=== PATIENT | female | born 1965 | race Hispanic/Latino ===

== ENCOUNTER 2017-12-13 19:49 | Emergency (ER) | payer SELFPAY ==
[2017-12-13] MEDS ORDERED: FENTANYL CITR 100 MCG/2 ML ONE (20:59)
--- NOTE | 2017-12-13 21:33 | RAD REPORT ---
EXAM DESCRIPTION: CT - Head C Spine Cap Wo Con - 12/13/2017 9:18 pm CLINICAL HISTORY: Trip and fall, head, neck, chest and abdomen pain COMPARISON: None. TECHNIQUE: Axial [address] head images were obtained. Axial [address] cervical spine images were obtain ed with sagittal and coronal reconstruction images reviewed. Axial 5 mm images of the chest, abdomen and pelvis were obtained. All CT scans are performed using dose optimization technique as appropriate and may include automated exposure control or mA/KV adjustment according to patient size. FINDINGS: No intracranial hemorrhage, mass or edema. No midline shift or abnormal fluid collection. Mastoid air cells and paranasal sinuses are clear. No skull fracture. Ventricles are normal. No sign ificant atrophy or chronic ischemic change. Cervical bodies are normal in height and alignment. No fracture or acute bone finding.C5-6 and C6-7 d isc space narrowing present.No prevertebral soft tissue thickening or paraspinal mass.Central canal d etail is inherently limited on CT imaging. CT chest shows no pneumothorax, pulmonary contusion or pleural fluid collection. No mediastinal hem atoma and the aorta and pulmonary arteries are unremarkable. No chest will mass or abnormal axillary finding. No displaced rib fracture or other significant bony finding. CT abdomen and pelvis show no injury to solid abdominal viscera. Gallbladder and biliary tree are unr emarkable. No bowel injury or significant finding. No free air, free fluid or abnormal stranding. No hernia, mass or bulky lymphadenopathy. No urinary bladder abnormality. Degenerative changes are present throughout the skeleton. No pathologic bone process. IMPRESSION: No significant CT Head finding. Cervical spine degenerative change with no acute finding. No pneumothorax or pulmonary contusion. No displaced rib fracture present and no nondisplaced rib fra ctures suspected. No significant CT Abdomen and Pelvis finding.
[2017-12-13] MEDS ORDERED: HYDROCODONE/APAP 5/325 MG TAB ONE (21:58)
--- NOTE | 2017-12-13 22:20 | ER ---
Nurse's Notes [facility] Name: Cary Gan Age: 51 yrs Sex: Female : 1965 Arrival Date: 12/13/2017 Time: 19:53 Bed 13 Private MD: Diagnosis: Fall on same level from slipping, tripping and stumbling;Upper abdominal pain, unspecified;chest wall pain Presentation: 12/13 20:10 Presenting complaint: Patient states: she was walking at approx 1600 today tripped and bb fell forward onto her abdomen denies LOC and denies hitting her head states pain wasn't that bad until she went to [facility] at 1900 and suddenly had sharp pain to left side under her rib cage. She states it feels like something is moving, pain is making her nauseous and making it hard to breath, she also has pain in right shoulder. Care prior to arrival: None. Mechanism of Injury: Fall from standing position. Trauma event details: Injury occurred in the [facility], Injury occurred: in a public building. Injury occurred: December 13, 2017 Injury occurred at: 16:00. 20:10 Acuity: SANTANA 3 bb 20:10 Method Of Arrival: Wheelchair bb 20:17 Transition of care: patient was not received from another setting of care. Onset of bb symptoms was December 13, 2017. Initial Sepsis Screen: Does the patient meet any 2 criteria? No. Patient's initial sepsis screen is negative. Does the patient have a suspected source of infection? No. Patient's initial sepsis screen is negative. 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 - Social history:: Smoking status: Patient/guardian denies using tobacco, Patient/guardian denies using alcohol, street drugs. Screenin:10 Abuse screen: Denies threats or abuse. Tuberculosis screening: No symptoms or risk bb factors identified. 20:49 Nutritional screening: No deficits noted. aj1 22:48 Fall Risk Fall in past 12 months (25 points). No secondary diagnosis (0 pts). No IV (0 bb pts). Ambulatory Aid- None/Bed Rest/Nurse Assist (0 pts). Mental Status- Oriented to own ability (0 pts). Total Alfonso Fall Scale indicates Low Risk Score (25-44 pts). Fall prevention measures have been instituted. Side Rails Up X 2 As available Patient and Family Educated on Fall Prevention Program and strategies. Primary Survey: 20:10 A: Airway: patent. Breathing/Chest: Respiratory pattern: regular, Respiratory effort: bb unlabored, Breath sounds: clear, bilaterally. Circulation: Heart tones present. Pulses: palpable right radial artery and left radial artery. Skin color: pink, Skin temperature: warm, dry. Disability Alert. Assessment: 20:10 General: Appears uncomfortable, Behavior is anxious, crying. Pain: Complains of pain in bb left side Pain currently is 8 out of 10 on a pain scale. Quality of pain is described as sharp, Pain began suddenly, Is continuous, Alleviated by positioning and not moving Aggravated by increased activity. Neuro: Level of Consciousness is awake, alert, obeys commands, Oriented to person, place, time, situation. 20:45 Reassessment: Patient states she would like to remain in wheelchair because it would aj1 hurt to get in the bed. 20:49 General: Appears uncomfortable, Behavior is anxious, crying, restless. Pain: Complains aj1 of pain in right lateral anterior chest Pain does not radiate. Pain currently is 10 out of 10 on a pain scale. Quality of pain is described as sharp, Pain began suddenly, Is continuous, Alleviated by rest, Aggravated by increased activity, repositioning. 20:49 Neuro: Level of Consciousness is awake, alert, obeys commands, Oriented to person, aj1 place, time, situation. Cardiovascular: Heart tones S1 S2 present Patient's skin is warm and dry. Respiratory: Airway is patent Respiratory effort is even, unlabored, Respiratory pattern is regular, symmetrical, Breath sounds are clear bilaterally. GI: No signs and/or symptoms were reported involving the gastrointestinal system. : No signs and/or symptoms were reported regarding the genitourinary system. EENT: No signs and/or symptoms were reported regarding the EENT system. Derm: No signs and/or symptoms reported regarding the dermatologic system. Skin is pink, warm \T\ dry. normal. Musculoskeletal: No signs and/or symptoms reported regarding the musculoskeletal system. Circulation, motion, and sensation intact. 20:49 Reassessment: Patient states that she would like to move to the bed because she is aj1 uncomfortable in the wheelchair, patient assisted to the bed and a position of comfort. 20:53 Reassessment: Patient given a warm blanket for comfort. aj1 21:00 Reassessment: Patient is screaming that she is uncomfortable. Patient assisted into a aj1 position that is more comfortable, states that her pain is diminished some by the change in position. 21:05 Reassessment: communications technologist at bedside to bring patient to CT, patient is unable to move to aj1 wheelchair due to pain. Notified Sb Ramirez NP. Order received. Patient given pain medication and taken to CT via stretcher. 21:30 Reassessment: Patient returned from CT, crying, restless, anxious. States that Fentanyl aj1 did not help her pain at all. Patient states that laying flat makes her pain worse. Patient assisted to a more comfortable position, appears calmer, no longer crying, states that position helps some but she is still hurting a lot. Notified Sb Ramirez NP of patient's continued complaint of pain. 22:45 Reassessment: pt appears to be sleeping, eyes closed, resp unlabored, no signs of bb distress noted states pain improved now 7/10, verbalized understanding of and agrees to plan of care discharge instructions given pt given incentive spirometer and instructed on use awaiting ride home family is on the way. Vital Signs: 20:10 BP 141 / 78; Pulse 75; Resp 18 S; Temp 98.2(O); Pulse Ox 98% on R/A; Weight 89.36 kg bb (R); Height 5 ft. 4 in. (162.56 cm) (R); Pain 8/10; 20:49 BP 125 / 59; Pulse 65; Resp 18; Pulse Ox 100% on R/A; aj1 21:49 BP 103 / 54; Pulse 58; Resp 20; Pulse Ox 95% on R/A; aj1 22:47 BP 115 / 52; Pulse 56; Resp 14 S; Pulse Ox 95% on R/A; Pain 7/10; bb 20:10 Body Mass Index 33.81 (89.36 kg, 162.56 cm) bb Joe Coma Score: 20:10 Eye Response: spontaneous(4). Verbal Response: oriented(5). Motor Response: obeys bb commands(6). Total: 15. Trauma Score (Adult): 20:10 Eye Response: spontaneous(1); Verbal Response: oriented(1); Motor Response: obeys bb commands(2); Systolic BP: > 89 mm Hg(4); Respiratory Rate: 10 to 29 per min(4); Joe Score: 15; Trauma Score: 12 ED Course: 19:53 Patient arrived in ED. am2 20:10 Patient maintains SpO2 saturation greater than 95% on room air. bb 20:13 Triage completed. bb 20:19 Arm band placed on left wrist. Patient placed in an exam room, on a stretcher, on pulse bb oximetry. 20:27 Gertrudis Ramirez FNP-C is PHCP. snw 20:27 Tommy Byrd MD is Attending Physician. snw 20:27 Mouna Angela, RN is Primary Nurse. aj1 20:49 No provider procedures requiring assistance completed. aj1 20:49 Patient has correct armband on for positive identification. Bed in low position. Call aj1 light in reach. Side rails up X 1. Pulse ox on. NIBP on. 20:[address] 2 21:15 CT completed. Pt tolerated procedure poorly. Patient moved back from CT. nj 21:17 CT Traumagram (Head C Spine CAP wo con) In Process Unspecified. EDMS 22:49 Patient did not have IV access during this emergency room visit. bb Administered Medications: 21:05 Drug: fentaNYL (PF) 25 mcg Route: IM; Site: left deltoid; aj1 22:05 Follow up: Response: No adverse reaction aj1 22:05 Drug: [place] 5 mg-325 mg 1 tabs Route: PO; aj1 22:45 Follow up: Response: No adverse reaction; Pain is decreased bb Intake: 20:10 PO: 0ml; Total: 0ml. bb Outcome: 22:19 Discharge ordered by MD. kyle 22:49 Condition: stable bb 22:49 Discharge instructions given to patient, Instructed on discharge instructions, follow up and referral plans. medication usage, incentive spirometry Demonstrated understanding of instructions, follow-up care, medications. 23:09 Discharged to home via wheelchair, with family. bb 23:10 Patient left the ED. bb Signatures: Dispatcher [employer] EDMS Mouna Angela RN RN aj1 Gertrudis Ramirez, SHIP FITTER-C SHIP FITTER-Csnw Kathy Miles RN KINGS bb Armando You Amanda am2 McGuire, Victoria 2 Corrections: (The following items were deleted from the chart) 21:40 20:49 Pain: Complains of pain in right lateral anterior chest Pain does not radiate. aj1 Pain aj1
--- NOTE | 2017-12-13 22:20 | EDPHYS ---
Physician Documentation [facility] Name: Cary Gan Age: 51 yrs Sex: Female : 1965 Arrival Date: 12/13/2017 Time: 19:53 Bed 13 Private MD: ED Physician Tommy Byrd HPI: 12/13 21:07 This 51 yrs old Female presents to ER via Wheelchair with complaints of Fall snw Injury, Rib pain. 21:07 Details of fall: The patient fell from an upright position, tripped. Onset: The snw symptoms/episode began/occurred suddenly, today. Associated injuries: The patient sustained injury to the chest, injury to the abdomen, specifically the left lower chest wall. Severity of symptoms: At their worst the symptoms were moderate. It is unknown whether or not the patient has had similar symptoms in the past. It is unknown whether or not the patient has recently seen a physician. pt felt initially fine and now is screaming and moaning in pain. 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 - Social history:: Smoking status: Patient/guardian denies using tobacco, Patient/guardian denies using alcohol, street drugs. ROS: 21:06 Constitutional: Negative for fever, chills, and weight loss, Eyes: Negative for injury, snw pain, redness, and discharge, ENT: Negative for injury, pain, and discharge, Neck: Negative for injury, pain, and swelling, Cardiovascular: Negative for chest pain, palpitations, and edema, Respiratory: Negative for shortness of breath, cough, wheezing, and pleuritic chest pain, Abdomen/GI: Negative for abdominal pain, nausea, vomiting, diarrhea, and constipation, Back: Negative for injury and pain, : Negative for injury, bleeding, discharge, and swelling, Skin: Negative for injury, rash, and discoloration, Neuro: Negative for headache, weakness, numbness, tingling, and seizure. 21:06 MS/extremity: Positive for injury or acute deformity, decreased range of motion, pain, of the left anterior distal chest wall. Exam: 22:22 Head/Face: Normocephalic, atraumatic. Eyes: Pupils equal round and reactive to light, snw extra-ocular motions intact. Lids and lashes normal. Conjunctiva and sclera are non-icteric and not injected. Cornea within normal limits. Periorbital areas with no swelling, redness, or edema. ENT: Nares patent. No nasal discharge, no septal abnormalities noted. Tympanic membranes are normal and external auditory canals are clear. Oropharynx with no redness, swelling, or masses, exudates, or evidence of obstruction, uvula midline. Mucous membranes moist. Neck: Trachea midline, no thyromegaly or masses palpated, and no cervical lymphadenopathy. Supple, full range of motion without nuchal rigidity, or vertebral point tenderness. No Meningismus. Chest/axilla: Normal chest wall appearance and motion. Nontender with no deformity. No lesions are appreciated. Cardiovascular: Regular rate and rhythm with a normal S1 and S2. No gallops, murmurs, or rubs. Normal PMI, no JVD. No pulse deficits. Respiratory: Lungs have equal breath sounds bilaterally, clear to auscultation and percussion. No rales, rhonchi or wheezes noted. No increased work of breathing, no retractions or nasal flaring. Abdomen/GI: Soft, non-tender, with normal bowel sounds. No distension or tympany. No guarding or rebound. No evidence of tenderness throughout. states left upper quad feels like "something rolling around" Back: No spinal tenderness. No costovertebral tenderness. Full range of motion. Skin: Warm, dry with normal turgor. Normal color with no rashes, no lesions, and no evidence of cellulitis. MS/ Extremity: Pulses equal, no cyanosis. Neurovascular intact. Full, normal range of motion. Neuro: Awake and alert, GCS 15, oriented to person, place, time, and situation. Cranial nerves II-XII grossly intact. Motor strength 5/5 in all extremities. Sensory grossly intact. Cerebellar exam normal. Normal gait. 22:22 Constitutional: The patient appears alert, awake, screaming and moaning in ED and then talking on cell phone, screaming increases on staff attention Vital Signs: 20:10 BP 141 / 78; Pulse 75; Resp 18 S; Temp 98.2(O); Pulse Ox 98% on R/A; Weight 89.36 kg bb (R); Height 5 ft. 4 in. (162.56 cm) (R); Pain 8/10; 20:49 BP 125 / 59; Pulse 65; Resp 18; Pulse Ox 100% on R/A; aj1 21:49 BP 103 / 54; Pulse 58; Resp 20; Pulse Ox 95% on R/A; aj1 22:47 BP 115 / 52; Pulse 56; Resp 14 S; Pulse Ox 95% on R/A; Pain 7/10; bb 20:10 Body Mass Index 33.81 (89.36 kg, 162.56 cm) bb Ayer Coma Score: 20:10 Eye Response: spontaneous(4). Verbal Response: oriented(5). Motor Response: obeys bb commands(6). Total: 15. Trauma Score (Adult): 20:10 Eye Response: spontaneous(1); Verbal Response: oriented(1); Motor Response: obeys bb commands(2); Systolic BP: > 89 mm Hg(4); Respiratory Rate: 10 to 29 per min(4); Joe Score: 15; Trauma Score: 12 MDM: 20:27 Patient medically screened. snw 22:22 Data reviewed: vital signs, nurses notes. Data interpreted: Pulse oximetry: on room air snw is 95 %. Interpretation: normal. Counseling: I had a detailed discussion with the patient and/or guardian regarding: the historical points, exam findings, and any diagnostic results supporting the discharge/admit diagnosis, radiology results, the need for outpatient follow up, to return to the emergency department if symptoms worsen or persist or if there are any questions or concerns that arise at home. Special discussion: Based on the patient's history, exam, and Dx evaluation, there is no indication for emergent intervention or inpatient Tx. It is understood by the patient/guardian that if the Sx's persist or worsen they need to return immediately for re-evaluation. Based on the patient's Hx, exam, and Dx evaluation, there is no indication for emergent surgery or inpatient Tx. It is understood by the patient/guardian that if the Sx's persist or worsen they need to return immediately for re-evaluation. Based on the history and exam findings, there is no indication for further emergent testing or inpatient evaluation. I discussed with the patient/guardian the need to see the primary care provider for further evaluation of the symptoms. ED course: upon notifying pt of CT results, she requests MRI. 12/13 20:26 Order name: CT Traumagram (Head C Spine CAP wo con); Complete Time: 21:36 snw 12/13 22:27 Order name: INCENTIVE SPIROMETRY snw Administered Medications: 21:05 Drug: fentaNYL (PF) 25 mcg Route: IM; Site: left deltoid; aj 22:05 Follow up: Response: No adverse reaction 22:05 Drug: [place] 5 mg-325 mg 1 tabs Route: PO; aj 22:45 Follow up: Response: No adverse reaction; Pain is decreased grace Disposition: 12/14 03:01 Co-signature as Attending Physician, Tommy Byrd MD. Disposition: 12/13/17 22:19 Discharged to Home. Impression: Fall on same level from slipping, tripping and stumbling, Upper abdominal pain, unspecified, chest wall pain. - Condition is Stable. - Discharge Instructions: Abdominal Pain, Adult, Costochondritis, Fall Prevention and Home Safety. - Prescriptions for Bentyl 20 mg Oral Tablet - take 1 tablet by ORAL route every 6 hours As needed; 20 tablet. Zofran 4 mg Oral Tablet - take 1 tablet by ORAL route every 12 hours As needed; 6 tablet. - Medication Reconciliation Form, Thank You Letter, Antibiotic Education, Prescription Opioid Use form. - Follow up: Private Physician; When: Tomorrow; Reason: Recheck today's complaints, Continuance of care, Re-evaluation by your physician. Follow up: Emergency Department; When: As needed; Reason: Worsening of condition. Signatures: Dispatcher [employer] Mouna Huerta RN RN aj1 Gertrudis Ramirez, LEAD NITRATE PROCESSOR-C LEAD NITRATE PROCESSOR-Csnw Kathy Miles RN RN bb Starr, Gregory, MD MD gs Corrections: (The following items were deleted from the chart) 12/13 21:07 21:06 MS/extremity: Positive for injury or acute deformity, decreased range of motion, snw pain, snw
== END 2017-12-13 23:10 | disposition home or self-care (01) ==
LOC: ER 19:49
DX: R07.89 Other chest pain (principal); W18.09XA Striking against other object with subsequent fall, initial encounter; Y93.9 Activity, unspecified; Y92.9 Unspecified place or not applicable; E11.9 Type 2 diabetes mellitus without complications; F32.9 Major depressive disorder, single episode, unspecified; F41.9 Anxiety disorder, unspecified
CPT/HCPCS: 70450; 71250; 72125; 96372; 99285; J3010

== ENCOUNTER 2018-01-29 15:47 | Emergency (ER) | payer SELFPAY ==
--- NOTE | 2018-01-29 17:46 | RAD REPORT ---
EXAM DESCRIPTION: Shoulder Right 2 View - 01/29/2018 5:31 pm CLINICAL HISTORY: Fall, shoulder pain COMPARISON: None. TECHNIQUE: Internal and external rotation views of the right shoulder were obtained. FINDINGS: No fracture or dislocation of the proximal humerus. No rib fracture or other acute upper c hest finding. Degenerative change present at the undersurface of the acromion. Minimal AC joint degen erative change without inferior spurring. Acromial humeral joint space is narrowed slightly along the lateral margin. No abnormal soft tissue calcification. IMPRESSION: Shoulder joint degenerative changes are present without an acute finding. Concerns for rotator cuff tear can be addressed with MR imaging.
--- NOTE | 2018-01-29 18:13 | RAD REPORT ---
EXAM DESCRIPTION: CT - [id number] - 01/29/2018 5:49 pm CLINICAL HISTORY: Trauma, head and neck injury. COMPARISON: None. TECHNIQUE: Axial 5 mm thick images of the head were obtained. Axial 2 mm thick images of the cervical spine were obtained with sagittal and coronal reconstruction images generated and reviewed. All CT scans are performed using dose optimization technique as appropriate and may include automated exposure control or mA/KV adjustment according to patient size. FINDINGS: CT HEAD WITHOUT CONTRAST: No acute hemorrhage, hydrocephalus or extra-axial collection is identified.No areas of brain edema or midline shift. Mild mucoperiosteal thickening affects both maxillary antra.The calvarium is intact. CT CERVICAL SPINE WITHOUT CONTRAST: No fracture or subluxation.Mild lower cervical spondylosis.No prevertebral soft tissues swelling is i dentified. IMPRESSION: No acute intracranial or cervical spine findings.
--- NOTE | 2018-01-29 18:46 | EDPHYS ---
Physician Documentation [facility] Name: Cary Gan Age: 52 yrs Sex: Female : 1965 Arrival Date: 01/29/2018 Time: 15:59 Bed 16 Private MD: ED Physician Trey Miller HPI: 01/29 16:53 This 52 yrs old Female presents to ER via EMS with complaints of Right pm1 shoulder pain . 16:53 Details of fall: The patient fell from an upright position, while walking. Onset: The pm1 symptoms/episode began/occurred yesterday. Associated injuries: The patient sustained injury to the head, anterior aspect of right shoulder. Severity of symptoms: in the emergency department the symptoms are unchanged. The patient has not experienced similar symptoms in the past. The patient has not recently seen a physician. Patient fell backwards when her knees buckled. Patient landed on her right shoulder and hit the back of her head on parking stop. Patient without LOC. Patient reports right shoulder pain and headache. Patient able to move her right arm with the assistance of her left hand. 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 - Irregular menses ch Historical: - Allergies: 16:18 NKA; ch - Home Meds: 16:18 gabapentin Oral 1 cap four times a day [Active]; levemir 10 U daily [Active]; metformin ch 1,000 mg Oral tab 2 times per day [Active]; Zoloft 50 mg Oral tab 1 tab once daily [Active]; ibuprofen 600 mg Oral tab 1 tab as needed [Active]; - PMHx: 16:18 Anxiety; Depression; Diabetes - IDDM; EDEMA; high blood pressure (resolved); High ch Cholesterol; neuropathy; Rheumatoid Arthritis; herniated disk lower back, neck vertibre fusion; "hot fashes"; - PSHx: 16:18 Appendectomy; pinched nerve in left foot x 2; neck fusion; ch - Immunization history:: Adult Immunizations up to date. - Social history:: Smoking status: Patient/guardian denies using tobacco. - Ebola Screening: : Patient negative for fever greater than or equal to 101.5 degrees Fahrenheit, and additional compatible Ebola Virus Disease symptoms Patient denies exposure to infectious person Patient denies travel to an Ebola-affected area in the 21 days before illness onset No symptoms or risks identified at this time. ROS: 16:53 Constitutional: Negative for fever, chills, and weight loss, Eyes: Negative for injury, pm1 pain, redness, and discharge, ENT: Negative for injury, pain, and discharge, Neck: Negative for injury, pain, and swelling, Cardiovascular: Negative for chest pain, palpitations, and edema, Respiratory: Negative for shortness of breath, cough, wheezing, and pleuritic chest pain, Abdomen/GI: Negative for abdominal pain, nausea, vomiting, diarrhea, and constipation, Back: Negative for injury and pain. 16:53 Skin: Negative for injury, rash, and discoloration. 16:53 MS/extremity: Positive for pain, of the posterior aspect of right shoulder. 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 Exam: 16:53 Constitutional: This is a well developed, well nourished patient who is awake, alert, pm1 and in no acute distress. Head/Face: Normocephalic, atraumatic. Eyes: Pupils equal round and reactive to light, extra-ocular motions intact. Lids and lashes normal. Conjunctiva and sclera are non-icteric and not injected. Cornea within normal limits. Periorbital areas with no swelling, redness, or edema. ENT: Nares patent. No nasal discharge, no septal abnormalities noted. Tympanic membranes are normal and external auditory canals are clear. Oropharynx with no redness, swelling, or masses, exudates, or evidence of obstruction, uvula midline. Mucous membranes moist. Neck: Trachea midline, no thyromegaly or masses palpated, and no cervical lymphadenopathy. Supple, full range of motion without nuchal rigidity, or vertebral point tenderness. No Meningismus. Chest/axilla: Normal chest wall appearance and motion. Nontender with no deformity. No lesions are appreciated. Cardiovascular: Regular rate and rhythm with a normal S1 and S2. No gallops, murmurs, or rubs. Normal PMI, no JVD. No pulse deficits. Respiratory: Lungs have equal breath sounds bilaterally, clear to auscultation and percussion. No rales, rhonchi or wheezes noted. No increased work of breathing, no retractions or nasal flaring. Abdomen/GI: Soft, non-tender, with normal bowel sounds. No distension or tympany. No guarding or rebound. No evidence of tenderness throughout. Back: No spinal tenderness. No costovertebral tenderness. Full range of motion. Skin: Warm, dry with normal turgor. Normal color with no rashes, no lesions, and no evidence of cellulitis. 16:53 Musculoskeletal/extremity: Extremities: grossly normal except: noted in the anterior aspect of right shoulder: pain, There is no evidence of deformity. Vital Signs: 16:18 BP 134 / 65; Pulse 56; Resp 14; Temp 98.5; Pulse Ox 96% on R/A; Weight 90.72 kg; Height ch 5 ft. 2 in. (157.48 cm); Pain 6/10; 18:18 BP 136 / 82; Pulse 61; Resp 14; Temp 98.3; Pulse Ox 99% on R/A; Pain 8/10; ch 19:28 BP 124 / 78; Pulse 52; Resp 14; Temp 98.4; Pulse Ox 99% on R/A; Pain 6/10; ch 16:18 Body Mass Index 36.58 (90.72 kg, 157.48 cm) ch MDM: 16:48 Patient medically screened. pm1 18:44 Data reviewed: vital signs. Data interpreted: Pulse oximetry: on room air is 99 %. pm1 Interpretation: normal. Counseling: I had a detailed discussion with the patient and/or guardian regarding: the historical points, exam findings, and any diagnostic results supporting the discharge/admit diagnosis, radiology results, the need for outpatient follow up, to return to the emergency department if symptoms worsen or persist or if there are any questions or concerns that arise at home. 01/29 18:16 Order name: Urine Dipstick--Ancillary (enter results) em1 01/29 16:52 Order name: Shoulder Right (2 View) XRAY; Complete Time: 18:43 pm1 01/29 16:52 Order name: CT Head C Spine; Complete Time: 18:43 pm1 01/29 16:52 Order name: Sling; Complete Time: 17:38 pm1 01/29 18:16 Order name: Urine Dipstick-Ancillary (obtain specimen); Complete Time: 18:16 em1 Administered Medications: 18:55 Drug: [place] (7.5 mg-325 mg) 1 tabs Route: PO; ch 19:32 Follow up: Response: No adverse reaction Disposition: 01/30 08:23 Co-signature as Attending Physician, Trey Miller MD I agree with the assessment and [facility] plan of care. Disposition: 01/29/18 18:46 Discharged to Home. Impression: Superficial injury of head, Pain in right shoulder - possible rotator cuff injury, Other slipping, tripping and stumbling and falls. - Condition is Stable. - Discharge Instructions: Head Injury, Adult, Shoulder Pain. - Prescriptions for Tylenol- Codeine #3 300-30 mg Oral Tablet - take 2 tablets by ORAL route every 6 hours As needed; 20 tablet. - Medication Reconciliation Form, Thank You Letter, Prescription Opioid Use form. - Follow up: Emergency Department; When: As needed; Reason: Worsening of condition. Follow up: [place] MD; When: 2 - 3 days; Reason: Recheck today's complaints, Continuance of care, Re-evaluation by your physician. - Problem is new. - Symptoms have improved. Signatures: Dispatcher [employer] EDMS Jennifer Pinto, KINGS RN Farida Krueger RN RN aa1 Trey Miller MD MD cha Martinez, Eric 1 Hermilo Jackson, MANDY SUPPLY CHAIN COORDINATOR pm1 Corrections: (The following items were deleted from the chart) 01/29 19:28 18:46 01/29/2018 18:46 Discharged to Home. Impression: Superficial injury of headPain aa1 in right shoulder - possible rotator cuff injury; Other slipping, tripping and stumbling and falls. Condition is Stable. Forms are Medication Reconciliation Form, Thank You Letter, Antibiotic Education, Prescription Opioid Use. Follow up: Emergency Department; When: As needed; Reason: Worsening of condition. Follow up: [place]; When: 2 - 3 days; Reason: Recheck today's complaints, Continuance of care, Re-evaluation by your physician. Problem is new. Symptoms have improved. pm1
--- NOTE | 2018-01-29 18:46 | ER ---
Nurse's Notes [facility] Name: Cary Gan Age: 52 yrs Sex: Female : 1965 Arrival Date: 01/29/2018 Time: 15:59 Bed 16 Private MD: Diagnosis: Pain in right shoulder-possible rotator cuff injury;Superficial injury of head;Other slipping, tripping and stumbling and falls Presentation: 01/29 16:09 Presenting complaint: EMS states: pt fell last night around 1999. denies LOC, trauma to ch head, or hitting head or neck. pt states she falls often because her knees give out. pt c/o pain to R shoulder, has hx of vertebral fusions in neck. pt states her R arm feels weak. at 1000 today pt felt dizzy and got sharp shooting pains in her R shoulder. 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 pt ambulated from apartment to ambulance. Transition of care: patient was not received from another setting of care. Onset of symptoms was January 28, 2018 at 20:00. Risk Assessment: Do you want to hurt yourself or someone else? Patient reports no desire to harm self or others. Initial Sepsis Screen: Does the patient meet any 2 criteria? No. Patient's initial sepsis screen is negative. Does the patient have a suspected source of infection? No. Patient's initial sepsis screen is negative. Care prior to arrival: Medication(s) given: zofran 4 mg. 16:09 Method Of Arrival: EMS: [facility] 16:09 Acuity: SANTANA 4 ch Triage Assessment: 16:18 General: Appears in no apparent distress. comfortable, Behavior is calm, cooperative, ch appropriate for age. Pain: Complains of pain in anterior aspect of right shoulder and posterior aspect of right shoulder. Neuro: Level of Consciousness is awake, alert, obeys commands, Oriented to person, place, time, situation, Converter Skimmer are equal bilaterally Moves all extremities. pt c/o pain and weakness in R shoulder. . Gait is steady, Speech is normal, Facial symmetry appears normal, Facial symmetry: tongue is midline, Pupils are PERRLA, Reports dizziness. Respiratory: Airway is patent Respiratory effort is even, unlabored, Breath sounds are clear bilaterally. : No signs and/or symptoms were reported regarding the genitourinary system. Derm: Skin is pink, warm \\T\\ dry. Musculoskeletal: Capillary refill < 3 seconds, in bilateral fingers. toes. Range of motion: limited in right shoulder Swelling absent. 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 - Irregular menses ch Historical: - Allergies: 16:18 NKA; ch - Home Meds: 16:18 gabapentin Oral 1 cap four times a day [Active]; levemir 10 U daily [Active]; metformin ch 1,000 mg Oral tab 2 times per day [Active]; Zoloft 50 mg Oral tab 1 tab once daily [Active]; ibuprofen 600 mg Oral tab 1 tab as needed [Active]; - PMHx: 16:18 Anxiety; Depression; Diabetes - IDDM; EDEMA; high blood pressure (resolved); High ch Cholesterol; neuropathy; Rheumatoid Arthritis; herniated disk lower back, neck vertibre fusion; "hot fashes"; - PSHx: 16:18 Appendectomy; pinched nerve in left foot x 2; neck fusion; ch - Immunization history:: Adult Immunizations up to date. - Social history:: Smoking status: Patient/guardian denies using tobacco. - Ebola Screening: : Patient negative for fever greater than or equal to 101.5 degrees Fahrenheit, and additional compatible Ebola Virus Disease symptoms Patient denies exposure to infectious person Patient denies travel to an Ebola-affected area in the 21 days before illness onset No symptoms or risks identified at this time. Screenin:22 Abuse screen: Denies threats or abuse. Denies injuries from another. Nutritional ch screening: No deficits noted. Tuberculosis screening: No symptoms or risk factors identified. Fall Risk None identified. Assessment: 16:22 Reassessment: Patient appears in no apparent distress at this time. 18:16 Reassessment: Patient appears in no apparent distress at this time. Patient and/or ch family updated on plan of care and expected duration. Pain level reassessed. Patient is alert, oriented x 3, equal unlabored respirations, skin warm/dry/pink. Patient states symptoms have not improved. pt requests pain medication. Pt notified provider will come speak with her again when he is finished with a procedure. . 19:28 Reassessment: Patient appears in no apparent distress at this time. Vital Signs: 16:18 BP 134 / 65; Pulse 56; Resp 14; Temp 98.5; Pulse Ox 96% on R/A; Weight 90.72 kg; Height ch 5 ft. 2 in. (157.48 cm); Pain 6/10; 18:18 BP 136 / 82; Pulse 61; Resp 14; Temp 98.3; Pulse Ox 99% on R/A; Pain 8/10; ch 19:28 BP 124 / 78; Pulse 52; Resp 14; Temp 98.4; Pulse Ox 99% on R/A; Pain 6/10; ch 16:18 Body Mass Index 36.58 (90.72 kg, 157.48 cm) ED Course: 15:59 Patient arrived in ED. ch 16:08 Ulises Del Real, RN is Primary Nurse. ae1 16:09 Primary Nurse role handed off by Ulises Del Real, RN ch 16:09 Jennifer Pinto, KINGS is Primary Nurse. ch 16:12 Triage completed. ch 16:12 X-ray completed. Portable x-ray completed in exam room. Patient tolerated procedure kc2 well. 16:18 Arm band placed on left wrist. Patient placed in an exam room, on a stretcher, on pulse ch oximetry. 16:22 No apparent distress. Resting quietly. ch 16:22 Patient has correct armband on for positive identification. Placed in gown. Bed in low ch position. Call light in reach. Side rails up X 1. Adult w/ patient. Pulse ox on. NIBP on. 16:22 Assist provider with bone marrow aspiration. ch 16:22 Maintain EMS IV. Dressing intact. Good blood return noted. Site clean \\T\\ dry. Gauge \\T\\ ch site: 22 R hand. 16:38 Hermilo Jackson NP is PHCP. pm1 16:38 Trey Miller MD is Attending Physician. pm1 17:04 Radiology exam delayed due to PT USING RESTROOM. kc2 17:22 X-ray completed. Portable x-ray completed in exam room. Patient tolerated procedure kp1 well. 17:23 Shoulder Right (2 View) XRAY In Process Unspecified. EDMS 17:[address] via stretcher. mw3 17:50 CT Head C Spine In Process Unspecified. EDMS 18:45 [place] Melendrez MD is Referral Physician. pm1 19:28 IV discontinued, intact, bleeding controlled, No redness/swelling at site. Pressure ch dressing applied. Administered Medications: 18:55 Drug: [place] (7.5 mg-325 mg) 1 tabs Route: PO; 19:32 Follow up: Response: No adverse reaction Outcome: 18:46 Discharge ordered by . pm1 19:28 Patient left the ED. aa1 19:28 Discharged to home via wheelchair, with family. 19:28 Condition: stable 19:28 Discharge instructions given to patient, family, Instructed on discharge instructions, follow up and referral plans. no drinking with medication, no driving heavy equipment, medication usage, Demonstrated understanding of instructions, follow-up care, medications, Prescriptions given X 1. Signatures: Dispatcher [employer] EDJennifer Hand RN RN Farida Krueger RN RN aa1 Hermilo Jackson NP FERRYBOAT HELPER pm1 Maggie Lozano kc2 Ulises Del Real RN RN ae1 Chasity Funk kp1 Simi Sher mw3
[2018-01-29 23:03] LABS: Urine Blood TRACE (NEG); Urine Glucose 2+ (NEG); Urine Protein 1+ (NEG); Urine Specific Gravity 1.015 (1.005-1.030); Urine pH 6.5 (5.0-7.0)
== END 2018-01-29 19:28 | disposition home or self-care (01) ==
LOC: ER 15:47
DX: S00.90XA Unspecified superficial injury of unspecified part of head, initial encounter (principal); W01.0XXA Fall on same level from slipping, tripping and stumbling without subsequent striking against object, initial encounter; Y93.9 Activity, unspecified; Y92.9 Unspecified place or not applicable; E11.9 Type 2 diabetes mellitus without complications; F41.9 Anxiety disorder, unspecified; F32.9 Major depressive disorder, single episode, unspecified
CPT/HCPCS: 70450; 72125; 81003; 99285

== ENCOUNTER 2018-07-15 06:30 | Inpatient (IN) | payer SELFPAY ==
--- OUTSIDE RECORDS SUMMARY | 2018-07-15 06:32 | XMS REPORT ---
:1965 [facility] Address [address] [place] [address] Care Team Providers Name Role Phone Unavailable Unavailable Unavailable Payers Payer Name Policy Type Policy Number Effective Date Expiration Date Problems This patient has no known problems. Allergies, Adverse Reactions, Alerts Allergy Allergy Status Severity Reaction(s) Onset Inactive Treating Comments Name Type Date Date Clinician No Known DA Active U 2015-10 Allergies -30 00:00:0 0 Medications This patient has no known medications.
[2018-07-15 08:14] LABS: Absolute Lymphocytes (CBC) 1.9 K/uL (0.7-4.9); Absolute Monocytes 0.4 K/uL (0.1-1.3); Absolute Neutrophil 3.2 K/uL (1.8-8.0); Basophils % 0.3 % (0-1.3); Eosinophils % 2.1 % (0-4.4); Hematocrit 34.2 % (36.0-45.0); Lymphocytes % 33.4 % (15.3-44.8); MCH 28.8 pg (27.0-35.0); MCV 86.2 fL (80-100); Monocytes % 7.4 % (3.3-12.3); RBC Red Blood Cell Count 3.97 M/uL (3.86-4.86)
[2018-07-15 08:29] LABS: ALT/SGPT 16 U/L (12-78); AST/SGOT 11 U/L (15-37); Albumin 3.2 g/dL (3.4-5.0); Alkaline Phosphatase 74 U/L (45-117); BUN Blood Urea Nitrogen 21 mg/dL (7-18); Bicarbonate 27 mmol/L (21-32); Bilirubin Direct 0.1 mg/dL (0-0.2); Bilirubin Total 0.4 mg/dL (0.2-1.0); Glucose Level 265 mg/dL (74-106); Lipase 1147 U/L (73-393); Magnesium 1.9 mg/dL (1.8-2.4); NT PRO-BNP 138 pg/mL (<125); Potassium 3.9 mmol/L (3.5-5.1); Protein, Total 7.5 g/dL (6.4-8.2); Protime INR 1.02; Sodium Level 138 mmol/L (136-145); Troponin (Emerg Dept Use Only) < 0.02 ng/mL (0.0-0.045)
[2018-07-15] MEDS ORDERED: MORPHINE 4 MG/ML SYR ONE ×2 (09:09→11:17)
[2018-07-15] MEDS ORDERED: ONDANSETRON 4 MG/2 ML VIAL ONE (09:09)
--- NOTE | 2018-07-15 09:42 | RAD REPORT ---
EXAM DESCRIPTION: CTAbdomen Pelvis W Contrast - 07/15/2018 9:01 am CLINICAL HISTORY: Abdominal pain. ABD PAIN COMPARISON: No comparisons TECHNIQUE: Biphasic CT imaging of the abdomen and pelvis was performed with 100 ml non-ionic IV cont rast. All CT scans are performed using dose optimization technique as appropriate and may include automated exposure control or mA/KV adjustment according to patient size. FINDINGS: Small area of pneumonitis is noted in the right lung base with tiny nodularity. The liver demonstrates mild fatty infiltration. Small nonspecific 14 mm enhancing lesion in the right lobe liver is noted, favored to be benign. The spleen, pancreas, adrenal glands and kidneys are with in normal limits. No bowel obstruction, free air, free fluid or abscess. Appendectomy. No evidence of significant lym phadenopathy. No suspicious bony findings. Moderate lumbar degenerative changes. IMPRESSION: No acute intra-abdominal or pelvic finding. Fatty liver with small enhancing right lobe liver lesion, favored to be benign. Followup nonemergent MR liver protocol could be performed for further assessment.
--- NOTE | 2018-07-15 10:28 | RAD REPORT ---
EXAM DESCRIPTION: RAD - Chest Single View - 07/15/2018 6:59 am CLINICAL HISTORY: COUGH Chest pain. COMPARISON: Chest Single View dated 09/28/2017 FINDINGS: Portable technique limits examination quality. The lungs are grossly clear. The heart is mildly prominent size. No displaced fractures. IMPRESSION: No acute intrathoracic process suspected.
[2018-07-15 10:46] LABS: Urine Blood 1+ (NEG); Urine Glucose 2+ (NEG); Urine Protein 1+ (NEG); Urine Specific Gravity 1.015 (1.005-1.030)
[2018-07-15] MEDS ORDERED: NA CHLORIDE 0.9% 1,000 ML ONE (11:17)
--- NOTE | 2018-07-15 11:39 | RAD REPORT ---
EXAM DESCRIPTION: US - Abdomen Exam Limited - 07/15/2018 11:33 am CLINICAL HISTORY: EPIGASTRIC PAIN COMPARISON: No comparisons FINDINGS: The gallbladder demonstrates no gallstones. No pericholecystic fluid or gallbladder wall t hickening. The common bile duct is normal measuring 3 mm. The liver demonstrates no findings of intrahepatic biliary dilatation. IMPRESSION: Unremarkable examination.
--- NOTE | 2018-07-15 12:01 | ER ---
Nurse's Notes [facility] Name: Cary Gan Age: 52 yrs Sex: Female : 1965 Arrival Date: 07/15/2018 Time: 06:39 Bed 16 Private MD: Diagnosis: Acute pancreatitis Presentation: 07/15 06:41 Presenting complaint: EMS states: Pt was presenting with HTN on scene. Reports having jb4 N/V and a headache with blurred vision. Transition of care: patient was not received from another setting of care. Onset of symptoms was July 15, 2018. Risk Assessment: Do you want to hurt yourself or someone else? Patient reports no desire to harm self or others. Initial Sepsis Screen: Does the patient meet any 2 criteria? No. Patient's initial sepsis screen is negative. Does the patient have a suspected source of infection? No. Patient's initial sepsis screen is negative. Care prior to arrival: None. 06:41 Method Of Arrival: EMS: [facility] jb4 06:41 Acuity: SANTANA 3 jb4 Triage Assessment: 06:44 General: Appears in no apparent distress. uncomfortable, Behavior is calm, cooperative. jb4 Pain: Complains of pain in Headache, abdominal pain Pain currently is 8 out of 10 on a pain scale. Quality of pain is described as crampy. EENT: No signs and/or symptoms were reported regarding the EENT system. Neuro: Level of Consciousness is awake, alert, obeys commands, Oriented to person, place, time, situation. Cardiovascular: Heart tones S1 S2 present Patient's skin is warm and dry. Respiratory: Airway is patent Respiratory effort is even, unlabored, Respiratory pattern is regular, agonal Breath sounds are clear bilaterally. GI: Abdomen is non-distended, obese, Bowel sounds present X 4 quads. Abd is soft X 4 quads Abdomen is tender to palpation X 4 quads. Reports lower abdominal pain, upper abdominal pain, cramping, nausea, vomiting. : No signs and/or symptoms were reported regarding the genitourinary system. Derm: Skin is intact, Skin is pink, warm \\T\\ dry. Musculoskeletal: Circulation, motion, and sensation intact. Historical: - Allergies: 06:44 NKA; jb4 - Home Meds: 06:44 gabapentin Oral 1 cap four times a day [Active]; ibuprofen 600 mg Oral tab 1 tab as jb4 needed [Active]; levemir 10 U daily [Active]; metformin 1,000 mg Oral tab 2 times per day [Active]; Zoloft 50 mg Oral tab 1 tab once daily [Active]; Tramadol Oral [Active]; - PMHx: 06:44 "hot fashes"; Anxiety; Depression; Diabetes - IDDM; EDEMA; herniated disk lower back, jb4 neck vertibre fusion; high blood pressure (resolved); High Cholesterol; neuropathy; Rheumatoid Arthritis; - PSHx: 06:44 Appendectomy; neck fusion; pinched nerve in left foot x 2; jb4 - Immunization history:: Adult Immunizations up to date, Flu vaccine is up to date. - Social history:: Smoking status: Patient/guardian denies using tobacco. - Ebola Screening: : No symptoms or risks identified at this time. Screenin:48 Abuse screen: Denies threats or abuse. Nutritional screening: No deficits noted. jb4 Tuberculosis screening: No symptoms or risk factors identified. Fall Risk None identified. Assessment: 06:48 General: see triage assessment.. jb4 08:00 General: Appears in no apparent distress. uncomfortable, obese, well groomed, Behavior ph is calm, cooperative, appropriate for age, Denies fever, chills. Pain: Complains of pain in epigastric area and left lower quadrant Quality of pain is described as sharp. Neuro: Level of Consciousness is awake, alert, obeys commands, Oriented to person, place, time, situation. Cardiovascular: Reports nausea, shortness of breath, vomiting, Denies chest pain, palpitations, Capillary refill < 3 seconds in bilateral fingers Patient's skin is warm and dry. Rhythm is sinus bradycardia. Respiratory: Airway is patent Respiratory effort is even, unlabored, Respiratory pattern is regular, symmetrical, Breath sounds are clear bilaterally. GI: Abdomen is round non-distended, Bowel sounds present X 4 quads. Abd is soft X 4 quads Abdomen is tender to palpation X 4 quads. Reports lower abdominal pain, upper abdominal pain, bloating, epigastric pain, nausea, vomiting. : Reports pain in left in suprapubic area lower quadrant(s) Denies burning with urination, urinary frequency. Derm: Skin is intact, is healthy with good turgor, Skin is pink, warm \\T\\ dry. Musculoskeletal: Circulation, motion, and sensation intact. Range of motion: intact in all extremities. 09:00 Reassessment: Patient appears in no apparent distress at this time. Patient and/or ph family updated on plan of care and expected duration. Pain level reassessed. Patient is alert, oriented x 3, equal unlabored respirations, skin warm/dry/pink. 10:00 Reassessment: Patient appears in no apparent distress at this time. Patient and/or ph family updated on plan of care and expected duration. Pain level reassessed. Patient is alert, oriented x 3, equal unlabored respirations, skin warm/dry/pink. Pt c/o pain in L leg, ERP notified, VSS, awaiting room assignment. 11:00 Reassessment: Patient appears in no apparent distress at this time. Patient and/or ph family updated on plan of care and expected duration. Pain level reassessed. Patient is alert, oriented x 3, equal unlabored respirations, skin warm/dry/pink. 11:15 Reassessment: Pt c/o abdominal pain after US, ERP notified, see MAR. ph 12:35 Reassessment: Patient appears in no apparent distress at this time. Patient and/or ph family updated on plan of care and expected duration. Pain level reassessed. Patient is alert, oriented x 3, equal unlabored respirations, skin warm/dry/pink. Dr Baig at bedside to speak w/ pt, awaiting room assignemnt. 13:30 Reassessment: Patient appears in no apparent distress at this time. Patient and/or ph family updated on plan of care and expected duration. Pain level reassessed. Pt asleep w/ even, unlabored respirations, awakens easily, awaiting room assignment. 14:21 Reassessment: Patient appears in no apparent distress at this time. Patient and/or ph family updated on plan of care and expected duration. Pain level reassessed. Patient is alert, oriented x 3, equal unlabored respirations, skin warm/dry/pink. Report called to 2nd floor, pt taken upstairs via wheelchair. Vital Signs: 06:44 BP 151 / 83; Pulse 71; Resp 18; Temp 98.6; Pulse Ox 97% on R/A; Weight 90.72 kg (R); jb4 Height 5 ft. 4 in. (162.56 cm) (R); 07:45 BP 122 / 67; Pulse 52; Resp 18; Pulse Ox 99% on R/A; ph 08:45 BP 138 / 61; Pulse 50; Resp 16; Pulse Ox 96% on R/A; ph 10:00 BP 148 / 66; Pulse 49; Resp 16; Pulse Ox 100% on R/A; ph 11:00 BP 109 / 55 RA Supine; Pulse 47; Resp 16; Pulse Ox 97% on R/A; ph 12:00 BP 117 / 60; Pulse 54; Resp 14; Pulse Ox 99% on R/A; ph 13:48 BP 120 / 64; Pulse 56; Resp 18; Temp 97.8; Pulse Ox 99% on R/A; ph 06:44 Body Mass Index 34.33 (90.72 kg, 162.56 cm) jb4 11:00 pt asleep, lying on R side ph Vitals: 10:23 Cardiac Rhythm Assessment Sinus flash. ph ED Course: 06:39 Patient arrived in ED. al2 06:39 Hermilo Jackson NP is PHCP. pm1 06:39 Jhonathan Schultz MD is Attending Physician. pm1 06:41 Emery Iyer, KINGS is Primary Nurse. jb4 06:42 Triage completed. jb4 06:48 Arm band placed on right wrist. jb4 06:48 Patient has correct armband on for positive identification. Bed in low position. Call jb4 light in reach. Side rails up X 1. Pulse ox on. NIBP on. 06:53 X-ray completed. Portable x-ray completed in exam room. Patient tolerated procedure sg4 well. 06:59 XRAY Chest (1 view) In Process Unspecified. EDMS 08:00 Inserted missed attempts by nights shift, LAC x 2 attempts and LFA x 1, pt currently ph refusing any additional peripheral IV attempts, states, " They had to do it in my neck last time. Can't we just do that?" ERP notified. 08:45 Inserted saline lock: 18 gauge in right EJ, using aseptic technique. ,using aseptic ph technique. inserted by Hermilo Jackson SENIOR C WEB DEVELOPER Blood collected. 08:57 CT completed. Patient tolerated procedure well. Patient moved back from CT. kw1 09:03 Abdomen In Process Unspecified. EDMS 10:14 No provider procedures requiring assistance completed. Patient admitted, IV remains in ph place. 11:30 Ultrasound completed. Patient tolerated well. sg3 11:33 US Abdomen Limited In Process Unspecified. EDMS 12:00 Jefferson Baig MD is Hospitalizing Provider. pm1 Administered Medications: 09:20 Drug: morphine 4 mg Route: IVP; Site: right jugular; ph 09:45 Follow up: Response: No adverse reaction; Pain is decreased ph 09:20 Drug: Zofran 4 mg Route: IVP; Site: right antecubital; ph 09:45 Follow up: Response: No adverse reaction; Nausea is decreased ph 11:36 Drug: morphine 4 mg Route: IVP; Site: right jugular; ph 11:37 Drug: NS 0.9% 1000 ml Route: IV; Rate: 100 ml/hr; Site: right jugular; ph Outcome: 12:00 Decision to Hospitalize by Provider. pm1 14:30 Admitted to Med/surg accompanied by tech, via wheelchair, room 215. ph 14:30 Condition: stable 14:30 Instructed on the need for admit. 14:31 Patient left the ED. ph Signatures: Dispatcher [employer] EDMT Joana Celis, RN RN ph Hermilo Jackson, SENIOR C WEB DEVELOPER SENIOR C WEB DEVELOPER pm1 Emery Iyer, RN RN jb4 Radha Swanson kw1 Radha Blanc sg3 Kyra Abad Susana sg4
--- NOTE | 2018-07-15 12:01 | EDPHYS ---
Physician Documentation [facility] Name: Cary Gan Age: 52 yrs Sex: Female : 1965 Arrival Date: 07/15/2018 Time: 06:39 Bed 16 Private MD: ED Physician Jhonathan Schultz HPI: 07/15 08:00 This 52 yrs old Female presents to ER via EMS with complaints of Abdominal pm1 pain and vomiting. 08:00 The patient presents with abdominal pain in the upper abdomen. Onset: The pm1 symptoms/episode began/occurred this morning. The symptoms do not radiate. Associated signs and symptoms: Pertinent positives: nausea and vomiting, headache, Pertinent negatives: chest pain, constipation, diarrhea, dysuria, fever, shortness of breath. The symptoms are described as achy. Modifying factors: The symptoms are alleviated by nothing, the symptoms are aggravated by nothing. Severity of pain: in the emergency department the pain is actually worse. The patient has not experienced similar symptoms in the past. Patient presented to the ER today with complaints of abdominal pain and vomiting. Patient reported that she had a headache and some blurry vision with the abdominal pain and vomiting. Has a history of migraines which give her the same headache and blurry vision that she is currently presenting with. Patient has not taken her metformin in about 1 week. Ran out of medication. Historical: - Allergies: 06:44 NKA; jb4 - Home Meds: 06:44 gabapentin Oral 1 cap four times a day [Active]; ibuprofen 600 mg Oral tab 1 tab as jb4 needed [Active]; levemir 10 U daily [Active]; metformin 1,000 mg Oral tab 2 times per day [Active]; Zoloft 50 mg Oral tab 1 tab once daily [Active]; Tramadol Oral [Active]; - PMHx: 06:44 "hot fashes"; Anxiety; Depression; Diabetes - IDDM; EDEMA; herniated disk lower back, jb4 neck vertibre fusion; high blood pressure (resolved); High Cholesterol; neuropathy; Rheumatoid Arthritis; - PSHx: 06:44 Appendectomy; neck fusion; pinched nerve in left foot x 2; jb4 - Immunization history:: Adult Immunizations up to date, Flu vaccine is up to date. - Social history:: Smoking status: Patient/guardian denies using tobacco. - Ebola Screening: : No symptoms or risks identified at this time. ROS: 08:00 Constitutional: Negative for fever, chills, and weight loss, Eyes: Negative for injury, pm1 pain, redness, and discharge, ENT: Negative for injury, pain, and discharge, Neck: Negative for injury, pain, and swelling, Cardiovascular: Negative for chest pain, palpitations, and edema, Respiratory: Negative for shortness of breath, cough, wheezing, and pleuritic chest pain. 08:00 Back: Negative for injury and pain, : Negative for injury, bleeding, discharge, and swelling, MS/Extremity: Negative for injury and deformity, Skin: Negative for injury, rash, and discoloration, Neuro: Negative for headache, weakness, numbness, tingling, and seizure. 08:00 Abdomen/GI: Positive for abdominal pain, nausea and vomiting, Negative for diarrhea, constipation, hematemesis, black/tarry stool. Exam: 08:00 Constitutional: This is a well developed, well nourished patient who is awake, alert, pm1 and in no acute distress. Head/Face: Normocephalic, atraumatic. Eyes: Pupils equal round and reactive to light, extra-ocular motions intact. Lids and lashes normal. Conjunctiva and sclera are non-icteric and not injected. Cornea within normal limits. Periorbital areas with no swelling, redness, or edema. ENT: Nares patent. No nasal discharge, no septal abnormalities noted. Tympanic membranes are normal and external auditory canals are clear. Oropharynx with no redness, swelling, or masses, exudates, or evidence of obstruction, uvula midline. Mucous membranes moist. Neck: Trachea midline, no thyromegaly or masses palpated, and no cervical lymphadenopathy. Supple, full range of motion without nuchal rigidity, or vertebral point tenderness. No Meningismus. Chest/axilla: Normal chest wall appearance and motion. Nontender with no deformity. No lesions are appreciated. Cardiovascular: Regular rate and rhythm with a normal S1 and S2. No gallops, murmurs, or rubs. Normal PMI, no JVD. No pulse deficits. Respiratory: Lungs have equal breath sounds bilaterally, clear to auscultation and percussion. No rales, rhonchi or wheezes noted. No increased work of breathing, no retractions or nasal flaring. 08:00 Back: No spinal tenderness. No costovertebral tenderness. Full range of motion. Skin: Warm, dry with normal turgor. Normal color with no rashes, no lesions, and no evidence of cellulitis. MS/ Extremity: Pulses equal, no cyanosis. Neurovascular intact. Full, normal range of motion. 08:00 Abdomen/GI: Inspection: obese Bowel sounds: normal, in all quadrants, Palpation: moderate abdominal tenderness, in the epigastric area and left upper quadrant, mass, is not appreciated, rebound tenderness, is not appreciated. 08:00 Neuro: Orientation: is normal, Motor: moves all fours. Vital Signs: 06:44 BP 151 / 83; Pulse 71; Resp 18; Temp 98.6; Pulse Ox 97% on R/A; Weight 90.72 kg (R); jb4 Height 5 ft. 4 in. (162.56 cm) (R); 07:45 BP 122 / 67; Pulse 52; Resp 18; Pulse Ox 99% on R/A; ph 08:45 BP 138 / 61; Pulse 50; Resp 16; Pulse Ox 96% on R/A; ph 10:00 BP 148 / 66; Pulse 49; Resp 16; Pulse Ox 100% on R/A; ph 11:00 BP 109 / 55 RA Supine; Pulse 47; Resp 16; Pulse Ox 97% on R/A; ph 12:00 BP 117 / 60; Pulse 54; Resp 14; Pulse Ox 99% on R/A; ph 13:48 BP 120 / 64; Pulse 56; Resp 18; Temp 97.8; Pulse Ox 99% on R/A; ph 06:44 Body Mass Index 34.33 (90.72 kg, 162.56 cm) jb4 11:00 pt asleep, lying on R side ph Procedures: 08:30 Performed IV insertion to right external jugular vein with aseptic technique. 1 pm1 successful attempt. Patient tolerated procedure well. Patient refused IV by RNs after 3 missed attempts to left arm. Patient requested external jugular vein IV. MDM: 06:39 Patient medically screened. pm1 06:45 ED course: Discussed diagnostic and management plan with patient. Patient refused CT pm1 head because she reports that her nausea, vomiting and abdominal pain are what brought her to the ER. Her abdomen hurts more than her headache and her headache feels like her prior migraines. . 07:00 Data reviewed: vital signs. Data interpreted: Pulse oximetry: on room air is 97 %. pm1 Interpretation: normal. 11:55 Counseling: I had a detailed discussion with the patient and/or guardian regarding: the pm1 historical points, exam findings, and any diagnostic results supporting the discharge/admit diagnosis, lab results, radiology results, the need for further work-up and treatment in the hospital. 12:01 Physician consultation: Jefferson Baig MD was called at 12:01, was contacted at 12:01, pm1 regarding admission, patient's condition, and will see patient. 07/15 06:41 Order name: Basic Metabolic Panel; Complete Time: 08:30 pm1 07/15 06:41 Order name: CBC with Diff; Complete Time: 08:28 pm1 07/15 06:41 Order name: LFT's; Complete Time: 08:30 pm1 07/15 06:41 Order name: Magnesium; Complete Time: 08:30 pm1 07/15 06:41 Order name: NT PRO-BNP; Complete Time: 08:30 pm1 07/15 06:41 Order name: PT-INR; Complete Time: 08:44 pm1 07/15 06:41 Order name: Troponin (emerg Dept Use Only); Complete Time: 08:30 pm1 07/15 06:41 Order name: XRAY Chest (1 view); Complete Time: 10:40 pm1 07/15 06:42 Order name: Lipase; Complete Time: 08:30 pm1 07/15 07:03 Order name: Flu; Complete Time: 10:40 pm1 07/15 07:56 Order name: Abdomen ; Complete Time: 10:40 EDMS 07/15 10:07 Order name: Urine Dipstick--Ancillary (enter results); Complete Time: 10:48 eb 07/15 13:45 Order name: Glucose, Ancillary Testing; Complete Time: 13:46 EDMS 07/15 06:41 Order name: EKG; Complete Time: 06:42 pm1 07/15 06:41 Order name: Cardiac monitoring; Complete Time: 08:50 pm1 07/15 06:41 Order name: EKG - Nurse/Tech; Complete Time: 10:13 pm1 07/15 06:41 Order name: IV Saline Lock; Complete Time: 08:50 pm1 07/15 06:41 Order name: Labs collected and sent; Complete Time: 08:50 pm1 07/15 06:41 Order name: O2 Per Protocol; Complete Time: 08:50 pm1 07/15 06:41 Order name: O2 Sat Monitoring; Complete Time: 08:50 pm1 07/15 08:45 Order name: NPO; Complete Time: 08:49 pm1 07/15 10:50 Order name: US Abdomen Limited; Complete Time: 11:48 pm1 Administered Medications: 09:20 Drug: morphine 4 mg Route: IVP; Site: right jugular; ph 09:45 Follow up: Response: No adverse reaction; Pain is decreased ph 09:20 Drug: Zofran 4 mg Route: IVP; Site: right antecubital; ph 09:45 Follow up: Response: No adverse reaction; Nausea is decreased ph 11:36 Drug: morphine 4 mg Route: IVP; Site: right jugular; ph 11:37 Drug: NS 0.9% 1000 ml Route: IV; Rate: 100 ml/hr; Site: right jugular; ph Disposition: 07/15/18 12:00 Hospitalization ordered by Jefferson Baig for Inpatient Admission. Preliminary diagnosis is Acute pancreatitis. - Bed requested for Telemetry/MedSurg (Inpatient). - Status is Inpatient Admission. ph - Condition is Stable. - Problem is new. - Symptoms have improved. UTI on Admission? No Addendum: 07/22/2018 20:04 Co-signature as Attending Physician, Jhonathan Schultz MD. jessica wiggins Signatures: Dispatcher [employer] EDPR Jhonathan Schultz MD MD pkl Solis, Maria ms Joana Celis RN RN ph Marinas, Patrick, NP ERP BUSINESS ANALYST pm1 Emery Iyer RN RN jb4 Corrections: (The following items were deleted from the chart) 07/15 07:56 06:42 Abdomen Pelvis W Con+CT.RAD.BRZ ordered. [facility] EDPR 12:05 12:00 Hospitalization Ordered by Jefferson Baig MD for Observation. Preliminary diagnosis pm1 is Acute pancreatitis. Bed requested for Telemetry/MedSurg (observation). Status is Observation. Condition is Stable. Problem is new. Symptoms have improved. UTI on Admission? No. pm1 13:21 12:05 07/15/2018 12:00 Hospitalization Ordered by Jefferson Baig MD for Inpatient ms Admission. Preliminary diagnosis is Acute pancreatitis. Bed requested for Telemetry/MedSurg (Inpatient). Status is Inpatient Admission. Condition is Stable. Problem is new. Symptoms have improved. UTI on Admission? No. pm1 14:31 13:21 07/15/2018 12:00 Hospitalization Ordered by Jefferson Baig MD for Inpatient ph Admission. Preliminary diagnosis is Acute pancreatitis. Bed requested for Telemetry/MedSurg (Inpatient). Status is Inpatient Admission. Condition is Stable. Problem is new. Symptoms have improved. UTI on Admission? No. ms
[2018-07-15] MEDS ORDERED: ACETAMINOPHEN 650MG/RECT SUPP PR PRN (12:54)
[2018-07-15 15:40] VITALS: BMI 33.5
[2018-07-15] MEDS: NA CHLORIDE 0.9% 1,000 ML IV SCH ×2 (15:57→21:19)
[2018-07-15] MEDS: ENOXAPARIN 40 MG/0.4 ML SQ SCH (15:59)
[2018-07-15] MEDS: MORPHINE 4 MG/ML SYR IV PRN ×2 (16:00→21:44)
[2018-07-15] MEDS: INSULIN -REGULAR HUMAN 50 UNIT/0.5 ML ML SQ SCH ×2 (16:30→21:00)
--- NOTE | 2018-07-15 19:22 | HP ---
Date of Admission: 07/15/2018 Chief Complaint: Abdominal pain. History Of Present Illness: The patient is a 52-year-old female with past medical history of hyperte nsion, hyperlipidemia, diabetes, rheumatoid arthritis, peripheral edema, neuropathy, who comes in wit h generalized abdominal pain, which was acute, sharp, nonradiating, progressively worsening. The pat ient also reports some associated nausea and vomiting. Denies any unusual foods, travel outside the country. The patient does report some chills, however, no fevers. The patient came into the ER for further evaluation. Her workup revealed normal white blood cell count. Her lipase level was elevate d at 11,047. The CT scan of the abdomen and did not show any acute changes. It showed fatty liver a nd pancreas otherwise appeared normal. The patient's abdominal ultrasound also did not show any ston es. The patient was referred for admission. When seen in the ER, she was awake, alert, oriented x3, in some moderate distress due to pain. Past Medical History: Hypertension, hyperlipidemia, diabetes mellitus type 2, non-insulin requiring, iron deficiency anemia, rheumatoid arthritis, lower extremity edema, and neuropathy. Surgical History: Appendectomy. Social History: The patient is , currently filing for disability. Does have significant diff iculty with her activities of daily living due to her rheumatoid arthritis. 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 Family History: Hypertension, hyperlipidemia, diabetes, coronary artery disease, and arthritis runs in the family. Allergies: NO KNOWN DRUG ALLERGIES. Medications: List reviewed. Review of Systems: Ten point system reviewed, negative except as per HPI. Physical Examination: Vital Signs: Blood pressure 151/83, pulse 71, respirations 18, temperature 98.6, O2 97% on room air. General: Awake, alert, oriented x3. Some moderate distress due to pain, ill-appearing female, obese . HEENT: Normocephalic, atraumatic. PERRLA. EOMI. Dry mucous membranes. Oropharynx is clear. Norm al dentition. Conjunctivae anicteric. Neck: Supple. No JVD. Trachea midline. CV: S1, S2. Regular rate and rhythm. Peripheral pulses present. No murmurs. Respiratory: Moving air well bilaterally. No wheezing or stridor. No use of accessory muscles. Gastrointestinal: Abdomen is soft. Tenderness to palpation. No rebound or guarding. No distention . Bowel sounds positive. Extremities: No clubbing, cyanosis, or edema. No calf tenderness. Neuro: Cranial nerves 2 through 12 intact grossly. No focal neurological deficit. Speech is normal . Strength is symmetric bilateral upper and lower extremities. Skin: No rashes. Normal skin turgor. Psych: Mood is somewhat depressed. Affect is flat. Insight and judgment are good. Laboratory Data: Sodium 138, potassium 3.9, chloride 104, CO2 27, BUN 21, creatinine 0.7, glucose 26 5, calcium 8.9, magnesium 1.9, AST 11, ALT 16, alkaline phosphatase 74. Troponin less than 0.02. BN P 138, albumin 3.2, lipase 1147. UA; negative nitrite, negative leukocyte esterase, 2+ glucose, 1+ p rotein. INR 1.02. WBC 5.6, H and H 11.4 and 34.2, platelets 186. Influenza screen is negative. CT scan abdomen and pelvis with contrast shows no acute intraabdominal or pelvic finding. Fatty liver with small enhancing right lobe liver lesion favored to be benign. Ultrasound of the abdomen is unre markable. Assessment And Plan: A 52-year-old female with: 1.Acute pancreatitis. Lipase is 1100. We will keep n.p.o., start on IV fluids, pain medications IV , and monitor lipase levels. We will check triglyceride level. The patient does not have any elevat ed liver enzymes or total bilirubin. No ductal stones on abdominal ultrasound or CT. No ductal dila tation. 2.Diabetes mellitus type 2 non-insulin requiring with hyperglycemia. We will continue sliding scale insulin and continue Accu-Cheks. 3.Essential hypertension, stable. Resume home medications as appropriate. 4.Normocytic normochromic anemia. The patient does have history of iron deficiency. Monitor H and H. 5.Rheumatoid arthritis. The patient is on NSAIDs, has not been started on biologics. 6.Mixed hyperlipidemia. 7.Neuropathy. 8.Obesity, BMI 34. 9.Gastrointestinal and deep venous thrombosis prophylaxis PPI and Lovenox. Plan: Admit the patient to Med-Surg, place as inpatient. Likely discharge in next 24-48 hours once clinically improved. The patient denies any alcohol consumption. /JORDAN Voice ID: [id number]
--- NOTE | 2018-07-15 20:21 | EKG ---
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
[2018-07-15 23:55] LABS: Urine Appearance CLEAR; Urine Bilirubin NEGATIVE (NEG); Urine Blood 1+ (NEG); Urine Color YELLOW; Urine Glucose NEGATIVE (NEG); Urine Protein NEGATIVE (NEG); Urine Urobilinogen 0.2 mg/dL (0.2-1.0)
[2018-07-15 23:59] LABS: Urine Microscopic Reflex ORDER UMIC
[2018-07-16 00:26] LABS: Urine Bacteria <20 /HPF (<20); Urine Culture Reflex Order NOT NEEDED; Urine RBC <5 /HPF (NONE SEEN)
[2018-07-16] MEDS: NA CHLORIDE 0.9% 1,000 ML IV SCH ×3 (03:08→15:40)
[2018-07-16] MEDS: ONDANSETRON 4 MG/2 ML VIAL IV PRN (04:49)
[2018-07-16 06:35] LABS: RBC Red Blood Cell Count 3.79 M/uL (3.86-4.86)
[2018-07-16 06:36] LABS: Absolute Monocytes 0.3 K/uL (0.1-1.3); Absolute Neutrophil 1.4 K/uL (1.8-8.0); Basophils % 0.7 % (0-1.3); Eosinophils % 3.6 % (0-4.4); Hematocrit 32.8 % (36.0-45.0); Lymphocytes % 51.6 % (15.3-44.8); MCH 28.9 pg (27.0-35.0); MCV 86.5 fL (80-100); MPV 8.9 fL (7.6-11.3); Monocytes % 6.8 % (3.3-12.3)
[2018-07-16 06:44] LABS: Bilirubin Total 0.4 mg/dL (0.2-1.0); Potassium 3.9 mmol/L (3.5-5.1); Protein, Total 6.8 g/dL (6.4-8.2)
[2018-07-16] MEDS: INSULIN -REGULAR HUMAN 50 UNIT/0.5 ML ML SQ SCH ×4 (07:30→21:54)
[2018-07-16] MEDS: ENOXAPARIN 40 MG/0.4 ML SQ SCH (08:16)
[2018-07-16] MEDS: MORPHINE 4 MG/ML SYR IV PRN (08:17)
[2018-07-16] MEDS ORDERED: MORPHINE 2 MG/ML SYR IV PRN (08:44)
[2018-07-16] MEDS ORDERED: KCL 20 MEQ/100 mL IVPB 20 MEQ/100 ML BAG IV SCH (09:00)
--- NOTE | 2018-07-16 12:28 | P.PN ---
Subjective Date of Service: 07/16/18 Subjective: Improving Patient seen and examined at bedside. No family at bedside. Case discussed with nursing staff. Patient reports improved abdominal pain. Intermittent nausea, vomiting resolved. She is complaining of lower extremity foot/ankle swelling and numbness/tingling. This is not a new finding for her, and has been unchanged from prior. She is also complaining of left wrist swelling, which seems to have now resolved. Denies any chest pain, shortness of breath, diarrhea, fevers, headache. Of note, patient recently a gold card patient in [place]. She does have to look for doctors out in [facility] as she is only visiting her family in [place] at this time. Review of Systems As noted Physical Examination - Vital Signs Temperature: 97.6 F Blood Pressure: 149/65 Pulse: 53 Respirations: 18 Pulse Ox (%): 96 - Physical Exam General: Alert, In no apparent distress, Oriented x3 HEENT: Atraumatic, PERRLA, EOMI Neck: Supple, JVD not distended Respiratory: Clear to auscultation bilaterally, Normal air movement Cardiovascular: Regular rate/rhythm, Normal S1 S2 Gastrointestinal: Normal bowel sounds, Tenderness (Mild tenderness with deep palpation on left lower quadrant) Musculoskeletal: No swelling (No swelling noted at this time, and upper or lower extremity.), No tenderness Integumentary: No rashes Neurological: Normal speech, Normal tone, Sensation intact (Sensation intact to patient has subjective numbness/tingling on lower extremity which is not a new finding for her ), Normal affect Lymphatics: No axilla or inguinal lymphadenopathy - Studies Microbiology Data (last 24 hrs): 07/15/18 09:40 Nasopharnyx Influenza Type A Antigen Screen - Final 07/15/18 09:40 Nasopharnyx Influenza Type B Antigen Screen - Final Assessment And Plan - Plan Acute pancreatitis Patient with initial lipase above 1000, recheck levels back into normal range. Continue pain control with medications, so will hold IV pain medications at this time to evaluate pain and discharge plan. Start clear liquid diet, advance as tolerated. The patient does not have any elevated liver enzymes or total bilirubin. No ductal stones on abdominal ultrasound or CT. No ductal dilatation. Diabetes mellitus, type 2, non insulin requiring with hyperglycemia Continue sliding-scale insulin and Accu-Cheks. Will adjust as needed Essential hypertension Elevated. Patient does not seem to have any home medications on board. Will start patient on low-dose lisinopril. Monitor blood pressure, adjust medications as needed. Normocytic normochromic anemia Patient with a history of iron-deficiency anemia. H&H stable, no evidence of bleeding. Will continue to monitor Rheumatoid arthritis Continue home NSAIDs therapy Mixed hyperlipidemia Stable, continue statin Neuropathy Patient complaining of numbness and tingling. She has not been getting her on gabapentin care restart home gabapentin. She will need to follow up outpatient for further evaluation/management of neuropathy. No acute changes at this time DVT prophylaxis: Lovenox GI prophylaxis: Not needed Diet: Clear liquid diet, advance as tolerated Disposition: Pending symptomatic improvement. Clear liquid diet started today , advance as tolerated. Likely discharge in the next 24-48 hr. Time Spent Managing PTS Care (In Minutes): 35
[2018-07-16] MEDS ORDERED: MEPERIDINE HCL 25 MG/0.5 ML IV PRN (19:40)
[2018-07-16] MEDS ORDERED: DIPHENHYDRAMINE 25 MG TAB/CAP PO ONE (19:48)
[2018-07-16] MEDS: MEPERIDINE HCL 25 MG/0.5 ML IV PRN (21:54)
[2018-07-17] MEDS: MEPERIDINE HCL 25 MG/0.5 ML IV PRN ×4 (05:28→21:20)
[2018-07-17] MEDS: INSULIN -REGULAR HUMAN 50 UNIT/0.5 ML ML SQ SCH ×4 (07:30→21:00)
[2018-07-17] MEDS ORDERED: DIPHENHYDRAMINE 25 MG TAB/CAP PO ONE (08:56)
[2018-07-17] MEDS: GABAPENTIN 300 MG CAP PO SCH (09:17)
[2018-07-17] MEDS: LISINOPRIL 10 MG TAB PO SCH (09:18)
[2018-07-17] MEDS: ENOXAPARIN 40 MG/0.4 ML SQ SCH (09:18)
--- NOTE | 2018-07-17 12:46 | P.PN ---
Subjective Date of Service: 07/17/18 Patient seen and examined at bedside. No family at bedside. Case discussed with nursing staff. Patient reports improved abdominal pain though still having some after a GI soft diet. Intermittent nausea, vomiting resolved. She is complaining of lower extremity foot/ankle swelling and numbness/tingling. This is not a new finding for her, and has been unchanged from prior. She complains of itchy, red papules. She states she had a few prior to coming into the hospital and she has gotten a few more while in the hospital. Of note, patient recently got a gold card patient in [place]. She does have to look for doctors out in [place] area as she is only visiting her family in [place] at this time. Review of Systems As noted Physical Examination - Vital Signs Temperature: 97.2 F Blood Pressure: 141/69 Pulse: 52 Respirations: 16 Pulse Ox (%): 97 - Physical Exam General: Alert, In no apparent distress, Oriented x3 HEENT: Atraumatic, PERRLA, EOMI Neck: Supple, JVD not distended Respiratory: Clear to auscultation bilaterally, Normal air movement Cardiovascular: Regular rate/rhythm, Normal S1 S2 Gastrointestinal: Normal bowel sounds, Tenderness (Mild) Musculoskeletal: No tenderness Integumentary: Other (Multiple erythematous papules on arms and few on abdomen. ) Neurological: Normal speech, Normal tone, Normal affect Lymphatics: No axilla or inguinal lymphadenopathy - Studies Medications List Reviewed: Yes Assessment And Plan - Plan Acute pancreatitis Patient with initial lipase above 1000, recheck levels back into normal range. Continue pain control with PO medications, hold IV pain medications at this time to evaluate pain and discharge plan. Advance diet as tolerated. The patient does not have any elevated liver enzymes or total bilirubin. No ductal stones on abdominal ultrasound or CT. No ductal dilatation. Erythematous papules Does not seem to be an allergic reaction, but intensely itchy, red spots located in exposed areas with concerns for bedbugs. Permethrin treatment ordered Diabetes mellitus, type 2, non insulin requiring with hyperglycemia Continue sliding-scale insulin and Accu-Cheks. Will adjust as needed Essential hypertension Elevated. Patient does not seem to have any home medications on board. Will start patient on low-dose lisinopril. Monitor blood pressure, adjust medications as needed. Normocytic normochromic anemia Patient with a history of iron-deficiency anemia. H&H stable, no evidence of bleeding. Will continue to monitor Rheumatoid arthritis Continue home NSAIDs therapy Mixed hyperlipidemia Stable, continue statin Neuropathy Patient complaining of numbness and tingling. She has not been getting her on gabapentin can restart home gabapentin. She will need to follow up outpatient for further evaluation/management of neuropathy. No acute changes at this time DVT prophylaxis: Lovenox GI prophylaxis: Not needed Diet: Clear liquid diet, advance as tolerated Disposition: Pending symptomatic improvement. Full liquid diet started today, advance as tolerated. Likely discharge in the next 24-48 hr. Discharge Plan: Home Plan to discharge in: 24 Hours
[2018-07-17] MEDS: PERMETHRIN 5% 60 GM TUBE TOP SCH (14:36)
[2018-07-18] MEDS: MEPERIDINE HCL 25 MG/0.5 ML IV PRN ×4 (01:06→20:04)
[2018-07-18 06:08] LABS: Magnesium 1.9 mg/dL (1.8-2.4); Potassium 3.5 mmol/L (3.5-5.1)
[2018-07-18] MEDS: INSULIN -REGULAR HUMAN 50 UNIT/0.5 ML ML SQ SCH ×4 (07:30→21:00)
[2018-07-18] MEDS ORDERED: POTASSIUM CL SA 10 MEQ TAB PO ONE (09:00)
[2018-07-18] MEDS: ENOXAPARIN 40 MG/0.4 ML SQ SCH (10:15)
[2018-07-18] MEDS: LISINOPRIL 10 MG TAB PO SCH (10:15)
[2018-07-18] MEDS: GABAPENTIN 300 MG CAP PO SCH (10:17)
[2018-07-18] MEDS: PERMETHRIN 5% 60 GM TUBE TOP SCH (12:25)
--- NOTE | 2018-07-18 15:38 | P.PN ---
Subjective Date of Service: 07/18/18 Chief Complaint: Abdominal cramping Patient seen and examined at bedside. No family at bedside. Case discussed with nursing staff. Patient states that she still gets crampy abdominal pain, diffuse after eating GI soft diet. Intermittent nausea after eating. No vomiting noted. Itchy, red papules have improved after permethrin treatment. The itchiness has resolved. Of note, patient recently got a gold card patient in [place]. She does have to look for doctors out in [place] area as she is only visiting her family in [place] at this time. Review of Systems As noted Physical Examination - Vital Signs Temperature: 97.7 F Blood Pressure: 140/63 Pulse: 52 Respirations: 18 Pulse Ox (%): 95 - Physical Exam General: Alert, In no apparent distress, Oriented x3 HEENT: Atraumatic, PERRLA, EOMI Neck: Supple, JVD not distended Respiratory: Clear to auscultation bilaterally, Normal air movement Cardiovascular: Regular rate/rhythm, Normal S1 S2 Gastrointestinal: Normal bowel sounds, Tenderness (Left-sided worse than right.) , Guarding Musculoskeletal: No tenderness Integumentary: No rashes Neurological: Normal speech, Normal tone, Normal affect Lymphatics: No axilla or inguinal lymphadenopathy - Studies Medications List Reviewed: Yes Assessment And Plan - Plan Acute pancreatitis Patient with initial lipase above 1000, recheck levels back into normal range. Patient has not received any pain medications since she has been here, 1st time she received IV Demerol was today. Abdominal CT on admission foot was without any acute abnormality as, abdominal ultrasound was without any abnormalities. Will try clear liquids again and advance as tolerated. Erythematous papules: Improved Does not seem to be an allergic reaction, but intensely itchy, red spots located in exposed areas with concerns for bedbugs/scabies. Permethrin treatment ordered Diabetes mellitus, type 2, non insulin requiring with hyperglycemia Continue sliding-scale insulin and Accu-Cheks. Will adjust as needed Essential hypertension Better control on lisinopril. Will continue lisinopril. Monitor blood pressure , adjust medications as needed. Patient does not seem to have any home medications on board. Will start patient on low-dose lisinopril. Normocytic normochromic anemia Patient with a history of iron-deficiency anemia. H&H stable, no evidence of bleeding. Will continue to monitor Rheumatoid arthritis Hold home NSAID therapy secondary to abdominal complaints. Mixed hyperlipidemia Stable, continue statin Neuropathy Patient complaining of numbness and tingling. She has not been getting her on gabapentin can restart home gabapentin. She will need to follow up outpatient for further evaluation/management of neuropathy. No acute changes at this time DVT prophylaxis: Lovenox GI prophylaxis: Not needed Diet: Clear liquid diet, advance as tolerated Disposition: Pending symptomatic improvement. Full liquid diet started today, advance as tolerated. Likely discharge in the next 24-48 hr. Physician Review: Patient Assessed, Agree with Above Assessment and Plan Time Spent Managing PTS Care (In Minutes): 45
[2018-07-18] MEDS: DOCUSATE NA 100 MG CAP PO PRN (18:14)
[2018-07-19] MEDS: ONDANSETRON 4 MG/2 ML VIAL IV PRN (04:30)
[2018-07-19 06:24] LABS: Potassium 4.2 mmol/L (3.5-5.1)
[2018-07-19] MEDS: MEPERIDINE HCL 25 MG/0.5 ML IV PRN (06:46)
[2018-07-19] MEDS: INSULIN -REGULAR HUMAN 50 UNIT/0.5 ML ML SQ SCH ×2 (07:30→11:30)
[2018-07-19] MEDS: ENOXAPARIN 40 MG/0.4 ML SQ SCH (09:49)
[2018-07-19] MEDS: LISINOPRIL 10 MG TAB PO SCH (09:49)
[2018-07-19] MEDS: GABAPENTIN 300 MG CAP PO SCH (09:50)
[2018-07-19 09:53] VITALS: O2SAT 94
[2018-07-19] MEDS: PERMETHRIN 5% 60 GM TUBE TOP SCH (12:21)
[2018-07-19] MEDS: DOCUSATE NA 100 MG CAP PO PRN (12:21)
--- NOTE | 2018-07-19 14:32 | P.DS ---
Admission Date: 07/15/18 Discharge Date: 07/19/18 Disposition: ROUTINE DISCHARGE Discharge Condition: GOOD Reason for Admission: Abdominal cramping Brief History of Present Illness: The patient is a 52-year-old female with past medical history of hypertension, hyperlipidemia, diabetes, rheumatoid arthritis, peripheral edema, neuropathy, who comes in with generalized abdominal pain, which was acute, sharp, nonradiating, progressively worsening. The patient also reports some associated nausea and vomiting. Denies any unusual foods, travel outside the country. The patient does report some chills, however, no fevers. The patient came into the ER for further evaluation. Her workup revealed normal white blood cell count. Her lipase level was elevated at 11,047. The CT scan of the abdomen and did not show any acute changes. It showed fatty liver and pancreas otherwise appeared normal. The patient's abdominal ultrasound also did not show any stones. The patient was referred for admission. When seen in the ER, she was awake, alert, oriented x3, in some moderate distress due to pain. Hospital Course: Acute pancreatitis Patient with initial lipase above 1000, recheck levels back into normal range. She was kept NPO, pain was controlled with initially IV pain medications in the , transition to oral pain medications. Pain was fairly well controlled. Abdominal CT on admission was without any acute abnormality, abdominal ultrasound was without any abnormalities. She was started on clear liquids, advanced as tolerated. At the time of discharge, patient tolerating oral diet without any abdominal pain, nausea or vomiting. Erythematous papules: Resolved Does not seem to be an allergic reaction, but intensely itchy, red spots located in exposed areas with concerns for bedbugs/scabies. Patient also stated that she was with her daughter's puppy, who may have had fleas as he was on treatment for it. These could reflect fleabites well. Educated patient on general hygiene/cleanliness measures. Permethrin treatment ordered Diabetes mellitus, type 2, non insulin requiring with hyperglycemia Remained stable on sliding scale. Will be discharged back on her home medication of metformin. No changes made. Essential hypertension Patient was not on any home medications for blood pressure on admission. Started patient on lisinopril as her blood pressures were elevated and the hospital. She will be discharged with a low dose of lisinopril. Prescription sent to pharmacy. Educated patient on blood pressure, and has given on how to take blood pressure at home. Advice patient to check blood pressures at home for the next week, follow up with primary care physician in 1 week with blood pressure looks so they can evaluate further if she does need blood pressure medications or not. Normocytic normochromic anemia H&H remained stable throughout her stay. No transfusions needed. Mixed hyperlipidemia And hypertriglyceridemia. Prescription for atorvastatin 40 mg sent to pharmacy. Information on diet given to patient at discharge. Neuropathy Patient complaining of numbness and tingling. She has not been getting her on gabapentin can restart home gabapentin. She will need to follow up outpatient for further evaluation/management of neuropathy. No acute changes at this time Vital Signs/Physical Exam: Temp Pulse Resp BP Pulse Ox 98.1 F 60 18 139/68 96 07/19/18 08:00 07/19/18 09:49 07/19/18 08:00 07/19/18 09:49 07/19/18 08:00 General: Alert, In no apparent distress, Oriented x3 HEENT: Atraumatic, PERRLA, EOMI Neck: Supple, JVD not distended Respiratory: Clear to auscultation bilaterally, Normal air movement Cardiovascular: Regular rate/rhythm, Normal S1 S2 Gastrointestinal: Normal bowel sounds, No tenderness Musculoskeletal: No tenderness Integumentary: No rashes Neurological: Normal speech, Normal tone, Normal affect Lymphatics: No axilla or inguinal lymphadenopathy Laboratory Data at Discharge: WBC 3.8 K/uL (4.3-10.9) L D 07/16/18 05:25 Hgb 10.9 g/dL (12.0-15.0) L 07/16/18 05:25 Hct 32.8 % (36.0-45.0) L 07/16/18 05:25 Plt Count 192 K/uL (152-406) 07/16/18 05:25 PT 12.0 SECONDS (9.5-12.5) 07/15/18 07:55 INR 1.02 07/15/18 07:55 Sodium 140 mmol/L (136-145) 07/19/18 05:50 Potassium 4.2 mmol/L (3.5-5.1) 07/19/18 05:50 BUN 8 mg/dL (7-18) 07/19/18 05:50 Creatinine 0.70 mg/dL (0.55-1.3) 07/19/18 05:50 Glucose 168 mg/dL (74-106) H 07/19/18 05:50 Magnesium 1.9 mg/dL (1.8-2.4) 07/18/18 05:24 Total Bilirubin 0.4 mg/dL (0.2-1.0) 07/16/18 05:25 AST 12 U/L (15-37) L 07/16/18 05:25 ALT 13 U/L (12-78) 07/16/18 05:25 Alkaline Phosphatase 61 U/L (45-117) 07/16/18 05:25 Triglycerides 258 mg/dL (<150) H 07/16/18 05:25 Lipase 126 U/L (73-393) 07/19/18 05:50 Home Medications: Gabapentin 300 mg PO DAILY 07/15/18 Meclizine HCl 25 mg PO Q6HP PRN 07/15/18 Metformin HCl 1,000 mg PO BID 07/15/18 Atorvastatin Calcium 40 mg PO DAILY #30 tablet 07/19/18 Lisinopril [Prinivil*] 10 mg PO DAILY #30 tab 07/19/18 New Medications: Atorvastatin Calcium 40 mg PO DAILY #30 tablet Lisinopril [Prinivil*] 10 mg PO DAILY #30 tab Patient Discharge Instructions: Please follow up with her primary care physician in 1 week. Please check your blood pressure at home, record a log and take 2 primary care physician in order to evaluate if he needs blood pressure medicines or not. New medications: 1) lisinopril: This is a medication for blood pressure. The blood pressure is not elevated, and it was better controlled with this medication. Prescription sent to pharmacy. This is why it is important for you to follow up with the primary care physician in 1 week. 2) atorvastatin: This is a medication for cholesterol, and triglycerides were very elevated here. Continue working on lifestyle modifications with weight loss, exercise on diet control. Prescription sent to pharmacy. Diet: ADA Activity: Ad ada Physician Review: Patient Assessed, Agree with Above Assessment and Plan Time spent managing pt's care (in minutes): 55
[2018-07-19 14:57] VITALS: BP 136/74; TEMP 98
== END 2018-07-19 16:18 | disposition home or self-care (01) | DRG 440 ==
LOC: ER 06:30 → ERHOLD 12:03 → 2ND 14:14
PROVIDERS: ADMIT Family Medicine; ATTEND Family Medicine
DX: K85.90 Acute pancreatitis without necrosis or infection, unspecified (principal); I10 Essential (primary) hypertension; E78.5 Hyperlipidemia, unspecified; M06.9 Rheumatoid arthritis, unspecified; E78.2 Mixed hyperlipidemia; E66.9 Obesity, unspecified; Z68.34 Body mass index [BMI] 34.0-34.9, adult; D64.9 Anemia, unspecified; E11.40 Type 2 diabetes mellitus with diabetic neuropathy, unspecified; E11.65 Type 2 diabetes mellitus with hyperglycemia; R23.8 Other skin changes
CPT/HCPCS: 36415; 71045; 74176; 76705; 80048; 80053; 80076; 81003; 81015; 82962; 83690; 83735; 83880; 84478; 84484; 85025; 85610; 87804; 93005; 94760; 99285; J1650; J2175; J2405; J7030

== ENCOUNTER 2018-08-05 21:06 | Emergency (ER) | payer SELFPAY ==
--- OUTSIDE RECORDS SUMMARY | 2018-08-05 21:08 | XMS REPORT ---
:1965 [facility] Address [address] [place] [address] Care Team Providers Name Role Phone Unavailable [...]
[2018-08-05] MEDS ORDERED: NA CHLORIDE 0.9% 1,000 ML ONE (21:35)
[2018-08-05 21:58] LABS: Absolute Lymphocytes (CBC) 2.2 K/uL (0.7-4.9); Absolute Monocytes 0.4 K/uL (0.1-1.3); Absolute Neutrophil 2.7 K/uL (1.8-8.0); Basophils % 0.5 % (0-1.3); Eosinophils % 2.4 % (0-4.4); Hematocrit 36.1 % (36.0-45.0); Lymphocytes % 40.3 % (15.3-44.8); MCH 28.7 pg (27.0-35.0); MCV 86.5 fL (80-100); MPV 9.3 fL (7.6-11.3); RBC Red Blood Cell Count 4.17 M/uL (3.86-4.86)
[2018-08-05 22:11] LABS: Albumin 3.9 g/dL (3.4-5.0); Bilirubin Direct 0.1 mg/dL (0-0.2); Bilirubin Total 0.4 mg/dL (0.2-1.0); Potassium 3.9 mmol/L (3.5-5.1); Protein, Total 8.2 g/dL (6.4-8.2)
[2018-08-05] MEDS ORDERED: KETOROLAC 30 MG/ML INJ ONE (23:21)
--- NOTE | 2018-08-06 00:55 | ER ---
Nurse's Notes [facility] Name: Cary Gan Age: 52 yrs Sex: Female : 1965 Arrival Date: 08/05/2018 Time: 21:07 Bed 5 Private MD: Diagnosis: Abdominal and pelvic pain;Calculus of lower urinary tract, unspecified;Sciatica, left side Presentation: 08/05 21:16 Presenting complaint: Patient states: she is having the same symptoms she had back at [facility] for which she was hospitalized for pancreatitis. Her symptoms of abdominal cramping, pain, nausea with some left leg numbness started appox 30 mins ago. Transition of care: patient was not received from another setting of care. Onset of symptoms was August 05, 2018. Risk Assessment: Do you want to hurt yourself or someone else? Patient reports no desire to harm self or others. Initial Sepsis Screen: Does the patient meet any 2 criteria? No. Patient's initial sepsis screen is negative. Does the patient have a suspected source of infection? No. Patient's initial sepsis screen is negative. Care prior to arrival: None. 21:16 Method Of Arrival: Wheelchair 21:16 Acuity: SANTANA 3 Triage Assessment: 21:16 General: Appears in no apparent distress. uncomfortable, Behavior is calm, cooperative, cc3 appropriate for age. Pain: Complains of pain in abdominal pain. EENT: No signs and/or symptoms were reported regarding the EENT system. Neuro: Level of Consciousness is awake, alert, obeys commands. Cardiovascular: Denies chest pain. Respiratory: Airway is patent Respiratory effort is even, unlabored, Respiratory pattern is regular, symmetrical. GI: Abdomen is round obese, Reports upper abdominal pain. : No signs and/or symptoms were reported regarding the genitourinary system. Derm: noted to have white patches on the face. Musculoskeletal: Circulation, motion, and sensation intact. Range of motion: intact in all extremities. 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 LMP N/A - Post-menopause rr5 Historical: - Allergies: 21:19 NKA; bb - Home Meds: 21:19 gabapentin Oral 1 cap four times a day [Active]; ibuprofen 600 mg Oral tab 1 tab as bb needed [Active]; levemir 10 U daily [Active]; metformin 1,000 mg Oral tab 2 times per day [Active]; Tramadol Oral [Active]; Zoloft 50 mg Oral tab 1 tab once daily [Active]; - PMHx: 21:19 "hot fashes"; Anxiety; Depression; Diabetes - IDDM; EDEMA; herniated disk lower back, bb neck vertibre fusion; high blood pressure (resolved); High Cholesterol; neuropathy; Rheumatoid Arthritis; - PSHx: 21:19 Appendectomy; neck fusion; pinched nerve in left foot x 2; bb - Immunization history:: Adult Immunizations up to date. - Social history:: Smoking status: Patient/guardian denies using tobacco, Patient/guardian denies using alcohol, street drugs. - Ebola Screening: : No symptoms or risks identified at this time. Screenin:16 Abuse screen: Denies threats or abuse. Denies injuries from another. Nutritional cc3 screening: No deficits noted. Tuberculosis screening: No symptoms or risk factors identified. Fall Risk Ambulatory Aid- None/Bed Rest/Nurse Assist (0 pts). Gait- Normal/Bed Rest/Wheelchair (0 pts) Mental Status- Oriented to own ability (0 pts). Assessment: 21:16 General: see triage assessment. cc3 22:24 Reassessment: Patient appears in no apparent distress at this time. Patient and/or cc3 family updated on plan of care and expected duration. Pain level reassessed. Patient is alert, oriented x 3, equal unlabored respirations, skin warm/dry/pink. 23:44 Reassessment: Patient appears in no apparent distress at this time. Patient and/or cc3 family updated on plan of care and expected duration. Pain level reassessed. Patient is alert, oriented x 3, equal unlabored respirations, skin warm/dry/pink. 08/06 00:32 Reassessment: Patient appears in no apparent distress at this time. Patient and/or cc3 family updated on plan of care and expected duration. Pain level reassessed. Patient is alert, oriented x 3, equal unlabored respirations, skin warm/dry/pink. Patient came back from CT scan department. 01:15 Reassessment: Patient appears in no apparent distress at this time. Patient and/or rr5 family updated on plan of care and expected duration. Pain level reassessed. Patient is alert, oriented x 3, equal unlabored respirations, skin warm/dry/pink. Dr. Whitley discharged the patient home with prescription given. Two IV cannula removed and patient left ER vitally stable by wheelchair escorted to the waiting area to wait for her son to fetch her up. Vital Signs: 08/05 21:16 BP 161 / 75; Pulse 66; Resp 20 S; Temp 98.8(O); Pulse Ox 99% on R/A; Weight 89.36 kg bb (R); Height 5 ft. 4 in. (162.56 cm) (R); Pain 9/10; 22:30 BP 119 / 53; Pulse 57; Resp 18 S; Pulse Ox 100% on R/A; cc3 23:30 BP 125 / 54; Pulse 60; Resp 17 S; Pulse Ox 100% on R/A; cc3 12 00:36 BP 142 / 70; Pulse 55; Resp 17 S; Pulse Ox 98% on R/A; cc3 01:00 BP 119 / 62; Pulse 59; Resp 17; Pulse Ox 98% on R/A; rr5 08/05 21:16 Body Mass Index 33.81 (89.36 kg, 162.56 cm) bb ED Course: 08/05 21:07 Patient arrived in ED. ds1 21:12 Rodger Whitley MD is Attending Physician. tw4 21:16 Josee Tucker is Primary Nurse. cc3 21:16 Arm band placed on Patient placed in an exam room, on a stretcher, on pulse oximetry. bb 21:16 Patient has correct armband on for positive identification. Placed in gown. Bed in low cc3 position. Call light in reach. Side rails up X 1. personnel monitor on. Pulse ox on. NIBP on. 21:18 Triage completed. bb 21:35 Inserted saline lock: 24 gauge in right hand, using aseptic technique. Blood collected. ds4 21:45 Basic Metabolic Panel Sent. ds4 21:45 CBC with Diff Sent. ds4 21:45 Creatinine for Radiology Sent. ds4 21:45 Hepatic Function Sent. ds4 21:45 Lipase Sent. ds4 22:12 Hepatic Function Sent. ds4 22:12 Lipase Sent. ds4 22:12 Basic Metabolic Panel Sent. ds4 23:24 Radiology exam delayed due to IV insertion attempt and/or patient not having kw1 appropriate IV at this time. 23:45 Inserted saline lock: 20 gauge in left antecubital area, using aseptic technique. cc3 inserted by KINGS Chavez. 08/06 00:06 Radiology exam delayed due to IV in left AC infiltrated during flush. Applied warm kw1 compress to area. Per Dr. Whitley will do a CT Abd W/O. 00:22 Abdomen In Process Unspecified. EDMS 00:22 CT completed. Pt tolerated procedure poorly. Patient moved back from CT. kw1 01:05 No provider procedures requiring assistance completed. IV discontinued, intact, rr5 bleeding controlled, No redness/swelling at site. Pressure dressing applied. Administered Medications: 08/05 21:40 Drug: NS 0.9% 1000 ml Route: IV; Rate: 1 bolus; Site: right hand; cc3 23:00 Follow up: Response: No adverse reaction; IV Status: Completed infusion; IV Intake: cc3 1000ml 23:15 Drug: TORadol 30 mg Route: IVP; Site: right hand; cc3 23:45 Follow up: Response: No adverse reaction; Pain is decreased cc3 Intake: 23:00 IV: 1000ml; Total: 1000ml. cc3 Outcome: 08/06 00:54 Discharge ordered by . tw4 01:05 Discharged to home ambulatory. rr5 01:05 Condition: stable 01:05 Instructed on discharge instructions, follow up and referral plans. medication usage, Demonstrated understanding of instructions, follow-up care, medications, Prescriptions given X 2. 01:26 Patient left the ED. rr5 Signatures: Dispatcher [employer] [facility] Madie Pearl ds1 Kathy Miles RN RN bb Mario Alberto Newton ds4 Radha Swanson kw1 Rodger Whitley MD MD tw4 Josee Tucker cc3 Ifeanyi Barba RN RN rr5 Corrections: (The following items were deleted from the chart) 08/05 21:20 21:16 BP 161 / 75; Pulse 66bpm; Resp 20bpm; Spontaneous; Pulse Ox 99% RA; cc3 bb
--- NOTE | 2018-08-06 00:55 | EDPHYS ---
Physician Documentation [facility] Name: Cary Gan Age: 52 yrs Sex: Female : 1965 Arrival Date: 08/05/2018 Time: 21:07 Bed 5 Private MD: ED Physician Rodger Whitley HPI: 08/06 01:31 This 52 yrs old Female presents to ER via Wheelchair with complaints of L Leg tw4 Numbness. 01:31 The patient presents with pain, that is acute. The complaints affect the left gluteal tw4 fold and left hamstring. 01:32 Context: The problem was sustained at home. Onset: The symptoms/episode began/occurred tw4 today. Modifying factors: The symptoms are alleviated by nothing. the symptoms are aggravated by nothing. Associated signs and symptoms: The patient has no apparent associated signs or symptoms. The patient presents with abdominal pain in the epigastric area, in the left lower quadrant. Onset: The symptoms/episode began/occurred today. The symptoms do not radiate. 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 LMP N/A - Post-menopause rr5 Historical: - Allergies: 21:19 NKA; bb - Home Meds: 21:19 gabapentin Oral 1 cap four times a day [Active]; ibuprofen 600 mg Oral tab 1 tab as bb needed [Active]; levemir 10 U daily [Active]; metformin 1,000 mg Oral tab 2 times per day [Active]; Tramadol Oral [Active]; Zoloft 50 mg Oral tab 1 tab once daily [Active]; - PMHx: 21:19 "hot fashes"; Anxiety; Depression; Diabetes - IDDM; EDEMA; herniated disk lower back, bb neck vertibre fusion; high blood pressure (resolved); High Cholesterol; neuropathy; Rheumatoid Arthritis; - PSHx: 21:19 Appendectomy; neck fusion; pinched nerve in left foot x 2; bb - Immunization history:: Adult Immunizations up to date. - Social history:: Smoking status: Patient/guardian denies using tobacco, Patient/guardian denies using alcohol, street drugs. - Ebola Screening: : No symptoms or risks identified at this time. ROS: 08/06 01:32 Constitutional: Negative for fever, chills, and weight loss, Eyes: Negative for injury, tw4 pain, redness, and discharge, Cardiovascular: Negative for chest pain, palpitations, and edema, Respiratory: Negative for shortness of breath, cough, wheezing, and pleuritic chest pain. MS/Extremity: Negative for injury and deformity, Skin: Negative for injury, rash, and discoloration, Neuro: Negative for headache, weakness, numbness, tingling, and seizure. Abdomen/GI: Positive for abdominal pain, Negative for nausea and vomiting, nausea, vomiting, and diarrhea, nausea, abdominal cramps, abdominal distension, anorexia. Exam: 01:32 Constitutional: This is a well developed, well nourished patient who is awake, alert, tw4 and in no acute distress. Head/Face: Normocephalic, atraumatic. Chest/axilla: Normal chest wall appearance and motion. Nontender with no deformity. No lesions are appreciated. Cardiovascular: Regular rate and rhythm with a normal S1 and S2. No gallops, murmurs, or rubs. Normal PMI, no JVD. No pulse deficits. Respiratory: Lungs have equal breath sounds bilaterally, clear to auscultation and percussion. No rales, rhonchi or wheezes noted. No increased work of breathing, no retractions or nasal flaring. 01:32 MS/ Extremity: Pulses equal, no cyanosis. Neurovascular intact. Full, normal range of motion. 01:32 Abdomen/GI: Inspection: abdomen appears normal, Bowel sounds: diminished, Palpation: mild abdominal tenderness, in all quadrants. 01:32 Back: pain, that is very mild, ROM is normal, normal spinal alignment noted, Straight leg raises: left lower extremity illicits pain, at 30 degrees. Vital Signs: 08/05 21:16 BP 161 / 75; Pulse 66; Resp 20 S; Temp 98.8(O); Pulse Ox 99% on R/A; Weight 89.36 kg bb (R); Height 5 ft. 4 in. (162.56 cm) (R); Pain 910; 22:30 BP 119 / 53; Pulse 57; Resp 18 S; Pulse Ox 100% on R/A; cc3 23:30 BP 125 / 54; Pulse 60; Resp 17 S; Pulse Ox 100% on R/A; cc3 08/06 00:36 BP 142 / 70; Pulse 55; Resp 17 S; Pulse Ox 98% on R/A; cc3 01:00 BP 119 / 62; Pulse 59; Resp 17; Pulse Ox 98% on R/A; rr5 08/05 21:16 Body Mass Index 33.81 (89.36 kg, 162.56 cm) bb MDM: 08/05 21:12 Patient medically screened. tw4 08/06 01:32 Differential diagnosis: dislocation, open fracture, acute coronary syndrome, tw4 appendicitis, bowel obstruction. Data reviewed: vital signs, nurses notes. Data interpreted: Pulse oximetry: Interpretation: normal. Counseling: I had a detailed discussion with the patient and/or guardian regarding: the historical points, exam findings, and any diagnostic results supporting the discharge/admit diagnosis. Special discussion: I discussed with the patient/guardian in detail that at this point there is no indication for admission to the hospital. It is understood, however, that if the symptoms persist or worsen the patient needs to return immediately for re-evaluation. 08/05 21:23 Order name: Basic Metabolic Panel; Complete Time: 22:53 tw4 08/05 22:53 Interpretation: Normal except: GLUC 301; BUN 28; GFR 58. tw4 08/05 21:23 Order name: CBC with Diff; Complete Time: 22:53 tw4 08/05 22:53 Interpretation: Within normal limits. tw4 08/05 21:23 Order name: Creatinine for Radiology; Complete Time: 22:53 tw4 08/05 22:53 Interpretation: Within normal limits: GFR 58. tw4 08/05 21:23 Order name: Hepatic Function; Complete Time: 22:53 tw4 08/05 22:53 Interpretation: Normal except: AST 13; GLOB 4.3; A/G 0.9. tw4 08/05 21:23 Order name: Lipase; Complete Time: 22:53 tw4 08/05 22:53 Interpretation: Within normal limits: LIP 261. tw4 08/05 21:23 Order name: IV Saline Lock; Complete Time: 21:41 tw4 08/05 21:23 Order name: Labs collected and sent; Complete Time: 21:42 tw4 08/06 00:08 Order name: Abdomen EDMS Administered Medications: 08/05 21:40 Drug: NS 0.9% 1000 ml Route: IV; Rate: 1 bolus; Site: right hand; cc3 23:00 Follow up: Response: No adverse reaction; IV Status: Completed infusion; IV Intake: cc3 1000ml 23:15 Drug: TORadol 30 mg Route: IVP; Site: right hand; cc3 23:45 Follow up: Response: No adverse reaction; Pain is decreased cc3 Disposition: 08/06/18 00:54 Discharged to Home. Impression: Abdominal and pelvic pain, Calculus of lower urinary tract, unspecified, Sciatica, left side. - Condition is Stable. - Discharge Instructions: Abdominal Pain, Adult, Sciatica, Kidney Stones, [id number], Back Exercises, [id number]. - Prescriptions for Ibuprofen 800 mg Oral Tablet - take 1 tablet by ORAL route every 8 hours As needed take with food; 30 tablet. Tylenol- Codeine #3 300-30 mg Oral Tablet - take 2 tablet by ORAL route every 6 hours As needed; 6 tablet. - Medication Reconciliation Form, Thank You Letter, Antibiotic Education, Prescription Opioid Use form. - Follow up: Private Physician; When: Upon discharge from the Emergency Department; Reason: If symptoms return, Recheck today's complaints, Continuance of care. - Problem is new. - Symptoms have improved. Signatures: Dispatcher [employer] [facility] Kathy Miles RN RN bb Rodger Whitley MD MD tw4 Josee Tucker cc3 Ifeanyi Barba RN RN rr5 Corrections: (The following items were deleted from the chart) 08/06 00:12 08/05 23:03 Abdomen Pelvis W Con+CT.RAD.BRZ ordered. [facility] 08/06 01:26 00:54 08/06/2018 00:54 Discharged to Home. Impression: Abdominal and pelvic pain; rr5 Calculus of lower urinary tract, unspecified; Sciatica, left side. Condition is Stable. Forms are Medication Reconciliation Form, Thank You Letter, Antibiotic Education, Prescription Opioid Use. Follow up: Private Physician; When: Upon discharge from the Emergency Department; Reason: If symptoms return, Recheck today's complaints, Continuance of care. Problem is new. Symptoms have improved. tw4
[2018-08-06 01:51] VITALS: TEMP 98.8
[2018-08-06 01:55] VITALS: O2SAT 98
[2018-08-06 01:56] VITALS: BP 119/62
--- NOTE | 2018-08-06 08:34 | RAD REPORT ---
EXAM DESCRIPTION: CT - Abdomen Pelvis Wo Contrast - 08/06/2018 6:00 am CLINICAL HISTORY: Abdominal pain. ABD PAIN COMPARISON: Abdomen Pelvis Wo Contrast dated 07/15/2018 TECHNIQUE: CT imaging of the abdomen and pelvis was performed without contrast. Solid organ, bowel a nd vascular assessment is limited due to lack of IV and oral contrast. All CT scans are performed using dose optimization technique as appropriate and may include automated exposure control or mA/KV adjustment according to patient size. FINDINGS: The lower lung escamilla are clear. 13 mm low-density lesion in the right lobe of the liver is seen, incompletely characterized on noncon trast study but likely benign. No intrahepatic biliary dilatation is seen. The spleen, pancreas, adre nal glands and right kidney are unremarkable. Punctate stone is present in the left kidney inferiorly . No hydronephrosis. No bowel obstruction, free air, free fluid or abscess. Sigmoid diverticulosis coli is present without diverticulitis. Appendectomy noted. The osseous structures are within normal limits. IMPRESSION: Punctate left nephrolithiasis without hydronephrosis. A limited non-contrast examination was performed as detailed.
== END 2018-08-06 01:26 | disposition home or self-care (01) ==
LOC: ER 21:06
DX: N20.9 Urinary calculus, unspecified (principal); M54.32 Sciatica, left side; E11.9 Type 2 diabetes mellitus without complications; F41.9 Anxiety disorder, unspecified; F32.9 Major depressive disorder, single episode, unspecified; E78.00 Pure hypercholesterolemia, unspecified
CPT/HCPCS: 36415; 74176; 80048; 80076; 83690; 85025; 96361; 96374; 99285; J7030

== ENCOUNTER 2018-08-18 18:55 | Emergency (ER) | payer SELFPAY ==
--- OUTSIDE RECORDS SUMMARY | 2018-08-18 18:58 | XMS REPORT | Clinical Summary ---
:[address] 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 lisinopril (PRINIVIL, Take 10 mg 0 Active ZESTRIL) 10 mg tablet by mouth daily. meclizine (ANTIVERT) Take 25 mg 0 Active 25 mg Tab by mouth 3 times daily. magnesium oxide Take 400 mg 0 Active (MAG-OX) 400 mg (241.3 by mouth 2 mg magnesium) tablet times daily. ferrous sulfate 325 mg Take 325 mg 0 Active (65 mg iron) tablet by mouth daily (with breakfast). metFORMIN (GLUCOPHAGE) Take 1 60 tablet 2 08/09/2018 Active 1,000 mg tablet by tabletIndications: mouth 2 Uncontrolled type 2 times daily diabetes mellitus with (with complication, with meals). long-term current use of insulin insulin detemir U-100 Inject 10 9 mL 0 08/09/2018 Active (LEVEMIR FLEXTOUCH Units under U-100 INSULN) 100 the skin unit/mL (3 mL) daily. PenIndications: Uncontrolled type 2 diabetes mellitus with complication, with long-term current use of insulin sertraline (ZOLOFT) 50 Take 1 30 tablet 2 08/09/2018 Active mg tabletIndications: tablet by Depression with mouth daily. anxiety gabapentin (NEURONTIN) Take 1 30 capsule 2 08/09/2018 Active 300 mg capsule by capsuleIndications: mouth daily. Neuropathy omeprazole (PRILOSEC) Take 1 30 capsule 2 08/09/2018 Active 20 mg delayed release capsule by capsuleIndications: mouth daily. Gastroesophageal reflux disease without esophagitis traMADol (ULTRAM) 50 Take 1 30 tablet 0 08/09/2018 Active mg tabletIndications: tablet by Herniated lumbar mouth every intervertebral disc, 8 hours as Neuropathy needed for Pain. tropicamide Instill 1 15 mL 0 08/09/2018 Active (MYDRIACYL) 0.5 % Drop in each 9 ophthalmic eye once as solutionIndications: needed for Uncontrolled type 2 up to 1 dose diabetes mellitus with (for poor complication, with retina scan long-term current use image). of insulin gabapentin (NEURONTIN) Take 300 mg 0 Discontinued 300 mg capsule by mouth 8 daily. metFORMIN (GLUCOPHAGE) Take 1,000 0 Discontinued 1,000 mg tablet mg by mouth 8 2 times daily (with meals). sertraline (ZOLOFT) 50 Take 50 mg 0 Discontinued mg tablet by mouth 8 daily. esomeprazole (NEXIUM Take 20 mg 0 Discontinued 24HR) 20 mg delayed by mouth 8 release capsule every morning (before breakfast). traMADol (ULTRAM) 50 Take 50 mg 0 Discontinued mg tablet by mouth 8 every 6 hours as needed for Pain. insulin detemir U-100 Inject 10 0 Discontinued (LEVEMIR FLEXTOUCH Units under 8 U-100 INSULN) 100 the skin unit/mL (3 mL) Pen daily. Active Problems No known active problems Encounters Date Type Specialty Care Team Description 08/15/2018 Ancillary Procedure Radiology Ani Angela NP 08/15/2018 Telephone [facility] Bhavani Angela, Results MANDY Law 08/09/2018 Office Visit [facility] Bhavani Angela Hospital discharge follow- up (Primary Dx); MANDY Law Dietary counseling for Above / Below Normal BMI; Exercise counseling for Above Normal BMI Only!; Acute pancreatitis, unspecified complication status, unspecified pancreatitis type; Uncontrolled type 2 diabetes mellitus with complication, with long- term current use of insulin; Depression with anxiety; Gastroesophageal reflux disease without esophagitis; Herniated lumbar intervertebral disc; Neuropathy; Rheumatoid arthritis, involving unspecified site, unspecified rheumatoid factor presence; Iron deficiency anemia, unspecified iron deficiency anemia type; Low magnesium level; Screen for colon cancer; Screening for breast cancer; Pain in joint of left shoulder; Flu vaccine need; Need for dskdvvsmwf-meqjzmo-jlyvkzblb (Tdap) vaccine; Need for 23-polyvalent pneumococcal polysaccharide vaccine 08/09/2018 Travel after 08/17/2017 Immunizations Name Dates Previously Given Next Due Influenza, Vaccine<FLUCELVAX>(Multi-Dose) 08/09/2018 PPV 23 (Pneumococcal Polysaccharide 23 Valent) 08/09/2018 TDap (Tetanus Toxoid, Reduced Diphtheria Toxoid And 08/09/2018 Acellular Pertussis, Absorbed) Family History Medical History Relation Name Comments Heart Mother Relation Name Status Comments Brother Alive Daughter Alive Father Alive Maternal Aunt Alive Maternal Grandfather Maternal Grandmother Maternal Uncle Alive Mother Paternal Aunt Alive Paternal Grandfather Paternal Grandmother Paternal Uncle Alive Sister Alive Son Alive Son Alive Son Alive Social History Tobacco Use Types Packs/Day Years Used Date Never Assessed Tobacco Cessation: Counseling Given: No Sex Assigned at Date Recorded Not on file Job Start Date Occupation Industry Not on file Not on file Not on file Travel History Travel Start Travel End No recent travel history available. Last Filed Vital Signs Vital Sign Reading Time Taken Blood Pressure 132/72 08/09/2018 10:40 AM VEGETABLE LOADER Pulse 55 08/09/2018 10:40 AM VEGETABLE LOADER Temperature 36.6 C (97.9 F) 08/09/2018 10:40 AM VEGETABLE LOADER Respiratory Rate 18 08/09/2018 10:40 AM VEGETABLE LOADER Oxygen Saturation - - Inhaled Oxygen Concentration - - Weight 93.7 kg (206 lb 9.6 oz) 08/09/2018 10:40 AM VEGETABLE LOADER Height 162.6 cm (5' 4") 08/09/2018 10:40 AM VEGETABLE LOADER Body Mass Index 35.46 08/09/2018 10:40 AM VEGETABLE LOADER Plan of Treatment Date Type Specialty Care Team Description 09/06/2018 Ancillary Procedure Radiology Ani Angela NP [phone] 09/06/2018 Office Visit Family Practice Ani Angela NP 4 week follow up [phone] 09/27/2018 Lab Appointment Lab Ani Angela NP [phone] 10/24/2018 Office Visit Psychiatry Ani Angela NP [phone] [place] [address] 10/30/2018 Office Visit Ophthalmology Domenica Dick, OD [address] [place] [address] Health Maintenance Due Date Last Done Comments DM Foot Exam (Yearly) 12/24/1981 Cervical Cancer Scrn (3 Yrs) 12/24/1984 Breast Cancer Scrn (Yearly) 2003 Colorectal Cancer Scrn Annual (FIT/FOBT) Age 50 to 75 12/24/2013 DM HGBA1C (Yearly) 08/09/2019 08/09/2018 DM Retinal Exam (Yearly) 08/15/2019 08/15/2018 IMM Influenza Seasonal May to October (>/=19 yrs) Completed 08/09/2018 Procedures Procedure Name Priority Date/Time Associated Diagnosis Comments OPHTHALMOLOGY RETINAL Routine 08/15/2018 12:23 Uncontrolled type 2 Results for this SCAN PM VEGETABLE LOADER diabetes mellitus procedure are in with complication, the results with long-term section. current use of insulin XRAY SHOULDER 2 VIEWS Routine 08/15/2018 8:10 Pain in joint of Results for this MIN AM VEGETABLE LOADER left shoulder procedure are in the results section. AMYLASE Routine 08/09/2018 12:24 Acute pancreatitis, Results for this PM VEGETABLE LOADER unspecified procedure are in complication status, the results unspecified section. pancreatitis type LIPASE Routine 08/09/2018 12:24 Acute pancreatitis, Results for this PM VEGETABLE LOADER unspecified procedure are in complication status, the results unspecified section. pancreatitis type SED RATE Routine 08/09/2018 12:24 Rheumatoid Results for this PM VEGETABLE LOADER arthritis, involving procedure are in unspecified site, the results unspecified section. rheumatoid factor presence RA FACTOR Routine 08/09/2018 12:24 Rheumatoid Results for this PM VEGETABLE LOADER arthritis, involving procedure are in unspecified site, the results unspecified section. rheumatoid factor presence SHELLY Routine 08/09/2018 12:24 Rheumatoid Results for this PM VEGETABLE LOADER arthritis, involving procedure are in unspecified site, the results unspecified section. rheumatoid factor presence MAGNESIUM Routine 08/09/2018 12:24 Low magnesium level Results for this PM VEGETABLE LOADER procedure are in the results section. VITAMIN B12 Routine 08/09/2018 12:24 Iron deficiency Results for this PM VEGETABLE LOADER anemia, unspecified procedure are in iron deficiency the results anemia type section. IRON PROFILE Routine 08/09/2018 12:24 Iron deficiency Results for this PM VEGETABLE LOADER anemia, unspecified procedure are in iron deficiency the results anemia type section. FOLIC ACID Routine 08/09/2018 12:24 Iron deficiency Results for this PM VEGETABLE LOADER anemia, unspecified procedure are in iron deficiency the results anemia type section. FERRITIN Routine 08/09/2018 12:24 Iron deficiency Results for this PM VEGETABLE LOADER anemia, unspecified procedure are in iron deficiency the results anemia type section. MICROALBUM, URINE Routine 08/09/2018 12:24 Uncontrolled type 2 Results for this PM VEGETABLE LOADER diabetes mellitus procedure are in with complication, the results with long-term section. current use of insulin TSH Routine 08/09/2018 12:24 Uncontrolled type 2 Results for this PM VEGETABLE LOADER diabetes mellitus procedure are in with complication, the results with long-term section. current use of insulin LIPID PROFILE Routine 08/09/2018 12:24 Uncontrolled type 2 Results for this PM VEGETABLE LOADER diabetes mellitus procedure are in with complication, the results with long-term section. current use of insulin LIVER PROFILE Routine 08/09/2018 12:24 Uncontrolled type 2 Results for this PM VEGETABLE LOADER diabetes mellitus procedure are in with complication, the results with long-term section. current use of insulin HIV-1/HIV-2 ROUTINE Routine 08/09/2018 12:24 Uncontrolled type 2 Results for this SCREENING PM VEGETABLE LOADER diabetes mellitus procedure are in with complication, the results with long-term section. current use of insulin HEPATITIS PANEL Routine 08/09/2018 12:24 Uncontrolled type 2 Results for this PM VEGETABLE LOADER diabetes mellitus procedure are in with complication, the results with long-term section. current use of insulin HEMOGLOBIN A1C Routine 08/09/2018 12:24 Uncontrolled type 2 Results for this PM VEGETABLE LOADER diabetes mellitus procedure are in with complication, the results with long-term section. current use of insulin CBC/DIFF Routine 08/09/2018 12:24 Uncontrolled type 2 Results for this PM VEGETABLE LOADER diabetes mellitus procedure are in with complication, the results with long-term section. current use of insulin BASIC METABOLIC PANEL Routine 08/09/2018 12:24 Uncontrolled type 2 Results for this PM VEGETABLE LOADER diabetes mellitus procedure are in with complication, the results with long-term section. current use of insulin after 08/17/2017 Results OPHTHALMOLOGY RETINAL SCAN (08/15/2018 12:23 PM VEGETABLE LOADER) RETINAL SCAN-FINAL CRITICAL (AA) IRIS RESULT Right Diabetic Severe (AA) IRIS Retinopathy Right Macular Edema None IRIS Right Other Suspected Suspected Glaucoma IRIS Conditions Right Image Quality Gradeable Image IRIS Left Diabetic Severe (AA) IRIS Retinopathy Left Macular Edema Moderate (A) IRIS Left Other Suspected Suspected Glaucoma IRIS Conditions Left Image Quality Gradeable Image IRIS Narrative Performed At Retinal Study Result for NIURKA SHERMAN LOLITA, a 52 y/o, F (: 1965, ) presented to [facility] on 08-15-2018 for a retinal imaging study of the left and right eyes. Based on the findings of the study, the following is recommended for NIURKA SHERMAN Severe Diabetic Retinopathy Found: Refer next available - Retina appointment at [facility] Ophthalmology Department.For Follow-up at [facility] or [facility]: For CSME the ordering physicians should make an ROUTINE Referral in [facility] for or [facility] Ophthalmology stating to retina service. Interpreting Provider's Comments:No comments provided Right Eye Findings: Diabetic Retinopathy: Severe Other: Suspected Glaucoma Left Eye Findings: Diabetic Retinopathy: Severe Macular Edema: Moderate Other: Suspected Glaucoma This result was electronically signed by Andrade Ferguson MD, , Taxonomy: [id number] on 08-15-2018 05:23:51 [facility] time. NOTE:Any pathology noted on this diabetic retinal evaluation should be confirmed by an appropriate ophthalmic examination. Performing Organization Address City/State/Zipcode Phone Number IRIS XRAY SHOULDER 2 VIEWS MIN (08/15/2018 8:10 AM VEGETABLE LOADER) Impressions Performed At IMPRESSION: [facility] No acute radiographic abnormality. Dictated By: Emery Cueto DO, 08/15/2018 9:30 AM I have reviewed the study and agree with the findings in this report. Signed By: Andres Sher DO, 08/15/2018 4:54 PM Narrative Performed At [facility] EXAM:Left, 2 viewXRAY SHOULDER 2 VIEWS MIN08/15/2018 8:10 AM INDICATION: left shoulder pain with limited ROM COMPARISON: None DISCUSSION: Adequate internal and external rotation. No displaced fracture or malalignment. The joint spaces are well maintained without definite osseous erosion. The visualized soft tissues appear unremarkable. Procedure Note Interface, Rad/Mammog In - 08/15/2018 4:59 PM VEGETABLE LOADER EXAM:Left, 2 view XRAY SHOULDER 2 VIEWS MIN 08/15/2018 8:10 AM INDICATION: left shoulder pain with limited ROM COMPARISON: None DISCUSSION: Adequate internal and external rotation. No displaced fracture or malalignment. The joint spaces are well maintained without definite osseous erosion. The visualized soft tissues appear unremarkable. IMPRESSION IMPRESSION: No acute radiographic abnormality. Dictated By: Emery Cueto DO, 08/15/2018 9:30 AM I have reviewed the study and agree with the findings in this report. Signed By: Andres Sher DO, 08/15/2018 4:54 PM Performing Organization Address [facility] Phone Number SMS HIV-1/HIV-2 ROUTINE SCREENING (08/09/2018 12:24 PM VEGETABLE LOADER) HIV-1/HIV-2 Negative NEG BT MAIN-STATION 3 Performing Organization Address [facility] Phone Number MISYS BT MAIN-STATION 3 MICROALBUM, URINE (08/09/2018 12:24 PM VEGETABLE LOADER) Microalbum, Random 32.1 (H) 0.0 - 29.0 BT MAIN-STATION 1 mg/dL Creatinine, Ur 104.6 20 - 320 BT MAIN-STATION 1 mg/dL Urine Microalbumin 306.9 (H) 0 - 29 mg/g BT MAIN-STATION 1 Comment: UCR To minimize intra-individual variation, analysis of three random urine samples collected over the course of a week is recommended. Performing Organization Address [facility] Phone Number MISYS BT MAIN-STATION 1 HEMOGLOBIN A1C (08/09/2018 12:24 PM VEGETABLE LOADER) Hemoglobin A1c 11.6 (H) 4.3 - 6.1 % BT DIAGNOSTIC IMMUNOLOGY Est Average Gluc 286.2 mg/dL BT DIAGNOSTIC IMMUNOLOGY Specimen Blood Performing Organization Address [facility] Phone Number MISYS BT DIAGNOSTIC IMMUNOLOGY TSH (08/09/2018 12:24 PM VEGETABLE LOADER) TSH 1.51 0.57 - 3.74 uIU/mL BT MAIN-STATION 1 Specimen Blood Performing Organization Address [facility] Phone Number MISYS BT MAIN-STATION 1 FOLIC ACID (08/09/2018 12:24 PM VEGETABLE LOADER) Folic Acid >24.8 (H) 5.9 - 24.8 ng/mL BT MAIN-STATION 1 Specimen Blood Performing Organization Address City/[facility] Phone Number MISYS BT MAIN-STATION 1 FERRITIN (08/09/2018 12:24 PM VEGETABLE LOADER) Ferritin 89.50 11.0 - 306.8 ng/mL BT MAIN-STATION 1 Specimen Blood Performing Organization Address [facility] Phone Number MISYS BT MAIN-STATION 1 VITAMIN B12 (08/09/2018 12:24 PM VEGETABLE LOADER) Vitamin B12 592 211 - 911 pg/mL BT MAIN-STATION 1 Specimen Blood Performing Organization Address [facility] Phone Number MISYS BT MAIN-STATION 1 SED RATE (08/09/2018 12:24 PM VEGETABLE LOADER) Sed Rate 24 <30 mm/Hr BT MAIN-STATION 2 Specimen Blood Performing Organization Address [facility] Phone Number MISYS BT MAIN-STATION 2 RA FACTOR (08/09/2018 12:24 PM VEGETABLE LOADER) RA Factor <10 <14 IU/mL BT MAIN-STATION 1 Specimen Blood Performing Organization Address [facility] Phone Number MISYS BT MAIN-STATION 1 MAGNESIUM (08/09/2018 12:24 PM VEGETABLE LOADER) Magnesium 1.6 (L) 1.9 - 2.7 mg/dL BT MAIN-STATION 1 Specimen Blood Performing Organization Address [facility] Phone Number MISYS BT MAIN-STATION 1 LIVER PROFILE (08/09/2018 12:24 PM VEGETABLE LOADER) T Protein 7.2 6.0 - 8.3 g/dL BT MAIN-STATION 1 Albumin 3.9 3.7 - 5.3 g/dL BT MAIN-STATION 1 T Bilirubin 0.6 0.2 - 1.2 mg/dL BT MAIN-STATION 1 Alk Phos 61 34 - 104 U/L BT MAIN-STATION 1 AST 11 (L) 13 - 39 U/L BT MAIN-STATION 1 ALT 8 7 - 52 U/L BT MAIN-STATION 1 D Bilirubin 0.1 0.0 - 0.2 mg/dL BT MAIN-STATION 1 Specimen Blood Performing Organization Address [facility] Phone Number MISYS BT MAIN-STATION 1 LIPID PROFILE (08/09/2018 12:24 PM VEGETABLE LOADER) Cholesterol 140 mg/dL BT MAIN-STATION 1 Comment: REFERENCE RANGE: Desirable: <200 mg/dL Borderline: 200-240 mg/dL High Risk: >240 mg/dL Triglyceride 101 <150 mg/dL BT MAIN-STATION 1 Comment: REFERENCE RANGE: Normal: <150 mg/dL Borderline High: 150-199 mg/dL High: 200-499 mg/dL Very High: >vy=803 mg/dL HDL 60 mg/dL BT MAIN-STATION 1 Comment: Increased CHD risk: <40 mg/dL Decreased CHD risk: >60 mg/dL LDL 60 mg/dL BT MAIN-STATION 1 Comment: REFERENCE RANGE: Optimal: <100 mg/dL Near Optimal: 100-129 mg/dL Borderline High: 130-159 mg/dL High: 160-189 mg/dL Very High: >io=352 mg/dL Specimen Blood Performing Organization Address [facility] Phone Number [facility] LIPASE (08/09/2018 12:24 PM VEGETABLE LOADER) Lipase 18 11 - 82 U/L BT MAIN-STATION 1 Specimen Blood Performing Organization Address [facility] Phone Number [facility] IRON PROFILE (08/09/2018 12:24 PM VEGETABLE LOADER) Iron 70 50 - 212 ug/dL BT MAIN-STATION 1 TIBC 291 250 - 450 ug/dL BT MAIN-STATION 1 % Iron Sat 24 % BT MAIN-STATION 1 Specimen Blood Performing Organization Address [facility] Phone Number MISYS MAIN-STATION 1 HEPATITIS PANEL (08/09/2018 12:24 PM VEGETABLE LOADER) HCV IgG Negative NEG BT MAIN-STATION 3 HBsAg Negative NEG BT MAIN-STATION 3 HAV, IgM Negative NEG BT MAIN-STATION 3 HBcAb, IgM Negative NEG BT MAIN-STATION 3 Specimen Blood Performing Organization Address [facility] Phone Number [facility] 3 CBC/DIFF (08/09/2018 12:24 PM VEGETABLE LOADER) WBC 4.7 4.5 - 11.0 K/uL BT MAIN-STATION 2 RBC 3.96 (L) 4.20 - 5.40 M/uL BT MAIN-STATION 2 Hemoglobin 11.0 (L) 12.0 - 16.0 g/dL BT MAIN-STATION 2 Hematocrit 33.9 (L) 37.0 - 47.0 % BT MAIN-STATION 2 MCV 86 82 - 92 fL BT MAIN-STATION 2 MCH 27.8 27.0 - 32.0 pg BT MAIN-STATION 2 MCHC 32.4 32.0 - 36.0 g/dL BT MAIN-STATION 2 RDW 39.8 36.4 - 46.3 fL BT MAIN-STATION 2 Platelet 167 150 - 400 K/uL BT MAIN-STATION 2 Mean Platelet Volume 11.7 9.4 - 12.4 fL BT MAIN-STATION 2 Percent NRBC 0.0 BT MAIN-STATION 2 Absolute NRBC 0.00 BT MAIN-STATION 2 Neutrophil 46.2 34.0 - 70.0 % BT MAIN-STATION 2 Lymphocyte 43.7 20.0 - 50.0 % BT MAIN-STATION 2 Monocyte 6.8 5.0 - 12.0 % BT MAIN-STATION 2 Eosinophil 2.5 0.7 - 5.0 % BT MAIN-STATION 2 Basophil 0.6 0.1 - 1.2 % BT MAIN-STATION 2 Pct Immat Gran 0.2 0.0 - 0.5 BT MAIN-STATION 2 Neutrophil, Abs 2.17 1.56 - 6.13 K/uL BT MAIN-STATION 2 Lymphocyte, Abs 2.06 1.18 - 3.74 K/uL BT MAIN-STATION 2 Monocyte, Abs 0.32 0.24 - 0.36 K/uL BT MAIN-STATION 2 Eosinophil, Abs 0.12 0.04 - 0.36 K/uL BT MAIN-STATION 2 Basophil, Abs 0.03 0.01 - 0.08 K/uL BT MAIN-STATION 2 Absol Immat Gran 0.01 0.00 - 0.03 K/uL BT MAIN-STATION 2 Specimen Blood Performing Organization Address City/State/Zipcode Phone Number MISYS BT MAIN-STATION 2 BASIC METABOLIC PANEL (08/09/2018 12:24 PM VEGETABLE LOADER) CO2 29 21 - 31 mmol/L BT MAIN-STATION 1 Chloride 102 98 - 107 mmol/L BT MAIN-STATION 1 Potassium 4.1 3.5 - 5.1 mmol/L BT MAIN-STATION 1 Sodium 138 136 - 145 mmol/L BT MAIN-STATION 1 Glucose 295 (H) 70 - 110 mg/dL BT MAIN-STATION 1 Urea Nitrogen 15 7 - 25 mg/dL BT MAIN-STATION 1 Creatinine 0.70 0.6 - 1.2 mg/dL BT MAIN-STATION 1 Anion Gap 7 BT MAIN-STATION 1 Calcium 9.9 8.6 - 10.3 mg/dL BT MAIN-STATION 1 GFR, Estimated >60 mL/min/1.73 m2 BT MAIN-STATION 1 GFR, Estim, Afr-Am >60 mL/min/1.73 m2 BT MAIN-STATION 1 Specimen Blood Performing Organization Address [facility] Phone Number [facility] 1 SHELLY (08/09/2018 12:24 PM VEGETABLE LOADER) SHELLY Screen Negative NEG BT DIAGNOSTIC IMMUNOLOGY Specimen Blood Performing Organization Address [facility] Phone Number [facility] BT [facility] AMYLASE (08/09/2018 12:24 PM VEGETABLE LOADER) Amylase 30 29 - 103 U/L BT MAIN-STATION 1 Specimen Blood Performing Organization Address [facility] Phone Number [facility] BT [facility] 1 after 08/17/2017 Insurance Payer Benefit Plan / Subscriber ID Effective Dates Phone Address Type Group [place] [employer] [employer] x[place]xx 2018- [phone] [id number] [place] [address] [employer] PLAN H[employer] PLAN 1 xxxxxxx 2018- [phone] [place] [address]
--- OUTSIDE RECORDS SUMMARY | 2018-08-18 18:59 | XMS REPORT ---
:1965 [facility] [address] [place] [address] Care Team Providers Name Role Phone Unavailable Unavailable Unavailable Payers Payer Name Policy Type Policy Number Effective Date Expiration Date Problems This patient has no known problems. Allergies, Adverse Reactions, Alerts Allergy Allergy Status Severity Reaction(s) Onset Inactive Treating Comments Name Type Date Date Clinician No Known DA Active U 2015-10 00:00:0 0 Medications This patient has no known medications. Encounters Start End Encounter Admission Attending Care Care Encounter Date/Time Date/Time Type Type Clinicians Facility Department ID 2018-10-30 2018-10-30 Outpatient [facility] [id number] 00:00:00 00:00:00 2018-10-24 2018-10-24 Outpatient [facility] [id number] 00:00:00 00:00:00 2018-09-27 2018-09-27 Outpatient [facility] [id number] 00:00:00 00:00:00 2018-09-06 2018-09-06 Outpatient [facility] [id number] 00:00:00 00:00:00 2018-09-06 2018-09-06 Outpatient [facility] [id number] 00:00:00 00:00:00 2018-08-16 2018-08-16 Outpatient [facility] [id number] 00:00:00 00:00:00 2018-08-16 2018-08-16 Outpatient [facility] [id number] 00:00:00 00:00:00 2018-08-15 2018-08-15 Outpatient [facility] [id number] 08:54:15 08:54:15 2018-08-15 2018-08-15 Outpatient [facility] [id number] 08:02:56 08:02:56 2018-08-10 2018-08-10 Outpatient [facility] [id number] 00:00:00 00:00:00 2018-08-10 2018-08-10 Outpatient [facility] [id number] 00:00:00 00:00:00 2018-08-10 2018-08-10 Outpatient [facility] [id number] 00:00:00 00:00:00 2018-08-10 2018-08-10 Outpatient [facility] [id number] 00:00:00 00:00:00 2018-08-09 2018-08-09 Outpatient [facility] [id number] 12:27:55 12:27:55 2018-08-09 2018-08-09 Outpatient [facility] [id number] 10:27:26 10:27:26
[2018-08-18] MEDS ORDERED: ONDANSETRON 4 MG/2 ML VIAL ONE (19:43)
[2018-08-18] MEDS ORDERED: NA CHLORIDE 0.9% 1,000 ML ONE ×2 (19:43→20:24)
--- NOTE | 2018-08-18 20:02 | RAD REPORT ---
EXAM DESCRIPTION: CT - Stone Protocol - 08/18/2018 7:53 pm CLINICAL HISTORY: Left lower quadrant abdominal pain COMPARISON: CT imaging August 06 TECHNIQUE: Axial 5 mm thick images were obtained without oral or IV contrast. The [id number]-vipi span s the entirety of the system including uppermost abdomen and lung bases. All CT scans are performed using dose optimization technique as appropriate and may include automated exposure control or mA/KV adjustment according to patient size. FINDINGS: No hydronephrosis is present on the right. No right-sided calculi. Punctate calcification lower pole calyx on the left has not changed from August 06. There is a questionable sandlike stone in the left renal pelvis (image [id number]). No other evidence for ureteral calculus. No perinephric str anding. Pelvic floor phleboliths are present. No suspicious renal masses. Isodense masses and pyelone phritis are not excluded on a stone protocol CT scan. No urinary bladder suspicious finding. No signi ficant adrenal finding. Uterus and ovaries show no suspicious findings. Imaged portions of the liver, spleen and pancreas show no suspicious findings on non-contrast imaging . No gallbladder or biliary tree abnormality identified. No suspicious bowel findings. Cholecystectomy clips are present. Minimal diverticulosis without diver ticulitis evident. No abdominal wall hematoma or other left lower quadrant abnormality. No hernia, mass or bulky lymphadenopathy noted. No free air, free fluid or inflammatory stranding. No significant bony abnormality. IMPRESSION: There is a questionable sandlike stone in the non dilated left renal pelvis. This is a v tushar minimal finding. Nonobstructing lower pole calyx on the left has not changed from August 06. Minimal diverticulosis in the left lower quadrant without diverticulitis or acute GI process. Isodense masses and pyelonephritis are not excluded on stone protocol technique.
[2018-08-18 20:31] LABS: Absolute Lymphocytes (CBC) 1.9 K/uL (0.7-4.9); Absolute Monocytes 0.5 K/uL (0.1-1.3); Absolute Neutrophil 4.9 K/uL (1.8-8.0); Basophils % 0.4 % (0-1.3); Eosinophils % 1.1 % (0-4.4); Hematocrit 37.7 % (36.0-45.0); MCH 28.7 pg (27.0-35.0); MCV 86.5 fL (80-100); MPV 9.3 fL (7.6-11.3); Monocytes % 6.4 % (3.3-12.3); RBC Red Blood Cell Count 4.36 M/uL (3.86-4.86)
[2018-08-18 20:51] LABS: Albumin 3.8 g/dL (3.4-5.0); Bilirubin Direct 0.1 mg/dL (0-0.2); Bilirubin Total 0.4 mg/dL (0.2-1.0); Potassium 4.3 mmol/L (3.5-5.1); Protein, Total 7.9 g/dL (6.4-8.2)
--- NOTE | 2018-08-18 21:44 | EDPHYS ---
Physician Documentation [facility] Name: Cary Gan Age: 52 yrs Sex: Female : 1965 Arrival Date: 08/18/2018 Time: 18:57 Bed 14 Private MD: ED Physician Trey Miller HPI: 08/18 20:00 This 52 yrs old Female presents to ER via Ambulatory with complaints of pm1 Vomiting, Weakness. 20:00 The patient presents to the emergency department with nausea, vomiting, abdominal pain. pm1 20:00 Onset: The symptoms/episode began/occurred today. Possible causes: unknown. The pm1 symptoms are aggravated by nothing. The symptoms are alleviated by nothing. Associated signs and symptoms: Pertinent positives: abdominal pain, nausea, vomiting, Pertinent negatives: diarrhea, dysuria, fever. The patient has experienced similar episodes in the past, several times. The patient has not recently seen a physician. Patient reports rash to bilateral groin area for the past few days. 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 - Social history:: Smoking status: Patient/guardian denies using tobacco. - Ebola Screening: : Patient denies travel to an Ebola-affected area in the 21 days before illness onset. ROS: 20:00 Constitutional: Negative for fever, chills, and weight loss, Eyes: Negative for injury, pm1 pain, redness, and discharge, ENT: Negative for injury, pain, and discharge, Neck: Negative for injury, pain, and swelling, Cardiovascular: Negative for chest pain, palpitations, and edema, Respiratory: Negative for shortness of breath, cough, wheezing, and pleuritic chest pain. 20:00 Neuro: Negative for headache, weakness, numbness, tingling, and seizure. 20:00 : Negative for injury, bleeding, discharge, and swelling, MS/Extremity: Negative for injury and deformity. 20:00 Abdomen/GI: Positive for abdominal pain, nausea and vomiting, Negative for diarrhea, constipation. 20:00 Skin: Positive for rash, of the right inguinal area and left inguinal area. 20:00 Back: Positive for flank pain, on the left, Negative for decreased range of motion. pm1 Exam: 20:00 Constitutional: This is a well developed, well nourished patient who is awake, alert, pm1 and in no acute distress. Head/Face: Normocephalic, atraumatic. Eyes: Pupils equal round and reactive to light, extra-ocular motions intact. Lids and lashes normal. Conjunctiva and sclera are non-icteric and not injected. Cornea within normal limits. Periorbital areas with no swelling, redness, or edema. ENT: Nares patent. No nasal discharge, no septal abnormalities noted. Tympanic membranes are normal and external auditory canals are clear. Oropharynx with no redness, swelling, or masses, exudates, or evidence of obstruction, uvula midline. Mucous membranes moist. Neck: Trachea midline, no thyromegaly or masses palpated, and no cervical lymphadenopathy. Supple, full range of motion without nuchal rigidity, or vertebral point tenderness. No Meningismus. Chest/axilla: Normal chest wall appearance and motion. Nontender with no deformity. No lesions are appreciated. Cardiovascular: Regular rate and rhythm with a normal S1 and S2. No gallops, murmurs, or rubs. Normal PMI, no JVD. No pulse deficits. Respiratory: Lungs have equal breath sounds bilaterally, clear to auscultation and percussion. No rales, rhonchi or wheezes noted. No increased work of breathing, no retractions or nasal flaring. 20:00 Abdomen/GI: Inspection: abdomen appears normal, Bowel sounds: normal, Palpation: abdomen is soft and non-tender, mass, is not appreciated, rebound tenderness, is not appreciated. 20:00 Back: No spinal tenderness. No costovertebral tenderness. Full range of motion. pm1 20:00 Skin: Appearance: normal except for affected area, abscess, not appreciated, cellulitis, is not appreciated, consistent with Candidiasis . 20:00 Neuro: Orientation: is normal, Motor: is normal, moves all fours. Vital Signs: 19:20 BP 105 / 79; Pulse 64; Resp 18; Temp 97.5; Pulse Ox 100% on R/A; Weight 89.81 kg (R); aj1 Height 5 ft. 4 in. (162.56 cm) (R); Pain 9/10; 20:23 BP 112 / 79; Pulse 65; Resp 17 S; Pulse Ox 100% on R/A; cc3 22:13 BP 109 / 72; Pulse 65; Resp 18 S; Pulse Ox 100% on R/A; cc3 19:20 Body Mass Index 33.99 (89.81 kg, 162.56 cm) aj1 MDM: 19:24 Patient medically screened. wilfrid 21:40 Data reviewed: vital signs. Data interpreted: Pulse oximetry: on room air is 100 %. pm1 Interpretation: normal. Counseling: I had a detailed discussion with the patient and/or guardian regarding: the historical points, exam findings, and any diagnostic results supporting the discharge/admit diagnosis, lab results, radiology results, the need for outpatient follow up, to return to the emergency department if symptoms worsen or persist or if there are any questions or concerns that arise at home. 08/18 19: Order name: Basic Metabolic Panel; Complete Time: 21:08 pm1 08/18 19: Order name: CBC with Diff; Complete Time: 21:08 pm1 08/18 19: Order name: Creatinine for Radiology; Complete Time: 21:08 pm1 08/18 19: Order name: Hepatic Function; Complete Time: 21:08 pm1 08/18 19: Order name: Lipase; Complete Time: 21:08 pm1 08/18 22:29 Order name: Urine Dipstick--Ancillary (enter results); Complete Time: 22:49 gm 08/18 19: Order name: IV Saline Lock; Complete Time: 20:31 pm1 08/18 19: Order name: Labs collected and sent; Complete Time: 20:31 pm1 08/18 19:29 Order name: CT Stone Protocol; Complete Time: 20:04 pm1 Administered Medications: 20:00 Drug: Zofran 4 mg Route: IVP; Site: left forearm; cc3 20:30 Follow up: Response: No adverse reaction; Nausea is decreased cc3 20:15 Drug: NS 0.9% 1000 ml Route: IV; Rate: 1000 ml; Site: left forearm; cc3 21:20 Follow up: Response: No adverse reaction; IV Status: Completed infusion; IV Intake: cc3 1000ml Disposition: 08/18/18 21:44 Discharged to Home. Impression: Unspecified abdominal pain, Vomiting, Candidiasis of other sites. - Condition is Stable. - Discharge Instructions: Abdominal Pain, Adult, Nausea and Vomiting, Adult, Rash. - Prescriptions for Clotrimazole 1 % Topical Cream - Apply to affected area 1 application by TOPICAL route every 12 hours for 10 days; 30 gram. Zofran 4 mg Oral Tablet - take 1 tablet by ORAL route every 12 hours As needed; 20 tablet. Bentyl 20 mg Oral Tablet - take 1 tablet by ORAL route every 6 hours As needed; 20 tablet. - Medication Reconciliation Form, Thank You Letter, Antibiotic Education, Prescription Opioid Use form. - Follow up: Emergency Department; When: As needed; Reason: Worsening of condition. Follow up: Private Physician; When: 2 - 3 days; Reason: Recheck today's complaints, Continuance of care, Re-evaluation by your physician. - Problem is new. - Symptoms have improved. Signatures: Dispatcher [employer] EDMouna Mckay RN RN aj1 Trey Miller MD MD cha Marinas, Patrick, MANDY PIT RECORDER pm1 Josee Tucker cc3 Corrections: (The following items were deleted from the chart) 22:17 20:00 Back: Negative for injury and pain, : Negative for injury, bleeding, discharge, pm1 and swelling, MS/Extremity: Negative for injury and deformity, pm1 22:50 21:44 08/18/2018 21:44 Discharged to Home. Impression: Unspecified abdominal pain; cc3 Vomiting; Candidiasis of other sites. Condition is Stable. Forms are Medication Reconciliation Form, Thank You Letter, Antibiotic Education, Prescription Opioid Use. Follow up: Emergency Department; When: As needed; Reason: Worsening of condition. Follow up: Private Physician; When: 2 - 3 days; Reason: Recheck today's complaints, Continuance of care, Re-evaluation by your physician. Problem is new. Symptoms have improved. pm1
--- NOTE | 2018-08-18 21:44 | ER ---
Nurse's Notes [facility] Name: Cary Gan Age: 52 yrs Sex: Female : 1965 Arrival Date: 08/18/2018 Time: 18:57 Bed 14 Private MD: Diagnosis: Unspecified abdominal pain;Vomiting;Candidiasis of other sites Presentation: 08/18 19:15 Presenting complaint: Patient states: "I threw up 3 times and my stomach hurts real aj1 bad, and I got like a rash, and its got a real bad odor. I have a bad headache" Patient reports LLQ abdominal pain, Reports rash to left lower abdomen. Denies fever. Transition of care: patient was not received from another setting of care. Onset of symptoms was August 18, 2018. Risk Assessment: Do you want to hurt yourself or someone else? Patient reports no desire to harm self or others. Initial Sepsis Screen: Does the patient meet any 2 criteria? No. Patient's initial sepsis screen is negative. Does the patient have a suspected source of infection? Yes: Acute abdominal pain. Care prior to arrival: None. 19:15 Method Of Arrival: Ambulatory aj1 19:15 Acuity: SANTANA 3 aj1 Triage Assessment: 19:20 General: Appears in no apparent distress. uncomfortable, Behavior is calm, cooperative, aj1 appropriate for age. Pain: Complains of pain in left lower quadrant Pain currently is 9 out of 10 on a pain scale. Neuro: Level of Consciousness is awake, alert, obeys commands. Cardiovascular: Patient's skin is warm and dry. Respiratory: Airway is patent Respiratory effort is even, unlabored, Respiratory pattern is regular, symmetrical. GI: Reports nausea, vomiting. 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 - Social history:: Smoking status: Patient/guardian denies using tobacco. - Ebola Screening: : Patient denies travel to an Ebola-affected area in the 21 days before illness onset. Screenin:25 Abuse screen: Denies threats or abuse. Denies injuries from another. Nutritional cc3 screening: No deficits noted. Tuberculosis screening: No symptoms or risk factors identified. Fall Risk Ambulatory Aid- None/Bed Rest/Nurse Assist (0 pts). Gait- Normal/Bed Rest/Wheelchair (0 pts) Mental Status- Oriented to own ability (0 pts). Assessment: 19:25 Reassessment: Patient appears in no apparent distress at this time. Patient and/or cc3 family updated on plan of care and expected duration. Pain level reassessed. Patient is alert, oriented x 3, equal unlabored respirations, skin warm/dry/pink. 20:25 Reassessment: Patient appears in no apparent distress at this time. Patient and/or cc3 family updated on plan of care and expected duration. Pain level reassessed. Patient is alert, oriented x 3, equal unlabored respirations, skin warm/dry/pink. 21:23 Reassessment: Patient appears in no apparent distress at this time. Patient and/or cc3 family updated on plan of care and expected duration. Pain level reassessed. Patient is alert, oriented x 3, equal unlabored respirations, skin warm/dry/pink. 22:45 Reassessment: Patient appears in no apparent distress at this time. Patient and/or cc3 family updated on plan of care and expected duration. Pain level reassessed. Patient is alert, oriented x 3, equal unlabored respirations, skin warm/dry/pink. MANDY Akhtar discharged the patient home with prescription given. IV cannula removed and patient left ER vitally stable by wheelchair escorted by her son. Vital Signs: 19:20 BP 105 / 79; Pulse 64; Resp 18; Temp 97.5; Pulse Ox 100% on R/A; Weight 89.81 kg (R); aj1 Height 5 ft. 4 in. (162.56 cm) (R); Pain 9/10; 20:23 BP 112 / 79; Pulse 65; Resp 17 S; Pulse Ox 100% on R/A; cc3 22:13 BP 109 / 72; Pulse 65; Resp 18 S; Pulse Ox 100% on R/A; cc3 19:20 Body Mass Index 33.99 (89.81 kg, 162.56 cm) [facility] ED Course: 18:57 Patient arrived in ED. mr 19:19 Triage completed. aj1 19:20 Arm band placed on Patient placed in an exam room. aj1 19:23 Josee Tucker is Primary Nurse. cc3 19:23 Hermilo Jackson NP is PHCP. pm1 19:23 Trey Miller MD is Attending Physician. pm1 19:25 Patient has correct armband on for positive identification. Bed in low position. Call cc3 light in reach. Side rails up X 1. microbiological laboratory technician on. Pulse ox on. NIBP on. 19:53 CT Stone Protocol In Process Unspecified. EDMS 20:00 Inserted saline lock: 22 gauge in left ,using aseptic technique. inner forearm Blood cc3 collected. inserted by [facility] David. 22:45 No provider procedures requiring assistance completed. IV discontinued, intact, cc3 bleeding controlled, No redness/swelling at site. Pressure dressing applied. Administered Medications: 20:00 Drug: Zofran 4 mg Route: IVP; Site: left forearm; cc3 20:30 Follow up: Response: No adverse reaction; Nausea is decreased cc3 20:15 Drug: NS 0.9% 1000 ml Route: IV; Rate: 1000 ml; Site: left forearm; cc3 21:20 Follow up: Response: No adverse reaction; IV Status: Completed infusion; IV Intake: cc3 1000ml Intake: 21:20 IV: 1000ml; Total: 1000ml. cc3 Outcome: 21:44 Discharge ordered by . pm1 22:45 Discharged to home via wheelchair, with family. cc3 22:45 Condition: stable 22:45 Discharge instructions given to patient, family, Instructed on discharge instructions, follow up and referral plans. medication usage, Demonstrated understanding of instructions, follow-up care, medications, Prescriptions given X 3. 22:50 Patient left the ED. cc3 Signatures: Dispatcher [employer] EDMN Mouna Angela RN RN aj Ines Valiente mr Hermilo Jackson, HEAD BOOKKEEPER HEAD BOOKKEEPER pmJosee Bucio cc3
[2018-08-18 22:41] LABS: Urine Blood NEGATIVE (NEG); Urine Glucose NEGATIVE (NEG); Urine Protein 2+ (NEG); Urine pH 7.5 (5.0-7.0)
[2018-08-18 23:37] VITALS: BP 105/79; TEMP 97.5; O2SAT 100
== END 2018-08-18 22:50 | disposition home or self-care (01) ==
LOC: ER 18:55
DX: B37.89 Other sites of candidiasis (principal); R11.2 Nausea with vomiting, unspecified; E11.9 Type 2 diabetes mellitus without complications; F41.9 Anxiety disorder, unspecified; F32.9 Major depressive disorder, single episode, unspecified; E78.00 Pure hypercholesterolemia, unspecified
CPT/HCPCS: 36415; 74176; 76377; 80048; 80076; 81003; 83690; 85025; 96361; 96374; 99284; J2405; J7030

== ENCOUNTER 2018-09-22 16:59 | Emergency (ER) | payer SELFPAY ==
--- OUTSIDE RECORDS SUMMARY | 2018-09-22 17:01 | XMS REPORT ---
:1965 [facility] Address [address] [place] [address] Care Team Providers Name Role Phone Unavailable [...] Date/Time Type Type Clinicians Facility Department ID 2018-12-04 2018-12-[address] [facility] [id number] 00:00:00 00:00:00 2018-10-30 2018-10-[address] [facility] [id number] 00:00:00 00:00:00 2018-10-24 2018-10-[address] [facility] [id number] 00:00:00 00:00:00 2018-10-16 2018-10-[address] [facility] [id number] 00:00:00 00:00:00 2018-09-27 2018-09-[address] [facility] [id number] 00:00:00 00:00:00 2018-09-06 2018-09-[address] [facility] [id number] 11:29:04 11:29:04 2018-09-06 2018-09-[address] [facility] [id number] 10:23:32 10:23:32 2018-08-27 2018-08-[address] [facility] [id number] 00:00:00 00:00:00 2018-08-24 2018-08-24 Outpatient [facility] [id number] 14:33:36 14:33:36 2018-08-16 2018-08-16 Outpatient [facility] [id number] 00:00:00 00:00:00 2018-08-16 2018-08-16 Outpatient [facility] [id number] 00:00:00 00:00:00 2018-08-15 2018-08-[address] [facility] [id number] 08:54:15 08:54:15 2018-08-15 2018-08-15 Outpatient [facility] [id number] 08:02:56 08:02:56 2018-08-10 2018-08-[address] [facility] [id number] 00:00:00 00:00:00 2018-08-10 2018-08-[address] [facility] [id number] 00:00:00 00:00:00 2018-08-10 2018-08-[address] [facility] [id number] 00:00:00 00:00:00 2018-08-10 2018-08-[address] [facility] [id number] 00:00:00 00:00:00 2018-08-09 2018-08-09 Outpatient [facility] [id number] 12:27:55 12:27:55 2018-08-09 2018-08-09 Outpatient [facility] [id number] 10:27:26 10:27:26
--- OUTSIDE RECORDS SUMMARY | 2018-09-22 17:01 | XMS REPORT | Clinical Summary ---
:1965 Author Organization [facility] Address [facility] [place] [address] Care Team Providers Name Role Phone Ani Angela IMMUNOCHEMIST Primary Care Provider Allergies No Known Allergies Medications Medication Sig Dispensed Refills Start Date End Date Status meclizine (ANTIVERT) Take 25 mg by 0 Active 25 mg Tab mouth 3 times daily. magnesium oxide Take 400 mg 0 Active (MAG-OX) 400 mg by mouth 2 (241.3 mg magnesium) times daily. tablet ferrous sulfate 325 Take 325 mg 0 Active mg (65 mg iron) by mouth tablet daily (with breakfast). metFORMIN Take 1 tablet 60 tablet 2 08/09/2018 Active (GLUCOPHAGE) 1,000 mg by mouth 2 tabletIndications: times daily Uncontrolled type 2 (with meals). diabetes mellitus with complication, with long-term current use of insulin sertraline (ZOLOFT) Take 1 tablet 30 tablet 2 08/09/2018 Active 50 mg by mouth tabletIndications: daily. Depression with anxiety gabapentin Take 1 30 capsule 2 08/09/2018 Active (NEURONTIN) 300 mg capsule by capsuleIndications: mouth daily. Neuropathy omeprazole (PRILOSEC) Take 1 30 capsule 2 08/09/2018 Active 20 mg delayed release capsule by capsuleIndications: mouth daily. Gastroesophageal reflux disease without esophagitis traMADol (ULTRAM) 50 Take 1 tablet 30 tablet 0 08/09/2018 Active mg tabletIndications: by mouth Herniated lumbar every 8 hours intervertebral disc, as needed for Neuropathy Pain. tropicamide Instill 1 15 mL 0 08/09/2018 Active (MYDRIACYL) 0.5 % Drop in each 9 ophthalmic eye once as solutionIndications: needed for up Uncontrolled type 2 to 1 dose diabetes mellitus (for poor with complication, retina scan with long-term image). current use of insulin polyethylene glycol Add lukewarm 4000 mL 0 09/04/2018 Active (GOLYTELY) drinking 236-22.74-6.74 -5.86 water to the gram oral fill bailey (4 solutionIndications: liters) and Positive occult stool shake. Drink blood test as directed by your doctor.. insulin detemir U-100 Inject 20 9 mL 0 09/06/2018 Active (LEVEMIR FLEXTOUCH Units under U-100 INSULN) 100 the skin unit/mL (3 mL) daily. PenIndications: Poorly controlled type 2 diabetes mellitus furosemide (LASIX) 20 Take 1 tablet 30 tablet 2 09/06/2018 Active mg tabletIndications: by mouth Bilateral lower every other extremity edema day. blood glucose meter Use as 1 Kit 0 09/06/2018 Active (PRECISION XTRA directed.. GLUCOMETER)Indication s: Poorly controlled type 2 diabetes mellitus blood glucose Use 3 times 100 Each 3 09/06/2018 Active (PRECISION XTRA TEST daily to test STRIPS) test blood sugar. stripsIndications: Poorly controlled type 2 diabetes mellitus lancets 28 Use 3 times 100 Each 1 09/06/2018 Active gaugeIndications: daily as Poorly controlled directed. type 2 diabetes mellitus pen needle, diabetic Inject under 1 Box 3 09/06/2018 Active 31 gauge x 3/16" the skin needlesIndications: daily. Poorly controlled type 2 diabetes mellitus atorvastatin Take 1 tablet 90 tablet 1 09/11/2018 Active (LIPITOR) 40 mg by mouth at tabletIndications: bedtime Dyslipidemia nightly. lisinopril (PRINIVIL, Take 1 tablet 90 tablet 1 09/11/2018 Active ZESTRIL) 10 mg by mouth tabletIndications: daily. Essential hypertension atorvastatin Take 40 mg by 0 Discontinued (LIPITOR) 40 mg mouth at 9 tablet bedtime nightly. lisinopril (PRINIVIL, Take 10 mg by 0 Discontinued ZESTRIL) 10 mg tablet mouth daily. 9 gabapentin Take 300 mg 0 Discontinued (NEURONTIN) 300 mg by mouth 8 capsule daily. metFORMIN Take 1,000 mg 0 Discontinued (GLUCOPHAGE) 1,000 mg by mouth 2 8 tablet times daily (with meals). sertraline (ZOLOFT) Take 50 mg by 0 Discontinued 50 mg tablet mouth daily. 8 esomeprazole (NEXIUM Take 20 mg by 0 Discontinued 24HR) 20 mg delayed mouth every 8 release capsule morning (before breakfast). traMADol (ULTRAM) 50 Take 50 mg by 0 Discontinued mg tablet mouth every 6 8 hours as needed for Pain. insulin detemir U-100 Inject 10 0 Discontinued (LEVEMIR FLEXTOUCH Units under 8 U-100 INSULN) 100 the skin unit/mL (3 mL) Pen daily. insulin detemir U-100 Inject 10 9 mL 0 08/09/2018 Discontinued (LEVEMIR FLEXTOUCH Units under 9 U-100 INSULN) 100 the skin unit/mL (3 mL) daily. PenIndications: Uncontrolled type 2 diabetes mellitus with complication, with long-term current use of insulin Active Problems No known active problems Encounters Date Type Specialty Care Team Description 09/11/2018 Orders Only [facility] Bhavani Angela, Essential hypertension ( Primary Dx); MANDY Law Dyslipidemia 09/07/2018 Telephone Patient Education Cole, Disease Management F/U Tomas Nur RN 09/06/2018 Office Visit [facility] Bhavani Angela, Encounter to discuss test results (Primary Dx); MANDY Law Poorly controlled type 2 diabetes mellitus; Microalbuminuria; Left shoulder pain, unspecified chronicity; Low back pain at multiple sites; Bilateral lower extremity edema; Dyslipidemia; Positive occult stool blood test 09/06/2018 Ancillary Radiology Radha Angela NP 09/06/2018 Travel 08/30/2018 Refill [facility] Bhavani Angela Positive occult stool MANDY Law blood test (Primary Dx) 08/15/2018 Ancillary Radiology Radha Angela NP 08/15/2018 Telephone [facility] Bhavani Angela, Results MANDY Law 08/09/2018 Office Visit Family Bhavani Angela, Hospital discharge follow- up (Primary Dx); MANDY [...] left shoulder; Flu vaccine need; Need for gnmdwraxah-tofhxyx-lzzqixjfb (Tdap) vaccine; Need for 23-polyvalent pneumococcal polysaccharide vaccine 08/09/2018 Travel after 09/21/2017 Immunizations Name Dates Previously Given Next Due [...] Use Types Packs/Day Years Used Date Never Smoker Smokeless Tobacco: Never Used Tobacco Cessation: Counseling Given: No Sex Assigned at Date Recorded Not on file Job Start Date Occupation Industry Not on file Not on file Not on file Travel History Travel Start Travel End No recent travel history available. Last Filed Vital Signs Vital Sign Reading Time Taken Blood Pressure 141/82 09/06/2018 11:31 AM ASSISTANT TEACHING PROFESSOR Pulse 57 09/06/2018 11:31 AM ASSISTANT TEACHING PROFESSOR Temperature 36.7 C (98.1 F) 09/06/2018 11:31 AM ASSISTANT TEACHING PROFESSOR Respiratory Rate 18 09/06/2018 11:31 AM ASSISTANT TEACHING PROFESSOR Oxygen Saturation - - Inhaled Oxygen Concentration - - Weight 94.3 kg (207 lb 12.8 oz) 09/06/2018 11:31 AM ASSISTANT TEACHING PROFESSOR Height 160 cm (5' 3") 09/06/2018 11:31 AM ASSISTANT TEACHING PROFESSOR Body Mass Index 36.81 09/06/2018 11:31 AM ASSISTANT TEACHING PROFESSOR Plan of Treatment Date Type Specialty Care Team Description 10/16/2018 Ancillary Procedure Radiology 10/24/2018 Office Visit Psychiatry Ani Angela NP [phone] [place] [address] [phone] 10/30/2018 Office Visit Ophthalmology Domenica Dick, OD [address] [place] [address] 12/04/2018 Lab Appointment Lab Ani Angela, MANDY [phone] Health Maintenance Due Date Last Done Comments Cervical Cancer Scrn (3 Yrs) 12/24/1984 DM HGBA1C (Yearly) 08/09/2019 08/09/2018 DM Retinal Exam (Yearly) 08/15/2019 08/15/2018 Colorectal Cancer Scrn Annual (FIT/FOBT) Age 50 to 75 08/24/2019 08/24/2018 Breast Cancer Scrn (Yearly) 09/06/2019 09/06/2018 DM Foot Exam (Yearly) 09/06/2019 09/06/2018 IMM Influenza Seasonal May to October (>/=19 yrs) Completed 08/09/2018 Procedures Procedure Name Priority Date/Time Associated Diagnosis Comments DIABETIC FOOT EXAM Routine 09/06/2018 12:05 Poorly controlled Results for this PM ASSISTANT TEACHING PROFESSOR type 2 diabetes procedure are in mellitus the results section. MAMMOGRAM BILAT SCREEN Routine 09/06/2018 11:03 Screening for breast Results for this DIGITAL AM ASSISTANT TEACHING PROFESSOR cancer procedure are in the results section. OCCULT BLOOD ICT Routine 08/24/2018 2:33 Screen for colon Results for this PM ASSISTANT TEACHING PROFESSOR cancer procedure are in the results section. OPHTHALMOLOGY RETINAL Routine 08/15/2018 12:23 Uncontrolled type 2 Results for this SCAN PM ASSISTANT TEACHING PROFESSOR diabetes mellitus procedure are in with complication, the results with long-term section. current use of insulin XRAY SHOULDER 2 VIEWS Routine 08/15/2018 8:10 Pain in joint of Results for this MIN AM ASSISTANT TEACHING PROFESSOR left shoulder procedure are in the results section. AMYLASE Routine 08/09/2018 12:24 Acute pancreatitis, Results for this PM ASS[employer]ANT TEACHING PROFESSOR unspecified procedure are in complication status, the results unspecified section. pancreatitis type LIPASE Routine 08/09/2018 12:24 Acute pancreatitis, Results for this PM ASS[employer] TEACHING PROFESSOR unspecified procedure are in complication status, the results unspecified section. pancreatitis type SED RATE Routine 08/09/2018 12:24 Rheumatoid Results for this PM ASS[employer]ANT TEACHING PROFESSOR arthritis, involving procedure are in unspecified site, the results unspecified section. rheumatoid factor presence RA FACTOR Routine 08/09/2018 12:24 Rheumatoid Results for this PM [employer] TEACHING PROFESSOR arthritis, involving procedure are in unspecified site, the results unspecified section. rheumatoid factor presence SHELLY Routine 08/09/2018 12:24 Rheumatoid Results for this PM ASSISTANT TEACHING PROFESSOR arthritis, involving procedure are in unspecified site, the results unspecified section. rheumatoid factor presence MAGNESIUM Routine 08/09/2018 12:24 Low magnesium level Results for this PM ASSISTANT TEACHING PROFESSOR procedure are in the results section. VITAMIN B12 Routine 08/09/2018 12:24 Iron deficiency Results for this PM ASSISTANT TEACHING PROFESSOR anemia, unspecified procedure are in iron deficiency the results anemia type section. IRON PROFILE Routine 08/09/2018 12:24 Iron deficiency Results for this PM ASSISTANT TEACHING PROFESSOR anemia, unspecified procedure are in iron deficiency the results anemia type section. FOLIC ACID Routine 08/09/2018 12:24 Iron deficiency Results for this PM ASSISTANT TEACHING PROFESSOR anemia, unspecified procedure are in iron deficiency the results anemia type section. FERRITIN Routine 08/09/2018 12:24 Iron deficiency Results for this PM ASSISTANT TEACHING PROFESSOR anemia, unspecified procedure are in iron deficiency the results anemia type section. MICROALBUM, URINE Routine 08/09/2018 12:24 Uncontrolled type 2 Results for this PM ASSISTANT TEACHING PROFESSOR diabetes mellitus procedure are in with complication, the results with long-term section. current use of insulin TSH Routine 08/09/2018 12:24 Uncontrolled type 2 Results for this PM ASSISTANT TEACHING PROFESSOR diabetes mellitus procedure are in with complication, the results with long-term section. current use of insulin LIPID PROFILE Routine 08/09/2018 12:24 Uncontrolled type 2 Results for this PM [employer] TEACHING PROFESSOR diabetes mellitus procedure are in with complication, the results with long-term section. current use of insulin LIVER PROFILE Routine 08/09/2018 12:24 Uncontrolled type 2 Results for this PM ASSISTANT TEACHING PROFESSOR diabetes mellitus procedure are in with complication, the results with long-term section. current use of insulin HIV-1/HIV-2 ROUTINE Routine 08/09/2018 12:24 Uncontrolled type 2 Results for this SCREENING PM ASSISTANT TEACHING PROFESSOR diabetes mellitus procedure are in with complication, the results with long-term section. current use of insulin HEPATITIS PANEL Routine 08/09/2018 12:24 Uncontrolled type 2 Results for this PM ASSISTANT TEACHING PROFESSOR diabetes mellitus procedure are in with complication, the results with long-term section. current use of insulin HEMOGLOBIN A1C Routine 08/09/2018 12:24 Uncontrolled type 2 Results for this PM ASSISTANT TEACHING PROFESSOR diabetes mellitus procedure are in with complication, the results with long-term section. current use of insulin CBC/DIFF Routine 08/09/2018 12:24 Uncontrolled type 2 Results for this PM ASSISTANT TEACHING PROFESSOR diabetes mellitus procedure are in with complication, the results with long-term section. current use of insulin BASIC METABOLIC PANEL Routine 08/09/2018 12:24 Uncontrolled type 2 Results for this PM ASSISTANT TEACHING PROFESSOR diabetes mellitus procedure are in with complication, the results with long-term section. current use of insulin after 09/21/2017 Results DIABETIC FOOT EXAM (09/06/2018 12:05 PM ASSISTANT TEACHING PROFESSOR) Narrative Performed At Ani Angela NP 09/06/20182:37 PM Diabetic Foot Exam was performed at 09/06/2018 12:34 PM.Right foot sensation is normal, right foot pulses are normal, right foot appearance is normal.Left foot sensation is normal,left foot pulses are normal, left foot appearance is normal. MAMMOGRAM BILAT SCREEN DIGITAL (09/06/2018 11:03 AM ASSISTANT TEACHING PROFESSOR) Impressions Performed At IMPRESSION: BENIGN [facility] There is no mammographic evidence of malignancy. A 1 year screening mammogram is recommended. This document has been electronically signed. Jolie he/pengulshan:09/06/2018 12:12:51 Office Nurse Practitioner: Jennifer Monet [facility] letter sent: Mammography Normal Mammogram BI-RADS: 2 Benign G0202 z12.[address] [facility] #[id number] - MAMMOGRAM BILAT SCREEN DIGITAL BILATERAL DIGITAL SCREENING MAMMOGRAM WITH CAD: 09/06/2018 CLINICAL: Baseline Screening Mammogram. No prior exams were available for comparison. There are scattered fibroglandular elements in both breasts that could obscure a lesion on mammography. Current study was also evaluated with a Computer Aided Detection (CAD) system. There are benign calcifications in both breasts. No significant masses, calcifications, or other findings are seen in either breast. There has been no significant interval change. Procedure Note Interface, Rad/Mammog In - 09/06/2018 1:33 PM [facility] #[id number] - MAMMOGRAM BILAT SCREEN DIGITAL BILATERAL DIGITAL SCREENING MAMMOGRAM WITH CAD: 09/06/2018 CLINICAL: Baseline Screening Mammogram. No prior exams were available for comparison. There are scattered fibroglandular elements in both breasts that could obscure a lesion on mammography. Current study was also evaluated with a Computer Aided Detection (CAD) system. There are benign calcifications in both breasts. No significant masses, calcifications, or other findings are seen in either breast. There has been no significant interval change. IMPRESSION IMPRESSION: BENIGN There is no mammographic evidence of malignancy. A 1 year screening mammogram is recommended. This document has been electronically signed. Jolie he/susanna:09/06/2018 12:12:51 Office [facility]: Mammography Normal Mammogram BI-RADS: 2 Benign G0202 z12.31 Performing Organization Address [facility] Phone Number SMS OCCULT BLOOD ICT (08/24/2018 2:33 PM ASSISTANT TEACHING PROFESSOR) Occult Blood ICT Positive (A) NEG M2 ([facility]) Specimen Stool Performing Organization Address [facility] Phone Number MISYS M2 ([facility]) OPHTHALMOLOGY RETINAL SCAN (08/15/2018 12:23 PM ASSISTANT TEACHING PROFESSOR) RETINAL SCAN-FINAL CRITICAL (AA) IRIS RESULT Right Diabetic Severe (AA) IRIS Retinopathy Right Macular Edema None IRIS Right Other Suspected Suspected Glaucoma IRIS Conditions Right Image Quality Gradeable Image IRIS Left Diabetic Severe (AA) IRIS Retinopathy Left Macular Edema Moderate (A) IRIS Left Other Suspected Suspected Glaucoma IRIS Conditions Left Image Quality Gradeable Image IRIS Narrative Performed At Retinal Study Result for CARY HSERMAN IRIS CARY SHERMAN a 52 y/o, F (: 1965, ) presented to [facility] on 08-15-2018 for a retinal imaging study of the left and right eyes. Based on the findings of the study, the following is recommended for CARY SHERMAN Severe Diabetic Retinopathy Found: Refer next available - Retina appointment at [facility] Ophthalmology Department.For Follow-up at [facility] or [facility]: For CSME the ordering physicians should make an ROUTINE Referral in [facility] for or J Ophthalmology stating to retina service. Interpreting Provider's Comments:No comments provided Right Eye Findings: Diabetic Retinopathy: Severe Other: Suspected Glaucoma Left Eye Findings: Diabetic Retinopathy: Severe Macular Edema: Moderate Other: Suspected Glaucoma This result was electronically signed by Andrade Ferguson MD, , Taxonomy: [id number] on 08-15-2018 05:23:51 [facility] time. NOTE:Any pathology noted on this diabetic retinal evaluation should be confirmed by an appropriate ophthalmic examination. Performing Organization Address [facility] Phone Number IRIS XRAY SHOULDER 2 VIEWS MIN (08/15/2018 8:10 AM ASSISTANT TEACHING PROFESSOR) Impressions Performed At IMPRESSION: [facility] No acute radiographic abnormality. Dictated By: Emery Cueto DO, 08/15/2018 9:30 AM I have reviewed the study and agree with the findings in this report. Signed By: Andres Sher DO, 08/15/2018 4:[address]formed [address] [facility] EXAM:Left, 2 viewXRAY SHOULDER 2 VIEWS MIN08/15/2018 8:10 AM INDICATION: left shoulder pain with limited ROM COMPARISON: None DISCUSSION: Adequate internal and external rotation. No displaced fracture or malalignment. The joint spaces are well maintained without definite osseous erosion. The visualized soft tissues appear unremarkable. Procedure Note Interface, Rad/Mammog In - 08/15/2018 4:59 PM ASSISTANT TEACHING PROFESSOR EXAM:Left, 2 view XRAY SHOULDER 2 VIEWS [...] DO, 08/15/2018 4:54 PM Performing Organization Address City/[facility] Phone Number [facility] HIV-1/HIV-2 ROUTINE SCREENING (08/09/2018 12:24 PM ASSISTANT TEACHING PROFESSOR) HIV-1/HIV-2 Negative NEG BT MAIN-STATION 3 Performing Organization Address [facility] Phone Number MISYS BT MAIN-STATION 3 MICROALBUM, URINE (08/09/2018 12:24 PM ASSISTANT TEACHING PROFESSOR) Microalbum, Random 32.1 (H) 0.0 - 29.0 BT MAIN-STATION 1 mg/dL Creatinine, Ur 104.6 20 - 320 BT MAIN-STATION 1 mg/dL Urine Microalbumin 306.9 (H) 0 - 29 mg/g BT MAIN-STATION 1 Comment: UCR To minimize intra-individual variation, analysis of three random urine samples collected over the course of a week is recommended. Performing Organization Address [facility] Phone Number MISYS BT MAIN-STATION 1 HEMOGLOBIN A1C (08/09/2018 12:24 PM ASSISTANT TEACHING PROFESSOR) Hemoglobin A1c 11.6 (H) 4.3 - 6.1 % BT DIAGNOSTIC IMMUNOLOGY Est Average Gluc 286.2 mg/dL BT DIAGNOSTIC IMMUNOLOGY Specimen Blood Performing Organization Address [facility] Phone Number MISYS BT DIAGNOSTIC IMMUNOLOGY TSH (08/09/2018 12:24 PM ASSISTANT TEACHING PROFESSOR) TSH 1.51 0.57 - 3.74 uIU/mL BT MAIN-STATION 1 Specimen Blood Performing Organization Address [facility] Phone Number MISYS BT MAIN-STATION 1 FOLIC ACID (08/09/2018 12:24 PM ASSISTANT TEACHING PROFESSOR) Folic Acid >24.8 (H) 5.9 - 24.8 ng/mL BT MAIN-STATION 1 Specimen Blood Performing Organization Address [facility] Phone Number MISYS BT MAIN-STATION 1 FERRITIN (08/09/2018 12:24 PM ASSISTANT TEACHING PROFESSOR) Ferritin 89.50 11.0 - 306.8 ng/mL BT MAIN-STATION 1 Specimen Blood Performing Organization Address [facility] Phone Number MISYS BT MAIN-STATION 1 VITAMIN B12 (08/09/2018 12:24 PM ASSISTANT TEACHING PROFESSOR) Vitamin B12 592 211 - 911 pg/mL BT MAIN-STATION 1 Specimen Blood Performing Organization Address [facility] Phone Number MISYS BT MAIN-STATION 1 SED RATE (08/09/2018 12:24 PM ASSISTANT TEACHING PROFESSOR) Sed Rate 24 <30 mm/Hr BT MAIN-STATION 2 Specimen Blood Performing Organization Address [facility] Phone Number MISYS BT MAIN-STATION 2 RA FACTOR (08/09/2018 12:24 PM ASSISTANT TEACHING PROFESSOR) RA Factor <10 <14 IU/mL BT MAIN-STATION 1 Specimen Blood Performing Organization Address [facility] Phone Number MISYS BT MAIN-STATION 1 MAGNESIUM (08/09/2018 12:24 PM ASSISTANT TEACHING PROFESSOR) Magnesium 1.6 (L) 1.9 - 2.7 mg/dL BT MAIN-STATION 1 Specimen Blood Performing Organization Address [facility] Phone Number MISYS BT MAIN-STATION 1 LIVER PROFILE (08/09/2018 12:24 PM ASSISTANT TEACHING PROFESSOR) T Protein 7.2 6.0 - 8.3 g/dL [...] MAIN-STATION 1 Specimen Blood Performing Organization Address [facility] Phone Number MISYS BT MAIN-STATION 1 LIPID PROFILE (08/09/2018 12:24 PM ASSISTANT TEACHING PROFESSOR) Cholesterol 140 mg/dL BT MAIN-STATION 1 Comment: REFERENCE RANGE: Desirable: <200 mg/dL Borderline: 200-240 mg/dL High Risk: >240 mg/dL Triglyceride 101 <150 mg/dL BT MAIN-STATION 1 Comment: REFERENCE RANGE: Normal: <150 mg/dL Borderline High: 150-199 mg/dL High: 200-499 mg/dL Very High: >sh=397 mg/dL HDL 60 mg/dL BT MAIN-STATION 1 Comment: Increased CHD risk: <40 mg/dL Decreased CHD risk: >60 mg/dL LDL 60 mg/dL BT MAIN-STATION 1 Comment: REFERENCE RANGE: Optimal: <100 mg/dL Near Optimal: 100-129 mg/dL Borderline High: 130-159 mg/dL High: 160-189 mg/dL Very High: >it=170 mg/dL Specimen Blood Performing Organization Address [facility] Phone Number MISYS BT MAIN-STATION 1 LIPASE (08/09/2018 12:24 PM ASSISTANT TEACHING PROFESSOR) Lipase 18 11 - 82 U/L BT MAIN-STATION 1 Specimen Blood Performing Organization Address [facility] Phone Number MISYS BT MAIN-STATION 1 IRON PROFILE (08/09/2018 12:24 PM ASSISTANT TEACHING PROFESSOR) Iron 70 50 - 212 ug/dL BT MAIN-STATION 1 TIBC 291 250 - 450 ug/dL BT MAIN-STATION 1 % Iron Sat 24 % BT MAIN-STATION 1 Specimen Blood Performing Organization Address [facility] Phone Number MISYS BT MAIN-STATION 1 HEPATITIS PANEL (08/09/2018 12:24 PM ASSISTANT TEACHING PROFESSOR) HCV IgG Negative NEG BT MAIN-STATION 3 HBsAg Negative NEG BT MAIN-STATION 3 HAV, IgM Negative NEG BT MAIN-STATION 3 HBcAb, IgM Negative NEG BT MAIN-STATION 3 Specimen Blood Performing Organization Address [facility] Phone Number MISYS BT MAIN-STATION 3 CBC/DIFF (08/09/2018 12:24 PM ASSISTANT TEACHING PROFESSOR) WBC 4.7 4.5 - 11.0 K/uL BT [...] MAIN-STATION 2 Specimen Blood Performing Organization Address [facility] Phone Number MISYS BT MAIN-STATION 2 BASIC METABOLIC PANEL (08/09/2018 12:24 PM ASSISTANT TEACHING PROFESSOR) CO2 29 21 - 31 mmol/L BT [...] MAIN-STATION 1 Specimen Blood Performing Organization Address [facility] [facility] Number MISYS BT MAIN-STATION 1 SHELLY (08/09/2018 12:24 PM ASSISTANT TEACHING PROFESSOR) SHELLY Screen Negative NEG BT DIAGNOSTIC IMMUNOLOGY Specimen Blood Performing Organization Address [facility] Phone Number MISYS BT DIAGNOSTIC IMMUNOLOGY AMYLASE (08/09/2018 12:24 PM ASSISTANT TEACHING PROFESSOR) Amylase 30 29 - 103 U/L BT MAIN-STATION 1 Specimen Blood Performing Organization Address City/State/Zipcode Phone Number MISYS BT MAIN-STATION 1 after 09/21/2017 Insurance Payer Benefit Plan / Subscriber ID Effective Dates Phone Address Type Group [place] x[place] 2018- [id number] [place] [address] [employer] PLAN H[employer] PLAN 1 xxxxxxx 2018-06/11 [phone] [id number] [place] [address]
--- NOTE | 2018-09-22 19:23 | RAD REPORT ---
EXAM DESCRIPTION: CT - CTHCSPWOC - 09/22/2018 7:13 pm CLINICAL HISTORY: Fall, head and neck injury COMPARISON: CT imaging January 2018 TECHNIQUE: Axial 5 mm thick images of the head were obtained. Axial 2 mm thick images of the cervic al spine were obtained with sagittal and coronal reconstruction images generated and reviewed. All CT scans are performed using dose optimization technique as appropriate and may include automated exposure control or mA/KV adjustment according to patient size. FINDINGS: No intracranial hemorrhage, mass, edema or acute intracranial finding. No suspicion for acute infarct ion. No extra-axial fluid collections. Mastoid air cells and paranasal sinuses are clear. No globe or orbit abnormality seen. Cervical body height and alignment are normal. C5-6 and C6-7 disc space narrowing seen with endplate spurring. No fracture or acute bony abnormality. Central canal detail is inherently limited. No paraspinal mass or hematoma. IMPRESSION: Negative CT head examination for acute or significant finding. No fracture or acute finding. C5-6 and C6-7 disc and endplate degenerative changes present similar to comparison.
--- NOTE | 2018-09-22 20:02 | RAD REPORT ---
EXAM DESCRIPTION: RAD - Pelvis - 09/22/2018 7:38 pm CLINICAL HISTORY: Fall, pelvic pain COMPARISON: None. TECHNIQUE: AP imaging of the pelvis was obtained. FINDINGS: No fracture of the bony pelvis. No fracture, dislocation or other acute hip joint finding. No significant SI joint findings. Phleboliths are present. Lumbar spine is not adequately visualized for assessment. No soft tissue abnormality. IMPRESSION: Negative pelvis for acute or significant findings.
--- NOTE | 2018-09-22 20:03 | RAD REPORT ---
EXAM DESCRIPTION: RAD - Tib Fib Left - 09/22/2018 7:38 pm CLINICAL HISTORY: Fall, leg pain COMPARISON: None. FINDINGS: No fracture is identified. There is no dislocation or periosteal reaction noted. No acute or suspicious bony finding. No foreign body or other soft tissue abnormality. IMPRESSION: Negative left tibia & fibula examination for acute or significant finding.
--- NOTE | 2018-09-22 20:04 | RAD REPORT ---
EXAM DESCRIPTION: RAD - Knee Left 3 View - 09/22/2018 7:38 pm CLINICAL HISTORY: Fall, knee pain COMPARISON: June 2017 FINDINGS: No fracture, dislocation or periosteal reaction.No joint effusion seen. No joint space ilan rowing. No significant soft tissue abnormality. No foreign body. IMPRESSION: Negative left knee for acute bone or joint finding. Clinical concerns for internal derangement or occult bony injury could be further assessed with MR im aging.
[2018-09-22] MEDS ORDERED: HYDROCODONE/APAP 10/325 TAB ONE (20:31)
--- NOTE | 2018-09-22 20:48 | RAD REPORT ---
EXAM DESCRIPTION: RAD - Foot Right 3 View - 09/22/2018 8:26 pm CLINICAL HISTORY: Nontraumatic foot pain COMPARISON: None. FINDINGS: No fracture, dislocation or periosteal reaction. No acute bone or joint finding. Patient h as a small plantar spur. No air or foreign body in the soft tissues. IMPRESSION: Negative right foot examination for acute finding. Small plantar spur.
--- NOTE | 2018-09-22 21:45 | ER ---
Nurse's Notes [facility] Name: Cary Gan Age: 52 yrs Sex: Female : 1965 Arrival Date: 09/22/2018 Time: 17:01 Bed 15 Private MD: Diagnosis: Internal derangement of knee;Sprain of foot Presentation: 09/22 17:49 Presenting complaint: Patient states: Fell from standing, reports having Left knee sg pain, left wei pain, R ankle pain and lightly hitting the back of her head on a brick wall, denies LOC, reports recollection of the entire event before and after, reports that the pain feels like burning. Care prior to arrival: None. Mechanism of Injury: Fall from standing position. 17:49 Acuity: SANTANA 4 sg 17:49 Method Of Arrival: Wheelchair sg 18:10 Transition of care: patient was not received from another setting of care. Onset of rb1 symptoms was September 21, 2018. Risk Assessment: Do you want to hurt yourself or someone else? Patient reports no desire to harm self or others. Initial Sepsis Screen: Does the patient meet any 2 criteria? No. Patient's initial sepsis screen is negative. Does the patient have a suspected source of infection? No. Patient's initial sepsis screen is negative. Historical: - Allergies: 17:50 NKA; sg - PMHx: 17:50 "hot fashes"; Anxiety; Depression; Diabetes - IDDM; EDEMA; herniated disk lower back, sg neck vertibre fusion; high blood pressure (resolved); High Cholesterol; neuropathy; Rheumatoid Arthritis; - Immunization history:: Adult Immunizations up to date. - Ebola Screening: : Patient negative for fever greater than or equal to 101.5 degrees Fahrenheit, and additional compatible Ebola Virus Disease symptoms. Screenin:10 Abuse screen: Denies threats or abuse. Nutritional screening: No deficits noted. rb1 Tuberculosis screening: No symptoms or risk factors identified. Fall Risk Fall in past 12 months (25 points). No secondary diagnosis (0 pts). No IV (0 pts). Ambulatory Aid- None/Bed Rest/Nurse Assist (0 pts). Gait- Normal/Bed Rest/Wheelchair (0 pts) Mental Status- Oriented to own ability (0 pts). Total Alfonso Fall Scale indicates Low Risk Score (25-44 pts). Fall prevention measures have been instituted. Side Rails Up X 2 Placed close to Nursing Station 1:1 attendant Assigned to Pt. Frequent Obs/Assesments occuring As available Patient and Family Educated on Fall Prevention Program and strategies. Assessment: 18:10 General: Appears in no apparent distress. comfortable, Behavior is calm, cooperative. rb1 Pain: Complains of pain in right ankle, left knee, left wei, and back of head Pain currently is 9 out of 10 on a pain scale. Pain began 1 day ago. Neuro: Level of Consciousness is awake, alert, obeys commands, Oriented to person, place, time, situation, Denies LOC. Cardiovascular: Capillary refill < 3 seconds is brisk in bilateral toes. Respiratory: Airway is patent Respiratory effort is even, unlabored, Respiratory pattern is regular, symmetrical. GI: No signs and/or symptoms were reported involving the gastrointestinal system. : No signs and/or symptoms were reported regarding the genitourinary system. Derm: Bruising that is dark purple, on bilateral legs. Musculoskeletal: Range of motion: intact in all extremities. 19:00 Reassessment: Patient appears in no apparent distress at this time. Patient and/or jb4 family updated on plan of care and expected duration. Pain level reassessed. Patient is alert, oriented x 3, equal unlabored respirations, skin warm/dry/pink. 20:00 Reassessment: Patient appears in no apparent distress at this time. Patient and/or jb4 family updated on plan of care and expected duration. Pain level reassessed. Patient is alert, oriented x 3, equal unlabored respirations, skin warm/dry/pink. 21:25 Reassessment: Patient appears in no apparent distress at this time. Patient and/or jb4 family updated on plan of care and expected duration. Pain level reassessed. Patient is alert, oriented x 3, equal unlabored respirations, skin warm/dry/pink. Patient states feeling better. Vital Signs: 17:50 BP 119 / 72; Pulse 64; Resp 19; Temp 98.1; Pulse Ox 97% ; Pain 7/10; sg 18:51 BP 127 / 59; Pulse 53; Resp 18; Pulse Ox 97% on R/A; jb4 20:00 BP 117 / 48; Pulse 54; Resp 16; Pulse Ox 96% on R/A; jb4 21:15 BP 121 / 73; Pulse 52; Resp 16; Pulse Ox 94% on R/A; jb4 Joe Coma Score: 17:50 Eye Response: spontaneous(4). Verbal Response: oriented(5). Motor Response: obeys sg commands(6). Total: 15. Trauma Score (Adult): 17:50 Eye Response: spontaneous(1); Verbal Response: oriented(1); Motor Response: obeys sg commands(2); Systolic BP: > 89 mm Hg(4); Respiratory Rate: 10 to 29 per min(4); Gibson Score: 15; Trauma Score: 12 ED Course: 17:01 Patient arrived in ED. rg4 17:50 Triage completed. sg 18:10 Patient has correct armband on for positive identification. Bed in low position. Call rb1 light in reach. Side rails up X 1. Pulse ox on. NIBP on. 18:10 Arm band placed on right wrist. rb1 18:19 Kyler Brown PA is PHCP. jmm 18:19 Scott Qiu MD is Attending Physician. m 18:24 Pamela Tesfaye, RN is Primary Nurse. rb1 18:55 Report given to KINGS Aguilar. rb1 19:13 CT Head C Spine In Process Unspecified. EDMS 19:36 Knee Left 3 View XRAY In Process Unspecified. EDMS 19:37 Pelvis XRAY In Process Unspecified. EDMS 19:37 Tib Fib Left XRAY In Process Unspecified. EDMS 20:26 Foot Right 3 View XRAY In Process Unspecified. EDMS 21:44 Eric Martinez MD is Referral Physician[facility] 22:05 No provider procedures requiring assistance completed. Patient did not have IV access jb4 during this emergency room visit. Administered Medications: 20:25 Drug: Clarkson 10 mg-325 mg 1 tabs Route: PO; jb4 21:48 Follow up: Response: No adverse reaction; Pain is decreased jb4 Intake: 17:50 PO: 0ml; Total: 0ml. sg Outcome: 21:45 Discharge ordered by . jmm 22:05 Discharged to home via wheelchair, with family. jb4 22:05 Condition: improved 22:05 Discharge instructions given to patient, Instructed on discharge instructions, follow up and referral plans. medication usage, Demonstrated understanding of instructions, follow-up care, medications, Prescriptions given X 1. 22:06 Patient left the ED. jb4 Signatures: Dispatcher [employer] EDMS [place], RN RN Kyler Farnsworth PA PA jmm Barber, Rebecca, RN RN Vonda Dozier rg4 Emery Iyer RN RN jb4
--- NOTE | 2018-09-22 21:46 | EDPHYS ---
Physician Documentation [facility] Name: Cary Gan Age: 52 yrs Sex: Female : 1965 Arrival Date: 09/22/2018 Time: 17:01 Bed 15 Private MD: ED Physician Scott iQu HPI: 09/22 18:49 This 52 yrs old Female presents to ER via Wheelchair with complaints of Fall jmm Injury. 18:49 Details of fall: The patient fell from an upright position. Onset: The symptoms/episode jmm began/occurred acutely, last night. Associated injuries: The patient sustained injury to the head, neck injury. Patient complains of pain to her left knee and right foot after she slipped on a step last night. Patient denies vomiting or LOC after her head injury. . Historical: - Allergies: 17:50 NKA; sg - PMHx: 17:50 "hot fashes"; Anxiety; Depression; Diabetes - IDDM; EDEMA; herniated disk lower back, sg neck vertibre fusion; high blood pressure (resolved); High Cholesterol; neuropathy; Rheumatoid Arthritis; - Immunization history:: Adult Immunizations up to date. - Ebola Screening: : Patient negative for fever greater than or equal to 101.5 degrees Fahrenheit, and additional compatible Ebola Virus Disease symptoms. ROS: 18:49 Constitutional: Negative for fever, chills, and weight loss, Cardiovascular: Negative jmm for chest pain, palpitations, and edema, Respiratory: Negative for shortness of breath, cough, wheezing, and pleuritic chest pain. 18:49 MS/extremity: Positive for injury or acute deformity, pain. 18:49 Neuro: Positive for headache. 18:49 All other systems are negative. Exam: 18:49 Head/Face: atraumatic. Eyes: EOMI, no conjunctival erythema appreciated ENT: Moist jmm Mucus Membranes 18:49 Chest/axilla: Normal chest wall appearance and motion. Cardiovascular: Regular rate and rhythm. No edema appreciated Respiratory: Normal respirations, no respiratory distress appreciated 18:49 Constitutional: The patient appears in no acute distress, alert, awake. 18:49 Neck: C-spine: vertebral tenderness, that is mild, appreciated at C3 and C4. 18:49 Musculoskeletal/extremity: ecchymosis noted to the left medial knee, painful ROM is appreciated, compartments are soft, full dorsalis pulse, NVI. Right dorsum of the foot is TTP, full dorsalis pulse, NVI. No malleolar tenderness is appreciated, compartments are soft, NVI. . 18:49 Skin: Appearance: ecchymosis noted to the left medial knee, left lower leg. 18:49 Neuro: Orientation: is normal, Mentation: is normal, Memory: is normal. 18:49 Psych: Behavior/mood is pleasant, cooperative. Vital Signs: 17:50 BP 119 / 72; Pulse 64; Resp 19; Temp 98.1; Pulse Ox 97% ; Pain 7/10; sg 18:51 BP 127 / 59; Pulse 53; Resp 18; Pulse Ox 97% on R/A; jb4 20:00 BP 117 / 48; Pulse 54; Resp 16; Pulse Ox 96% on R/A; jb4 21:15 BP 121 / 73; Pulse 52; Resp 16; Pulse Ox 94% on R/A; jb4 Brooks Coma Score: 17:50 Eye Response: spontaneous(4). Verbal Response: oriented(5). Motor Response: obeys sg commands(6). Total: 15. Trauma Score (Adult): 17:50 Eye Response: spontaneous(1); Verbal Response: oriented(1); Motor Response: obeys sg commands(2); Systolic BP: > 89 mm Hg(4); Respiratory Rate: 10 to 29 per min(4); Brooks Score: 15; Trauma Score: 12 MDM: 18:38 Patient medically screened. [facility] 21:43 Data reviewed: vital signs, nurses notes. Counseling: I had a detailed discussion with [facility] the patient and/or guardian regarding: the historical points, exam findings, and any diagnostic results supporting the discharge/admit diagnosis, radiology results, the need for outpatient follow up, to return to the emergency department if symptoms worsen or persist or if there are any questions or concerns that arise at home. ED course: Extremities appear NVI, full pulses, patient denies dislocation of the left knee. patient is advised to follow up with orthopedics for further evaluation. symptoms have improved in the ED. . 09/22 18:43 Order name: Knee Left 3 View XRAY; Complete Time: 20:09 [facility] 09/22 18:43 Order name: Pelvis XRAY; Complete Time: 20:09 [facility] 09/22 18:43 Order name: CT Head C Spine; Complete Time: 19:51 [facility] 09/22 18:52 Order name: Tib Fib Left XRAY; Complete Time: 20:09 [facility] 09/22 20:09 Order name: Foot Right 3 View XRAY; Complete Time: 21:07 [facility] 09/22 21:07 Order name: Knee Immobilizer; Complete Time: 21:37 [facility] 09/22 21:26 Order name: Jake wrap-joint; Complete Time: 21:48 [facility] Administered Medications: 20:25 Drug: Jackson 10 mg-325 mg 1 tabs Route: PO; jb4 21:48 Follow up: Response: No adverse reaction; Pain is decreased jb4 Disposition: 09/23 07:08 Co-signature as Attending Physician, Scott Qiu MD. rn Disposition: 09/22/18 21:45 Discharged to Home. Impression: Internal derangement of knee, Sprain of foot. - Condition is Stable. - Discharge Instructions: Foot Sprain, Knee Pain. - Prescriptions for Ultracet 37.5- 325 mg Oral Tablet - take 1 tablet by ORAL route every 6 hours - for up to 5 days; do not exceed 8 tablets per day.; 20 tablet. - Medication Reconciliation Form, Thank You Letter, Antibiotic Education, Prescription Opioid Use form. - Follow up: Eric Martinez MD; When: 2 - 3 days; Reason: Recheck today's complaints, Continuance of care, Re-evaluation by your physician. Signatures: Dispatcher [employer] EDSouth Cristina RN RN sg Mickail, Joel, PA PA [facility] Scott Qiu MD MD rn Barber, Rebecca, RN RN rb1 Bryson, James, RN RN jb4 Corrections: (The following items were deleted from the chart) 09/22 22:06 21:45 09/22/2018 21:45 Discharged to Home. Impression: Internal derangement of knee; jb4 Sprain of foot. Condition is Stable. Forms are Medication Reconciliation Form, Thank You Letter, Antibiotic Education, Prescription Opioid Use. Follow up: Eric Martinez; When: 2 - 3 days; Reason: Recheck today's complaints, Continuance of care, Re-evaluation by your physician. [facility]
[2018-09-22 22:30] VITALS: TEMP 98.1
[2018-09-22 22:34] VITALS: BP 121/73; O2SAT 94
== END 2018-09-22 22:06 | disposition home or self-care (01) ==
LOC: ER 16:59
DX: M23.92 Unspecified internal derangement of left knee (principal); S93.601A Unspecified sprain of right foot, initial encounter; W01.0XXA Fall on same level from slipping, tripping and stumbling without subsequent striking against object, initial encounter; Y93.9 Activity, unspecified; Y92.9 Unspecified place or not applicable
CPT/HCPCS: 70450; 72125; 72170; 99284

== ENCOUNTER 2018-09-27 19:02 | Inpatient (IN) | payer SELFPAY ==
--- OUTSIDE RECORDS SUMMARY | 2018-09-27 19:04 | XMS REPORT ---
:1965 [facility] Address [address] [place] [address] Care Team Providers Name Role Phone Unavailable [...] Clinicians Facility Department ID 2018-12-04 2018-12-04 Outpatient [facility] [id number] 00:00:00 00:00:00 2018-10-30 2018-10-30 Outpatient [facility] [id number] 00:00:00 00:00:00 2018-10-24 2018-10-24 Outpatient [facility] [id number] 00:00:00 00:00:00 2018-10-16 2018-10-16 Outpatient [facility] [id number] 00:00:00 00:00:00 2018-10-02 2018-10-02 Outpatient [facility] [id number] 00:00:00 00:00:00 2018-09-27 2018-09-27 Outpatient [facility] [id number] 00:00:00 00:00:00 2018-09-06 2018-09-06 Outpatient [facility] [id number] 11:29:04 11:29:04 2018-09-06 2018-09-06 Outpatient [facility] [id number] 10:23:32 10:23:32 2018-08-27 2018-08-27 Outpatient [facility] [id number] 00:00:00 00:00:00 2018-08-24 2018-08-24 Outpatient [facility] [id number] 14:33:36 14:33:36 2018-08-16 2018-08-16 Outpatient [facility] [id number] 00:00:00 00:00:00 2018-08-16 2018-08-16 Outpatient [facility] [id number] 00:00:00 00:00:00 2018-08-15 2018-08-15 Outpatient [facility] [id number] 08:54:15 08:54:15 2018-08-15 2018-08-15 Outpatient [facility] [id number] 08:02:56 08:02:56 2018-08-10 2018-08-10 Outpatient [facility] [id number] 00:00:00 00:00:00 2018-08-10 2018-08-10 Outpatient [facility] [id number] 00:00:00 00:00:00 2018-08-10 2018-08-10 Outpatient [facility] [id number] 00:00:00 00:00:00 2018-08-10 2018-08-10 Outpatient [facility] [id number] 00:00:00 00:00:00 2018-08-09 2018-08-09 Outpatient [facility] [id number] 12:27:55 12:27:55 2018-08-09 2018-08-09 Outpatient [facility] [id number] 10:27:26 10:27:26
--- OUTSIDE RECORDS SUMMARY | 2018-09-27 19:04 | XMS REPORT | Clinical Summary ---
:1965 Author Organization [facility] Address [facility] [place] [address] Care Team Providers Name Role Phone Ani Angela WHIZZER Primary Care Provider Allergies No Known Allergies [...] Encounters Date Type Specialty Care Team Description 09/26/2018 Nurse Triage Stella Culp RN 09/11/2018 Orders Only [facility] Bhavani Angela, Essential hypertension ( Primary Dx); MANDY Law Dyslipidemia 09/07/2018 Telephone Patient Education Cole, Disease Management F/U Tomas Nur RN 09/06/2018 Office Visit [facility] Bhavani Angela, Encounter to discuss test results (Primary Dx); MANDY Law Poorly controlled type 2 diabetes mellitus; Microalbuminuria; Left shoulder pain, unspecified chronicity; Low back pain at multiple sites; Bilateral lower extremity edema; Dyslipidemia; Positive occult stool blood test 09/06/2018 Ancillary Radiology Radha Angela NP 09/06/2018 Travel 08/30/2018 Refill [facility] Bhavani Angela Positive occult stool MANDY Law blood test (Primary Dx) 08/15/2018 Ancillary Radiology Radha Angela NP 08/15/2018 Telephone [facility] Bhavani Angela, Results MANDY Law 08/09/2018 [...] left shoulder; Flu vaccine need; Need for soifsaaurv-sbvcnik-iiszxchfx (Tdap) vaccine; Need for 23-polyvalent pneumococcal polysaccharide vaccine 08/09/2018 Travel after 09/26/2017 Immunizations Name Dates Previously Given Next Due [...] Taken Blood Pressure 141/82 09/06/2018 11:31 AM DIVISION DIRECTOR Pulse 57 09/06/2018 11:31 AM DIVISION DIRECTOR Temperature 36.7 C (98.1 F) 09/06/2018 11:31 AM DIVISION DIRECTOR Respiratory Rate 18 09/06/2018 11:31 AM DIVISION DIRECTOR Oxygen Saturation - - Inhaled Oxygen Concentration - - Weight 94.3 kg (207 lb 12.8 oz) 09/06/2018 11:31 AM DIVISION DIRECTOR Height 160 cm (5' 3") 09/06/2018 11:31 AM DIVISION DIRECTOR Body Mass Index 36.81 09/06/2018 11:31 AM DIVISION DIRECTOR Plan of Treatment Date Type Specialty Care Team Description 10/02/2018 Office Visit Family Practice Ani Angela, had incident issues WHIZZER with knee referral [phone] for orthopedic ec f/u [phone] 2-3 days pt requested (Fax) this date patient declined sdc, offered amn for pain 10/16/2018 Ancillary Procedure Radiology 10/24/2018 Office Visit Psychiatry Ani Angela, WHIZZER [phone] [place] [address] [phone] 10/30/2018 Office Visit Ophthalmology Domenica Dick, OD [address] [place] [address] 12/04/2018 Lab Appointment Lab Julio César AniMANDY florez [phone] Health Maintenance Due Date Last Done Comments [...] 12:05 Poorly controlled Results for this PM DIVISION DIRECTOR type 2 diabetes procedure are in mellitus the results section. MAMMOGRAM BILAT SCREEN Routine 09/06/2018 11:03 Screening for breast Results for this DIGITAL AM DIVISION DIRECTOR cancer procedure are in the results section. OCCULT BLOOD ICT Routine 08/24/2018 2:33 Screen for colon Results for this PM DIVISION DIRECTOR cancer procedure are in the results section. OPHTHALMOLOGY RETINAL Routine 08/15/2018 12:23 Uncontrolled type 2 Results for this SCAN PM DIVISION DIRECTOR diabetes mellitus procedure are in with complication, the results with long-term section. current use of insulin XRAY SHOULDER 2 VIEWS Routine 08/15/2018 8:10 Pain in joint of Results for this MIN AM DIVISION DIRECTOR left shoulder procedure are in the results section. AMYLASE Routine 08/09/2018 12:24 Acute pancreatitis, Results for this PM DIVISION DIRECTOR unspecified procedure are in complication status, the results unspecified section. pancreatitis type LIPASE Routine 08/09/2018 12:24 Acute pancreatitis, Results for this PM DIVISION DIRECTOR unspecified procedure are in complication status, the results unspecified section. pancreatitis type SED RATE Routine 08/09/2018 12:24 Rheumatoid Results for this PM DIVISION DIRECTOR arthritis, involving procedure are in unspecified site, the results unspecified section. rheumatoid factor presence RA FACTOR Routine 08/09/2018 12:24 Rheumatoid Results for this PM DIVISION DIRECTOR arthritis, involving procedure are in unspecified site, the results unspecified section. rheumatoid factor presence SHELLY Routine 08/09/2018 12:24 Rheumatoid Results for this PM DIVISION DIRECTOR arthritis, involving procedure are in unspecified site, the results unspecified section. rheumatoid factor presence MAGNESIUM Routine 08/09/2018 12:24 Low magnesium level Results for this PM DIVISION DIRECTOR procedure are in the results section. VITAMIN B12 Routine 08/09/2018 12:24 Iron deficiency Results for this PM DIVISION DIRECTOR anemia, unspecified procedure are in iron deficiency the results anemia type section. IRON PROFILE Routine 08/09/2018 12:24 Iron deficiency Results for this PM DIVISION DIRECTOR anemia, unspecified procedure are in iron deficiency the results anemia type section. FOLIC ACID Routine 08/09/2018 12:24 Iron deficiency Results for this PM DIVISION DIRECTOR anemia, unspecified procedure are in iron deficiency the results anemia type section. FERRITIN Routine 08/09/2018 12:24 Iron deficiency Results for this PM DIVISION DIRECTOR anemia, unspecified procedure are in iron deficiency the results anemia type section. MICROALBUM, URINE Routine 08/09/2018 12:24 Uncontrolled type 2 Results for this PM DIVISION DIRECTOR diabetes mellitus procedure are in with complication, the results with long-term section. current use of insulin TSH Routine 08/09/2018 12:24 Uncontrolled type 2 Results for this PM DIVISION DIRECTOR diabetes mellitus procedure are in with complication, the results with long-term section. current use of insulin LIPID PROFILE Routine 08/09/2018 12:24 Uncontrolled type 2 Results for this PM DIVISION DIRECTOR diabetes mellitus procedure are in with complication, the results with long-term section. current use of insulin LIVER PROFILE Routine 08/09/2018 12:24 Uncontrolled type 2 Results for this PM DIVISION DIRECTOR diabetes mellitus procedure are in with complication, the results with long-term section. current use of insulin HIV-1/HIV-2 ROUTINE Routine 08/09/2018 12:24 Uncontrolled type 2 Results for this SCREENING PM DIVISION DIRECTOR diabetes mellitus procedure are in with complication, the results with long-term section. current use of insulin HEPATITIS PANEL Routine 08/09/2018 12:24 Uncontrolled type 2 Results for this PM DIVISION DIRECTOR diabetes mellitus procedure are in with complication, the results with long-term section. current use of insulin HEMOGLOBIN A1C Routine 08/09/2018 12:24 Uncontrolled type 2 Results for this PM DIVISION DIRECTOR diabetes mellitus procedure are in with complication, the results with long-term section. current use of insulin CBC/DIFF Routine 08/09/2018 12:24 Uncontrolled type 2 Results for this PM DIVISION DIRECTOR diabetes mellitus procedure are in with complication, the results with long-term section. current use of insulin BASIC METABOLIC PANEL Routine 08/09/2018 12:24 Uncontrolled type 2 Results for this PM DIVISION DIRECTOR diabetes mellitus procedure are in with complication, the results with long-term section. current use of insulin after 09/26/2017 Results DIABETIC FOOT EXAM (09/06/2018 12:05 PM DIVISION DIRECTOR) Narrative Performed At Ani Angela NP 09/06/20182:37 PM Diabetic Foot Exam was performed at 09/06/2018 12:34 PM.Right foot sensation is normal, right foot pulses are normal, right foot appearance is normal.Left foot sensation is normal,left foot pulses are normal, left foot appearance is normal. MAMMOGRAM BILAT SCREEN DIGITAL (09/06/2018 11:03 AM DIVISION DIRECTOR) Impressions Performed At IMPRESSION: BENIGN [facility] There is no mammographic evidence of malignancy. A 1 year screening mammogram is recommended. This document has been electronically signed. Jolie he/susanna:09/06/2018 12:12:51 Plant Health Manager: Jennifer Monet, [facility] letter sent: Mammography Normal Mammogram BI-RADS: 2 Benign G0202 z12.31 Narrative Performed At [facility] #[id number] - MAMMOGRAM BILAT SCREEN DIGITAL BILATERAL DIGITAL [...] Interface, Rad/Mammog In - 09/06/2018 1:33 PM [facility] #[id number] - MAMMOGRAM BILAT SCREEN DIGITAL BILATERAL DIGITAL [...] has been electronically signed. Jolie he/susanna:09/06/2018 12:12:51 Plant Health Manager: Jennifer Monet [facility] letter sent: Mammography Normal Mammogram BI-RADS: 2 Benign G0202 z12.31 Performing Organization Address City/State/Zipcode Phone Number SMS OCCULT BLOOD ICT (08/24/2018 2:33 PM DIVISION DIRECTOR) Occult Blood ICT Positive (A) NEG M2 ([facility]) Specimen Stool Performing Organization Address City/State/Zipcode Phone Number MISYS M2 ([facility]) OPHTHALMOLOGY RETINAL SCAN (08/15/2018 12:23 PM DIVISION DIRECTOR) RETINAL SCAN-FINAL CRITICAL (AA) IRIS RESULT Right Diabetic Severe (AA) IRIS Retinopathy Right Macular Edema None IRIS Right Other Suspected Suspected Glaucoma IRIS Conditions Right Image Quality Gradeable Image IRIS Left Diabetic Severe (AA) IRIS Retinopathy Left Macular Edema Moderate (A) IRIS Left Other Suspected Suspected Glaucoma IRIS Conditions Left Image Quality Gradeable Image IRIS Narrative Performed At Retinal Study Result for CARY SHERMAN IRIS CARY SHERMAN a 52 y/o, F (: 1965, ) presented to [facility] on 08-15-2018 for a retinal imaging study of the left and right eyes. Based on the findings of the study, the following is recommended for CARY SHERMAN Severe Diabetic Retinopathy Found: Refer next available - Retina appointment at [facility] Ophthalmology Department.For Follow-up at [facility] or [facility]: For CSME the ordering physicians should make an ROUTINE Referral in [facility] for BT or J Ophthalmology stating to retina service. Interpreting Provider's Comments:No comments provided Right Eye Findings: Diabetic Retinopathy: Severe Other: Suspected Glaucoma Left Eye Findings: Diabetic Retinopathy: Severe Macular Edema: Moderate Other: Suspected Glaucoma This result was electronically signed by Andrade Ferguson MD, , Taxonomy: [id number] on 08-15-2018 05:23:51 [facility] time. NOTE:Any pathology noted on this diabetic retinal evaluation should be confirmed by an appropriate ophthalmic examination. Performing Organization Address [facility] Phone Number IRIS XRAY SHOULDER 2 VIEWS MIN (08/15/2018 8:10 AM DIVISION DIRECTOR) Impressions Performed At IMPRESSION: [facility] No acute radiographic abnormality. Dictated By: Emery Cueto DO, 08/15/2018 9:30 AM I have reviewed the study and agree with the findings in this report. Signed By: Andres Sher DO, 08/15/2018 4:54 PM Narrative Performed At [facility] EXAM:Left, 2 viewXRAY SHOULDER 2 VIEWS MIN08/15/2018 8:10 AM INDICATION: left shoulder pain with limited ROM COMPARISON: None DISCUSSION: Adequate internal and external rotation. No displaced fracture or malalignment. The joint spaces are well maintained without definite osseous erosion. The visualized soft tissues appear unremarkable. Procedure Note Interface, Rad/Mammog In - 08/15/2018 4:59 PM DIVISION DIRECTOR EXAM:Left, 2 view XRAY SHOULDER 2 VIEWS [...] DO, 08/15/2018 4:54 PM Performing Organization Address City/[facility] Phone Number SMS HIV-1/HIV-2 ROUTINE SCREENING (08/09/2018 12:24 PM DIVISION DIRECTOR) HIV-1/HIV-2 Negative NEG BT MAIN-STATION 3 Performing Organization Address [facility] Phone Number MISYS BT MAIN-STATION 3 MICROALBUM, URINE (08/09/2018 12:24 PM DIVISION DIRECTOR) Microalbum, Random 32.1 (H) 0.0 - 29.0 BT MAIN-STATION 1 mg/dL Creatinine, Ur 104.6 20 - 320 BT MAIN-STATION 1 mg/dL Urine Microalbumin 306.9 (H) 0 - 29 mg/g BT MAIN-STATION 1 Comment: UCR To minimize intra-individual variation, analysis of three random urine samples collected over the course of a week is recommended. Performing Organization Address [facility] Phone Number MISYS BT MAIN-STATION 1 HEMOGLOBIN A1C (08/09/2018 12:24 PM DIVISION DIRECTOR) Hemoglobin A1c 11.6 (H) 4.3 - 6.1 % BT DIAGNOSTIC IMMUNOLOGY Est Average Gluc 286.2 mg/dL BT DIAGNOSTIC IMMUNOLOGY Specimen Blood Performing Organization Address [facility] Phone Number MISYS BT DIAGNOSTIC IMMUNOLOGY TSH (08/09/2018 12:24 PM DIVISION DIRECTOR) TSH 1.51 0.57 - 3.74 uIU/mL BT MAIN-STATION 1 Specimen Blood Performing Organization Address [facility] Phone Number MISYS BT MAIN-STATION 1 FOLIC ACID (08/09/2018 12:24 PM DIVISION DIRECTOR) Folic Acid >24.8 (H) 5.9 - 24.8 ng/mL BT MAIN-STATION 1 Specimen Blood Performing Organization Address [facility] Phone Number MISYS BT MAIN-STATION 1 FERRITIN (08/09/2018 12:24 PM DIVISION DIRECTOR) Ferritin 89.50 11.0 - 306.8 ng/mL BT MAIN-STATION 1 Specimen Blood Performing Organization Address [facility] Phone Number MISYS BT MAIN-STATION 1 VITAMIN B12 (08/09/2018 12:24 PM DIVISION DIRECTOR) Vitamin B12 592 211 - 911 pg/mL BT MAIN-STATION 1 Specimen Blood Performing Organization Address [facility] Phone Number MISYS BT MAIN-STATION 1 SED RATE (08/09/2018 12:24 PM DIVISION DIRECTOR) Sed Rate 24 <30 mm/Hr BT MAIN-STATION 2 Specimen Blood Performing Organization Address [facility] Phone Number MISYS BT MAIN-STATION 2 RA FACTOR (08/09/2018 12:24 PM DIVISION DIRECTOR) RA Factor <10 <14 IU/mL BT MAIN-STATION 1 Specimen Blood Performing Organization Address [facility] Phone Number MISYS BT MAIN-STATION 1 MAGNESIUM (08/09/2018 12:24 PM DIVISION DIRECTOR) Magnesium 1.6 (L) 1.9 - 2.7 mg/dL BT MAIN-STATION 1 Specimen Blood Performing Organization Address [facility] Phone Number MISYS BT MAIN-STATION 1 LIVER PROFILE (08/09/2018 12:24 PM DIVISION DIRECTOR) T Protein 7.2 6.0 - 8.3 g/dL [...] MAIN-STATION 1 Specimen Blood Performing Organization Address [facility] Phone Number MISYS BT MAIN-STATION 1 LIPID PROFILE (08/09/2018 12:24 PM DIVISION DIRECTOR) Cholesterol 140 mg/dL BT MAIN-STATION 1 Comment: REFERENCE RANGE: Desirable: <200 mg/dL Borderline: 200-240 mg/dL High Risk: >240 mg/dL Triglyceride 101 <150 mg/dL BT MAIN-STATION 1 Comment: REFERENCE RANGE: Normal: <150 mg/dL Borderline High: 150-199 mg/dL High: 200-499 mg/dL Very High: >xz=363 mg/dL HDL 60 mg/dL BT MAIN-STATION 1 Comment: Increased CHD risk: <40 mg/dL Decreased CHD risk: >60 mg/dL LDL 60 mg/dL BT MAIN-STATION 1 Comment: REFERENCE RANGE: Optimal: <100 mg/dL Near Optimal: 100-129 mg/dL Borderline High: 130-159 mg/dL High: 160-189 mg/dL Very High: >ab=308 mg/dL Specimen Blood Performing Organization Address [facility] Phone Number MISYS BT MAIN-STATION 1 LIPASE (08/09/2018 12:24 PM DIVISION DIRECTOR) Lipase 18 11 - 82 U/L BT MAIN-STATION 1 Specimen Blood Performing Organization Address [facility] Phone Number MISYS BT MAIN-STATION 1 IRON PROFILE (08/09/2018 12:24 PM DIVISION DIRECTOR) Iron 70 50 - 212 ug/dL BT MAIN-STATION 1 TIBC 291 250 - 450 ug/dL BT MAIN-STATION 1 % Iron Sat 24 % BT MAIN-STATION 1 Specimen Blood Performing Organization Address [facility] Phone Number MISYS BT MAIN-STATION 1 HEPATITIS PANEL (08/09/2018 12:24 PM DIVISION DIRECTOR) HCV IgG Negative NEG BT MAIN-STATION 3 HBsAg Negative NEG BT MAIN-STATION 3 HAV, IgM Negative NEG BT MAIN-STATION 3 HBcAb, IgM Negative NEG BT MAIN-STATION 3 Specimen Blood Performing Organization Address [facility] Phone [facility] CBC/DIFF (08/09/2018 12:24 PM DIVISION DIRECTOR) WBC 4.7 4.5 - 11.0 K/uL BT [...] MAIN-STATION 2 Specimen Blood Performing Organization Address City/[facility] Phone Number MISYS BT MAIN-STATION 2 BASIC METABOLIC PANEL (08/09/2018 12:24 PM DIVISION DIRECTOR) CO2 29 21 - 31 mmol/L BT [...] MAIN-STATION 1 Specimen Blood Performing Organization Address City/[facility] Phone Number MISYS BT MAIN-STATION 1 SHELLY (08/09/2018 12:24 PM DIVISION DIRECTOR) SHELLY Screen Negative NEG BT DIAGNOSTIC IMMUNOLOGY Specimen Blood Performing Organization Address [facility]/Zipcode Phone Number MISYS BT DIAGNOSTIC IMMUNOLOGY AMYLASE (08/09/2018 12:24 PM DIVISION DIRECTOR) Amylase 30 29 - 103 U/L BT MAIN-STATION 1 Specimen Blood Performing Organization Address City/[facility] Phone Number MISYS BT MAIN-STATION 1 after 09/26/2017 Insurance Payer Benefit Plan / Subscriber ID Effective Dates Phone Address Type Group [facility] xxxxxxx 2018- [phone] [id number] [place] [address] [facility] PLAN [facility] PLAN 1 xxxxxxx 2018- [phone] [place] [address]
[2018-09-27 21:29] LABS: Absolute Monocytes 0.3 K/uL (0.1-1.3); Absolute Neutrophil 2.7 K/uL (1.8-8.0); Basophils % 0.4 % (0-1.3); Eosinophils % 2.9 % (0-4.4); Hematocrit 35.9 % (36.0-45.0); Lymphocytes % 38.9 % (15.3-44.8); Monocytes % 5.8 % (3.3-12.3); RBC Red Blood Cell Count 4.19 M/uL (3.86-4.86)
[2018-09-27] MEDS ORDERED: MORPHINE 4 MG/ML SYR ONE (21:41)
[2018-09-27] MEDS ORDERED: ONDANSETRON 4 MG/2 ML VIAL ONE (21:41)
[2018-09-27] MEDS ORDERED: FAMOTIDINE 20 MG/2 ML VIAL IV ONE (21:42)
[2018-09-27] MEDS ORDERED: NA CHLORIDE 0.9% 1,000 ML ONE (21:42)
[2018-09-27 21:47] LABS: Protime INR 0.98
[2018-09-27 21:50] LABS: ALT/SGPT 20 U/L (12-78); AST/SGOT 18 U/L (15-37); Albumin 3.5 g/dL (3.4-5.0); Alkaline Phosphatase 90 U/L (45-117); BUN Blood Urea Nitrogen 20 mg/dL (7-18); Bicarbonate 25 mmol/L (21-32); Bilirubin Direct < 0.1 mg/dL (0-0.2); Bilirubin Total 0.2 mg/dL (0.2-1.0); Glucose Level 295 mg/dL (74-106); Lipase 210 U/L (73-393); Magnesium 1.8 mg/dL (1.8-2.4); NT PRO-BNP 92 pg/mL (<125); Potassium 4.3 mmol/L (3.5-5.1); Protein, Total 8.1 g/dL (6.4-8.2); Sodium Level 136 mmol/L (136-145); Troponin (Emerg Dept Use Only) < 0.02 ng/mL (0.0-0.045)
--- NOTE | 2018-09-27 22:04 | ER ---
Nurse's Notes [facility] Name: Cary Gan Age: 52 yrs Sex: Female : 1965 Arrival Date: 09/27/2018 Time: 19:06 Bed 18 Private MD: Diagnosis: Dyspnea;Abdominal tenderness;Type 1 diabetes mellitus Presentation: 09/27 19:06 Presenting complaint: EMS states: EMS reports that family called for high blood ss pressure, high blood sugar, difficulty breathing and unable to wake up patient. Upon EMS arrival, EMS reports that BP was normal, glucose was 232, Pt was awake and alert, and denied shortness of breath. Pt c/o mild nausea and abd cramping and states that her pancreatitis may be acting up. Transition of care: patient was not received from another setting of care. Onset of symptoms was September 27, 2018. Risk Assessment: Do you want to hurt yourself or someone else? Patient reports no desire to harm self or others. Initial Sepsis Screen: Does the patient meet any 2 criteria? No. Patient's initial sepsis screen is negative. Does the patient have a suspected source of infection? No. Patient's initial sepsis screen is negative. Care prior to arrival: None. 19:06 Method Of Arrival: EMS: [facility] 19:06 Acuity: SANTANA 3 ss Historical: - Allergies: 19:08 NKA; ss - PMHx: 19:08 Anxiety; Depression; Diabetes - IDDM; EDEMA; herniated disk lower back, neck vertibre ss fusion; high blood pressure (resolved); High Cholesterol; neuropathy; Rheumatoid Arthritis; Pancreatitis; - Immunization history:: Adult Immunizations up to date. - Social history:: Smoking status: Patient/guardian denies using tobacco. - Ebola Screening: : Patient denies exposure to infectious person Patient denies travel to an Ebola-affected area in the 21 days before illness onset. Screenin:12 Abuse screen: Denies threats or abuse. Nutritional screening: No deficits noted. jb4 Tuberculosis screening: No symptoms or risk factors identified. Fall Risk Fall in past 12 months (25 points). Gait- Weak (10 pts.). Total Alfonso Fall Scale indicates Low Risk Score (25-44 pts). Fall prevention measures have been instituted. Side Rails Up X 2 Placed close to Nursing Station Frequent Obs/Assesments occuring Family Present and informed to notify staff if they need to leave bedside. Assessment: 19:12 General: Appears in no apparent distress. comfortable, Behavior is calm, cooperative, jb4 appropriate for age. Pain: Complains of pain in left lateral anterior chest, left hip and left knee Pain does not radiate. Pain currently is 9 out of 10 on a pain scale. Quality of pain is described as It just feels bad. Neuro: Level of Consciousness is awake, alert, obeys commands, Oriented to person, place, time, situation. Cardiovascular: Heart tones S1 S2 present Patient's skin is warm and dry. Respiratory: Airway is patent Respiratory effort is even, unlabored, Respiratory pattern is regular, symmetrical, Breath sounds are clear bilaterally. GI: Reports nausea. : No signs and/or symptoms were reported regarding the genitourinary system. EENT: No signs and/or symptoms were reported regarding the EENT system. Derm: Skin is intact, Skin is pink, warm \T\ dry. Musculoskeletal: Circulation, motion, and sensation intact. Swelling present in left knee. Injury Description: Bruise sustained to medial aspect of left calf and left knee. 19:20 Cardiovascular: Rhythm is sinus bradycardia. jb4 20:00 Reassessment: Patient appears in no apparent distress at this time. Patient and/or jb4 family updated on plan of care and expected duration. Pain level reassessed. Patient is alert, oriented x 3, equal unlabored respirations, skin warm/dry/pink. 21:00 Reassessment: Patient appears in no apparent distress at this time. Patient and/or jb4 family updated on plan of care and expected duration. Pain level reassessed. Patient is alert, oriented x 3, equal unlabored respirations, skin warm/dry/pink. 22:00 Reassessment: Patient appears in no apparent distress at this time. Patient and/or jb4 family updated on plan of care and expected duration. Pain level reassessed. Patient is alert, oriented x 3, equal unlabored respirations, skin warm/dry/pink. 22:58 Reassessment: Patient appears in no apparent distress at this time. Patient and/or jb4 family updated on plan of care and expected duration. Pain level reassessed. Patient is alert, oriented x 3, equal unlabored respirations, skin warm/dry/pink. Patient states feeling better. 23:05 Reassessment: Attempted to call report. Instructed to wait for call back. 4 23:51 Reassessment: Patient appears in no apparent distress at this time. Patient and/or jb4 family updated on plan of care and expected duration. Pain level reassessed. Patient is alert, oriented x 3, equal unlabored respirations, skin warm/dry/pink. Vital Signs: 19:08 BP 124 / 54; Pulse 64; Resp 16; Pulse Ox 97% on R/A; Weight 89.36 kg; Height 5 ft. 4 ss in. (162.56 cm); Pain 9/10; 20:00 BP 139 / 62; Pulse 68; Resp 16; Pulse Ox 100% on R/A; jb4 21:00 BP 126 / 67; Pulse 52; Resp 18; Pulse Ox 95% on R/A; jb4 22:45 BP 130 / 63; Pulse 52; Resp 16; Pulse Ox 97% on R/A; jb4 23:30 BP 137 / 69; Pulse 58; Resp 18; Pulse Ox 99% on R/A; jb4 19:08 Body Mass Index 33.81 (89.36 kg, 162.56 cm) ED Course: 19:06 Patient arrived in ED. 19:08 Triage completed. 19:08 Arm band placed on right wrist. 19:11 Emery Iyer, RN is Primary Nurse. [facility] 19:12 Patient has correct armband on for positive identification. Bed in low position. Call jb4 light in reach. Side rails up X 1. Pulse ox on. NIBP on. 19:43 Trey Miller MD is Attending Physician. wilfrid 20:32 Oral contrast given. jg6 20:45 Initial lab(s) drawn, by mn, sent to lab. Inserted saline lock: 22 gauge in left jb4 forearm, using aseptic technique. Blood collected. 21:49 XRAY Chest (1 view) In Process Unspecified. EDMS 22:03 Jaleel Gonzalez MD is Hospitalizing Provider. wilrfid 22:[address] via stretcher. vm2 22:20 CT completed. Patient tolerated procedure well. Patient moved back from CT. vm2 22:27 CT Abd/Pelvis - W/Contrast In Process Unspecified. EDMS 23:52 No provider procedures requiring assistance completed. Patient admitted, IV remains in jb4 place. Administered Medications: 21:38 Drug: Zofran 4 mg Route: IVP; Site: left forearm; jb4 23:08 Follow up: Response: No adverse reaction; Nausea is decreased jb4 21:40 Drug: Pepcid 20 mg Route: IVP; Site: left forearm; jb4 23:08 Follow up: Response: No adverse reaction jb4 21:42 Drug: NS 0.9% 1000 ml Route: IV; Rate: 125 ml/hr; Site: left forearm; jb4 23:07 Follow up: IV Status: Infusion continued upon admission jb4 21:42 Drug: morphine 4 mg Route: IVP; Site: left forearm; jb4 23:08 Follow up: Response: No adverse reaction; Pain is decreased jb4 Outcome: 22:04 Decision to Hospitalize by Provider. wilfrid 23:52 Admitted to Tele accompanied by stanley, via stretcher, room 410, with chart, Report jb4 called to [facility] 23:52 Condition: stable 23:52 Discharge instructions given to patient, Instructed on the need for admit, Demonstrated understanding of instructions. 23:53 Patient left the ED. jb4 Signatures: Dispatcher [employer] EDTN Trey Miller MD MD cha Smirch, Shelby, RN RN Emery Castaneda RN RN Becky Ribera Jessica j6 Corrections: (The following items were deleted from the chart) 23:17 22:58 Reassessment: Patient appears in no apparent distress at this time. Patient jb4 and/or family updated on plan of care and expected duration. Pain level reassessed. Patient is alert, oriented x 3, equal unlabored respirations, skin warm/dry/pink. jb4
--- NOTE | 2018-09-27 22:04 | EDPHYS ---
Physician Documentation [facility] Name: Cary Gan Age: 52 yrs Sex: Female : 1965 Arrival Date: 09/27/2018 Time: 19:06 Bed 18 Private MD: ED Physician Trey Miller HPI: 09/27 20:18 This 52 yrs old Female presents to ER via EMS with complaints of Breathing wilfrid Difficulty. 20:18 The patient has shortness of breath at rest. Onset: The symptoms/episode began/occurred wilfrid 2 day(s) ago. Duration: The symptoms are continuous, and are steadily getting worse. The patient's shortness of breath has no apparent modifying factors. Associated signs and symptoms: The patient has no apparent associated signs or symptoms. Severity of symptoms: At their worst the symptoms were moderate in the emergency department the symptoms are unchanged. The patient has experienced similar episodes in the past, multiple times. Historical: - Allergies: 19:08 NKA; ss - PMHx: 19:08 Anxiety; Depression; Diabetes - IDDM; EDEMA; herniated disk lower back, neck vertibre ss fusion; high blood pressure (resolved); High Cholesterol; neuropathy; Rheumatoid Arthritis; Pancreatitis; - Immunization history:: Adult Immunizations up to date. - Social history:: Smoking status: Patient/guardian denies using tobacco. - Ebola Screening: : Patient denies exposure to infectious person Patient denies travel to an Ebola-affected area in the 21 days before illness onset. ROS: 20:19 Constitutional: Negative for fever, chills, and weight loss, Eyes: Negative for injury, wilfrid pain, redness, and discharge, ENT: Negative for injury, pain, and discharge, Neck: Negative for injury, pain, and swelling, Cardiovascular: Negative for chest pain, palpitations, and edema, Respiratory: Negative for shortness of breath, cough, wheezing, and pleuritic chest pain, Back: Negative for injury and pain, : Negative for injury, bleeding, discharge, and swelling, MS/Extremity: Negative for injury and deformity, Skin: Negative for injury, rash, and discoloration, Neuro: Negative for headache, weakness, numbness, tingling, and seizure, Allergy/Immunology: Negative for hives, rash, and allergies, Endocrine: Negative for neck swelling, polydipsia, polyuria, polyphagia, and marked weight changes, Hematologic/Lymphatic: Negative for swollen nodes, abnormal bleeding, and unusual bruising. 20:19 Abdomen/GI: Positive for abdominal pain. 20:19 MS/extremity: Negative for acute changes, injury or acute deformity. Exam: 20:19 Constitutional: This is a well developed, well nourished patient who is awake, alert, wilfrid and in no acute distress. Head/Face: Normocephalic, atraumatic. Eyes: Pupils equal round and reactive to light, extra-ocular motions intact. Lids and lashes normal. Conjunctiva and sclera are non-icteric and not injected. Cornea within normal limits. Periorbital areas with no swelling, redness, or edema. ENT: Nares patent. No nasal discharge, no septal abnormalities noted. Tympanic membranes are normal and external auditory canals are clear. Oropharynx with no redness, swelling, or masses, exudates, or evidence of obstruction, uvula midline. Mucous membranes moist. Neck: Trachea midline, no thyromegaly or masses palpated, and no cervical lymphadenopathy. Supple, full range of motion without nuchal rigidity, or vertebral point tenderness. No Meningismus. Chest/axilla: Normal chest wall appearance and motion. Nontender with no deformity. No lesions are appreciated. Cardiovascular: Regular rate and rhythm with a normal S1 and S2. No gallops, murmurs, or rubs. Normal PMI, no JVD. No pulse deficits. Respiratory: Lungs have equal breath sounds bilaterally, clear to auscultation and percussion. No rales, rhonchi or wheezes noted. No increased work of breathing, no retractions or nasal flaring. Skin: Warm, dry with normal turgor. Normal color with no rashes, no lesions, and no evidence of cellulitis. MS/ Extremity: Pulses equal, no cyanosis. Neurovascular intact. Full, normal range of motion. Neuro: Awake and alert, GCS 15, oriented to person, place, time, and situation. Cranial nerves II-XII grossly intact. Motor strength 5/5 in all extremities. Sensory grossly intact. Cerebellar exam normal. Normal gait. Psych: Awake, alert, with orientation to person, place and time. Behavior, mood, and affect are within normal limits. 20:19 Abdomen/GI: Inspection: abdomen appears normal, Bowel sounds: normal, Palpation: moderate abdominal tenderness, in the epigastric area, right upper quadrant and left upper quadrant, Liver: no appreciated palpable abnormalities, Hernia: not appreciated. Vital Signs: 19:08 BP 124 / 54; Pulse 64; Resp 16; Pulse Ox 97% on R/A; Weight 89.36 kg; Height 5 ft. 4 ss in. (162.56 cm); Pain 9/10; 20:00 BP 139 / 62; Pulse 68; Resp 16; Pulse Ox 100% on R/A; jb4 21:00 BP 126 / 67; Pulse 52; Resp 18; Pulse Ox 95% on R/A; jb4 22:45 BP 130 / 63; Pulse 52; Resp 16; Pulse Ox 97% on R/A; jb4 23:30 BP 137 / 69; Pulse 58; Resp 18; Pulse Ox 99% on R/A; jb4 19:08 Body Mass Index 33.81 (89.36 kg, 162.56 cm) ss MDM: 19:43 Patient medically screened. [facility] 20:21 Data reviewed: vital signs, nurses notes, lab test result(s), EKG, radiologic studies, [facility] CT scan, plain films. 09/27 20:18 Order name: Basic Metabolic Panel; Complete Time: 21:57 [facility] 09/27 20:18 Order name: CBC with Diff; Complete Time: 21:57 [facility] 09/27 20:18 Order name: LFT's; Complete Time: 21:57 [facility] 09/27 20:18 Order name: Magnesium; Complete Time: 21:57 [facility] 09/27 20:18 Order name: NT PRO-BNP; Complete Time: 21:57 [facility] 09/27 20:18 Order name: PT-INR; Complete Time: 21:57 [facility] 09/27 20:18 Order name: Troponin (emerg Dept Use Only); Complete Time: 21:57 [facility] 09/27 20:18 Order name: Lipase; Complete Time: 21:57 [facility] 09/27 22:33 Order name: Urine Dipstick--Ancillary (enter results) 09/27 22:34 Order name: Urinalysis [facility] 09/27 22:34 Order name: CBC with Automated Diff [facility] 09/27 22:34 Order name: CBC with Automated Diff [facility] 09/27 22:34 Order name: Comprehensive Metabolic Panel [facility] 09/27 22:34 Order name: Comprehensive Metabolic Panel [facility] 09/27 20:18 Order name: XRAY Chest (1 view) [facility] 09/27 20:18 Order name: EKG; Complete Time: 20:19 [facility] 09/27 20:18 Order name: Cardiac monitoring; Complete Time: 20:39 [facility] 09/27 20:18 Order name: EKG - Nurse/Tech; Complete Time: 20:22 [facility] 09/27 20:18 Order name: IV Saline Lock; Complete Time: 21:25 [facility] 09/27 20:18 Order name: CT Abd/Pelvis - W/Contrast [facility] 09/27 22:34 Order name: Heart Healthy [facility] 09/27 22:34 Order name: Magnesium [facility] 09/27 22:34 Order name: Magnesium [facility] 09/27 22:34 Order name: Phosphorus [facility] 09/27 22:34 Order name: Phosphorus [facility] 09/27 22:37 Order name: Urine Dipstick-Ancillary; Complete Time: 23:04 [facility] 09/27 20:18 Order name: Labs collected and sent; Complete Time: 21:25 [facility] 09/27 20:18 Order name: O2 Per Protocol; Complete Time: 20:22 [facility] 09/27 20:18 Order name: O2 Sat Monitoring; Complete Time: 20:22 [facility] 09/27 20:18 Order name: Urine Dipstick-Ancillary (obtain specimen); Complete Time: 22:34 [facility] 09/27 20:18 Order name: Urine Test (obtain specimen); Complete Time: 22:33 [facility] Administered Medications: 21:38 Drug: Zofran 4 mg Route: IVP; Site: left forearm; jb4 23:08 Follow up: Response: No adverse reaction; Nausea is decreased jb4 21:40 Drug: Pepcid 20 mg Route: IVP; Site: left forearm; jb4 23:08 Follow up: Response: No adverse reaction jb4 21:42 Drug: NS 0.9% 1000 ml Route: IV; Rate: 125 ml/hr; Site: left forearm; jb4 23:07 Follow up: IV Status: Infusion continued upon admission jb4 21:42 Drug: morphine 4 mg Route: IVP; Site: left forearm; jb4 23:08 Follow up: Response: No adverse reaction; Pain is decreased jb4 Disposition: 09/27/18 22:04 Hospitalization ordered by Jaleel Gonzalez for Observation. Preliminary diagnosis are Dyspnea, Abdominal tenderness, Type 1 diabetes mellitus. - Bed requested for Telemetry/MedSurg (observation). - Status is Observation. jb4 - Condition is Fair. - Problem is new. - Symptoms have improved. UTI on Admission? No Signatures: Dispatcher [employer] EDMS Karina Sullivan RN RN Trey Palacio MD MD cha Smirch, Shelby, RN RN Emery Iyer RN RN jb4 Corrections: (The following items were deleted from the chart) 22:35 22:04 Hospitalization Ordered by Jaleel Gonzalez MD for Observation. Preliminary diagnosis is Dyspnea; Abdominal tenderness; Type 1 diabetes mellitus. Bed requested for Telemetry/MedSurg (observation). Status is Observation. Condition is Fair. Problem is new. Symptoms have improved. UTI on Admission? No. wilfrid 23:53 22:35 09/27/2018 22:04 Hospitalization Ordered by Jaleel Gonzalez MD for Observation. jb4 Preliminary diagnosis is Dyspnea; Abdominal tenderness; Type 1 diabetes mellitus. Bed requested for Telemetry/MedSurg (observation). Status is Observation. Condition is Fair. Problem is new. Symptoms have improved. UTI on Admission? No.
[2018-09-27] MEDS ORDERED: ONDANSETRON 4 MG/2 ML VIAL IV PRN (22:29)
[2018-09-27] MEDS ORDERED: ACETAMINOPHEN 500 MG TAB PO PRN (22:29)
[2018-09-27] MEDS ORDERED: MAGNESIUM HYDROXIDE 8% 30 ML PO PRN (22:29)
[2018-09-27 22:36] LABS: Urine Blood TRACE (NEG); Urine Glucose 2+ (NEG); Urine Protein 1+ (NEG); Urine Specific Gravity 1.015 (1.005-1.030); Urine pH 5.5 (5.0-7.0)
[2018-09-27] MEDS ORDERED: NA CHLORIDE 0.9% 1,000 ML IV SCH (23:00)
[2018-09-28] MEDS: NA CHLORIDE 0.9% 1,000 ML IV SCH ×2 (00:54→12:20)
[2018-09-28 01:31] VITALS: O2SAT 99
[2018-09-28] MEDS: MORPHINE 4 MG/ML SYR IV PRN ×2 (01:51→06:09)
[2018-09-28 02:33] LABS: Urine Appearance CLEAR; Urine Bilirubin NEGATIVE (NEG); Urine Blood TRACE (NEG); Urine Color YELLOW; Urine Glucose NEGATIVE (NEG); Urine Protein NEGATIVE (NEG); Urine Specific Gravity >=1.030 (1.005-1.030); Urine Urobilinogen 0.2 mg/dL (0.2-1.0); Urine pH 5.5 (5.0-7.0)
[2018-09-28 02:35] LABS: Urine Microscopic Reflex ORDER UMIC
[2018-09-28 02:39] VITALS: BMI 33.7
[2018-09-28 03:27] LABS: Urine Bacteria <20 /HPF (<20); Urine RBC <5 /HPF (NONE SEEN)
[2018-09-28 03:28] LABS: Urine Culture Reflex Order NOT NEEDED
[2018-09-28 06:14] LABS: Absolute Lymphocytes (CBC) 2.6 K/uL (0.7-4.9); Absolute Monocytes 0.4 K/uL (0.1-1.3); Absolute Neutrophil 1.9 K/uL (1.8-8.0); Basophils % 0.5 % (0-1.3); Eosinophils % 4.2 % (0-4.4); Hematocrit 33.4 % (36.0-45.0); Lymphocytes % 50.5 % (15.3-44.8); MPV 9.4 fL (7.6-11.3); Monocytes % 7.7 % (3.3-12.3); RBC Red Blood Cell Count 3.92 M/uL (3.86-4.86)
[2018-09-28 06:20] LABS: Albumin 3.2 g/dL (3.4-5.0); Bilirubin Total 0.2 mg/dL (0.2-1.0); Magnesium 1.7 mg/dL (1.8-2.4); Phosphorus 3.9 mg/dL (2.5-4.9); Potassium 4.3 mmol/L (3.5-5.1); Protein, Total 7.2 g/dL (6.4-8.2)
[2018-09-28] MEDS ORDERED: MAGNESIUM SULFATE 1 gm IVPB 1 GM/100 ML BAG IV ONE (06:27)
--- NOTE | 2018-09-28 07:23 | RAD REPORT ---
EXAM DESCRIPTION: RAD - Chest Single View - 09/27/2018 9:48 pm CLINICAL HISTORY: Cough COMPARISON: June 2018 TECHNIQUE: AP portable chest image was obtained 0 hours . FINDINGS: Lungs are clear. Heart and vasculature are normal. No measurable pleural effusion and no p neumothorax. No acute bony abnormality seen. No acute aortic findings suspected. IMPRESSION: No acute cardiopulmonary process. No significant interval change.
--- NOTE | 2018-09-28 08:13 | RAD REPORT ---
EXAM DESCRIPTION: CT - Abdomen Pelvis W Contrast - 09/28/2018 3:31 am CLINICAL HISTORY: Abdominal pain, nausea, abdominal cramping A preliminary report was provided at the time of the study and reviewed prior to final report. COMPARISON: Contrast CT study June 2018 TECHNIQUE: Biphasic, helical CT imaging of the abdomen and pelvis was performed following 100 ml non -ionic IV contrast. Oral contrast was given. All CT scans are performed using dose optimization technique as appropriate and may include automated exposure control or mA/KV adjustment according to patient size. FINDINGS: No suspicious findings in the lung bases. Liver shows no suspicious finding. There is a small 12 mm rounded enhancing lesion segment . This i s probably a small hemangioma. Mass is difficult to fully characterize. No change from June 2018 short interval study. No capsular nodularity. Long-term significance is doubtful. Spleen and pancreas show no suspicious findings. Gallbladder and biliary tree are also without suspic ious finding. Gallstones can be occult on CT imaging. Symmetric renal function is seen with no hydronephrosis or suspicious renal mass. No pyelonephritis o r acute parenchymal process. No bladder abnormalities. No adrenal abnormalities. No dilated bowel loops or bowel wall thickening. Appendectomy clips are evident. No free air, free fl uid or inflammatory stranding. No hernia, mass or bulky lymphadenopathy. Uterus and ovaries show no suspicious findings. Disc and bony degenerative changes are present. No acute process seen. IMPRESSION: No bowel obstruction, free air or emergent finding. Small enhancing lesion right lobe of the liver is unchanged over the short interval since July 17. More remote CT imaging is not available. This is probably a hemangioma with little or no long-ter m significance.
[2018-09-28] MEDS ORDERED: ENOXAPARIN 40 MG/0.4 ML SQ SCH (09:00)
--- NOTE | 2018-09-28 10:14 | P.HP ---
Certification for Inpatient Patient admitted to: Observation With expected LOS: <2 Midnights Patient will require the following post-hospital care: None Practitioner: I am a practitioner with admitting privileges, knowledge of patient current condition, hospital course, and medical plan of care. Services: Services provided to patient in accordance with Admission requirements found in Title 42 Section 412.3 of the Code of Federal Regulations Patient History Date of Service: 09/27/18 Reason for admission: Abdominal pain along with nausea History of Present Illness: patient is a 52-year-old female who presents to the hospital with some confusion and hyperglycemia along with hypertension. Patient has complaints of nausea and abdominal pain. She has a history of pancreatitis. Patient was also slightly lethargic. She was admitted to the hospital for IV hydration. Allergies No Known Allergies Allergy (Verified 09/28/18 00:55) Home Medications: Gabapentin 300 mg PO DAILY 07/15/18 Meclizine HCl 25 mg PO Q6HP PRN 07/15/18 Metformin HCl 1,000 mg PO BID 07/15/18 Lisinopril [Prinivil*] 10 mg PO DAILY #30 tab 07/19/18 Atorvastatin Calcium 1 tab PO DAILY 09/28/18 Ferrous Sulfate [Iron] 1 tab PO DAILY 09/28/18 Furosemide 1 tab PO Q48H 09/28/18 Insulin Detemir [Levemir Flextouch] 15 units SQ DAILY 09/28/18 Magnesium Oxide [Magnesium] 1 tab PO BEDTIME 09/28/18 Mv-Min/Iron/Folic/Calcium/Vitk [Women's Multivitamin Tablet] 1 tab PO DAILY 09/15 Omeprazole 1 cap PO DAILY 09/28/18 Sennosides 1 tab PO DAILY PRN 09/28/18 Sertraline [Zoloft*] 1 tab PO DAILY 09/28/18 Tramadol HCl [Ultram] 1 tab PO Q8H PRN 09/28/18 - Past Medical/Surgical History Has patient received pneumonia vaccine in the past: Yes Diabetic: Yes -: Anxiety -: Depression -: Insulin Dependent Diabetes -: Edema -: 2 herniated disk lower back -: Fractured Vertebrae -: Hypertension -: Neuropathy -: High Cholesterol -: Rheumatoid Arthritis -: Acid Reflux -: Pancreatitis -: Appendectomy -: Tubal Ligation - Family History Father Medical History: Heart disease, Hypertension, Diabetes, Other (see notes) Notes: high cholesterol Mother Medical History: Heart disease, Hypertension, Diabetes, Other (see notes) Notes: high cholesterol - Social History Smoking Status: Never smoker CD- Drugs: No Caffeine use: Yes Place of Residence: Home Review of Systems 10-point ROS is otherwise unremarkable Physical Examination - Vital Signs Temperature: 97.7 F Blood Pressure: 121/58 Pulse: 53 Respirations: 18 Pulse Ox (%): 96 - Physical Exam General: Alert, In no apparent distress, Oriented x3 HEENT: Atraumatic, PERRLA, Mucous membr. moist/pink, EOMI, Sclerae nonicteric Neck: Supple, 2+ carotid pulse no bruit, No LAD, Without JVD or thyroid abnormality Respiratory: Clear to auscultation bilaterally, Normal air movement Cardiovascular: Regular rate/rhythm, Normal S1 S2, No murmurs Gastrointestinal: Normal bowel sounds, Soft and benign, Non-distended, No tenderness Musculoskeletal: No clubbing, No swelling, No tenderness Integumentary: No rashes Neurological: Normal gait, Normal speech, Normal strength at 5/5 x4 extr, Normal tone, Normal affect Lymphatics: No axilla or inguinal lymphadenopathy - Studies Laboratory Data (last 24 hrs) 09/27/18 21:15: PT 11.6, INR 0.98 09/27/18 21:15: WBC 5.1, Hgb 11.8 L, Hct 35.9 L, Plt Count 181 09/27/18 21:15: Sodium 136, Potassium 4.3, BUN 20 H, Creatinine 0.94, Glucose 295 H, Magnesium 1.8, Total Bilirubin 0.2, AST 18, ALT 20, Alkaline Phosphatase 90, Lipase 210 Assessment & Plan - Problems (Diagnosis) (1) Abdominal pain Current Visit: Yes Status: Acute (2) Nausea & vomiting Current Visit: Yes Status: Acute (3) Diabetes mellitus, type II Onset Date: 07/16/18 Current Visit: No Status: Acute (4) Essential hypertension Onset Date: 07/16/18 Current Visit: No Status: Acute (5) Normocytic normochromic anemia Onset Date: 07/16/18 Current Visit: No Status: Acute (6) Rheumatoid arthritis Onset Date: 07/16/18 Current Visit: No Status: Acute - Plan plan: 1. IV hydration 2. Monitor electrolytes 3. Start on clear liquid diet 4. out of bed and ambulate in a.m. 5. Possible discharge home if her symptoms continue to improve Discharge Plan: Home Plan to discharge in: 48 Hours - Advance Directives Does patient have a Living Will: No Does patient have a Durable POA for Healthcare: No - Code Status/Comfort Care Code Status Assessed: Yes Code Status: Full Code Critical Care: No Time Spent Managing PTS Care (In Minutes): 45
[2018-09-28 12:41] VITALS: BP 120/60; TEMP 97.9
[2018-09-28] MEDS ORDERED: METOCLOPRAMIDE 5 MG TAB PO ONE ×2 (12:58→15:19)
--- NOTE | 2018-09-28 14:10 | P.SSS ---
Patient History Date of Service: 09/28/18 Reason for admission: Abdominal pain along with nausea History of Present Illness: 52-year-old female with uncontrolled diabetes non compliant with medication admitted to the hospital for abdominal pain nausea and vomiting. Allergies No Known Allergies Allergy (Verified 09/28/18 00:55) Home Medications: Gabapentin 300 mg PO DAILY 07/15/18 Meclizine HCl 25 mg PO Q6HP PRN 07/15/18 Metformin HCl 1,000 mg PO BID 07/15/18 Lisinopril [Prinivil*] 10 mg PO DAILY #30 tab 07/19/18 Atorvastatin Calcium 1 tab PO DAILY 09/28/18 Ferrous Sulfate [Iron] 1 tab PO DAILY 09/28/18 Furosemide 1 tab PO Q48H 09/28/18 Insulin Detemir [Levemir Flextouch] 15 units SQ DAILY 09/28/18 Magnesium Oxide [Magnesium] 1 tab PO BEDTIME 09/28/18 Metoclopramide HCl [Reglan] 5 mg PO DAILY #30 tablet 09/28/18 Mv-Min/Iron/Folic/Calcium/Vitk [Women's Multivitamin Tablet] 1 tab PO DAILY 09/15 Omeprazole 1 cap PO DAILY 09/28/18 Sennosides 1 tab PO DAILY PRN 09/28/18 Sertraline [Zoloft*] 1 tab PO DAILY 09/28/18 Tramadol HCl [Ultram] 1 tab PO Q8H PRN 09/28/18 - Past Medical/Surgical History Has patient received pneumonia vaccine in the past: Yes Diabetic: Yes -: Anxiety -: Depression -: Insulin Dependent Diabetes -: Edema -: 2 herniated disk lower back -: Fractured Vertebrae -: Hypertension -: Neuropathy -: High Cholesterol -: Rheumatoid Arthritis -: Acid Reflux -: Pancreatitis -: Appendectomy -: Tubal Ligation - Family History Father -: Heart disease, Hypertension, Diabetes, Other (see notes) Notes: high cholesterol Mother -: Heart disease, Hypertension, Diabetes, Other (see notes) Notes: high cholesterol - Social History Smoking Status: Never smoker Alcohol use: Yes CD- Drugs: No Caffeine use: Yes Place of Residence: Home Review of Systems 10-point ROS is otherwise unremarkable Physical Examination - Vital Signs Temperature: 97.9 F Blood Pressure: 120/60 Pulse: 50 Respirations: 18 Pulse Ox (%): 98 - Physical Exam General: Alert, In no apparent distress HEENT: Atraumatic, PERRLA, Mucous membr. moist/pink, EOMI, Sclerae nonicteric Neck: Supple, 2+ carotid pulse no bruit, No LAD, Without JVD or thyroid abnormality Respiratory: Clear to auscultation bilaterally, Normal air movement Cardiovascular: Regular rate/rhythm, Normal S1 S2 Gastrointestinal: Normal bowel sounds, No tenderness Musculoskeletal: No tenderness Integumentary: No rashes Neurological: Normal gait, Normal speech, Normal strength at 5/5 x4 extr, Normal tone, Normal affect Lymphatics: No axilla or inguinal lymphadenopathy - Studies Laboratory Data (last 24 hrs) 09/27/18 21:15: PT 11.6, INR 0.98 09/27/18 21:15: WBC 5.1, Hgb 11.8 L, Hct 35.9 L, Plt Count 181 09/27/18 21:15: Sodium 136, Potassium 4.3, BUN 20 H, Creatinine 0.94, Glucose 295 H, Magnesium 1.8, Total Bilirubin 0.2, AST 18, ALT 20, Alkaline Phosphatase 90, Lipase 210 - Diagnosis (Problem(s)) (1) Diabetic gastroparesis Current Visit: Yes Status: Acute (2) Diabetes mellitus, type II Onset Date: 07/16/18 Current Visit: No Status: Chronic Qualifiers: 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 Most likely secondary to diabetic gastroparesis. Patient does have uncontrolled diabetes in his very noncompliant with her medication and diet at home. Patient has poor understanding of her disease process. Patient was educated extensively here in the hospital regarding her disease process and the need to make sure she takes her medication and diet properly. Patient was also explained regarding precautions and steps to take with diabetic gastroparesis. Patient was prescribed Reglan. Patient was able to tolerate all her diet and was doing well and thus was discharged home under stable condition. Patient was asked to follow up with his primary care doctor in about 1-2 days post discharge and was asked to continue taking her diabetic medication - Disposition Disposition: ROUTINE DISCHARGE Condition: GOOD Patient Discharge Instructions: Please f.u with PCP in 1 to 2 weeks post discharge. You were admitted to N/V most likely 2.2 to gastropresis and are going to need to take. Reglan 5mg daily Diet: Regular Activity: Ad ada
--- NOTE | 2018-09-28 16:19 | EKG ---
Test Date: 2018-09-27 Test Time: 19:28:44 Manager Banquet: KELLY MEASUREMENT RESULTS: Intervals: Rate: 59 VA: 166 QRSD: 80 QT: 430 QTc: 425 [place]: P: 28 VA: 166 QRS: 12 T: 23 INTERPRETIVE STATEMENTS: Sinus bradycardia Minimal voltage criteria for LVH, may be normal variant Borderline ECG Compared to ECG 07/15/2018 06:57:20 Left ventricular hypertrophy now present ST (T wave) deviation no longer present Electronically Signed On 09-28-18 16:18:58 [employer] by Valentino Moreno
== END 2018-09-28 15:33 | disposition home or self-care (01) | DRG 74 ==
LOC: ER 19:02 → ERHOLD 22:29 → 4TH 23:28
PROVIDERS: ADMIT Hospitalist; ATTEND Family Medicine
DX: E11.43 Type 2 diabetes mellitus with diabetic autonomic (poly)neuropathy (principal); E11.65 Type 2 diabetes mellitus with hyperglycemia; K31.84 Gastroparesis; Z91.14 Patient's other noncompliance with medication regimen; Z91.11 Patient's noncompliance with dietary regimen; F41.9 Anxiety disorder, unspecified; F32.9 Major depressive disorder, single episode, unspecified; I10 Essential (primary) hypertension; E78.00 Pure hypercholesterolemia, unspecified; M06.9 Rheumatoid arthritis, unspecified; K21.9 Gastro-esophageal reflux disease without esophagitis; D64.9 Anemia, unspecified; R11.2 Nausea with vomiting, unspecified; Z79.4 Long term (current) use of insulin; G62.9 Polyneuropathy, unspecified
CPT/HCPCS: 36415; 71045; 74177; 80048; 80053; 80076; 81003; 81015; 82962; 83690; 83735; 83880; 84100; 84484; 85025; 85610; 93005; 96361; 96374; 96375; 97163; 99285; J1650; J2405; J3475; J7030; Q9967

== ENCOUNTER 2018-11-10 11:03 | Emergency (ER) | payer SELFPAY ==
--- OUTSIDE RECORDS SUMMARY | 2018-11-10 11:06 | XMS REPORT | Clinical Summary ---
:1965 Author Organization [facility] Address [facility] [place] [address] Care Team Providers Name Role Phone Julio CésarAni MANDY Primary Care Provider Allergies No Known Allergies [...] iron) by mouth tablet daily (with breakfast). omeprazole (PRILOSEC) Take 1 30 capsule 2 08/09/2018 Active 20 mg delayed release capsule by capsuleIndications: mouth daily. Gastroesophageal reflux disease without esophagitis tropicamide Instill 1 15 mL 0 08/09/2018 [...] blood test as directed by your doctor.. furosemide (LASIX) 20 Take 1 tablet 30 [...] Poorly controlled directed. type 2 diabetes mellitus metoclopramide Take 1 tablet 90 tablet 3 10/02/2018 Active (REGLAN) 10 mg by mouth 3 tabletIndications: times daily Diabetic (before gastroparesis meals). cetirizine (ZYRTEC) Take 1 tablet 30 tablet 0 10/02/2018 Active 10 mg by mouth at tabletIndications: bedtime Seasonal allergic nightly For rhinitis, unspecified allergies. trigger traMADol (ULTRAM) 50 Take 1 tablet 30 tablet 0 10/02/2018 Active mg tabletIndications: by mouth Acute pain of left every 8 hours knee, Fall, initial as needed for encounter, Acute Pain. right ankle pain, Sprain of right ankle, unspecified ligament, initial encounter hydroxypropyl Instill 2 5 mL 0 10/19/2018 Active methylcellulose Drops in each (ISOPTO TEARS) 0.5 % eye 4 times DropIndications: daily. Monocular diplopia of right eye acetaminophen Take 2 30 tablet 0 10/19/2018 Active (TYLENOL) 500 mg tablets by tabletIndications: mouth every 6 Right-sided headache hours as needed for Pain. gabapentin Take 1 90 capsule 2 11/01/2018 Active (NEURONTIN) 300 mg capsule by capsuleIndications: mouth 3 times Neuropathy daily. atorvastatin Take 1 tablet 90 tablet 1 11/01/2018 Active (LIPITOR) 40 mg by mouth at tabletIndications: bedtime Dyslipidemia nightly. lisinopril (PRINIVIL, Take 1 tablet 90 tablet 1 11/01/2018 Active ZESTRIL) 10 mg by mouth tabletIndications: daily. Essential hypertension metFORMIN Take 1 tablet 60 tablet 2 11/01/2018 Active (GLUCOPHAGE) 1,000 mg by mouth 2 tabletIndications: times daily Poorly controlled (with meals). type 2 diabetes mellitus sertraline (ZOLOFT) Take 1 tablet 30 tablet 2 11/01/2018 Active 50 mg by mouth tabletIndications: daily. Depression with anxiety insulin detemir U-100 Inject 20 9 mL 0 11/01/2018 Active (LEVEMIR FLEXTOUCH Units under U-100 INSULN) 100 the skin unit/mL (3 mL) daily. PenIndications: Poorly controlled type 2 diabetes mellitus pen needle, diabetic Inject under 1 Box 3 11/01/2018 Active 31 gauge x /16" the skin needlesIndications: daily. Poorly controlled type 2 diabetes mellitus atorvastatin Take 40 mg by 0 Discontinued [...] the skin unit/mL (3 mL) Pen daily. metFORMIN Take 1 tablet 60 tablet 2 08/09/2018 Discontinued (GLUCOPHAGE) 1,000 mg by mouth 2 9 tabletIndications: times daily Uncontrolled type 2 (with meals). diabetes mellitus with complication, with long-term current use of insulin insulin detemir U-100 Inject 10 9 mL 0 08/09/2018 Discontinued (LEVEMIR FLEXTOUCH Units under 9 U-100 INSULN) 100 the skin unit/mL (3 mL) daily. PenIndications: Uncontrolled type 2 diabetes mellitus with complication, with long-term current use of insulin sertraline (ZOLOFT) Take 1 tablet 30 tablet 2 08/09/2018 Discontinued 50 mg by mouth 9 tabletIndications: daily. Depression with anxiety gabapentin Take 1 30 capsule 2 08/09/2018 Discontinued (NEURONTIN) 300 mg capsule by 9 capsuleIndications: mouth daily. Neuropathy traMADol (ULTRAM) 50 Take 1 tablet 30 tablet 0 08/09/2018 Discontinued mg tabletIndications: by mouth 9 Herniated lumbar every 8 hours intervertebral disc, as needed for Neuropathy Pain. insulin detemir U-100 Inject 20 9 mL 0 09/06/2018 Discontinued (LEVEMIR FLEXTOUCH Units under 9 U-100 INSULN) 100 the skin unit/mL (3 mL) daily. PenIndications: Poorly controlled type 2 diabetes mellitus pen needle, diabetic Inject under 1 Box 3 09/06/2018 Discontinued 31 gauge x 3/16" the skin 9 needlesIndications: daily. Poorly controlled type 2 diabetes mellitus atorvastatin Take 1 tablet 90 tablet 1 09/11/2018 Discontinued (LIPITOR) 40 mg by mouth at 9 tabletIndications: bedtime Dyslipidemia nightly. lisinopril (PRINIVIL, Take 1 tablet 90 tablet 1 09/11/2018 Discontinued ZESTRIL) 10 mg by mouth 9 tabletIndications: daily. Essential hypertension polyethylene glycol Mix 17 grams 527 g 1 10/02/2018 (MIRALAX) 17 into 4 to 8 9 gram/dose oral ounces of powderIndications: water, tea or Constipation, coffee and unspecified drink as constipation type directed, one time a day. hydroxypropyl Instill 2 5 mL 0 10/18/2018 Discontinued methylcellulose Drops in each 9 (ISOPTO TEARS) 0.5 % eye 4 times DropIndications: daily. Monocular diplopia of right eye hydroxypropyl Instill 2 5 mL 0 10/19/2018 Discontinued methylcellulose Drops in each 9 (ISOPTO TEARS) 0.5 % eye 4 times DropIndications: daily. Monocular diplopia of right eye ibuprofen (MOTRIN) Take 1 tablet 30 tablet 0 10/19/2018 Discontinued 800 mg by mouth 9 tabletIndications: every 8 hours Right-sided headache as needed for Pain. acetaminophen Take 2 30 tablet 0 10/19/2018 Discontinued (TYLENOL) 500 mg tablets by 9 tabletIndications: mouth every 6 Right-sided headache hours as needed for Pain. ibuprofen (MOTRIN) Take 1 tablet 30 tablet 0 10/19/2018 Discontinued 800 mg by mouth 9 tabletIndications: every 8 hours Right-sided headache as needed for Pain. 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 11/2018 edema associated with type 2 diabetes mellitus Diabetic gastroparesis 10/02/2018 Inadequately controlled diabetes mellitus 10/02/2018 Positive occult stool blood test 10/02/2018 Encounters Date Type Specialty Care Team Description 11/09/2018 Telephone [facility] Ines Clemente Consult ROBLES Matson 11/08/2018 Telephone Ellen Vaughan Utilization Management [place] (colonoscopy) 11/01/2018 Office Visit [facility] Julio César, Encounter to discuss test results (Primary Dx); Ani Jones NP Sprain of anterior cruciate ligament of left knee, subsequent encounter; Left knee pain, unspecified chronicity; Neuropathy; Dyslipidemia; Essential hypertension; Depression with anxiety; Poorly controlled type 2 diabetes mellitus 10/29/2018 Office Visit Ophthalmology Sohail Arriola Keratoconjunctivitis sicca (Primary Dx); MD Vishal Glaucoma suspect of both eyes; 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 edema associated with type 2 diabetes mellitus 10/29/2018 Travel 10/18/2018 Emergency Emergency Medicine Caden Candelario Acute right eye pain (Primary Dx); - MMD Monocular diplopia of right eye; 10/19/2018 Right-sided headache 10/18/2018 Hospital Radiology Julio César, Encounter Ani Jones NP 10/18/2018 Travel 10/18/2018 Nurse Triage Zee Bourgeois 10/16/2018 Ancillary Radiology Procedure 10/16/2018 Telephone [facility] Julio César, Pcp Communication Ani Jones NP 10/05/2018 Telephone [facility] Ines Landrum Information Only RN 10/02/2018 Office Visit [facility] Julio César [facility] discharge follow- up (Primary Dx); Ani Jones NP Diabetic gastroparesis; Inadequately controlled diabetes mellitus; Positive occult stool blood test; Acute pain of left knee; Fall, initial encounter; Acute right ankle pain; Constipation, unspecified constipation type; Sprain of right ankle, unspecified ligament, initial encounter; Seasonal allergic rhinitis, unspecified trigger 10/02/2018 Travel 09/26/2018 Nurse Triage Stella Culp RN 09/11/2018 Orders Only [facility] Julio César, Essential hypertension ( Primary Dx); Ani Jones NP Dyslipidemia 09/07/2018 Telephone Patient Education Cole, Disease Management F/U Tomas Nur RN 09/06/2018 Office Visit [facility] Julio César, Encounter to discuss test results (Primary Dx); Ani Jones NP Poorly controlled type 2 diabetes mellitus; Microalbuminuria; Left shoulder pain, unspecified chronicity; Low back pain at multiple sites; Bilateral lower extremity edema; Dyslipidemia; Positive occult stool blood test 09/06/2018 Ancillary Radiology Julio César, Radha Jones NP 09/06/2018 Travel 08/30/2018 Refill [facility] Julio César, Positive occult stool Ani Jones NP blood test (Primary Dx) 08/15/2018 Ancillary Radiology Radha Angela NP 08/15/2018 Telephone [facility] Julio César, Results Ani Jones NP 08/09/2018 Office Visit [facility] Julio César, Hospital discharge follow- up (Primary Dx); Ani Jones NP Dietary counseling for Above / Below Normal [...] left shoulder; Flu vaccine need; Need for omnfmmjzws-bzcqowt-oootxpdhr (Tdap) vaccine; Need for 23-polyvalent pneumococcal polysaccharide vaccine 08/09/2018 Travel after 11/09/2017 Immunizations Name Dates Previously Given Next Due Influenza, Vaccine<FLUCELVAX>(Multi-Dose) 08/09/2018 PPV 23 (Pneumococcal Polysaccharide 23 Valent) 08/09/2018 Tdap (Tetanus Toxoid, Reduced Diphtheria Toxoid And 08/09/2018 [...] Vital Sign Reading Time Taken Blood Pressure 135/73 11/01/2018 9:33 AM [employer]AS PLANT [employer] Pulse 65 11/01/2018 9:33 AM [employer] PL[employer] O[employer]ATOR Temperature 36.7 C (98 F) 11/01/2018 9:33 AM [employer] PL[employer] OPERATOR Respiratory Rate 18 11/01/2018 9:33 AM [employer] PL[employer] OPERATOR Oxygen Saturation 99% 10/19/2018 3:00 AM [employer] OPERATOR Inhaled Oxygen Concentration - - Weight 95.7 kg (211 lb) 11/01/2018 9:33 AM GAS PLANT OPERATOR Height 157.5 cm (5' 2") 11/01/2018 9:33 AM [employer] PL[employer] OPERATOR Body Mass Index 38.59 11/01/2018 9:33 AM [employer]AS PL[employer] OPERATOR Plan of Treatment Date Type Specialty Care Team Description 11/30/2018 Office Visit Psychology Lady Zaragoza 12/04/2018 Lab Appointment Lab Ani Angela NP [phone] 12/20/2018 Office Visit Psychiatry Claudia Paniagua MD [id number] [facility] [address] [place] [phone] 01/14/2019 Office Visit Ophthalmology Retina/OCT MAc 01/24/2019 Office Visit Ophthalmology [facility] 01/31/2019 Office Visit Ophthalmology Glaucoma Health Maintenance Due Date Last Done Comments Cervical Cancer Scrn (3 Yrs) 12/24/1984 DM HGBA1C (Yearly) 08/09/2019 08/09/2018 DM Retinal Exam (Yearly) 08/15/2019 08/15/2018 Colorectal Cancer Scrn Annual (FIT/FOBT) 08/24/2019 08/24/2018 Age 50 to 75 Breast Cancer Scrn (Yearly) 09/06/2019 09/06/2018 DM Foot Exam (Yearly) 11/02/2019 11/01/2018, 09/06/2018 IMM Influenza Seasonal May to October (>/=19 Completed 08/09/2018 yrs) Goals Goal Patient Goal Associated Recent Patient-Stated? Author Type Problems Progress Lower blood Lifestyle Not on track No karly Angela (10/02/2018) Ani Jones NP Eat Healthy Lifestyle Not on track No Julio César, (10/02/2018) Ani Jones NP Home Glucose Self management On track No Julio César, Monitoring (10/02/2018) Ani Joens NP HBA1C < 7 Treatment Not on track No Julio César, (10/02/2018) Ani Jones NP Procedures Procedure Name Priority Date/Time Associated Diagnosis Comments DIABETIC FOOT EXAM Routine 11/01/2018 9:52 Poorly controlled type Results for this AM [employer] 2 diabetes mellitus procedure are in the results section. GLUCOSE POC Routine 10/18/2018 6:23 Results for this PM [employer] procedure are in the results section. MRI KNEE JOINT W/O Routine 10/18/2018 4:08 Acute pain of left knee Results for this CONTRAST PM [employer] O[employer]ATOR Fall, initial encounter procedure are in the results section. U/S RENAL Routine 10/16/2018 1:50 Microalbuminuria Results for this PM [employer] procedure are in the results section. DIABETIC FOOT EXAM Routine 09/06/2018 12:05 Poorly controlled type Results for this PM [employer] 2 diabetes mellitus procedure are in the results section. MAMMOGRAM BILAT Routine 09/06/2018 11:03 Screening for breast Results for this SCREEN DIGITAL AM [employer] O[employer] cancer procedure are in the results section. OCCULT BLOOD ICT Routine 08/24/2018 2:33 Screen for colon cancer Results for this PM [employer] procedure are in the results section. OPHTHALMOLOGY RETINAL Routine 08/15/2018 12:23 Uncontrolled type 2 Results for this SCAN PM [employer] diabetes mellitus with procedure are in complication, with the results long-term current use section. of insulin XRAY SHOULDER 2 VIEWS Routine 08/15/2018 8:10 Pain in joint of left Results for this MIN AM [employer] shoulder procedure are in the results section. AMYLASE Routine 08/09/2018 12:24 Acute pancreatitis, Results for this PM [employer] unspecified procedure are in complication status, the results unspecified section. pancreatitis type LIPASE Routine 08/09/2018 12:24 Acute pancreatitis, Results for this PM [employer] unspecified procedure are in complication status, the results unspecified section. pancreatitis type SED RATE Routine 08/09/2018 12:24 Rheumatoid arthritis, Results for this PM [employer] involving unspecified procedure are in site, unspecified the results rheumatoid factor section. presence RA FACTOR Routine 08/09/2018 12:24 Rheumatoid arthritis, Results for this PM [employer] involving unspecified procedure are in site, unspecified the results rheumatoid factor section. presence SHELLY Routine 08/09/2018 12:24 Rheumatoid arthritis, Results for this PM [employer] involving unspecified procedure are in site, unspecified the results rheumatoid factor section. presence MAGNESIUM Routine 08/09/2018 12:24 Low magnesium level Results for this PM [employer] procedure are in the results section. VITAMIN B12 Routine 08/09/2018 12:24 Iron deficiency anemia, Results for this PM [employer] unspecified iron procedure are in deficiency anemia type the results section. IRON PROFILE Routine 08/09/2018 12:24 Iron deficiency anemia, Results for this PM [employer] unspecified iron procedure are in deficiency anemia type the results section. FOLIC ACID Routine 08/09/2018 12:24 Iron deficiency anemia, Results for this PM [employer] unspecified iron procedure are in deficiency anemia type the results section. FERRITIN Routine 08/09/2018 12:24 Iron deficiency anemia, Results for this PM [employer] unspecified iron procedure are in deficiency anemia type the results section. MICROALBUM, URINE Routine 08/09/2018 12:24 Uncontrolled type 2 Results for this PM [employer] diabetes mellitus with procedure are in complication, with the results long-term current use section. of insulin TSH Routine 08/09/2018 12:24 Uncontrolled type 2 Results for this PM [employer] diabetes mellitus with procedure are in complication, with the results long-term current use section. of insulin LIPID PROFILE Routine 08/09/2018 12:24 Uncontrolled type 2 Results for this PM [employer] diabetes mellitus with procedure are in complication, with the results long-term current use section. of insulin LIVER PROFILE Routine 08/09/2018 12:24 Uncontrolled type 2 Results for this PM [employer] diabetes mellitus with procedure are in complication, with the results long-term current use section. of insulin HIV-1/HIV-2 ROUTINE Routine 08/09/2018 12:24 Uncontrolled type 2 Results for this SCREENING PM [employer] diabetes mellitus with procedure are in complication, with the results long-term current use section. of insulin HEPATITIS PANEL Routine 08/09/2018 12:24 Uncontrolled type 2 Results for this PM [employer] diabetes mellitus with procedure are in complication, with the results long-term current use section. of insulin HEMOGLOBIN A1C Routine 08/09/2018 12:24 Uncontrolled type 2 Results for this PM [employer] diabetes mellitus with procedure are in complication, with the results long-term current use section. of insulin CBC/DIFF Routine 08/09/2018 12:24 Uncontrolled type 2 Results for this PM [employer] diabetes mellitus with procedure are in complication, with the results long-term current use section. of insulin BASIC METABOLIC PANEL Routine 08/09/2018 12:24 Uncontrolled type 2 Results for this PM [employer] diabetes mellitus with procedure are in complication, with the results long-term current use section. of insulin after 11/09/2017 Results DIABETIC FOOT EXAM (11/01/2018 9:52 AM [employer] PL[employer]PERATOR)Only the most recent of2 resultswithin the time period is included. Narrative Performed At Ani Angela NP 11/01/20181:16 PM Diabetic Foot Exam was performed at 11/01/2018 1:15 PM.Right foot sensation is normal, right foot pulses are normal, right foot appearance is normal.Left foot sensation is normal,left foot pulses are normal, left foot appearance is normal. GLUCOSE POC (10/18/2018 6:23 PM G[employer]) Glucose POC 127 (H) 74 - 106 mg/dL [facility] Performing Organization Address City/State/Zipcode Phone Number MISYS [facility] MRI KNEE JOINT W/O CONTRAST (10/18/2018 4:08 PM G[employer] PL[employer] OPERATOR) Impressions Performed At IMPRESSION: [facility] 1.Focal partial tear of the anterior fibers of the superior medial collateral ligament. 2.Low grade intrasubstance partial tear and sprain of the anterior cruciate ligament. 3.Bone marrow contusion at the posteriolateral femoral condyle. 4.Likely subtle oblique tear of the posterior horn of the medial meniscus. Dictated By: Loreta Ma MD, 10/19/2018 8:23 AM I have reviewed the study and agree with the findings in this report. Signed By: Andres Sher DO, 10/19/2018 11:36 AM Narrative Performed At [facility] TECHNIQUE: Magnetic resonance imaging of the LEFT KNEE was performedWITHOUT injected contrast per department protocol. HISTORY:left knee injury, pain from fall COMPARISON:None DISCUSSION: Tendons and Ligaments: ACL:Increased intrasubstance signal with minimal laxity. PCL:Intact Collateral Ligaments:Focal partial tearing of the anterior and superior fibers and attenuation of the meniscofemoral ligament. No ligamentous laxity. Extensor Mechanism:Tendinosis most prominently at the distal patella tendon. Iliotibial Band:Intact Popliteal Tendon:Intact Menisci: Medial:Oblique tear posterior horn medial meniscus appears to extend to the tibial articular surface at the free margin (series 8, image 38). Lateral:Intact Joint: Articular Cartilage: Medial Compartment:Low grade erosion of the articular weight bearing cartilage Lateral Compartment:Low grade erosion of the articular weight bearing cartilage. Patellofemoral Compartment:Low grade erosion of the articular cartilage. Fluid:The amount of fluid within the joint is within physiologic limits. Bone: No focal or infiltrative bone marrow replacing abnormality. Bone contusion along the posterior lateral femoral condyle. No acute fracture. Soft tissues: Otherwise, unremarkable Procedure Note Interface, Rad/Mammog In - 10/19/2018 11:41 AM G[employer]ATOR TECHNIQUE: Magnetic resonance imaging of the LEFT KNEE was performed WITHOUT injected contrast per department protocol. HISTORY: left knee injury, pain from fall COMPARISON: None DISCUSSION: Tendons and Ligaments: ACL: Increased intrasubstance signal with minimal laxity. PCL: Intact Collateral Ligaments: Focal partial tearing of the anterior and superior fibers and attenuation of the meniscofemoral ligament. No ligamentous laxity. Extensor Mechanism: Tendinosis most prominently at the distal patella tendon. Iliotibial Band: Intact Popliteal Tendon: Intact Menisci: Medial: Oblique tear posterior horn medial meniscus appears to extend to the tibial articular surface at the free margin (series 8, image 38). Lateral: Intact Joint: Articular Cartilage: Medial Compartment: Low grade erosion of the articular weight bearing cartilage Lateral Compartment: Low grade erosion of the articular weight bearing cartilage. Patellofemoral Compartment: Low grade erosion of the articular cartilage. Fluid: The amount of fluid within the joint is within physiologic limits. Bone: No focal or infiltrative bone marrow replacing abnormality. Bone contusion along the posterior lateral femoral condyle. No acute fracture. Soft tissues: Otherwise, unremarkable IMPRESSION IMPRESSION: 1. Focal partial tear of the anterior fibers of the superior medial collateral ligament. 2. Low grade intrasubstance partial tear and sprain of the anterior cruciate ligament. 3. Bone marrow contusion at the posteriolateral femoral condyle. 4. Likely subtle oblique tear of the posterior horn of the medial meniscus. Dictated By: Loreta Ma MD, 10/19/2018 8:23 AM I have reviewed the study and agree with the findings in this report. Signed By: Andres Sher DO, 10/19/2018 11:36 AM Performing Organization Address City/State/Zipcode Phone Number [facility] (10/16/2018 1:50 PM GAS PLANT OPERATOR) Impressions Performed At IMPRESSION: [facility] Normal renal ultrasound exam. Dictated By: Prince Hale MD, 10/16/2018 1:49 PM I have reviewed the study and agree with the findings in this report. Signed By: Rolf Morgan MD, 10/16/2018 1:57 PM Narrative Performed At EXAM: Renal Ultrasound [facility] INDICATION: microalbuminuria COMPARISON: None TECHNIQUE: Transverse and longitudinal images of the kidneys and bladder were obtained. FINDINGS: Right Kidney: Size: 11.6 cm Echogenicity: Normal Parenchymal thickness: Normal Collecting system: No hydronephrosis Stones: None Cyst/Mass: None Left Kidney: Size: 11.7 cm Echogenicity: Normal Parenchymal thickness: Normal Collecting system: No hydronephrosis Stones: None Cyst/Mass: None Bladder: Decompressed bladder which limits evaluation. No focal lesion or stone. Procedure Note Interface, Rad/Mammog In - 10/16/2018 2:03 PM G[employer] PL[employer] OPER[employer] EXAM: Renal Ultrasound INDICATION: microalbuminuria COMPARISON: None TECHNIQUE: Transverse and longitudinal images of the kidneys and bladder were obtained. FINDINGS: Right Kidney: Size: 11.6 cm Echogenicity: Normal Parenchymal thickness: Normal Collecting system: No hydronephrosis Stones: None Cyst/Mass: None Left Kidney: Size: 11.7 cm Echogenicity: Normal Parenchymal thickness: Normal Collecting system: No hydronephrosis Stones: None Cyst/Mass: None Bladder: Decompressed bladder which limits evaluation. No focal lesion or stone. IMPRESSION IMPRESSION: Normal renal ultrasound exam. Dictated By: Prince Hale MD, 10/16/2018 1:49 PM I have reviewed the study and agree with the findings in this report. Signed By: Rolf Morgan MD, 10/16/2018 1:57 PM Performing Organization Address City/State/Zipcode Phone Number [facility] MAMMOGRAM BILAT SCREEN DIGITAL (09/06/2018 11:03 AM GAS PL[employer] OPERATOR) Impressions Performed At IMPRESSION: [facility] There is no mammographic evidence of malignancy. A 1 year screening mammogram is recommended. This document has been electronically signed. Jolie he/pengulshan:09/06/2018 12:12:51 Tip Length Checker: Jennifer Monet, [facility] letter sent: Mammography Normal Mammogram BI-RADS: 2 Benign G0202 z12.31 Narrative Performed At [facility] #[id number] - MAMMOGRAM BILAT SCREEN DIGITAL BILATERAL DIGITAL [...] Interface, Rad/Mammog In - 09/06/2018 1:33 PM GAS PLANT OPERATOR #[id number] - MAMMOGRAM BILAT SCREEN DIGITAL BILATERAL DIGITAL [...] has been electronically signed. Jolie he/susanna:09/06/2018 12:12:51 Tip Length Checker: Jennifer Monet, [facility] letter sent: Mammography Normal Mammogram BI-RADS: 2 Benign G0202 z12.31 Performing Organization Address City/State/Zipcode Phone Number [facility] OCCULT BLOOD ICT (08/24/2018 2:33 PM GAS PLANT OPERATOR) Occult Blood ICT Positive (A) NEG M2 ([facility]) Specimen Stool Performing Organization Address City/State/Zipcode Phone Number [facility] M2 ([facility]) OPHTHALMOLOGY RETINAL SCAN (08/15/2018 12:23 PM G[employer] PL[employer] OPERATOR) RETINAL SCAN-FINAL CRITICAL (AA) IRIS RESULT Right Diabetic Severe (AA) IRIS Retinopathy Right Macular Edema None IRIS Right Other Suspected Suspected Glaucoma IRIS Conditions Right Image Quality Gradeable Image IRIS Left Diabetic Severe (AA) IRIS Retinopathy Left Macular Edema Moderate (A) IRIS Left Other Suspected Suspected Glaucoma IRIS Conditions Left Image Quality Gradeable Image IRIS Narrative Performed At Retinal Study Result for CARY LIZARRAGA LOLITA, a 52 y/o, F (: 1965, ) presented to [facility] on 08-15-2018 for a retinal imaging study of the left and right eyes. Based on the findings of the study, the following is recommended for CARY LIZARRAGA Severe Diabetic Retinopathy Found: Refer next available - Retina appointment at [facility] Ophthalmology Department.For Follow-up at [facility] or [facility]: For CSME the ordering physicians should make an ROUTINE Referral in [facility] for or [facility] Ophthalmology stating to retina service. Interpreting Provider's Comments:No comments provided Right Eye Findings: Diabetic Retinopathy: Severe Other: Suspected Glaucoma Left Eye Findings: Diabetic Retinopathy: Severe Macular Edema: Moderate Other: Suspected Glaucoma This result was electronically signed by Andrade Ferguson MD, , Taxonomy: [id number] on 08-15-2018 05:23:51 [facility] time. NOTE:Any pathology noted on this diabetic retinal evaluation should be confirmed by an appropriate ophthalmic examination. Performing Organization Address City/State/Zipcode Phone Number IRIS XRAY SHOULDER 2 VIEWS MIN (08/15/2018 8:10 AM GAS PLANT OPERATOR) Impressions Performed At IMPRESSION: [facility] No acute radiographic abnormality. Dictated By: Emery Cueto DO, 08/15/2018 9:30 AM I have reviewed the study and agree with the findings in this report. Signed By: Andres Sher DO, 08/15/2018 4:54 PM Narrative Performed At [facility] EXAM:Left, 2 viewXRAY SHOULDER 2 VIEWS MIN08/15/2018 8:10 AM INDICATION: left shoulder pain with limited ROM COMPARISON: None DISCUSSION: Adequate internal and external rotation. No displaced fracture or malalignment. The joint spaces are well maintained without definite osseous erosion. The visualized soft tissues appear unremarkable. Procedure Note Interface, Rad/Mammog In - 08/15/2018 4:59 PM GAS PLANT OPERATOR EXAM:Left, 2 view XRAY SHOULDER 2 VIEWS [...] DO, 08/15/2018 4:54 PM Performing Organization Address [facility] Phone Number [facility] HIV-1/HIV-2 ROUTINE SCREENING (08/09/2018 12:24 PM GAS PLANT OPERATOR) HIV-1/HIV-2 Negative NEG BT MAIN-STATION [address] [facility] Phone Number MISYS BT MAIN-STATION 3 MICROALBUM, URINE (08/09/2018 12:24 PM GAS PLANT OPERATOR) Microalbum, Random 32.1 (H) 0.0 - 29.0 BT MAIN-STATION 1 mg/dL Creatinine, Ur 104.6 20 - 320 BT MAIN-STATION 1 mg/dL Urine Microalbumin 306.9 (H) 0 - 29 mg/g BT MAIN-STATION 1 Comment: UCR To minimize intra-individual variation, analysis of three random urine samples collected over the course of a week is recommended. Performing Organization Address City/[facility] Phone Number MISYS BT MAIN-STATION 1 HEMOGLOBIN A1C (08/09/2018 12:24 PM GAS PLANT OPERATOR) Hemoglobin A1c 11.6 (H) 4.3 - 6.1 % BT DIAGNOSTIC IMMUNOLOGY Est Average Gluc 286.2 mg/dL BT DIAGNOSTIC IMMUNOLOGY Specimen Blood Performing Organization Address [facility] Phone Number MISYS BT DIAGNOSTIC IMMUNOLOGY TSH (08/09/2018 12:24 PM GAS PLANT OPERATOR) TSH 1.51 0.57 - 3.74 uIU/mL BT MAIN-STATION 1 Specimen Blood Performing Organization Address [facility] Phone Number MISYS BT MAIN-STATION 1 FOLIC ACID (08/09/2018 12:24 PM GAS PLANT OPERATOR) Folic Acid >24.8 (H) 5.9 - 24.8 ng/mL BT MAIN-STATION 1 Specimen Blood Performing Organization Address [facility] Phone Number MISYS BT MAIN-STATION 1 FERRITIN (08/09/2018 12:24 PM GAS PLANT OPERATOR) Ferritin 89.50 11.0 - 306.8 ng/mL BT MAIN-STATION 1 Specimen Blood Performing Organization Address [facility] Phone Number MISYS BT MAIN-STATION 1 VITAMIN B12 (08/09/2018 12:24 PM GAS PLANT OPERATOR) Vitamin B12 592 211 - 911 pg/mL BT MAIN-STATION 1 Specimen Blood Performing Organization Address [facility] Phone Number MISYS BT MAIN-STATION 1 SED RATE (08/09/2018 12:24 PM GAS PLANT OPERATOR) Sed Rate 24 <30 mm/Hr BT MAIN-STATION 2 Specimen Blood Performing Organization Address [facility] Phone Number MISYS BT MAIN-STATION 2 RA FACTOR (08/09/2018 12:24 PM GAS PLANT OPERATOR) RA Factor <10 <14 IU/mL BT MAIN-STATION 1 Specimen Blood Performing Organization Address [facility] Phone Number MISYS BT MAIN-STATION 1 MAGNESIUM (08/09/2018 12:24 PM GAS PLANT OPERATOR) Magnesium 1.6 (L) 1.9 - 2.7 mg/dL BT MAIN-STATION 1 Specimen Blood Performing Organization Address [facility] Phone Number MISYS BT MAIN-STATION 1 LIVER PROFILE (08/09/2018 12:24 PM GAS PLANT OPERATOR) T Protein 7.2 6.0 - 8.3 g/dL [...] MAIN-STATION 1 Specimen Blood Performing Organization Address [facility] Phone Number MISYS BT MAIN-STATION 1 LIPID PROFILE (08/09/2018 12:24 PM GAS PLANT OPERATOR) Cholesterol 140 mg/dL BT MAIN-STATION 1 Comment: REFERENCE RANGE: Desirable: <200 mg/dL Borderline: 200-240 mg/dL High Risk: >240 mg/dL Triglyceride 101 <150 mg/dL BT MAIN-STATION 1 Comment: REFERENCE RANGE: Normal: <150 mg/dL Borderline High: 150-199 mg/dL High: 200-499 mg/dL Very High: >hf=891 mg/dL HDL 60 mg/dL BT MAIN-STATION 1 Comment: Increased CHD risk: <40 mg/dL Decreased CHD risk: >60 mg/dL LDL 60 mg/dL BT MAIN-STATION 1 Comment: REFERENCE RANGE: Optimal: <100 mg/dL Near Optimal: 100-129 mg/dL Borderline High: 130-159 mg/dL High: 160-189 mg/dL Very High: >ud=948 mg/dL Specimen Blood Performing Organization Address [facility] Phone Number [facility] LIPASE (08/09/2018 12:24 PM GAS PLANT OPERATOR) Lipase 18 11 - 82 U/L BT MAIN-STATION 1 Specimen Blood Performing Organization Address [facility] Phone Number [facility] IRON PROFILE (08/09/2018 12:24 PM GAS PLANT OPERATOR) Iron 70 50 - 212 ug/dL BT MAIN-STATION 1 TIBC 291 250 - 450 ug/dL BT MAIN-STATION 1 % Iron Sat 24 % BT MAIN-STATION 1 Specimen Blood Performing Organization Address [facility] Phone Number [facility] HEPATITIS PANEL (08/09/2018 12:24 PM GAS PLANT OPERATOR) HCV IgG Negative NEG BT MAIN-STATION 3 HBsAg Negative NEG BT MAIN-STATION 3 HAV, IgM Negative NEG BT MAIN-STATION 3 HBcAb, IgM Negative NEG BT MAIN-STATION 3 Specimen Blood Performing Organization Address [facility] Phone Number [facility] CBC/DIFF (08/09/2018 12:24 PM GAS PLANT OPERATOR) WBC 4.7 4.5 - 11.0 K/uL BT [...] 2 BASIC METABOLIC PANEL (08/09/2018 12:24 PM GAS PLANT OPERATOR) CO2 29 21 - 31 mmol/L BT [...] MAIN-STATION 1 Specimen Blood Performing Organization Address [facility] Phone Number [facility] BT MAIN-STATION 1 SHELLY (08/09/2018 12:24 PM GAS PLANT OPERATOR) SHELLY Screen Negative NEG BT DIAGNOSTIC IMMUNOLOGY Specimen Blood Performing Organization Address [facility] Phone Number [facility] BT DIAGNOSTIC IMMUNOLOGY AMYLASE (08/09/2018 12:24 PM GAS PLANT OPERATOR) Amylase 30 29 - 103 U/L BT MAIN-STATION 1 Specimen Blood Performing Organization Address [facility] Phone Number [facility] BT MAIN-STATION 1 after 11/09/2017 Insurance Payer Benefit Plan / Subscriber ID Effective Dates Phone Address Type Group [place] [employer] [employer] x[place]xx 2018- [id number] [place] [address] [employer] PLAN 1 xxxxxxx 2018-06/11/ [phone] [place] [address]
--- OUTSIDE RECORDS SUMMARY | 2018-11-10 11:07 | XMS REPORT ---
:1965 Author Organization [facility] Address [address] [place] [address] Care Team Providers Name Role Phone Unavailable [...] Date/Time Type Type Clinicians Facility Department ID 2019-04-01 2019-04-01 Outpatient [facility] [id number] 00:00:00 00:00:00 2019-01-31 2019-01-31 Outpatient [facility] [id number] 00:00:00 00:00:00 2019-01-24 2019-01-24 Outpatient [facility] [id number] 00:00:00 00:00:00 2019-01-14 2019-01-14 Outpatient [facility] [id number] 00:00:00 00:00:00 2018-12-20 2018-12-20 Outpatient [facility] [id number] 00:00:00 00:00:00 2018-12-04 2018-12-04 Outpatient [facility] [id number] 00:00:00 00:00:00 2018-11-30 2018-11-30 Outpatient [facility] [id number] 00:00:00 00:00:00 2018-11-02 2018-11-02 Outpatient [facility] [id number] 00:00:00 00:00:00 2018-11-01 2018-11-01 Outpatient [facility] [id number] 09:33:34 09:33:34 2018-10-30 2018-10-30 Outpatient [facility] [id number] 00:00:00 00:00:00 2018-10-29 2018-10-29 Outpatient [facility] [id number] 15:49:25 15:49:25 2018-10-24 2018-10-24 Outpatient [facility] [id number] 00:00:00 00:00:00 2018-10-19 2018-10-19 Outpatient [facility] [id number] 00:00:00 00:00:00 2018-10-18 2018-10-18 Emergency [facility] [id number] 20:21:55 20:21:55 2018-10-18 2018-10-18 Outpatient [facility] [id number] 15:33:25 15:33:25 2018-10-16 2018-10-16 Outpatient [facility] [id number] 11:45:18 11:45:18 2018-10-02 2018-10-02 Outpatient [facility] [id number] 11:16:17 11:16:17 2018-10-02 2018-10-02 Outpatient [facility] [id number] 00:00:00 00:00:00 2018-09-27 2018-09-27 Outpatient [facility] [id number] 00:00:00 00:00:00 2018-09-06 2018-09-06 Outpatient [facility] [id number] 11:29:04 11:29:04 2018-09-06 2018-09-06 Outpatient [facility] [id number] 10:23:32 10:23:32 2018-08-27 2018-08-27 Outpatient [facility] [id number] 00:00:00 00:00:00 2018-08-24 2018-08-24 Outpatient [facility] [id number] 14:33:36 14:33:36 2018-08-16 2018-08-16 Outpatient [facility] [id number] 00:00:00 00:00:00 2018-08-16 2018-08-16 Outpatient [facility] [id number] 00:00:00 00:00:00 2018-08-15 2018-08-15 Outpatient [facility] [id number] 08:54:15 08:54:15 2018-08-15 2018-08-15 Outpatient [facility] [id number] 08:02:56 08:02:56 2018-08-10 2018-08-10 Outpatient [facility] [id number] 00:00:00 00:00:00 2018-08-10 2018-08-10 Outpatient [facility] [id number] 00:00:00 00:00:00 2018-08-10 2018-08-10 Outpatient [facility] [id number] 00:00:00 00:00:00 2018-08-10 2018-08-10 Outpatient [facility] [id number] 00:00:00 00:00:00 2018-08-09 2018-08-09 Outpatient [facility] [id number] 12:27:55 12:27:55 2018-08-09 2018-08-09 Outpatient [facility] [id number] 10:27:26 10:27:26
--- NOTE | 2018-11-10 12:00 | RAD REPORT ---
EXAM DESCRIPTION: RAD - Chest Single View - 11/10/2018 11:43 am CLINICAL HISTORY: Dizziness Chest pain. COMPARISON: Chest Single View dated 09/27/2018; Chest Single View dated 07/15/2018; Chest Single View dated 09/28/2017 FINDINGS: Portable technique limits examination quality. The lungs are grossly clear. The heart is upper limit of normal in size. No displaced fractures. IMPRESSION: No acute intrathoracic process suspected.
[2018-11-10 12:25] LABS: Absolute Lymphocytes (CBC) 1.5 K/uL (0.7-4.9); Absolute Monocytes 0.4 K/uL (0.1-1.3); Basophils % 0.5 % (0-1.3); Eosinophils % 2.5 % (0-4.4); MPV 9.3 fL (7.6-11.3); Monocytes % 8.5 % (3.3-12.3); RBC Red Blood Cell Count 3.77 M/uL (3.86-4.86)
--- NOTE | 2018-11-10 12:25 | RAD REPORT ---
EXAM DESCRIPTION: CT - Head Brain Wo Cont - 11/10/2018 12:19 pm CLINICAL HISTORY: DIZZINESS Headache, drowsiness COMPARISON: Head Brain Wo Cont dated 08/30/2016 TECHNIQUE: All CT scans are performed using dose optimization technique as appropriate and may inclu de automated exposure control or mA/KV adjustment according to patient size. FINDINGS: No intracranial hemorrhage, hydrocephalus or extra-axial fluid collection.No areas of brai n edema or evidence of midline shift. The paranasal sinuses and mastoids are clear. The calvarium is intact. IMPRESSION: No acute intracranial abnormality.
[2018-11-10 12:26] LABS: Protime INR 0.96
[2018-11-10 12:42] LABS: ALT/SGPT 15 U/L (12-78); AST/SGOT 11 U/L (15-37); Albumin 3.4 g/dL (3.4-5.0); Alkaline Phosphatase 75 U/L (45-117); BUN Blood Urea Nitrogen 21 mg/dL (7-18); Bicarbonate 26 mmol/L (21-32); Bilirubin Direct 0.1 mg/dL (0-0.2); Bilirubin Total 0.3 mg/dL (0.2-1.0); Glucose Level 172 mg/dL (74-106); Magnesium 1.7 mg/dL (1.8-2.4); NT PRO-BNP 101 pg/mL (<125); Potassium 4.5 mmol/L (3.5-5.1); Protein, Total 7.5 g/dL (6.4-8.2); Sodium Level 141 mmol/L (136-145); Troponin (Emerg Dept Use Only) < 0.02 ng/mL (0.0-0.045)
[2018-11-10] MEDS ORDERED: ONDANSETRON 4 MG/2 ML VIAL ONE (13:05)
[2018-11-10] MEDS ORDERED: MECLIZINE HCL 12.5 MG TAB ONE (13:05)
[2018-11-10] MEDS ORDERED: MAGNESIUM SULFATE 1 gm IVPB 1 GM/100 ML BAG IV ONE (13:06)
[2018-11-10] MEDS ORDERED: DIAZEPAM 5 MG TABLET ONE (14:16)
--- NOTE | 2018-11-10 14:50 | EDPHYS ---
Physician Documentation [facility] Name: Cary Gan Age: 52 yrs Sex: Female : 1965 Arrival Date: 11/10/2018 Time: 11:08 Bed 24 Private MD: ED Physician Scott Qiu HPI: 11/10 12:00 This 52 yrs old Female presents to ER via EMS with complaints of Dizziness - pm1 nausea. 12:00 The patient presents with sense of spinning, vertigo. pm1 12:00 Onset: The symptoms/episode began/occurred last night. Context: occurred at home, pm1 occurred while the patient was Changing positions. just prior to the episode the patient experienced no apparent symptoms. Modifying factors: The symptoms are alleviated by lying down, the symptoms are aggravated by changing position. Associated signs and symptoms: Pertinent positives: nausea, Pertinent negatives: abdominal pain, numbness, shortness of breath, vomiting, Diarrhea. Severity of symptoms: in the emergency department the symptoms are worse. Patient's baseline: Neuro: alert and fully oriented, Motor: no deficits, Ambulation: walks without assistance, Speech: normal, The patient has a previous history of vertigo, Takes meclizine. The patient has experienced similar episodes in the past, a few times, today's symptoms are similar, to previous vertigo. The patient has not recently seen a physician. Historical: - Allergies: 13:17 NKA; dm5 - Home Meds: 13:17 gabapentin 300 mg Oral 1 cap once daily [Active]; lisinopril 10 mg Oral tab 1 tab once dm5 daily [Active]; sertraline 50 mg oral tab 1 tab once daily [Active]; metformin 1,000 mg Oral tab 2 times per day [Active]; metoclopramide HCl 10 mg Oral tab 1 tab three times a day [Active]; cetirizine 10 mg oral tab 1 tab once daily [Active]; atorvastatin 40 mg oral tab 1 tab nightly [Active]; meclizine 25 mg Oral tab 1 tab every 6 hours for Vertigo [Active]; furosemide 20 mg Oral tab 1 tab once daily [Active]; - PMHx: 13:17 "hot fashes"; Anxiety; Depression; Diabetes - IDDM; EDEMA; herniated disk lower back, dm5 neck vertibre fusion; high blood pressure (resolved); High Cholesterol; neuropathy; Pancreatitis; Rheumatoid Arthritis; - Immunization history:: Adult Immunizations up to date. - Social history:: Smoking status: Patient/guardian denies using tobacco. - Ebola Screening: : Patient negative for fever greater than or equal to 101.5 degrees Fahrenheit, and additional compatible Ebola Virus Disease symptoms Patient denies exposure to infectious person Patient denies travel to an Ebola-affected area in the 21 days before illness onset No symptoms or risks identified at this time. ROS: 12:00 Constitutional: Negative for fever, chills, and weight loss, Eyes: Negative for injury, pm1 pain, redness, and discharge, ENT: Negative for injury, pain, and discharge, Neck: Negative for injury, pain, and swelling, Cardiovascular: Negative for chest pain, palpitations, and edema, Respiratory: Negative for shortness of breath, cough, wheezing, and pleuritic chest pain, Back: Negative for injury and pain, : Negative for injury, bleeding, discharge, and swelling, MS/Extremity: Negative for injury and deformity, Skin: Negative for injury, rash, and discoloration. 12:00 Abdomen/GI: Positive for nausea, Negative for abdominal pain, vomiting, diarrhea, constipation. 12:00 Neuro: Positive for dizziness, vertigo. Exam: 12:00 Constitutional: This is a well developed, well nourished patient who is awake, alert, pm1 and in no acute distress. Head/Face: Normocephalic, atraumatic. Eyes: Pupils equal round and reactive to light, extra-ocular motions intact. Lids and lashes normal. Conjunctiva and sclera are non-icteric and not injected. Cornea within normal limits. Periorbital areas with no swelling, redness, or edema. ENT: Nares patent. No nasal discharge, no septal abnormalities noted. Tympanic membranes are normal and external auditory canals are clear. Oropharynx with no redness, swelling, or masses, exudates, or evidence of obstruction, uvula midline. Mucous membranes moist. Neck: Trachea midline, no thyromegaly or masses palpated, and no cervical lymphadenopathy. Supple, full range of motion without nuchal rigidity, or vertebral point tenderness. No Meningismus. Chest/axilla: Normal chest wall appearance and motion. Nontender with no deformity. No lesions are appreciated. Cardiovascular: Regular rate and rhythm with a normal S1 and S2. No gallops, murmurs, or rubs. Normal PMI, no JVD. No pulse deficits. Respiratory: Lungs have equal breath sounds bilaterally, clear to auscultation and percussion. No rales, rhonchi or wheezes noted. No increased work of breathing, no retractions or nasal flaring. Abdomen/GI: Soft, non-tender, with normal bowel sounds. No distension or tympany. No guarding or rebound. No evidence of tenderness throughout. Back: No spinal tenderness. No costovertebral tenderness. Full range of motion. Skin: Warm, dry with normal turgor. Normal color with no rashes, no lesions, and no evidence of cellulitis. MS/ Extremity: Pulses equal, no cyanosis. Neurovascular intact. Full, normal range of motion. 12:00 Neuro: Orientation: is normal, Mentation: is normal, Cranial nerves: CN II- XII are normal as tested, Cerebellar function: normal finger to nose testing, Motor: is normal, moves all fours, Sensation: is normal, no obvious gross deficits, Abnormal movements: Vestibular nystagmus. Vital Signs: 11:08 BP 132 / 59; Pulse 53; Resp 20; Temp 97.9; Pulse Ox 99% on R/A; dm5 11:33 BP 129 / 59 LA Supine (auto/lg); Pulse 56; Pulse Ox 99% ; ms 11:33 BP 131 / 62 LA Sitting (auto/lg); Pulse 59; Resp 18; Pulse Ox 98% ; ms 11:33 BP 135 / 65 LA Standing (auto/lg); Pulse 65; Resp 18; Pulse Ox 99% ; ms 13:11 BP 119 / 54; Pulse 53; Resp 20; Pulse Ox 99% on R/A; dm5 14:11 BP 104 / 50; Pulse 58; Resp 22; Pulse Ox 99% on R/A; dm5 14:54 BP 117 / 58; Pulse 50; Resp 17; Pulse Ox 99% on R/A; jp3 11:33 Pt states she was dizzy while standing ms Procedures: 12:10 Peripheral line: by aseptic technique a peripheral line was placed in the left external pm1 jugular vein, 18 gauge with good return of blood. Labs collected. IV saline lock flushed with saline without any signs of extravasation . MDM: 11:21 Patient medically screened. pm1 14:40 Data reviewed: vital signs. Data interpreted: Pulse oximetry: on room air is 99 %. pm1 Interpretation: normal. Counseling: I had a detailed discussion with the patient and/or guardian regarding: the historical points, exam findings, and any diagnostic results supporting the discharge/admit diagnosis, lab results, radiology results, the need for outpatient follow up, to return to the emergency department if symptoms worsen or persist or if there are any questions or concerns that arise at home. 11/10 11:24 Order name: Basic Metabolic Panel; Complete Time: 12:50 pm11/10 11:24 Order name: CBC with Diff; Complete Time: 12:30 pm11/10 11:24 Order name: LFT's; Complete Time: 12:50 pm11/10 11:24 Order name: Magnesium; Complete Time: 12:50 pm11/10 11:24 Order name: NT PRO-BNP; Complete Time: 12:50 pm11/10 11:24 Order name: PT-INR; Complete Time: 12:35 pm11/10 11:24 Order name: Troponin (emerg Dept Use Only); Complete Time: 12:50 pm11/10 11:24 Order name: XRAY Chest (1 view); Complete Time: 12:30 pm11/10 11:24 Order name: CT Head Brain wo Cont; Complete Time: 12:30 pm11/10 12:19 Order name: Urine Microscopic Only; Complete Time: 15:49 pm11/10 14:43 Order name: Urine Dipstick--Ancillary (enter results) eb 11/10 11:24 Order name: EKG; Complete Time: 11:24 pm11/10 11:24 Order name: Cardiac monitoring; Complete Time: 11:53 pm11/10 11:24 Order name: EKG - Nurse/Tech; Complete Time: 12:26 pm11/10 11:24 Order name: IV Saline Lock; Complete Time: 12:26 pm11/10 11:24 Order name: Labs collected and sent; Complete Time: 12:26 pm11/10 11:24 Order name: O2 Per Protocol; Complete Time: 11:53 pm11/10 11:24 Order name: O2 Sat Monitoring; Complete Time: 11:53 pm11/10 11:24 Order name: Orthostatic Blood Pressure; Complete Time: 11:53 pm1 11/10 12:19 Order name: Urine Dipstick-Ancillary (obtain specimen); Complete Time: 15:14 pm1 11/10 12:19 Order name: Urine Test (obtain specimen); Complete Time: 15:14 pm1 Administered Medications: 13:02 Drug: Zofran 4 mg Route: IVP; Site: left jugular; dm5 13:04 Drug: Meclizine 50 mg Route: PO; dm5 13:05 Drug: Magnesium Sulfate 1 grams Route: IVPB; Infused Over: 1 hrs; Site: left jugular; dm5 14:11 Drug: Valium 5 mg Route: PO; dm5 15:14 Drug: Rocephin 1 grams Route: IV; Rate: calculated rate; Site: left jugular; dm5 15:14 Not Given (canceled per Manuel, will give presciption): DiFLUcan 150 mg PO once dm5 Disposition: 16:10 Co-signature as Attending Physician, Scott Qiu MD. rn Disposition: 11/10/18 14:50 Discharged to Home. Impression: Benign paroxysmal vertigo, Urinary tract infection, site not specified. - Condition is Stable. - Discharge Instructions: Benign Positional Vertigo, Urinary Tract Infection, Adult. - Prescriptions for Valium 2 mg Oral Tablet - take 1 tablet by ORAL route every 8 hours As needed; 20 tablet. Bactrim DS 800- 160 mg Oral Tablet - take 1 tablet by ORAL route every 12 hours for 10 days; 20 tablet. Diflucan 150 mg Oral Tablet - take 1 tablet by ORAL route one time for 1 day; 1 tablet. - Medication Reconciliation Form, Thank You Letter, Antibiotic Education, Prescription Opioid Use form. - Follow up: Emergency Department; When: As needed; Reason: Worsening of condition. Follow up: Private Physician; When: 2 - 3 days; Reason: Recheck today's complaints, Continuance of care, Re-evaluation by your physician. - Problem is new. - Symptoms have improved. Signatures: Dispatcher [employer] Dang Swan RN RN dm5 Nieto, Roman, MD MD rn Marinas, Patrick, MANDY [employer] M[employer] ASSISTANT pm1 Corrections: (The following items were deleted from the chart) 15:53 14:50 11/10/2018 14:50 Discharged to Home. Impression: Benign paroxysmal vertigo; dm5 Urinary tract infection, site not specified. Condition is Stable. Forms are Medication Reconciliation Form, Thank You Letter, Antibiotic Education, Prescription Opioid Use. Follow up: Emergency Department; When: As needed; Reason: Worsening of condition. Follow up: Private Physician; When: 2 - 3 days; Reason: Recheck today's complaints, Continuance of care, Re-evaluation by your physician. Problem is new. Symptoms have improved. pm1
--- NOTE | 2018-11-10 14:50 | ER ---
Nurse's Notes [facility] Name: Cary Gan Age: 52 yrs Sex: Female : 1965 Arrival Date: 11/10/2018 Time: 11:08 Bed 24 Private MD: Diagnosis: Benign paroxysmal vertigo;Urinary tract infection, site not specified Presentation: 11/10 11:08 Presenting complaint: EMS states: dizziness and nausea that started last night. Has dm5 history of dizzy spells. pt also mentioned that she has abdominal pain with a history of colitis. pt also reports feeling chilled. temp 97.9. pt also reports headache. Transition of care: patient was not received from another setting of care. Onset of symptoms was November 09, 2018. 11:08 Method Of Arrival: EMS: [facility] dm5 11:08 Acuity: SANTANA 3 dm5 Historical: - Allergies: 13:17 NKA; dm5 - Home Meds: 13:17 gabapentin 300 mg Oral 1 cap once daily [Active]; lisinopril 10 mg Oral tab 1 tab once dm5 daily [Active]; sertraline 50 mg oral tab 1 tab once daily [Active]; metformin 1,000 mg Oral tab 2 times per day [Active]; metoclopramide HCl 10 mg Oral tab 1 tab three times a day [Active]; cetirizine 10 mg oral tab 1 tab once daily [Active]; atorvastatin 40 mg oral tab 1 tab nightly [Active]; meclizine 25 mg Oral tab 1 tab every 6 hours for Vertigo [Active]; furosemide 20 mg Oral tab 1 tab once daily [Active]; - PMHx: 13:17 "hot fashes"; Anxiety; Depression; Diabetes - IDDM; EDEMA; herniated disk lower back, dm5 neck vertibre fusion; high blood pressure (resolved); High Cholesterol; neuropathy; Pancreatitis; Rheumatoid Arthritis; - Immunization history:: Adult Immunizations up to date. - Social history:: Smoking status: Patient/guardian denies using tobacco. - Ebola Screening: : Patient negative for fever greater than or equal to 101.5 degrees Fahrenheit, and additional compatible Ebola Virus Disease symptoms Patient denies exposure to infectious person Patient denies travel to an Ebola-affected area in the 21 days before illness onset No symptoms or risks identified at this time. Screenin:34 Abuse screen: Denies threats or abuse. Denies injuries from another. Nutritional dm5 screening: No deficits noted. Tuberculosis screening: No symptoms or risk factors identified. Fall Risk None identified. Assessment: 13:06 General: Appears in no apparent distress. Behavior is calm, cooperative. Pain:. dm5 14:15 Reassessment: Patient appears in no apparent distress at this time. No changes from dm5 previously documented assessment. Patient and/or family updated on plan of care and expected duration. Pain level reassessed. Patient is alert, oriented x 3, equal unlabored respirations, skin warm/dry/pink. Patient states feeling better. Neuro: Level of Consciousness is awake, alert, obeys commands, Oriented to person, place, time. Respiratory: Airway is patent Respiratory effort is even, unlabored, relaxed, Respiratory pattern is regular, symmetrical. Derm: Skin is pink, warm \\T\\ dry. Vital Signs: 11:08 BP 132 / 59; Pulse 53; Resp 20; Temp 97.9; Pulse Ox 99% on R/A; dm5 11:33 BP 129 / 59 LA Supine (auto/lg); Pulse 56; Pulse Ox 99% ; ms 11:33 BP 131 / 62 LA Sitting (auto/lg); Pulse 59; Resp 18; Pulse Ox 98% ; ms 11:33 BP 135 / 65 LA Standing (auto/lg); Pulse 65; Resp 18; Pulse Ox 99% ; ms 13:11 BP 119 / 54; Pulse 53; Resp 20; Pulse Ox 99% on R/A; dm5 14:11 BP 104 / 50; Pulse 58; Resp 22; Pulse Ox 99% on R/A; dm5 14:54 BP 117 / 58; Pulse 50; Resp 17; Pulse Ox 99% on R/A; jp3 11:33 Pt states she was dizzy while standing ms ED Course: 11:08 Patient arrived in ED. dm5 11:10 Triage completed. dm5 11:11 Hermilo Jackson NP is PHCP. pm1 11:12 Scott Qiu MD is Attending Physician. pm1 11:24 Dang Lobo, KINGS is Primary Nurse. dm5 11:43 XRAY Chest (1 view) In Process Unspecified. EDMS 12:00 Bed in low position. Call light in reach. Side rails up X 1. Side rails up X2. Warm jp3 blanket given. Pillow given. 12:00 residential monitor on. Pulse ox on. NIBP on. jp3 12:10 Initial lab(s) drawn, by me, sent to lab. EKG done, by ED staff, reviewed by Hermilo Jackson PUBLIC SERVICE REPRESENTATIVE. Inserted saline lock: 18 gauge in left EJ, using aseptic technique. Blood collected. EJ performed by Hermilo Jackson. 12:19 CT Head Brain wo Cont In Process Unspecified. EDMS 12:19 CT completed. Patient tolerated procedure well. Patient moved to CT via stretcher. mw3 Patient moved back from CT. 14:42 Urine collected: clean catch specimen, clear, rob colored, Amount Voided: 120mL. jp3 15:34 No provider procedures requiring assistance completed. dm5 Administered Medications: 13:02 Drug: Zofran 4 mg Route: IVP; Site: left jugular; dm5 13:04 Drug: Meclizine 50 mg Route: PO; dm5 13:05 Drug: Magnesium Sulfate 1 grams Route: IVPB; Infused Over: 1 hrs; Site: left jugular; dm5 14:11 Drug: Valium 5 mg Route: PO; dm5 15:14 Drug: Rocephin 1 grams Route: IV; Rate: calculated rate; Site: left jugular; dm5 15:14 Not Given (canceled per Manuel, will give presciption): DiFLUcan 150 mg PO once dm5 Outcome: 14:50 Discharge ordered by . pm1 15:53 Patient left the ED. dm5 Signatures: Dispatcher [employer] Dang Swan, KINGS RN dm5 Zee Stafford ms, Patrick, NP PUBLIC SERVICE REPRESENTATIVE pm1 Simi Sher mw3 Sammy Galeano jp3
[2018-11-10] MEDS ORDERED: FLUCONAZOLE 100 MG TAB ONE (15:15)
[2018-11-10] MEDS ORDERED: CEFTRIAXONE/SWI 1gm 1 GM/10 ML SYR ONE (15:15)
[2018-11-10 15:29] LABS: Urine Bacteria NONE SEEN /HPF (<20); Urine Culture Reflex Order NOT NEEDED; Urine RBC NONE SEEN /HPF (NONE SEEN)
[2018-11-10 16:11] VITALS: TEMP 97.9; O2SAT 99
[2018-11-10 16:21] VITALS: BP 117/58
[2018-11-10 16:36] LABS: Urine Blood TRACE (NEG); Urine Glucose NEGATIVE (NEG); Urine Protein 1+ (NEG); Urine pH 5.5 (5.0-7.0)
--- NOTE | 2018-11-11 12:28 | EKG ---
Test Date: 2018-11-10 Test Time: 12:03:31 Service Engineer: MELI MEASUREMENT RESULTS: Intervals: Rate: 52 UT: 166 QRSD: 82 QT: 464 QTc: 431 [place]: P: 36 UT: 166 QRS: 5 T: 15 INTERPRETIVE STATEMENTS: Sinus bradycardia Minimal voltage criteria for LVH, may be normal variant Borderline ECG Compared to ECG 09/27/2018 19:28:44 No significant changes Electronically Signed On 11-11-18 12:24:41 CDT by Kiran Contreras
== END 2018-11-10 15:53 | disposition home or self-care (01) ==
LOC: ER 11:03
DX: H81.10 Benign paroxysmal vertigo, unspecified ear (principal); N39.0 Urinary tract infection, site not specified; F41.9 Anxiety disorder, unspecified; F32.9 Major depressive disorder, single episode, unspecified; E78.00 Pure hypercholesterolemia, unspecified; E11.40 Type 2 diabetes mellitus with diabetic neuropathy, unspecified; Z79.4 Long term (current) use of insulin
CPT/HCPCS: 36415; 70450; 71045; 80048; 80076; 81003; 81015; 83735; 83880; 84484; 85025; 85610; 93005; 96374; 96375; 99285; J0696; J2405; J3475

== ENCOUNTER 2018-12-04 16:45 | Observation (INO) | payer SELFPAY ==
--- OUTSIDE RECORDS SUMMARY | 2018-12-04 16:49 | XMS REPORT ---
:1965 [facility] [address] [place] [address] Care Team Providers Name Role Phone Unavailable [...] Clinicians Facility Department ID 2019-04-01 2019-04-01 Outpatient [facility] [id number] 00:00:00 00:00:00 2019-01-31 2019-01-31 Outpatient [facility] [id number] 00:00:00 00:00:00 2019-01-24 2019-01-24 Outpatient [facility] [id number] 00:00:00 00:00:00 2019-01-14 2019-01-14 Outpatient [facility] [id number] 00:00:00 00:00:00 2018-12-20 2018-12-20 Outpatient [facility] [id number] 00:00:00 00:00:00 2018-12-14 2018-12-14 Outpatient [facility] [id number] 00:00:00 00:00:00 2018-12-04 2018-12-04 Outpatient [facility] [id number] 09:03:33 09:03:33 2018-11-30 2018-11-30 Outpatient [facility] [id number] 09:20:13 09:20:13 2018-11-02 2018-11-02 Outpatient [facility] [id number] 00:00:00 00:00:00 2018-11-01 2018-11-01 Outpatient [facility] [id number] 09:33:34 09:33:34 2018-10-30 2018-10-30 Outpatient [facility] [id number] 00:00:00 00:00:00 2018-10-29 2018-10-29 Outpatient [facility] [id number] 15:49:25 15:49:25 2018-10-24 2018-10-24 Outpatient [facility] [id number] 00:00:00 00:00:00 2018-10-19 2018-10-19 Outpatient [facility] [id number] 00:00:00 00:00:00 2018-10-18 2018-10-18 Emergency [facility] [id number] 20:21:55 20:21:55 2018-10-18 2018-10-18 Outpatient [facility] [id number] 15:33:25 15:33:25 2018-10-16 2018-10-16 Outpatient [facility] [id number] 11:45:18 11:45:18 2018-10-02 2018-10-02 Outpatient [facility] [id number] 11:16:17 11:16:17 2018-10-02 2018-10-02 Outpatient [facility] [id number] 00:00:00 00:00:00 2018-09-27 2018-09-27 Outpatient [facility] [id number] 00:00:00 00:00:00 2018-09-06 2018-09-06 Outpatient [facility] [id number] 11:29:04 11:29:04 2018-09-06 2018-09-06 Outpatient [facility] [id number] 10:23:32 10:23:32 2018-08-27 2018-08-27 Outpatient [facility] [id number] 00:00:00 00:00:00 2018-08-24 2018-08-24 Outpatient [facility] [id number] 14:33:36 14:33:36 2018-08-16 2018-08-16 Outpatient [facility] [id number] 00:00:00 00:00:00 2018-08-16 2018-08-16 Outpatient [facility] [id number] 00:00:00 00:00:00 2018-08-15 2018-08-15 Outpatient [facility] [id number] 08:54:15 08:54:15 2018-08-15 2018-08-15 Outpatient [facility] [id number] 08:02:56 08:02:56 2018-08-10 2018-08-10 Outpatient [facility] [id number] 00:00:00 00:00:00 2018-08-10 2018-08-10 Outpatient [facility] [id number] 00:00:00 00:00:00 2018-08-10 2018-08-10 Outpatient [facility] [id number] 00:00:00 00:00:00 2018-08-10 2018-08-10 Outpatient [facility] [id number] 00:00:00 00:00:00 2018-08-09 2018-08-09 Outpatient [facility] [id number] 12:27:55 12:27:55 2018-08-09 2018-08-09 Outpatient [facility] [id number] 10:27:26 10:27:26
--- OUTSIDE RECORDS SUMMARY | 2018-12-04 16:49 | XMS REPORT | Clinical Summary ---
:1965 Author Organization [facility] Address [facility] [place] [address] Care Team Providers Name Role Phone Julio CésarAni Karen GALVAN Primary Care Provider Allergies No Known Allergies [...] Box 3 11/01/2018 Active 31 gauge x 3/16" the skin [...] Encounters Date Type Specialty Care Team Description 12/04/2018 Telephone Family Practice Nakul Griffin III, MD 11/30/2018 Office Visit Psychology Lady Zaragoza MDD (major depressive disorder), recurrent episode, moderate (Primary Dx); M Generalized anxiety disorder 11/30/2018 Travel 11/09/2018 Telephone Family Practice Inse Clemente LVN 11/08/2018 Telephone Ellen Vaughan Utilization Management Nkeiru (colonoscopy) 11/01/2018 Office Visit Family Practice Julio César, Encounter to discuss test results [...] Candelario Acute right eye pain (Primary Dx); Inessa Vargas MD Monocular diplopia of right eye; 10/19/2018 Right-sided headache 10/18/2018 Hospital Radiology Julio César, Encounter Ani Jones NP 10/18/2018 Travel 10/18/2018 Nurse Triage Zee Bourgeois 10/16/2018 Ancillary Radiology Procedure 10/16/2018 Telephone [facility] Practice Julio César Pcp Communication Ani Jones NP 10/05/2018 Telephone Family Practice Ines Landrum, Information Only RN 10/02/2018 Office Visit [facility] Bhavani Angela Hospital discharge follow- up (Primary Dx); Ani Jones NP Diabetic gastroparesis; Inadequately controlled diabetes mellitus; Positive occult stool blood test; Acute pain of left knee; Fall, initial encounter; Acute right ankle pain; Constipation, unspecified constipation type; Sprain of right ankle, unspecified ligament, initial encounter; Seasonal allergic rhinitis, unspecified trigger 10/02/2018 Travel 09/26/2018 Nurse Triage Stella Culp RN 09/11/2018 Orders Only [facility] Julio César, Essential hypertension ( Primary Dx); Ani Jones NP Dyslipidemia 09/07/2018 Telephone Patient Education Cole, Disease Management F/U Tomas uNr RN 09/06/2018 Office Visit [facility] Bhavani Angela, Encounter to discuss test results (Primary Dx); Ani Jones NP Poorly controlled type 2 diabetes mellitus; Microalbuminuria; Left shoulder pain, unspecified chronicity; Low back pain at multiple sites; Bilateral lower extremity edema; Dyslipidemia; Positive occult stool blood test 09/06/2018 Ancillary Radiology Radha Angela NP 09/06/2018 Travel 08/30/2018 Refill [facility] Julio César, Positive occult stool Ani Jones NP blood test (Primary Dx) 08/15/2018 Ancillary Radiology Radha Angela NP 08/15/2018 Telephone [facility] Julio César, Results Ani Jones NP 08/09/2018 Office Visit [facility] Bhavani Angela, Hospital discharge follow- up (Primary Dx); Ani [...] left shoulder; Flu vaccine need; Need for aojnmalvbt-ekrurow-zxwkjxdzb (Tdap) vaccine; Need for 23-polyvalent pneumococcal polysaccharide vaccine 08/09/2018 Travel after 12/03/2017 Immunizations Name Dates Previously Given Next Due [...] Taken Blood Pressure 135/73 11/01/2018 9:33 AM HADOOP CONSULTANT Pulse 65 11/01/2018 9:33 AM HADOOP CONSULTANT Temperature 36.7 C (98 F) 11/01/2018 9:33 AM HADOOP CONSULTANT Respiratory Rate 18 11/01/2018 9:33 AM HADOOP CONSULTANT Oxygen Saturation 99% 10/19/2018 3:00 AM HADOOP CONSULTANT Inhaled Oxygen Concentration - - Weight 95.7 kg (211 lb) 11/01/2018 9:33 AM HADOOP CONSULTANT Height 157.5 cm (5' 2") 11/01/2018 9:33 AM HADOOP CONSULTANT Body Mass Index 38.59 11/01/2018 9:33 AM HADOOP CONSULTANT Plan of Treatment Date Type Specialty Care Team Description 12/14/2018 Office Visit Psychology Lady Zaragoza Project REACH-F/U Psychotherapy 12/20/2018 Office Visit Psychiatry Claudia Paniagua MD [address] [facility] [address] [place] [address] [phone] 01/14/2019 Office Visit Ophthalmology Retina/OCT MAc 01/24/2019 Office Visit Ophthalmology HVF 01/31/2019 Office Visit Ophthalmology Glaucoma Health Maintenance Due Date Last Done Comments Cervical Cancer Scrn (3 Yrs) 12/24/1984 IMM Influenza Seasonal May to October (>/=19 05/28/2019 08/09/2018 yrs) DM HGBA1C (Yearly) 08/09/2019 08/09/2018 DM Retinal Exam (Yearly) 08/15/2019 08/15/2018 Colorectal Cancer Scrn Annual (FIT/FOBT) 08/24/2019 08/24/2018 Age 50 to 75 Breast Cancer Scrn (Yearly) 09/06/2019 09/06/2018 DM Foot Exam (Yearly) 11/02/2019 11/01/2018, 09/06/2018 Goals Goal Patient Goal Associated Recent Patient-Stated? Author Type Problems Progress Lower blood Lifestyle Not on track No Julio César, glucose (10/02/2018) Ani Jones NP Eat Healthy Lifestyle Not on track No Julio César, (10/02/2018) Ani Jones NP Home Glucose Self management On track No Julio César, Monitoring (10/02/2018) Ani Jones NP HBA1C < 7 Treatment Not on track No Julio César, (10/02/2018) Ani Jones NP Procedures Procedure Name Priority Date/Time Associated Diagnosis Comments LIVER PROFILE Routine 12/04/2018 8:58 Dyslipidemia Results for this AM CDT procedure are in the results section. LIPID PROFILE Routine 12/04/2018 8:58 Dyslipidemia Results for this AM CDT procedure are in the results section. HEMOGLOBIN A1C Routine 12/04/2018 8:58 Poorly controlled type AM CDT 2 diabetes mellitus BASIC METABOLIC PANEL Routine 12/04/2018 8:58 Poorly controlled type Results for this AM CDT 2 diabetes mellitus procedure are in the results section. DIABETIC FOOT EXAM Routine 11/01/2018 9:52 Poorly controlled type Results for this AM HADOOP CONSULTANT 2 diabetes mellitus procedure are in the results section. GLUCOSE POC Routine 10/18/2018 6:23 Results for this PM HADOOP CONSULTANT procedure are in the results section. MRI KNEE JOINT W/O Routine 10/18/2018 4:08 Acute pain of left knee Results for this CONTRAST PM HADOOP CONSULTANT Fall, initial encounter procedure are in the results section. U/S RENAL Routine 10/16/2018 1:50 Microalbuminuria Results for this PM HADOOP CONSULTANT procedure are in the results section. DIABETIC FOOT EXAM Routine 09/06/2018 12:05 Poorly controlled type Results for this PM HADOOP CONSULTANT 2 diabetes mellitus procedure are in the results section. MAMMOGRAM BILAT Routine 09/06/2018 11:03 Screening for breast Results for this SCREEN DIGITAL AM HADOOP CONSULTANT cancer procedure are in the results section. OCCULT BLOOD ICT Routine 08/24/2018 2:33 Screen for colon cancer Results for this PM HADOOP CONSULTANT procedure are in the results section. OPHTHALMOLOGY RETINAL Routine 08/15/2018 12:23 Uncontrolled type 2 Results for this SCAN PM HADOOP CONSULTANT diabetes mellitus with procedure are in complication, with the results long-term current use section. of insulin XRAY SHOULDER 2 VIEWS Routine 08/15/2018 8:10 Pain in joint of left Results for this MIN AM HADOOP CONSULTANT shoulder procedure are in the results section. AMYLASE Routine 08/09/2018 12:24 Acute pancreatitis, Results for this PM HADOOP CONSULTANT unspecified procedure are in complication status, the results unspecified section. pancreatitis type LIPASE Routine 08/09/2018 12:24 Acute pancreatitis, Results for this PM HADOOP CONSULTANT unspecified procedure are in complication status, the results unspecified section. pancreatitis type SED RATE Routine 08/09/2018 12:24 Rheumatoid arthritis, Results for this PM HADOOP CONSULTANT involving unspecified procedure are in site, unspecified the results rheumatoid factor section. presence RA FACTOR Routine 08/09/2018 12:24 Rheumatoid arthritis, Results for this PM HADOOP CONSULTANT involving unspecified procedure are in site, unspecified the results rheumatoid factor section. presence SHELLY Routine 08/09/2018 12:24 Rheumatoid arthritis, Results for this PM HADOOP CONSULTANT involving unspecified procedure are in site, unspecified the results rheumatoid factor section. presence MAGNESIUM Routine 08/09/2018 12:24 Low magnesium level Results for this PM HADOOP CONSULTANT procedure are in the results section. VITAMIN B12 Routine 08/09/2018 12:24 Iron deficiency anemia, Results for this PM HADOOP CONSULTANT unspecified iron procedure are in deficiency anemia type the results section. IRON PROFILE Routine 08/09/2018 12:24 Iron deficiency anemia, Results for this PM HADOOP CONSULTANT unspecified iron procedure are in deficiency anemia type the results section. FOLIC ACID Routine 08/09/2018 12:24 Iron deficiency anemia, Results for this PM HADOOP CONSULTANT unspecified iron procedure are in deficiency anemia type the results section. FERRITIN Routine 08/09/2018 12:24 Iron deficiency anemia, Results for this PM HADOOP CONSULTANT unspecified iron procedure are in deficiency anemia type the results section. MICROALBUM, URINE Routine 08/09/2018 12:24 Uncontrolled type 2 Results for this PM HADOOP CONSULTANT diabetes mellitus with procedure are in complication, with the results long-term current use section. of insulin TSH Routine 08/09/2018 12:24 Uncontrolled type 2 Results for this PM HADOOP CONSULTANT diabetes mellitus with procedure are in complication, with the results long-term current use section. of insulin LIPID PROFILE Routine 08/09/2018 12:24 Uncontrolled type 2 Results for this PM HADOOP CONSULTANT diabetes mellitus with procedure are in complication, with the results long-term current use section. of insulin LIVER PROFILE Routine 08/09/2018 12:24 Uncontrolled type 2 Results for this PM HADOOP CONSULTANT diabetes mellitus with procedure are in complication, with the results long-term current use section. of insulin HIV-1/HIV-2 ROUTINE Routine 08/09/2018 12:24 Uncontrolled type 2 Results for this SCREENING PM HADOOP CONSULTANT diabetes mellitus with procedure are in complication, with the results long-term current use section. of insulin HEPATITIS PANEL Routine 08/09/2018 12:24 Uncontrolled type 2 Results for this PM HADOOP CONSULTANT diabetes mellitus with procedure are in complication, with the results long-term current use section. of insulin HEMOGLOBIN A1C Routine 08/09/2018 12:24 Uncontrolled type 2 Results for this PM HADOOP CONSULTANT diabetes mellitus with procedure are in complication, with the results long-term current use section. of insulin CBC/DIFF Routine 08/09/2018 12:24 Uncontrolled type 2 Results for this PM HADOOP CONSULTANT diabetes mellitus with procedure are in complication, with the results long-term current use section. of insulin BASIC METABOLIC PANEL Routine 08/09/2018 12:24 Uncontrolled type 2 Results for this PM HADOOP CONSULTANT diabetes mellitus with procedure are in complication, with the results long-term current use section. of insulin after 12/03/2017 Results LIVER PROFILE (12/04/2018 8:58 AM CDT)Only the most recent of2 resultswithin the time period is included. T Protein 7.3 6.0 - 8.3 g/dL BT MAIN-STATION 1 Albumin 4.1 3.7 - 5.3 g/dL BT MAIN-STATION 1 T Bilirubin 0.3 0.2 - 1.2 mg/dL BT MAIN-STATION 1 Alk Phos 73 34 - 104 U/L BT MAIN-STATION 1 AST 13 13 - 39 U/L BT MAIN-STATION 1 ALT 11 7 - 52 U/L BT MAIN-STATION 1 D Bilirubin <0.0 (L) 0.0 - 0.2 mg/dL BT MAIN-STATION 1 Specimen Blood Performing Organization Address City/State/Zipcode Phone Number MISYS BT MAIN-STATION 1 LIPID PROFILE (12/04/2018 8:58 AM CDT)Only the most recent of2 resultswithin the time period is included. Cholesterol 172 mg/dL BT MAIN-STATION 1 Comment: REFERENCE RANGE: Desirable: <200 mg/dL Borderline: 200-240 mg/dL High Risk: >240 mg/dL Triglyceride 131 <150 mg/dL BT MAIN-STATION 1 Comment: REFERENCE RANGE: Normal: <150 mg/dL Borderline High: 150-199 mg/dL High: 200-499 mg/dL Very High: >qo=941 mg/dL HDL 64 mg/dL BT MAIN-STATION 1 Comment: Increased CHD risk: <40 mg/dL Decreased CHD risk: >60 mg/dL LDL 82 mg/dL MAIN-STATION 1 Comment: REFERENCE RANGE: Optimal: <100 mg/dL Near Optimal: 100-129 mg/dL Borderline High: 130-159 mg/dL High: 160-189 mg/dL Very High: >gm=623 mg/dL Specimen Blood Performing Organization Address City/[facility] Phone Number MISYS MAIN-STATION 1 BASIC METABOLIC PANEL (12/04/2018 8:58 AM CDT)Only the most recent of2 resultswithin the time period is included. CO2 23 21 - 31 mmol/L MAIN-STATION 1 Chloride 104 98 - 107 mmol/L MAIN-STATION 1 Potassium 6.2 (HH) 3.5 - 5.1 mmol/L MAIN-STATION 1 Sodium 141 136 - 145 mmol/L MAIN-STATION 1 Glucose 187 (H) 70 - 110 mg/dL MAIN-STATION 1 Urea Nitrogen 38 (H) 7 - 25 mg/dL BT MAIN-STATION 1 Creatinine 2.10 (H) 0.6 - 1.2 mg/dL BT MAIN-STATION 1 Anion Gap 14 BT MAIN-STATION 1 Calcium 9.8 8.6 - 10.3 mg/dL MAIN-STATION 1 GFR, Estimated 25 mL/min/1.73 m2 MAIN-STATION 1 GFR, Estim, Afr-Am 30 mL/min/1.73 m2 MAIN-STATION 1 Specimen Blood Performing Organization Address [facility] Phone Number MISYS MAIN-STATION 1 DIABETIC FOOT EXAM (11/01/2018 9:52 AM HADOOP CONSULTANT)Only the most recent of2 resultswithin the time period is included. Narrative Performed At Ani Angela NP 11/01/20181:16 PM Diabetic Foot Exam was performed at 11/01/2018 1:15 PM.Right foot sensation is normal, right foot pulses are normal, right foot appearance is normal.Left foot sensation is normal,left foot pulses are normal, left foot appearance is normal. GLUCOSE POC (10/18/2018 6:23 PM HADOOP CONSULTANT) Glucose POC 127 (H) 74 - 106 mg/dL [facility] MAIN-STATION 1 Performing Organization Address City/State/Zipcode Phone Number MISYS [facility] MAIN-STATION 1 MRI KNEE JOINT W/O CONTRAST (10/18/2018 4:08 PM HADOOP CONSULTANT) Impressions Performed At IMPRESSION: [facility] 1.Focal partial tear of the anterior fibers [...] DO, 10/19/2018 11:36 AM Narrative Performed At [facility] TECHNIQUE: Magnetic resonance imaging of the LEFT [...] Interface, Rad/Mammog In - 10/19/2018 11:41 AM HADOOP CONSULTANT TECHNIQUE: Magnetic resonance imaging of the LEFT [...] AM Performing Organization Address City/State/Zipcode Phone Number [facility] U/S RENAL (10/16/2018 1:50 PM HADOOP CONSULTANT) Impressions Performed At IMPRESSION: [facility] Normal renal ultrasound exam. Dictated By: Prince Hale MD, 10/16/2018 1:49 PM I have reviewed the study and agree with the findings in this report. Signed By: Rolf Morgan MD, 10/16/2018 1:57 PM Narrative Performed At EXAM: Renal Ultrasound [facility] INDICATION: microalbuminuria COMPARISON: None TECHNIQUE: Transverse and [...] Interface, Rad/Mammog In - 10/16/2018 2:03 PM HADOOP CONSULTANT EXAM: Renal Ultrasound INDICATION: microalbuminuria COMPARISON: None [...] PM Performing Organization Address City/State/Zipcode Phone Number [facility] MAMMOGRAM BILAT SCREEN DIGITAL (09/06/2018 11:03 AM HADOOP CONSULTANT) Impressions Performed At IMPRESSION: BENIGN [facility] There is no mammographic evidence of malignancy. A 1 year screening mammogram is recommended. This document has been electronically signed. Jolie he/penrad:09/06/2018 12:12:51 Counter Top Maker: Jennifer Monet [facility] letter sent: Mammography Normal Mammogram BI-RADS: 2 Benign G0202 z12.31 Narrative Performed At [facility] #[id number] - MAMMOGRAM BILAT SCREEN DIGITAL BILATERAL DIGITAL [...] Interface, Rad/Mammog In - 09/06/2018 1:33 PM HADOOP CONSULTANT #[id number] - MAMMOGRAM BILAT SCREEN DIGITAL BILATERAL DIGITAL [...] This document has been electronically signed. Jolie Leach M.D. aar/penrad:09/06/2018 12:12:51 Counter Top Maker: Jennifer Monet, [facility] letter sent: Mammography Normal Mammogram BI-RADS: 2 Benign G0202 z12.31 Performing Organization Address City/State/Zipcode Phone Number SMS OCCULT BLOOD ICT (08/24/2018 2:33 PM HADOOP CONSULTANT) Occult Blood ICT Positive (A) NEG M2 ([facility]) Specimen Stool Performing Organization Address City/[facility]/Zipcode Phone Number MISYS M2 ([facility]) OPHTHALMOLOGY RETINAL SCAN (08/15/2018 12:23 PM HADOOP CONSULTANT) RETINAL SCAN-FINAL CRITICAL (AA) IRIS RESULT Right [...] At Retinal Study Result for CARY LIZARRAGA IRIS CARY LIZARRAGA a 52 y/o, F (: 1965, ) presented to [facility] on 08-15-2018 for a retinal imaging study of the left and right eyes. Based on the findings of the study, the following is recommended for CARY LIZARRAGA Severe Diabetic Retinopathy Found: Refer next available - Retina appointment at [facility] Ophthalmology Department.For Follow-up at [facility] or [facility]: For CSME the ordering physicians should make an ROUTINE Referral in [facility] for BT or J Ophthalmology stating to retina service. Interpreting Provider's Comments:No comments provided Right Eye Findings: Diabetic Retinopathy: Severe Other: Suspected Glaucoma Left Eye Findings: Diabetic Retinopathy: Severe Macular Edema: Moderate Other: Suspected Glaucoma This result was electronically signed by Andrade Ferguson MD, , Taxonomy: [id number] on 08-15-2018 05:23:51 [facility] time. NOTE:Any pathology noted on this diabetic retinal evaluation should be confirmed by an appropriate ophthalmic examination. Performing Organization Address City/[facility] Phone Number IRIS XRAY SHOULDER 2 VIEWS MIN (08/15/2018 8:10 AM HADOOP CONSULTANT) Impressions Performed At IMPRESSION: [facility] No acute radiographic abnormality. Dictated By: Emery Cueto DO, 08/15/2018 9:30 AM I have reviewed the study and agree with the findings in this report. Signed By: Andres Sher DO, 08/15/2018 4:54 PM Narrative Performed At [facility] EXAM:Left, 2 viewXRAY SHOULDER 2 VIEWS MIN08/15/2018 8:10 AM INDICATION: left shoulder pain with limited ROM COMPARISON: None DISCUSSION: Adequate internal and external rotation. No displaced fracture or malalignment. The joint spaces are well maintained without definite osseous erosion. The visualized soft tissues appear unremarkable. Procedure Note Interface, Rad/Mammog In - 08/15/2018 4:59 PM HADOOP CONSULTANT EXAM:Left, 2 view XRAY SHOULDER 2 VIEWS [...] DO, 08/15/2018 4:54 PM Performing Organization Address City/[facility] Phone Number SMS HIV-1/HIV-2 ROUTINE SCREENING (08/09/2018 12:24 PM HADOOP CONSULTANT) HIV-1/HIV-2 Negative NEG BT MAIN-STATION 3 Performing Organization Address City/[facility] Phone Number MISYS BT MAIN-STATION 3 MICROALBUM, URINE (08/09/2018 12:24 PM HADOOP CONSULTANT) Microalbum, Random 32.1 (H) 0.0 - 29.0 BT MAIN-STATION 1 mg/dL Creatinine, Ur 104.6 20 - 320 BT MAIN-STATION 1 mg/dL Urine Microalbumin 306.9 (H) 0 - 29 mg/g BT MAIN-STATION 1 Comment: UCR To minimize intra-individual variation, analysis of three random urine samples collected over the course of a week is recommended. Performing Organization Address [facility] Phone Number MISYS BT MAIN-STATION 1 HEMOGLOBIN A1C (08/09/2018 12:24 PM HADOOP CONSULTANT) Hemoglobin A1c 11.6 (H) 4.3 - 6.1 % BT DIAGNOSTIC IMMUNOLOGY Est Average Gluc 286.2 mg/dL BT DIAGNOSTIC IMMUNOLOGY Specimen Blood Performing Organization Address [facility] Phone Number MISYS BT DIAGNOSTIC IMMUNOLOGY TSH (08/09/2018 12:24 PM HADOOP CONSULTANT) TSH 1.51 0.57 - 3.74 uIU/mL BT MAIN-STATION 1 Specimen Blood Performing Organization Address [facility] Phone Number MISYS BT MAIN-STATION 1 FOLIC ACID (08/09/2018 12:24 PM HADOOP CONSULTANT) Folic Acid >24.8 (H) 5.9 - 24.8 ng/mL BT MAIN-STATION 1 Specimen Blood Performing Organization Address [facility] Phone Number MISYS BT MAIN-STATION 1 FERRITIN (08/09/2018 12:24 PM HADOOP CONSULTANT) Ferritin 89.50 11.0 - 306.8 ng/mL BT MAIN-STATION 1 Specimen Blood Performing Organization Address [facility] Phone Number MISYS BT MAIN-STATION 1 VITAMIN B12 (08/09/2018 12:24 PM HADOOP CONSULTANT) Vitamin B12 592 211 - 911 pg/mL BT MAIN-STATION 1 Specimen Blood Performing Organization Address [facility] Phone Number MISYS BT MAIN-STATION 1 SED RATE (08/09/2018 12:24 PM HADOOP CONSULTANT) Sed Rate 24 <30 mm/Hr BT MAIN-STATION 2 Specimen Blood Performing Organization Address [facility] Phone Number MISYS BT MAIN-STATION 2 RA FACTOR (08/09/2018 12:24 PM HADOOP CONSULTANT) RA Factor <10 <14 IU/mL BT MAIN-STATION 1 Specimen Blood Performing Organization Address [facility] Phone Number MISYS BT MAIN-STATION 1 MAGNESIUM (08/09/2018 12:24 PM HADOOP CONSULTANT) Magnesium 1.6 (L) 1.9 - 2.7 mg/dL BT MAIN-STATION 1 Specimen Blood Performing Organization Address [facility] Phone Number MISYS BT MAIN-STATION 1 LIPASE (08/09/2018 12:24 PM HADOOP CONSULTANT) Lipase 18 11 - 82 U/L BT MAIN-STATION 1 Specimen Blood Performing Organization Address [facility] Phone Number MISYS BT MAIN-STATION 1 IRON PROFILE (08/09/2018 12:24 PM HADOOP CONSULTANT) Iron 70 50 - 212 ug/dL BT MAIN-STATION 1 TIBC 291 250 - 450 ug/dL BT MAIN-STATION 1 % Iron Sat 24 % BT MAIN-STATION 1 Specimen Blood Performing Organization Address [facility] Phone Number MISYS BT MAIN-STATION 1 HEPATITIS PANEL (08/09/2018 12:24 PM HADOOP CONSULTANT) HCV IgG Negative NEG BT MAIN-STATION 3 HBsAg Negative NEG BT MAIN-STATION 3 HAV, IgM Negative NEG BT MAIN-STATION 3 HBcAb, IgM Negative NEG BT MAIN-STATION 3 Specimen Blood Performing Organization Address [facility] Phone Number MISYS BT MAIN-STATION 3 CBC/DIFF (08/09/2018 12:24 PM HADOOP CONSULTANT) WBC 4.7 4.5 - 11.0 K/uL BT [...] MAIN-STATION 2 Specimen Blood Performing Organization Address [facility] Phone Number MISYS BT MAIN-STATION 2 SHELLY (08/09/2018 12:24 PM HADOOP CONSULTANT) SHELLY Screen Negative NEG BT DIAGNOSTIC IMMUNOLOGY Specimen Blood Performing Organization Address [facility] Phone Number MISYS BT DIAGNOSTIC IMMUNOLOGY AMYLASE (08/09/2018 12:24 PM HADOOP CONSULTANT) Amylase 30 29 - 103 U/L BT MAIN-STATION 1 Specimen Blood Performing Organization Address [facility] Phone Number MISYS BT MAIN-STATION 1 after 12/03/2017 Insurance Payer Benefit Plan / Subscriber ID Effective Dates Phone Address Type Group [place] xxxxxxx 2018- [phone] [address] [place] [address] [employer] PLAN H[employer] PLAN 1 xxxxxxx 2018- [phone] [place] [address]
[2018-12-04 18:03] LABS: Absolute Lymphocytes (CBC) 2.3 K/uL (0.7-4.9); Absolute Monocytes 0.4 K/uL (0.1-1.3); Absolute Neutrophil 3.1 K/uL (1.8-8.0); Basophils % 0.4 % (0-1.3); Eosinophils % 2.1 % (0-4.4); Lymphocytes % 38.6 % (15.3-44.8); MPV 9.3 fL (7.6-11.3); Monocytes % 6.6 % (3.3-12.3); RBC Red Blood Cell Count 3.91 M/uL (3.86-4.86)
[2018-12-04 18:17] LABS: Protime INR 0.89
[2018-12-04 18:21] LABS: ALT/SGPT 18 U/L (12-78); AST/SGOT 13 U/L (15-37); Albumin 4.1 g/dL (3.4-5.0); Alkaline Phosphatase 86 U/L (45-117); BUN Blood Urea Nitrogen 44 mg/dL (7-18); Bicarbonate 24 mmol/L (21-32); Bilirubin Direct 0.1 mg/dL (0-0.2); Bilirubin Total 0.2 mg/dL (0.2-1.0); Glucose Level 181 mg/dL (74-106); Magnesium 1.9 mg/dL (1.8-2.4); NT PRO-BNP 59 pg/mL (<125); Potassium 4.6 mmol/L (3.5-5.1); Protein, Total 8.6 g/dL (6.4-8.2); Sodium Level 138 mmol/L (136-145); Troponin (Emerg Dept Use Only) < 0.02 ng/mL (0.0-0.045)
--- NOTE | 2018-12-04 18:40 | ER ---
Nurse's Notes [facility] Name: Cary Gan Age: 52 yrs Sex: Female : 1965 Arrival Date: 12/04/2018 Time: 16:47 Bed 30 Private MD: Diagnosis: Acute kidney failure, unspecified;Melena Presentation: 12/04 17:01 Presenting complaint: Patient states: "I just got a call from the lab about 45 minutes aa5 ago saying that I needed to come to the ER". Pt states "I think they said my cholesterol was 6 or something like that". Pt c/o chest pain. Transition of care: patient was not received from another setting of care. Onset of symptoms was December 04, 2018. Risk Assessment: Do you want to hurt yourself or someone else? Patient reports no desire to harm self or others. Initial Sepsis Screen: Does the patient meet any 2 criteria? No. Patient's initial sepsis screen is negative. Does the patient have a suspected source of infection? No. Patient's initial sepsis screen is negative. Care prior to arrival: None. 17:01 Method Of Arrival: Ambulatory aa5 17:01 Acuity: SANTANA 3 aa5 Historical: - Allergies: 17:05 NKA; aa5 - Home Meds: 17:15 Zoloft 50 mg Oral tab 1 tab once daily [Active]; metformin 1,000 mg Oral tab 2 times tw2 per day [Active]; meclizine 25 mg Oral tab 1 tab every 6 hours for Vertigo [Active]; metoclopramide HCl 10 mg Oral tab 1 tab three times a day [Active]; sertraline 50 mg Oral tab 1 tab once daily [Active]; levemir 10 U daily [Active]; Tramadol Oral [Active]; lisinopril 10 mg Oral tab 1 tab once daily [Active]; ibuprofen 600 mg Oral tab 1 tab as needed [Active]; gabapentin 300 mg Oral 1 cap once daily [Active]; furosemide 20 mg Oral tab 1 tab once daily [Active]; cetirizine 10 mg Oral tab 1 tab once daily [Active]; atorvastatin 40 mg Oral tab 1 tab nightly [Active]; - PMHx: 17:05 "hot fashes"; Anxiety; Depression; Diabetes - IDDM; EDEMA; herniated disk lower back, aa5 neck vertibre fusion; high blood pressure (resolved); High Cholesterol; neuropathy; Pancreatitis; Rheumatoid Arthritis; - Immunization history:: Adult Immunizations. - Social history:: Patient/guardian denies using alcohol, street drugs, The patient lives with family, Smoking status: . - Ebola Screening: : No symptoms or risks identified at this time. - Family history:: not pertinent. Screenin:12 Abuse screen: Denies threats or abuse. Nutritional screening: No deficits noted. tw2 Tuberculosis screening: No symptoms or risk factors identified. Fall Risk None identified. Assessment: 17:30 Reassessment: Obtained medical release permit, signed by patient, to obtain lab results aa5 from [facility] Medical Records office. Medical records only sent liver test results and called them back and they stateted "she just got the blood work today so the rest of the results are not uploaded to the system yet". Unable to obtain critical lab result (completed at [facility] in [place]) from medical records and unable to contact [facility] at this time due to being closed at this time. . 17:33 General: Appears in no apparent distress. Behavior is calm, cooperative, appropriate tw2 for age. Pain: Complains of pain in abdomen. Neuro: Level of Consciousness is awake, alert, obeys commands, Oriented to person, place, time, situation. Cardiovascular: Reports fatigue, shortness of breath, Heart tones S1 S2 Patient's skin is warm and dry. Respiratory: Airway is patent Respiratory effort is even, unlabored, Respiratory pattern is regular, symmetrical, Breath sounds are clear bilaterally. GI: Bowel sounds present X 4 quads. Abd is soft X 4 quads Reports lower abdominal pain, upper abdominal pain, bloating, bloody stool. : No signs and/or symptoms were reported regarding the genitourinary system. EENT: No signs and/or symptoms were reported regarding the EENT system. Derm: Skin is intact, is healthy with good turgor, Skin is pale, Skin temperature is warm. Musculoskeletal: Range of motion: intact in all extremities. 17:58 Reassessment: Patient appears in no apparent distress at this time. No changes from tw2 previously documented assessment. Patient and/or family updated on plan of care and expected duration. Pain level reassessed. Patient is alert, oriented x 3, equal unlabored respirations, skin warm/dry/pink. 18:25 Reassessment: Patient appears in no apparent distress at this time. No changes from tw2 previously documented assessment. Patient and/or family updated on plan of care and expected duration. Pain level reassessed. Patient is alert, oriented x 3, equal unlabored respirations, skin warm/dry/pink. 19:15 General: Appears in no apparent distress. comfortable, Behavior is calm, cooperative, rr5 appropriate for age. Pain: Complains of pain in abdomen Pain does not radiate. Pain currently is 9 out of 10 on a pain scale. Quality of pain is described as aching, Pain began gradually, Is intermittent. Neuro: Level of Consciousness is awake, alert, obeys commands, Oriented to person, place, time, situation. Cardiovascular: Reports fatigue, shortness of breath, Capillary refill < 3 seconds Patient's skin is warm and dry. Respiratory: Airway is patent Respiratory effort is even, unlabored, Respiratory pattern is regular, symmetrical. GI: Abdomen is round Reports lower abdominal pain, upper abdominal pain, bloody stool. : No signs and/or symptoms were reported regarding the genitourinary system. EENT: No signs and/or symptoms were reported regarding the EENT system. Derm: Skin is intact, is healthy with good turgor, Skin is pale, Skin temperature is warm. Musculoskeletal: Circulation, motion, and sensation intact. Range of motion: intact in all extremities. 19:15 Reassessment: awaiting for room assignment. rr5 20:00 Reassessment: Patient appears in no apparent distress at this time. No changes from rr5 previously documented assessment. chatting with her php website developer comfortably. 20:35 Reassessment: complaints of abdominal pain. ED provider aware with order made and rr5 carried out. 21:20 Reassessment: Patient appears in no apparent distress at this time. Patient is alert, rr5 oriented x 3, equal unlabored respirations, skin warm/dry/pink. 22:32 Reassessment: Patient appears in no apparent distress at this time. Patient is alert, rr5 oriented x 3, equal unlabored respirations, skin warm/dry/pink. asleep comfortably on bed Patient states symptoms have improved. 23:30 Reassessment: Patient appears in no apparent distress at this time. Patient is alert, rr5 oriented x 3, equal unlabored respirations, skin warm/dry/pink. went to washroom voided freely. urine specimen sent to laboratorry. Vital Signs: 17:05 BP 104 / 64; Pulse 70; Resp 18 S; Temp 98.3(TE); Pulse Ox 97% on R/A; aa5 17:58 BP 97 / 86; Pulse 83; Resp 18; Pulse Ox 98% on R/A; mh5 18:24 BP 98 / 52; Pulse 77; Resp 17; Pulse Ox 97% on R/A; tw2 19:15 BP 97 / 54; Pulse 65; Resp 17; Temp 98.1; Pulse Ox 99% ; Pain 9/10; rr5 20:00 BP 99 / 56; Pulse 62; Resp 17; Pulse Ox 98% on R/A; rr5 21:00 BP 101 / 44; Pulse 61; Resp 17; Pulse Ox 99% ; rr5 22:00 BP 97 / 53; Pulse 60; Resp 17; Pulse Ox 97% ; rr5 23:00 BP 95 / 55; Pulse 62; Resp 16; Pulse Ox 99% ; rr5 04/10 00:00 BP 110 / 49; Pulse 63; Resp 17; Pulse Ox 97% on R/A; rr5 ED Course: 12/04 16:47 Patient arrived in ED. as 17:00 Arm band placed on. aa5 17:05 Triage completed. aa5 17:12 Vera Porter, RN is Primary Nurse. tw2 17:13 Jaleel Queen MD is Attending Physician. ma2 17:13 Bed in low position. Call light in reach. utility worker film processing on. Pulse ox on. NIBP on. tw2 Warm blanket given. 17:51 Inserted saline lock: 22 gauge in right antecubital area, using aseptic technique. tw2 ,using aseptic technique. per Denise, Tech Blood collected. 17:56 Basic Metabolic Panel Sent. 5 17:56 CBC with Diff Sent. 5 17:56 LFT's Sent. 5 17:57 Magnesium Sent. 5 17:57 NT PRO-BNP Sent. 5 17:57 PT-INR Sent. 5 17:57 Troponin (emerg Dept Use Only) Sent. 5 18:04 EKG done, by resident care technician. reviewed by Jaleel Queen MD. 3 18:18 XRAY Chest (1 view) In Process Unspecified. EDMS 18:39 Jaleel Gonzalez MD is Hospitalizing Provider. ma2 18:41 Type And Screen Sent. tw2 19:00 Report given to KINGS Suggs. tw2 19:44 Primary Nurse role handed off by Vera Porter, KINGS ed1 20:46 Ifeanyi Barba, RN is Primary Nurse. rr5 21:36 Renal Ultrasound-Complete In Process Unspecified. EDMS 12/05 00:00 No provider procedures requiring assistance completed. Patient admitted, IV remains in rr5 place. intact, No redness/swelling at site. Administered Medications: 12/04 18:53 Drug: NS 0.9% 1000 ml Route: IV; Rate: 1 bolus; Site: right antecubital; tw2 21:00 Follow up: Response: No adverse reaction; IV Status: Completed infusion; IV Intake: rr5 1000ml 20:40 Drug: Zofran 4 mg Route: IVP; Site: right antecubital; rr5 12/05 00:00 Follow up: Response: No adverse reaction rr5 12/04 20:47 Drug: morphine 4 mg Route: IVP; Site: right antecubital; rr5 12/05 00:00 Follow up: Response: No adverse reaction rr5 Intake: 12/04 21:00 IV: 1000ml; Total: 1000ml. rr5 Outcome: 18:40 Decision to Hospitalize by Provider. il2 12/05 00:00 Admitted to ER Hold. Please see [facility] for further documentation. rr5 Condition: stable Instructed on the need for admit. 08:48 Patient left the ED. ss Signatures: Dispatcher [employer] EDMS Erika Monet Audri, RN RN aa5 Melissa Retana RN RN Thu Cali RN RN ed1 Vera Porter RN RN 2 Zee Monet 5 Jaleel Queen MD MD [facility] Nina Barrett [facility] Ifeanyi Barba, RN RN rr5 Corrections: (The following items were deleted from the chart) 12/04 18:00 17:30 Reassessment: Obtained medical release permit, signed by patient, to obtain lab aa5 results from [facility] Medical Records office. Medical records only sent liver test results and called them back and they states "she just got the blood work today so the rest of the results are not uploaded to the system yet". Unable to obtain critical lab result (completed at [facility] in [place]) from medical records and unable to contact [facility] at this time due to being closed at this time. . aa5
--- NOTE | 2018-12-04 18:40 | EDPHYS ---
Physician Documentation [facility] Name: Cary Gan Age: 52 yrs Sex: Female : 1965 Arrival Date: 12/04/2018 Time: 16:47 Bed 30 Private MD: ED Physician Jaleel Queen HPI: 12/04 18:04 This 52 yrs old Female presents to ER via Ambulatory with complaints of ma2 Abnormal Lab Results. 18:04 The patient presents to the emergency department with rectal bleeding, a small amount, ma2 melena, with multiple such episodes. Onset: The symptoms/episode began/occurred gradually, 1 week(s) ago. Associated signs and symptoms: Pertinent positives: dizziness at rest, Pertinent negatives: chest pain, shortness of breath, near-syncope, vomiting. Severity of symptoms: At their worst the symptoms were mild in the emergency department the symptoms are unchanged. The patient has not experienced similar symptoms in the past. Historical: - Allergies: 17:05 NKA; aa5 - Home Meds: 17:15 Zoloft 50 mg Oral tab 1 tab once daily [Active]; metformin 1,000 mg Oral tab 2 times tw2 per day [Active]; meclizine 25 mg Oral tab 1 tab every 6 hours for Vertigo [Active]; metoclopramide HCl 10 mg Oral tab 1 tab three times a day [Active]; sertraline 50 mg Oral tab 1 tab once daily [Active]; levemir 10 U daily [Active]; Tramadol Oral [Active]; lisinopril 10 mg Oral tab 1 tab once daily [Active]; ibuprofen 600 mg Oral tab 1 tab as needed [Active]; gabapentin 300 mg Oral 1 cap once daily [Active]; furosemide 20 mg Oral tab 1 tab once daily [Active]; cetirizine 10 mg Oral tab 1 tab once daily [Active]; atorvastatin 40 mg Oral tab 1 tab nightly [Active]; - PMHx: 17:05 "hot fashes"; Anxiety; Depression; Diabetes - IDDM; EDEMA; herniated disk lower back, aa5 neck vertibre fusion; high blood pressure (resolved); High Cholesterol; neuropathy; Pancreatitis; Rheumatoid Arthritis; - Immunization history:: Adult Immunizations. - Social history:: Patient/guardian denies using alcohol, street drugs, The patient lives with family, Smoking status: . - Ebola Screening: : No symptoms or risks identified at this time. - Family history:: not pertinent. ROS: 18:04 Constitutional: Negative for fever, chills, and weight loss, Cardiovascular: Negative ma2 for chest pain, palpitations, and edema, Respiratory: Negative for shortness of breath, cough, wheezing, and pleuritic chest pain, MS/Extremity: Negative for injury and deformity. 18:04 Abdomen/GI: Positive for black/tarry stool, Negative for vomiting, abdominal cramps, abdominal distension, anorexia, flatulence. 18:04 All other systems are negative. Exam: 18:04 Constitutional: This is a well developed, well nourished patient who is awake, alert, ma2 and in no acute distress. ENT: Nares patent. No nasal discharge, no septal abnormalities noted. Tympanic membranes are normal and external auditory canals are clear. Oropharynx with no redness, swelling, or masses, exudates, or evidence of obstruction, uvula midline. Mucous membranes moist. Chest/axilla: Normal chest wall appearance and motion. Nontender with no deformity. No lesions are appreciated. Cardiovascular: Regular rate and rhythm with a normal S1 and S2. No gallops, murmurs, or rubs. Normal PMI, no JVD. No pulse deficits. Respiratory: Lungs have equal breath sounds bilaterally, clear to auscultation and percussion. No rales, rhonchi or wheezes noted. No increased work of breathing, no retractions or nasal flaring. Abdomen/GI: Soft, non-tender, with normal bowel sounds. No distension or tympany. No guarding or rebound. No evidence of tenderness throughout. MS/ Extremity: Pulses equal, no cyanosis. Neurovascular intact. Full, normal range of motion. Neuro: Awake and alert, GCS 15, oriented to person, place, time, and situation. Cranial nerves II-XII grossly intact. Motor strength 5/5 in all extremities. Sensory grossly intact. Cerebellar exam normal. Normal gait. Vital Signs: 17:05 BP 104 / 64; Pulse 70; Resp 18 S; Temp 98.3(TE); Pulse Ox 97% on R/A; aa5 17:58 BP 97 / 86; Pulse 83; Resp 18; Pulse Ox 98% on R/A; mh5 18:24 BP 98 / 52; Pulse 77; Resp 17; Pulse Ox 97% on R/A; tw2 19:15 BP 97 / 54; Pulse 65; Resp 17; Temp 98.1; Pulse Ox 99% ; Pain 9/10; rr5 20:00 BP 99 / 56; Pulse 62; Resp 17; Pulse Ox 98% on R/A; rr5 21:00 BP 101 / 44; Pulse 61; Resp 17; Pulse Ox 99% ; rr5 22:00 BP 97 / 53; Pulse 60; Resp 17; Pulse Ox 97% ; rr5 23:00 BP 95 / 55; Pulse 62; Resp 16; Pulse Ox 99% ; rr5 04/10 00:00 BP 110 / 49; Pulse 63; Resp 17; Pulse Ox 97% on R/A; rr5 Procedures: 05:12 Peripheral line: by aseptic technique a peripheral line was placed in the left external wilfrid jugular vein. MDM: 12/04 17:13 Patient medically screened. [facility] 18:04 Differential diagnosis: gastritis, hemorrhoids, varices. [facility] 18:38 Data reviewed: vital signs, nurses notes. Counseling: I had a detailed discussion with ma the patient and/or guardian regarding: the historical points, exam findings, and any diagnostic results supporting the discharge/admit diagnosis, the presence of at least one elevated blood pressure reading (>120/80) during this emergency department visit, the need for further work-up and treatment in the hospital. Response to treatment: the patient's symptoms have markedly improved after treatment. ED course: . 18:41 ED course: attempted calling dr. howell's via scada operator at 1840 no answer . [facility] 20:13 ED course: discussed with dr. alatorre . [facility] 12/04 17:33 Order name: Basic Metabolic Panel; Complete Time: 18:35 [facility] 12/04 17:33 Order name: CBC with Diff; Complete Time: 18:35 [facility] 12/04 17:33 Order name: LFT's; Complete Time: 18:35 [facility] 12/04 17:33 Order name: Magnesium; Complete Time: 18:35 [facility] 12/04 17:33 Order name: NT PRO-BNP; Complete Time: 18:35 [facility] 12/04 17:33 Order name: PT-INR; Complete Time: 18:35 [facility] 12/04 17:33 Order name: Troponin (emerg Dept Use Only); Complete Time: 18:35 ma2 12/04 18:03 Order name: Type And Screen; Complete Time: 20:11 ma2 12/04 21:10 Order name: CBC with Automated Diff EDID 12/04 21:10 Order name: CBC with Automated Diff EDMS 12/04 21:10 Order name: Comprehensive Metabolic Panel EDID 12/04 21:10 Order name: Comprehensive Metabolic Panel EDID 12/05 00:43 Order name: Urinalysis EDID 12/05 01:16 Order name: Urine Microscopic Only EDID 12/04 17:33 Order name: XRAY Chest (1 view); Complete Time: 20:11 ma2 12/04 17:33 Order name: EKG; Complete Time: 17:34 ma2 12/04 17:33 Order name: Cardiac monitoring; Complete Time: 17:36 ma2 12/04 17:33 Order name: EKG - Nurse/Tech; Complete Time: 17:56 ma2 12/04 17:33 Order name: IV Saline Lock; Complete Time: 17:53 ma2 12/04 17:33 Order name: Labs collected and sent; Complete Time: 17:54 ma2 12/04 17:33 Order name: O2 Per Protocol; Complete Time: 17:36 ma2 12/04 17:33 Order name: O2 Sat Monitoring; Complete Time: 17:36 ma2 12/04 21:09 Order name: CONS Pharmacy Consult EDID 12/04 21:09 Order name: Renal EDID 12/04 21:10 Order name: Renal Ultrasound-Complete EDID Administered Medications: 18:53 Drug: NS 0.9% 1000 ml Route: IV; Rate: 1 bolus; Site: right antecubital; tw2 21:00 Follow up: Response: No adverse reaction; IV Status: Completed infusion; IV Intake: rr5 1000ml 20:40 Drug: Zofran 4 mg Route: IVP; Site: right antecubital; rr5 12/05 00:00 Follow up: Response: No adverse reaction rr5 12/04 20:47 Drug: morphine 4 mg Route: IVP; Site: right antecubital; rr5 12/05 00:00 Follow up: Response: No adverse reaction rr5 Disposition: 12/04/18 18:40 Hospitalization ordered by Jaleel Alatorre for Observation. Preliminary diagnosis are Acute kidney failure, unspecified, Melena. - Bed requested for Telemetry/MedSurg (observation). - Status is Observation. ss - Condition is Stable. - Problem is new. - Symptoms are unchanged. UTI on Admission? No Signatures: Dispatcher [employer] EDMS AliceYisel Trey Decker MD MD cha Calderon, Audri, RN RN aa5 Melissa Retana RN RN ss Vera Porter RN RN tw2 Jaleel Queen MD MD il2 Ifeanyi Barba RN RN rr5 Berta Cullen ar5 Corrections: (The following items were deleted from the chart) 12/04 23:52 18:40 Hospitalization Ordered by Jaleel Alatorre MD for Observation. Preliminary ar5 diagnosis is Acute kidney failure, unspecified; Melena. Bed requested for Telemetry/MedSurg (observation). Status is Observation. Condition is Stable. Problem is new. Symptoms are unchanged. UTI on Admission? No. ma2 12/05 07:56 12/04 23:52 12/04/2018 18:40 Hospitalization Ordered by Jaleel lAatorre MD for bd Observation. Preliminary diagnosis is Acute kidney failure, unspecified; Melena. Bed requested for [facility] ER HOLD. Status is Observation. Condition is Stable. Problem is new. Symptoms are unchanged. UTI on Admission? No. ar5 12/05 08:48 07:56 12/04/2018 18:40 Hospitalization Ordered by Jaleel Alatorre MD for Observation. ss Preliminary diagnosis is Acute kidney failure, unspecified; Melena. Bed requested for Telemetry/MedSurg (observation). Status is Observation. Condition is Stable. Problem is new. Symptoms are unchanged. UTI on Admission? No. bd
[2018-12-04] MEDS ORDERED: NA CHLORIDE 0.9% 1,000 ML ONE (19:01)
--- NOTE | 2018-12-04 19:56 | RAD REPORT ---
EXAM DESCRIPTION: RAD - Chest Single View - 12/04/2018 6:17 pm CLINICAL HISTORY: Chest pain, shortness of breath COMPARISON: October 2018 TECHNIQUE: AP portable chest image was obtained 1800 hours . FINDINGS: No focal lung parenchymal process. Interstitial markings are similar to comparison. Heart size is upper normal, stable, with no vascular engorgement. No measurable pleural effusion and no pne umothorax. No acute bony abnormality seen. No acute aortic findings suspected. IMPRESSION: No acute cardiopulmonary process. No significant change from comparison.
[2018-12-04] MEDS ORDERED: ONDANSETRON 4 MG/2 ML VIAL ONE (20:53)
[2018-12-04] MEDS ORDERED: MORPHINE 4 MG/ML SYR ONE (20:53)
[2018-12-04] MEDS ORDERED: ACETAMINOPHEN 500 MG TAB PO PRN (21:05)
[2018-12-04] MEDS ORDERED: ONDANSETRON 4 MG/2 ML VIAL IV PRN (21:05)
[2018-12-05] MEDS: MORPHINE 2 MG/ML SYR IV PRN ×3 (00:05→10:30)
[2018-12-05] MEDS ORDERED: MORPHINE 2 MG/ML SYR ONE (00:23)
[2018-12-05] MEDS ORDERED: ONDANSETRON 4 MG/2 ML VIAL ONE (00:23)
[2018-12-05] MEDS ORDERED: NA CHLORIDE 0.9% 1,000 ML ONE (00:24)
[2018-12-05 00:41] LABS: Urine Appearance CLEAR; Urine Bilirubin NEGATIVE (NEG); Urine Blood NEGATIVE (NEG); Urine Color YELLOW; Urine Glucose NEGATIVE (NEG); Urine Protein NEGATIVE (NEG); Urine Urobilinogen 0.2 mg/dL (0.2-1.0); Urine pH 5.5 (5.0-7.0)
[2018-12-05 00:42] LABS: Urine Microscopic Reflex ORDER UMIC
[2018-12-05 01:15] LABS: Urine Bacteria <20 /HPF (<20); Urine Culture Reflex Order REFLEXED; Urine RBC NONE SEEN /HPF (NONE SEEN)
[2018-12-05 01:40] VITALS: BMI 34.4
[2018-12-05] MEDS ORDERED: MORPHINE 4 MG/ML SYR ONE (05:54)
[2018-12-05 05:56] LABS: Absolute Lymphocytes (CBC) 2.4 K/uL (0.7-4.9); Absolute Monocytes 0.4 K/uL (0.1-1.3); Absolute Neutrophil 1.8 K/uL (1.8-8.0); Albumin 3.2 g/dL (3.4-5.0); Basophils % 0.5 % (0-1.3); Bilirubin Total 0.3 mg/dL (0.2-1.0); Eosinophils % 3.3 % (0-4.4); Hematocrit 30.1 % (36.0-45.0); Lymphocytes % 50.1 % (15.3-44.8); MPV 9.3 fL (7.6-11.3); Monocytes % 9.3 % (3.3-12.3); Potassium 4.6 mmol/L (3.5-5.1)
--- NOTE | 2018-12-05 07:49 | RAD REPORT ---
EXAM DESCRIPTION: US - Renal Ultrasound-Complete - 12/04/2018 9:37 pm CLINICAL HISTORY: Acute renal insufficiency FINDINGS: The right kidney measures 10 cm with a normal echotexture. The left kidney measures 11 cm with a normal echotexture. Hydronephrosis is not seen. No gross abnormality of bladder is seen IMPRESSION: Unremarkable renal ultrasound.
[2018-12-05] MEDS ORDERED: PNEUMOCOCCAL VACCINE 0.5 ML IMVAC ONE (08:00)
[2018-12-05 08:32] VITALS: BP 127/63; TEMP 98.4
[2018-12-05 09:19] VITALS: O2SAT 97
[2018-12-05] MEDS: NA CHLORIDE 0.9% 1,000 ML IV SCH ×2 (09:24)
--- NOTE | 2018-12-05 10:28 | P.HP ---
Certification for Inpatient Patient admitted to: Observation With expected LOS: <2 Midnights Patient will require the following post-hospital care: None Practitioner: I am a practitioner with admitting privileges, knowledge of patient current condition, hospital course, and medical plan of care. Services: Services provided to patient in accordance with Admission requirements found in Title 42 Section 412.3 of the Code of Federal Regulations Patient History Date of Service: 12/04/18 Reason for admission: acute kidney injury History of Present Illness: Patient is a 52-year-old female who came to the hospital with complaints of melanotic stools and bloody stools. However when she arrived her hemoglobin was stable. She states she has been having this issue chronically. She is scheduled for an outpatient colonoscopy next week. This is in [place]. She says most of her physicians are infused in and she is in town visiting family. When she came to the ER she was dehydrated and she looked to be in renal failure. She is admitted to the hospital for further workup. Allergies adhesive tape Allergy (Verified 12/05/18 10:22) Itching/Hives/Rash Home Medications: Gabapentin 300 mg PO TID 07/15/18 Meclizine HCl 25 mg PO Q6HP PRN 07/15/18 Metformin HCl 1,000 mg PO BIDWM 07/15/18 Lisinopril [Prinivil*] 10 mg PO DAILY #30 tab 07/19/18 Atorvastatin Calcium 1 tab PO BEDTIME 09/28/18 Ferrous Sulfate [Iron] 1 tab PO DAILY 09/28/18 Furosemide 1 tab PO Q48H 09/28/18 Insulin Detemir [Levemir Flextouch] 20 units SQ LUNCH 09/28/18 Magnesium Oxide [Magnesium] 1 tab PO DAILY 09/28/18 Mv-Min/Iron/Folic/Calcium/Vitk [Women's Multivitamin Tablet] 1 tab PO DAILY 09/15 Omeprazole 1 cap PO DAILY PRN 09/28/18 Sennosides 1 tab PO DAILY PRN 09/28/18 Tramadol HCl [Ultram] 1 tab PO Q8H PRN 09/28/18 Acetaminophen 500 mg PO PRN 12/05/18 Calcium Carbonate [Tums Regular] 750 mg PO PRN PRN 12/05/18 Cetirizine HCl 10 mg PO BEDTIME 12/05/18 Metoclopramide HCl [Reglan] 10 mg PO TID 12/05/18 Restore Pm 1 appl EACH EYE BEDTIME 12/05/18 Sertraline [Zoloft*] 50 mg PO DAILY 12/05/18 Smz./Tmp. [Bactrim Ds 800 MG/160 MG] 1 tab PO Q12H 12/05/18 - Past Medical/Surgical History Has patient received pneumonia vaccine in the past: No Diabetic: Yes -: Anxiety -: Depression -: Insulin Dependent Diabetes -: Edema -: 2 herniated disk lower back -: Fractured Vertebrae -: Hypertension -: Neuropathy -: High Cholesterol -: Rheumatoid Arthritis -: Acid Reflux -: Pancreatitis -: Appendectomy -: Tubal Ligation -: Nerve surgery left foot - Family History Father Medical History: Heart disease, Hypertension, Diabetes, Other (see notes) Notes: high cholesterol Mother Medical History: Heart disease, Hypertension, Diabetes, Other (see notes) Notes: high cholesterol - Social History Smoking Status: Former smoker Alcohol use: No CD- Drugs: No Caffeine use: Yes Place of Residence: Home Review of Systems 10-point ROS is otherwise unremarkable Physical Examination - Vital Signs Temperature: 98.4 F Blood Pressure: 127/63 Pulse: 57 Respirations: 54 Pulse Ox (%): 96 - Physical Exam General: Alert, In no apparent distress, Oriented x3 HEENT: Atraumatic, PERRLA, Mucous membr. moist/pink, EOMI, Sclerae nonicteric Neck: Supple, 2+ carotid pulse no bruit, No LAD, Without JVD or thyroid abnormality Respiratory: Clear to auscultation bilaterally, Normal air movement Cardiovascular: Regular rate/rhythm, Normal S1 S2 Gastrointestinal: Normal bowel sounds, No tenderness Musculoskeletal: No tenderness Integumentary: No rashes Neurological: Normal gait, Normal speech, Normal strength at 5/5 x4 extr, Normal tone, Normal affect Lymphatics: No axilla or inguinal lymphadenopathy - Studies Laboratory Data (last 24 hrs) 12/04/18 17:51: PT 10.5, INR 0.89 12/04/18 17:51: WBC 5.9, Hgb 11.0 L, Hct 34.0 L, Plt Count 215 12/04/18 17:51: Sodium 138, Potassium 4.6, BUN 44 H, Creatinine 2.27 H, Glucose 181 H, Magnesium 1.9, Total Bilirubin 0.2, AST 13 L, ALT 18, Alkaline Phosphatase 86 Assessment & Plan - Problems (Diagnosis) (1) GI bleeding Current Visit: Yes Status: Acute (2) Acute kidney injury Current Visit: Yes Status: Acute (3) Abdominal pain Current Visit: No Status: Acute (4) Nausea & vomiting Current Visit: No Status: Acute (5) Rheumatoid arthritis Onset Date: 07/16/18 Current Visit: No Status: Acute (6) Diabetes mellitus, type II Onset Date: 07/16/18 Current Visit: No Status: Chronic 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 Continue with IV hydration and PPI bid 2. strict intake and output 3. Continue with pain control 4. advanced diet as tolerated 5. Outpatient gastroenterology follow-up as scheduled for colonoscopy next week 6. Monitor LFTs and lipase along with electrolytes and serial H&H. 7. if her hemoglobin is stable and her renal function improved and she should be able to be discharged to continue her outpatient follow-up with GI next week 8. GI and DVT prophylaxis Discharge Plan: Home Plan to discharge in: 48 Hours - Advance Directives Does patient have a Living Will: No Does patient have a Durable POA for Healthcare: No - Code Status/Comfort Care Code Status Assessed: Yes Code Status: Full Code Critical Care: No Time Spent Managing PTS Care (In Minutes): 40
--- NOTE | 2018-12-05 10:48 | EKG ---
Test Date: 2018-12-04 Test Time: 17:54:18 Dragline Mechanic: RADHA MEASUREMENT RESULTS: Intervals: Rate: 66 SC: 164 QRSD: 76 QT: 412 QTc: 431 [place]: P: 17 SC: 164 QRS: 14 T: 40 INTERPRETIVE STATEMENTS: Normal sinus rhythm Minimal voltage criteria for LVH, may be normal variant Borderline ECG Compared to ECG 11/10/2018 12:03:31 Sinus bradycardia no longer present Electronically Signed On 12-05-18 10:47:58 CDT by Valentino Moreno
[2018-12-05] MEDS ORDERED: POLYETHYL GLY 3350 17 GM/DOSE PO SCH (17:00)
[2018-12-05] MEDS ORDERED: DOCUSATE NA 100 MG CAP PO SCH (17:00)
--- NOTE | 2018-12-05 17:16 | P.SSS ---
Patient History Date of Service: 12/05/18 Reason for admission: acute kidney injury History of Present Illness: Patient is a 52-year-old female who came to the hospital with complaints of melanotic stools and bloody stools. However when she arrived her hemoglobin was stable. She states she has been having this issue chronically. She is scheduled for an outpatient colonoscopy next week. This is in [place]. She says most of her physicians are in [place] and she is in town visiting family. When she came to the ER she was dehydrated and she looked to be in renal failure. She is admitted to the hospital for further workup. Allergies adhesive tape Allergy (Verified 12/05/18 10:22) Itching/Hives/Rash Home Medications: Gabapentin 300 mg PO TID 07/15/18 Meclizine HCl 25 mg PO Q6HP PRN 07/15/18 Metformin HCl 1,000 mg PO BIDWM 07/15/18 Lisinopril [Prinivil*] 10 mg PO DAILY #30 tab 07/19/18 Atorvastatin Calcium 1 tab PO BEDTIME 09/28/18 Ferrous Sulfate [Iron] 1 tab PO DAILY 09/28/18 Furosemide 1 tab PO Q48H 09/28/18 Insulin Detemir [Levemir Flextouch] 20 units SQ LUNCH 09/28/18 Magnesium Oxide [Magnesium] 1 tab PO DAILY 09/28/18 Mv-Min/Iron/Folic/Calcium/Vitk [Women's Multivitamin Tablet] 1 tab PO DAILY 09/15 Omeprazole 1 cap PO DAILY PRN 09/28/18 Sennosides 1 tab PO DAILY PRN 09/28/18 Tramadol HCl [Ultram] 1 tab PO Q8H PRN 09/28/18 Acetaminophen 500 mg PO PRN 12/05/18 Calcium Carbonate [Tums Regular*] 750 mg PO PRN PRN 12/05/18 Cetirizine HCl 10 mg PO BEDTIME 12/05/18 Metoclopramide HCl [Reglan] 10 mg PO TID 12/05/18 Restore Pm 1 appl EACH EYE BEDTIME 12/05/18 Sertraline [Zoloft*] 50 mg PO DAILY 12/05/18 Smz./Tmp. [Bactrim Ds 800 MG/160 MG*] 1 tab PO Q12H 12/05/18 - Past Medical/Surgical History Has patient received pneumonia vaccine in the past: No Diabetic: Yes -: Anxiety -: Depression -: Insulin Dependent Diabetes -: Edema -: 2 herniated disk lower back -: Fractured Vertebrae -: Hypertension -: Neuropathy -: High Cholesterol -: Rheumatoid Arthritis -: Acid Reflux -: Pancreatitis -: Appendectomy -: Tubal Ligation -: Nerve surgery left foot - Family History Father -: Heart disease, Hypertension, Diabetes, Other (see notes) Notes: high cholesterol Mother -: Heart disease, Hypertension, Diabetes, Other (see notes) Notes: high cholesterol - Social History Smoking Status: Former smoker Alcohol use: No CD- Drugs: No Caffeine use: Yes Place of Residence: Home Review of Systems 10-point ROS is otherwise unremarkable Physical Examination - Vital Signs Temperature: 98.4 F Blood Pressure: 127/63 Pulse: 57 Respirations: 54 Pulse Ox (%): 96 - Physical Exam General: Alert, In no apparent distress, Oriented x3 HEENT: Atraumatic, PERRLA, Mucous membr. moist/pink, EOMI, Sclerae nonicteric Neck: Supple, 2+ carotid pulse no bruit, No LAD, Without JVD or thyroid abnormality Respiratory: Clear to auscultation bilaterally, Normal air movement Cardiovascular: Regular rate/rhythm, Normal S1 S2 Gastrointestinal: Normal bowel sounds, No tenderness Musculoskeletal: No tenderness Integumentary: No rashes Neurological: Normal gait, Normal speech, Normal strength at 5/5 x4 extr, Normal tone, Normal affect Lymphatics: No axilla or inguinal lymphadenopathy - Studies Laboratory Data (last 24 hrs) 12/04/18 17:51: PT 10.5, INR 0.89 12/04/18 17:51: WBC 5.9, Hgb 11.0 L, Hct 34.0 L, Plt Count 215 12/04/18 17:51: Sodium 138, Potassium 4.6, BUN 44 H, Creatinine 2.27 H, Glucose 181 H, Magnesium 1.9, Total Bilirubin 0.2, AST 13 L, ALT 18, Alkaline Phosphatase 86 Treatment Summary: Patient was admitted for further workup. GI was consulted. She was kept NPO, IV fluids were started along with PPI was controlled. She felt better her diet was advanced. Per GI, she has a positive stool occult results as an outpatient in [place] and she already has a colonoscopy scheduled for next week in [place]. For no further GI workup at her facility. Her hemoglobin remained stable, she remained hemodynamically stable throughout the stay. Her renal function improved/resolved with IV fluids. Prior to discharge, her symptoms had resolved. She was not having any active bleeding throughout the stay. She was discharged in a stable manner. 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 - Disposition Discharge Date: 12/05/18 Disposition: ROUTINE DISCHARGE Condition: GOOD Consultations: Gastroenterology, Dr. Carrera Patient Discharge Instructions: Please follow up with the primary care physician in 2-3 days. Please follow up with the gastroenterology for your scheduled colonoscopy. Please return to the emergency room for worsening symptoms Diet: ADA Activity: Ad ada Time Spent Managing Pts Care (In Minutes): 45
--- NOTE | 2018-12-05 17:48 | EKG ---
Test Date: 2018-12-05 Test Time: 00:06:50 Career Services Director: NILSON MEASUREMENT RESULTS: Intervals: Rate: 62 IN: 172 QRSD: 82 QT: 410 QTc: 416 [place]: P: 27 IN: 172 QRS: 36 T: 51 INTERPRETIVE STATEMENTS: Normal sinus rhythm Normal ECG Compared to ECG 12/04/2018 17:54:18 Left ventricular hypertrophy no longer present Electronically Signed On 12-05-18 17:48:16 CDT by Valentino Moreno
== END 2018-12-05 18:23 | disposition home or self-care (01) ==
LOC: ER 16:45 → ERHOLD 21:48 → 2ND 12-05 08:02
PROVIDERS: ADMIT Hospitalist; ATTEND Family Medicine
PROC: 05HQ33Z Insertion of Infusion Device into Left External Jugular Vein, Percutaneous Approach (ICD-10-PCS; principal; 2018-12-04)
DX: N17.9 Acute kidney failure, unspecified (principal); R11.2 Nausea with vomiting, unspecified; E11.9 Type 2 diabetes mellitus without complications; I10 Essential (primary) hypertension; F41.8 Other specified anxiety disorders; K21.9 Gastro-esophageal reflux disease without esophagitis; M06.9 Rheumatoid arthritis, unspecified; R10.9 Unspecified abdominal pain; Z87.891 Personal history of nicotine dependence; Z79.4 Long term (current) use of insulin; K92.2 Gastrointestinal hemorrhage, unspecified
CPT/HCPCS: 36415; 71045; 76770; 80048; 80053; 80076; 81003; 81015; 82962; 83735; 83880; 84484; 85025; 85610; 86850; 86900; 86901; 87086; 87088; 93005; 96361; 96374; 96375; 99285; G0378; J2270; J2405; J7030

== ENCOUNTER 2018-12-20 10:00 | Emergency (ER) | payer SELFPAY ==
--- OUTSIDE RECORDS SUMMARY | 2018-12-20 10:06 | XMS REPORT | Clinical Summary ---
:1965 Author Organization [facility] Address [facility] [place] [address] Care Team Providers Name Role Phone Julio [...] Encounters Date Type Specialty Care Team Description 12/14/2018 Office Visit Psychology Lady Zaragoza MDD (major depressive disorder), recurrent episode, moderate (Primary Dx); M BEATRIZ (generalized anxiety disorder); Grief 12/04/2018 Lab Appointment Lab Julio César, Poorly controlled type 2 diabetes mellitus; Ani Jones NP Dyslipidemia 12/04/2018 Telephone [facility] Practice Nakul Griffin III, MD 11/30/2018 Office Visit Psychology Lady Zaragoza MDD (major depressive disorder), recurrent episode, moderate (Primary Dx); M Generalized anxiety disorder 11/30/2018 Travel 11/09/2018 Telephone Family Practice Ines Clemente LVN 11/08/2018 Telephone Ellen Vaughan Utilization Management [place] (colonoscopy) 11/01/2018 Office Visit Family Practice Julio César, Sri to discuss test results (Primary Dx); Ani [...] 10/18/2018 Hospital Radiology Julio César, Encounter Ani Joens NP 10/18/2018 Travel 10/18/2018 Nurse Triage Zee Bourgeois 10/16/2018 Ancillary Radiology Procedure 10/16/2018 Telephone Family Practice Hans Angela Communication Ani Jones NP 10/05/[address] [facility] Ines Landrum Information Only RN 10/02/[address] [facility] Julio César, Hospital discharge follow- up (Primary Dx); Ani Jones NP Diabetic gastroparesis; Inadequately controlled diabetes mellitus; Positive occult stool blood test; Acute pain of left knee; Fall, initial encounter; Acute right ankle pain; Constipation, unspecified constipation type; Sprain of right ankle, unspecified ligament, initial encounter; Seasonal allergic rhinitis, unspecified trigger 10/02/2018 Travel 09/26/2018 Nurse Triage Stella Culp RN 09/11/[address] [facility] Julio César, Essential hypertension ( Primary Dx); Ani Jones NP Dyslipidemia 09/07/2018 Telephone Patient Education Cole, Disease Management F/U Tomas Nur RN 09/06/[address] [facility] Julio César, Encounter to discuss test results (Primary Dx); Ani Jones NP Poorly controlled type 2 diabetes mellitus; Microalbuminuria; Left shoulder pain, unspecified chronicity; Low back pain at multiple sites; Bilateral lower extremity edema; Dyslipidemia; Positive occult stool blood test 09/06/2018 Ancillary Radiology Radha Angela NP 09/06/2018 Travel 08/30/[address] [facility] Julio César Positive occult stool Ani Jones NP blood test (Primary Dx) 08/15/2018 Ancillary Radiology Radha Angela NP 08/15/[address] [facility] Julio César, Results Ani Jones NP 08/09/2018 Office Visit [facility] Bhavani Angela, Hospital discharge follow- up [...] left shoulder; Flu vaccine need; Need for [id number] (Tdap) vaccine; Need for 23-polyvalent pneumococcal polysaccharide vaccine 08/09/2018 Travel after 12/19/2017 Immunizations Name Dates Previously Given Next Due [...] Taken Blood Pressure 135/73 11/01/2018 9:33 AM SENIOR INSTRUCTOR Pulse 65 11/01/2018 9:33 AM SENIOR INSTRUCTOR Temperature 36.7 C (98 F) 11/01/2018 9:33 AM SENIOR INSTRUCTOR Respiratory Rate 18 11/01/2018 9:33 AM SENIOR INSTRUCTOR Oxygen Saturation 99% 10/19/2018 3:00 AM SENIOR INSTRUCTOR Inhaled Oxygen Concentration - - Weight 95.7 kg (211 lb) 11/01/2018 9:33 AM SENIOR INSTRUCTOR Height 157.5 cm (5' 2") 11/01/2018 9:33 AM SENIOR INSTRUCTOR Body Mass Index 38.59 11/01/2018 9:33 AM SENIOR INSTRUCTOR Plan of Treatment Date Type Specialty Care Team Description 12/20/2018 Office Visit Psychiatry Claudia Paniagua MD [address] 2.216 [place] [address] [phone] 12/20/2018 Office Visit Family Practice Nakul Griffin Waitlist: Lab fu 1 week MD FCO from 12/05/[address] [place] [address] [id number] [place], [place] [id number] 12/28/2018 Office Visit Psychology Lady Zaragoza Project REACH-F/U Psychotherapy 01/14/2019 Office Visit Ophthalmology Retina/OCT MAc 01/24/2019 Office Visit Ophthalmology HVF 01/31/2019 Office Visit Ophthalmology Glaucoma 03/12/2019 Office Visit Psychiatry Jennifer Montenegro MD [facility] [address] [place] [address] [phone] Health Maintenance Due Date Last Done Comments Cervical Cancer Scrn (3 Yrs) 12/24/1984 IMM Influenza Seasonal May to October (>/=19 05/28/2019 08/09/2018 yrs) DM Retinal Exam (Yearly) 08/15/2019 08/15/2018 Colorectal Cancer Scrn Annual (FIT/FOBT) 08/24/2019 08/24/2018 Age 50 to 75 Breast Cancer Scrn (Yearly) 09/06/2019 09/06/2018 DM Foot Exam (Yearly) 11/02/2019 11/01/2018, 09/06/2018 DM HGBA1C (Yearly) 12/05/2019 12/04/2018, 08/09/2018 Goals Goal Patient Goal Associated Recent Patient-Stated? [...] A1C Routine 12/04/2018 8:58 Poorly controlled type Results for this AM CDT 2 diabetes mellitus procedure are in the results section. BASIC METABOLIC PANEL Routine 12/04/2018 8:58 Poorly controlled type Results for this AM CDT 2 diabetes mellitus procedure are in the results section. DIABETIC FOOT EXAM Routine 11/01/2018 9:52 Poorly controlled type Results for this AM SENIOR INSTRUCTOR 2 diabetes mellitus procedure are in the results section. GLUCOSE POC Routine 10/18/2018 6:23 Results for this PM SENIOR INSTRUCTOR procedure are in the results section. MRI KNEE JOINT W/O Routine 10/18/2018 4:08 Acute pain of left knee Results for this CONTRAST PM SENIOR INSTRUCTOR Fall, initial encounter procedure are in the results section. U/S RENAL Routine 10/16/2018 1:50 Microalbuminuria Results for this PM SENIOR INSTRUCTOR procedure are in the results section. DIABETIC FOOT EXAM Routine 09/06/2018 12:05 Poorly controlled type Results for this PM SENIOR INSTRUCTOR 2 diabetes mellitus procedure are in the results section. MAMMOGRAM BILAT Routine 09/06/2018 11:03 Screening for breast Results for this SCREEN DIGITAL AM SENIOR INSTRUCTOR cancer procedure are in the results section. OCCULT BLOOD ICT Routine 08/24/2018 2:33 Screen for colon cancer Results for this PM SENIOR INSTRUCTOR procedure are in the results section. OPHTHALMOLOGY RETINAL Routine 08/15/2018 12:23 Uncontrolled type 2 Results for this SCAN PM SENIOR INSTRUCTOR diabetes mellitus with procedure are in complication, with the results long-term current use section. of insulin XRAY SHOULDER 2 VIEWS Routine 08/15/2018 8:10 Pain in joint of left Results for this MIN AM SENIOR INSTRUCTOR shoulder procedure are in the results section. AMYLASE Routine 08/09/2018 12:24 Acute pancreatitis, Results for this PM SENIOR INSTRUCTOR unspecified procedure are in complication status, the results unspecified section. pancreatitis type LIPASE Routine 08/09/2018 12:24 Acute pancreatitis, Results for this PM SENIOR INSTRUCTOR unspecified procedure are in complication status, the results unspecified section. pancreatitis type SED RATE Routine 08/09/2018 12:24 Rheumatoid arthritis, Results for this PM SENIOR INSTRUCTOR involving unspecified procedure are in site, unspecified the results rheumatoid factor section. presence RA FACTOR Routine 08/09/2018 12:24 Rheumatoid arthritis, Results for this PM SENIOR INSTRUCTOR involving unspecified procedure are in site, unspecified the results rheumatoid factor section. presence SHELLY Routine 08/09/2018 12:24 Rheumatoid arthritis, Results for this PM SENIOR INSTRUCTOR involving unspecified procedure are in site, unspecified the results rheumatoid factor section. presence MAGNESIUM Routine 08/09/2018 12:24 Low magnesium level Results for this PM SENIOR INSTRUCTOR procedure are in the results section. VITAMIN B12 Routine 08/09/2018 12:24 Iron deficiency anemia, Results for this PM SENIOR INSTRUCTOR unspecified iron procedure are in deficiency anemia type the results section. IRON PROFILE Routine 08/09/2018 12:24 Iron deficiency anemia, Results for this PM SENIOR INSTRUCTOR unspecified iron procedure are in deficiency anemia type the results section. FOLIC ACID Routine 08/09/2018 12:24 Iron deficiency anemia, Results for this PM SENIOR INSTRUCTOR unspecified iron procedure are in deficiency anemia type the results section. FERRITIN Routine 08/09/2018 12:24 Iron deficiency anemia, Results for this PM SENIOR INSTRUCTOR unspecified iron procedure are in deficiency anemia type the results section. MICROALBUM, URINE Routine 08/09/2018 12:24 Uncontrolled type 2 Results for this PM SENIOR INSTRUCTOR diabetes mellitus with procedure are in complication, with the results long-term current use section. of insulin TSH Routine 08/09/2018 12:24 Uncontrolled type 2 Results for this PM SENIOR INSTRUCTOR diabetes mellitus with procedure are in complication, with the results long-term current use section. of insulin LIPID PROFILE Routine 08/09/2018 12:24 Uncontrolled type 2 Results for this PM SENIOR INSTRUCTOR diabetes mellitus with procedure are in complication, with the results long-term current use section. of insulin LIVER PROFILE Routine 08/09/2018 12:24 Uncontrolled type 2 Results for this PM SENIOR INSTRUCTOR diabetes mellitus with procedure are in complication, with the results long-term current use section. of insulin HIV-1/HIV-2 ROUTINE Routine 08/09/2018 12:24 Uncontrolled type 2 Results for this SCREENING PM SENIOR INSTRUCTOR diabetes mellitus with procedure are in complication, with the results long-term current use section. of insulin HEPATITIS PANEL Routine 08/09/2018 12:24 Uncontrolled type 2 Results for this PM SENIOR INSTRUCTOR diabetes mellitus with procedure are in complication, with the results long-term current use section. of insulin HEMOGLOBIN A1C Routine 08/09/2018 12:24 Uncontrolled type 2 Results for this PM SENIOR INSTRUCTOR diabetes mellitus with procedure are in complication, with the results long-term current use section. of insulin CBC/DIFF Routine 08/09/2018 12:24 Uncontrolled type 2 Results for this PM SENIOR INSTRUCTOR diabetes mellitus with procedure are in complication, with the results long-term current use section. of insulin BASIC METABOLIC PANEL Routine 08/09/2018 12:24 Uncontrolled type 2 Results for this PM SENIOR INSTRUCTOR diabetes mellitus with procedure are in complication, with the results long-term current use section. of insulin after 12/19/2017 Results HEMOGLOBIN A1C (12/04/2018 8:58 AM CDT)Only the most recent of2 resultswithin the time period is included. Hemoglobin A1c 9.1 (H) 4.3 - 6.1 % BT DIAGNOSTIC IMMUNOLOGY Est Average Gluc 214.5 mg/dL BT DIAGNOSTIC IMMUNOLOGY Specimen Blood Performing Organization Address City/State/Zipcode Phone Number MISYS BT DIAGNOSTIC IMMUNOLOGY LIVER PROFILE (12/04/2018 8:58 AM CDT)Only the [...] MAIN-STATION 1 Specimen Blood Performing Organization Address [facility] Phone Number MISYS MAIN-STATION 1 LIPID PROFILE (12/04/2018 8:58 AM CDT)Only the most recent of2 resultswithin the time period is included. Cholesterol 172 mg/dL BT MAIN-STATION 1 Comment: REFERENCE RANGE: Desirable: <200 mg/dL Borderline: 200-240 mg/dL High Risk: >240 mg/dL Triglyceride 131 <150 mg/dL BT MAIN-STATION 1 Comment: REFERENCE RANGE: Normal: <150 mg/dL Borderline High: 150-199 mg/dL High: 200-499 mg/dL Very High: >op=225 mg/dL HDL 64 mg/dL BT MAIN-STATION 1 Comment: Increased CHD risk: <40 mg/dL Decreased CHD risk: >60 mg/dL LDL 82 mg/dL BT MAIN-STATION 1 Comment: REFERENCE RANGE: Optimal: <100 mg/dL Near Optimal: 100-129 mg/dL Borderline High: 130-159 mg/dL High: 160-189 mg/dL Very High: >zv=083 mg/dL Specimen Blood Performing Organization Address [facility] Phone Number MISYS MAIN-STATION 1 BASIC METABOLIC PANEL (12/04/2018 8:58 AM CDT)Only the most recent of2 resultswithin the time period is included. CO2 23 21 - 31 mmol/L BT MAIN-STATION 1 Chloride 104 98 - 107 mmol/L BT MAIN-STATION 1 Potassium 6.2 (HH) 3.5 - 5.1 mmol/L BT MAIN-STATION 1 Sodium 141 136 - 145 mmol/L MAIN-STATION 1 Glucose 187 (H) 70 - 110 mg/dL MAIN-STATION 1 Urea Nitrogen 38 (H) 7 - 25 mg/dL BT MAIN-STATION 1 Creatinine 2.10 (H) 0.6 - 1.2 mg/dL BT MAIN-STATION 1 Anion Gap 14 BT MAIN-STATION 1 Calcium 9.8 8.6 - 10.3 mg/dL BT MAIN-STATION 1 GFR, Estimated 25 mL/min/1.73 m2 BT MAIN-STATION 1 GFR, Estim, Afr-Am 30 mL/min/1.73 m2 MAIN-STATION 1 Specimen Blood Performing Organization Address City/[facility] Phone Number MISYS MAIN-STATION 1 DIABETIC FOOT EXAM (11/01/2018 9:52 AM SENIOR INSTRUCTOR)Only the most recent of2 resultswithin the time period is included. Narrative Performed At Ani Angela NP 11/01/20181:16 PM Diabetic Foot Exam was performed at 11/01/2018 1:15 PM.Right foot sensation is normal, right foot pulses are normal, right foot appearance is normal.Left foot sensation is normal,left foot pulses are normal, left foot appearance is normal. GLUCOSE POC (10/18/2018 6:23 PM SENIOR INSTRUCTOR) Glucose POC 127 (H) 74 - 106 mg/dL [facility] MAIN-STATION 1 Performing Organization Address [facility] Phone Number MISYS [facility] MAIN-STATION 1 MRI KNEE JOINT W/O CONTRAST (10/18/2018 4:08 PM SENIOR INSTRUCTOR) Impressions Performed At IMPRESSION: [facility] 1.Focal partial tear of the anterior [...] DO, 10/19/2018 11:36 AM Narrative Performed At [facility] TECHNIQUE: Magnetic resonance imaging of the [...] Interface, Rad/Mammog In - 10/19/2018 11:41 AM SENIOR INSTRUCTOR TECHNIQUE: Magnetic resonance imaging of the LEFT [...] AM Performing Organization Address City/State/Zipcode Phone Number SMS U/S RENAL (10/16/2018 1:50 PM SENIOR INSTRUCTOR) Impressions Performed At IMPRESSION: SMS Normal renal [...] Interface, Rad/Mammog In - 10/16/2018 2:03 PM SENIOR INSTRUCTOR EXAM: Renal Ultrasound INDICATION: microalbuminuria COMPARISON: None [...] MD, 10/16/2018 1:57 PM Performing Organization Address City/State/[facility] Phone Number SMS MAMMOGRAM BILAT SCREEN DIGITAL (09/06/2018 11:03 AM SENIOR INSTRUCTOR) Impressions Performed At IMPRESSION: [facility] There is no mammographic evidence of malignancy. A 1 year screening mammogram is recommended. This document has been electronically signed. Jolie Leach M.D. aar/penrad:09/06/2018 12:12:51 Waiter/Waitress Formal: Jennifer Monet [facility] letter sent: Mammography Normal Mammogram BI-RADS: 2 Benign G0202 z12.31 Narrative Performed At [facility] #[id number] - MAMMOGRAM BILAT SCREEN DIGITAL BILATERAL DIGITAL [...] Interface, Rad/Mammog In - 09/06/2018 1:33 PM SENIOR INSTRUCTOR #[id number] - MAMMOGRAM BILAT SCREEN DIGITAL BILATERAL DIGITAL [...] electronically signed. Jolie Leach M.D. aar/penrad:09/06/2018 12:12:51 Waiter/Waitress Formal: Jennifer Monet [facility] letter sent: Mammography Normal Mammogram BI-RADS: 2 Benign G0202 z12.31 Performing Organization Address City/State/Zipcode Phone Number [facility] OCCULT BLOOD ICT (08/24/2018 2:33 PM SENIOR INSTRUCTOR) Occult Blood ICT Positive (A) NEG M2 ([facility]) Specimen Stool Performing Organization Address City/State/Zipcode Phone Number MISYS M2 ([facility]) OPHTHALMOLOGY RETINAL SCAN (08/15/2018 12:23 PM SENIOR INSTRUCTOR) RETINAL SCAN-FINAL CRITICAL (AA) IRIS RESULT Right [...] y/o, F (: 1965, ) presented to [facility] on 08-15-2018 for a retinal imaging study of the left and right eyes. Based on the findings of the study, the following is recommended for CARY LIZARRAGA Severe Diabetic Retinopathy Found: Refer next available - Retina appointment at [facility] Ophthalmology Department.For Follow-up at [facility] or [facility]: For CSME the ordering physicians should make an ROUTINE Referral in [facility] for or [facility] Ophthalmology stating to retina service. Interpreting Provider's Comments:No comments provided Right Eye Findings: Diabetic Retinopathy: Severe Other: Suspected Glaucoma Left Eye Findings: Diabetic Retinopathy: Severe Macular Edema: Moderate Other: Suspected Glaucoma This result was electronically signed by Andrade Ferguson MD, , Taxonomy: [id number] on 08-15-2018 05:23:51 [facility] time. NOTE:Any pathology noted on this diabetic retinal evaluation should be confirmed by an appropriate ophthalmic examination. Performing Organization Address City/State/Zipcode Phone Number IRIS XRAY SHOULDER 2 VIEWS MIN (08/15/2018 8:10 AM SENIOR INSTRUCTOR) Impressions Performed At IMPRESSION: [facility] No acute radiographic abnormality. Dictated By: Emery Cueto DO, 08/15/2018 9:30 AM I have reviewed the study and agree with the findings in this report. Signed By: Andres Sher DO, 08/15/2018 4:54 PM Narrative Performed At [facility] EXAM:Left, 2 viewXRAY SHOULDER 2 VIEWS MIN08/15/2018 8:10 AM INDICATION: left shoulder pain with limited ROM COMPARISON: None DISCUSSION: Adequate internal and external rotation. No displaced fracture or malalignment. The joint spaces are well maintained without definite osseous erosion. The visualized soft tissues appear unremarkable. Procedure Note Interface, Rad/Mammog In - 08/15/2018 4:59 PM SENIOR INSTRUCTOR EXAM:Left, 2 view XRAY SHOULDER 2 VIEWS [...] DO, 08/15/2018 4:54 PM Performing Organization Address City/State/Zipcode Phone Number SMS HIV-1/HIV-2 ROUTINE SCREENING (08/09/2018 12:24 PM SENIOR INSTRUCTOR) HIV-1/HIV-2 Negative NEG BT MAIN-STATION 3 Performing Organization Address [facility] Phone Number MISYS BT MAIN-STATION 3 MICROALBUM, URINE (08/09/2018 12:24 PM SENIOR INSTRUCTOR) Microalbum, Random 32.1 (H) 0.0 - 29.0 BT MAIN-STATION 1 mg/dL Creatinine, Ur 104.6 20 - 320 BT MAIN-STATION 1 mg/dL Urine Microalbumin 306.9 (H) 0 - 29 mg/g BT MAIN-STATION 1 Comment: UCR To minimize intra-individual variation, analysis of three random urine samples collected over the course of a week is recommended. Performing Organization Address City/[facility] Phone Number MISYS BT MAIN-STATION 1 TSH (08/09/2018 12:24 PM SENIOR INSTRUCTOR) TSH 1.51 0.57 - 3.74 uIU/mL BT MAIN-STATION 1 Specimen Blood Performing Organization Address City/[facility]/[employer] Phone Number MISYS BT MAIN-STATION 1 FOLIC ACID (08/09/2018 12:24 PM SENIOR INSTRUCTOR) Folic Acid >24.8 (H) 5.9 - 24.8 ng/mL BT MAIN-STATION 1 Specimen Blood Performing Organization Address [facility] Phone Number MISYS BT MAIN-STATION 1 FERRITIN (08/09/2018 12:24 PM SENIOR INSTRUCTOR) Ferritin 89.50 11.0 - 306.8 ng/mL BT MAIN-STATION 1 Specimen Blood Performing Organization Address City/[facility] Phone Number MISYS BT MAIN-STATION 1 VITAMIN B12 (08/09/2018 12:24 PM SENIOR INSTRUCTOR) Vitamin B12 592 211 - 911 pg/mL BT MAIN-STATION 1 Specimen Blood Performing Organization Address City/[facility] Phone Number MISYS BT MAIN-STATION 1 SED RATE (08/09/2018 12:24 PM SENIOR INSTRUCTOR) Sed Rate 24 <30 mm/Hr BT MAIN-STATION 2 Specimen Blood Performing Organization Address City/[facility] Phone Number MISYS BT MAIN-STATION 2 RA FACTOR (08/09/2018 12:24 PM SENIOR INSTRUCTOR) RA Factor <10 <14 IU/mL BT MAIN-STATION 1 Specimen Blood Performing Organization Address [facility] Phone Number MISYS BT MAIN-STATION 1 MAGNESIUM (08/09/2018 12:24 PM SENIOR INSTRUCTOR) Magnesium 1.6 (L) 1.9 - 2.7 mg/dL BT MAIN-STATION 1 Specimen Blood Performing Organization Address [facility] Phone Number MISYS BT MAIN-STATION 1 LIPASE (08/09/2018 12:24 PM SENIOR INSTRUCTOR) Lipase 18 11 - 82 U/L BT MAIN-STATION 1 Specimen Blood Performing Organization Address City/[facility] Phone Number MISYS BT MAIN-STATION 1 IRON PROFILE (08/09/2018 12:24 PM SENIOR INSTRUCTOR) Iron 70 50 - 212 ug/dL BT MAIN-STATION 1 TIBC 291 250 - 450 ug/dL BT MAIN-STATION 1 % Iron Sat 24 % BT MAIN-STATION 1 Specimen Blood Performing Organization Address City/[facility] Phone Number MISYS BT MAIN-STATION 1 HEPATITIS PANEL (08/09/2018 12:24 PM SENIOR INSTRUCTOR) HCV IgG Negative NEG BT MAIN-STATION 3 HBsAg Negative NEG BT MAIN-STATION 3 HAV, IgM Negative NEG BT MAIN-STATION 3 HBcAb, IgM Negative NEG BT MAIN-STATION 3 Specimen Blood Performing Organization Address City/[facility] Phone Number MISYS BT MAIN-STATION 3 CBC/DIFF (08/09/2018 12:24 PM SENIOR INSTRUCTOR) Pathologist [facility] WBC 4.7 4.5 - 11.0 K/uL BT [...] City/State/Zipcode Phone Number MISYS BT MAIN-STATION 2 SHELLY (08/09/2018 12:24 PM SENIOR INSTRUCTOR) SHELLY Screen Negative NEG BT DIAGNOSTIC IMMUNOLOGY Specimen Blood Performing Organization Address City/State/Zipcode Phone Number MISYS BT DIAGNOSTIC IMMUNOLOGY AMYLASE (08/09/2018 12:24 PM SENIOR INSTRUCTOR) Amylase 30 29 - 103 U/L BT MAIN-STATION 1 Specimen Blood Performing Organization Address City/[facility]/Zipcode Phone Number MISYS BT MAIN-STATION 1 after 12/19/2017 Insurance Payer Benefit Plan / Subscriber ID Effective Dates Phone Address Type Group [place] [employer] [place] [employer] xxxxxxx 2018-05/28 [phone] PLANNING 12/2018 6 [id number] [place] [address] [facility] PLAN [facility] PLAN 1 xxxxxxx 2018-06/11 [phone] 2018 [address] [place] [address]
--- OUTSIDE RECORDS SUMMARY | 2018-12-20 10:06 | XMS REPORT ---
:1965 [facility] Address [address] [place] [address] Care Team Providers Name Role Phone Unavailable [...] Clinicians Facility Department ID 2019-04-01 2019-04-01 Outpatient [facility] [id number] 00:00:00 00:00:00 2019-03-12 2019-03-12 Outpatient [facility] [id number] 00:00:00 00:00:00 2019-01-31 2019-01-31 Outpatient [facility] [id number] 00:00:00 00:00:00 2019-01-24 2019-01-24 Outpatient [facility] [id number] 00:00:00 00:00:00 2019-01-14 2019-01-14 Outpatient [facility] [id number] 00:00:00 00:00:00 2018-12-28 2018-12-28 Outpatient [facility] [id number] 00:00:00 00:00:00 2018-12-28 2018-12-28 Outpatient [facility] [id number] 00:00:00 00:00:00 2018-12-20 2018-12-20 Outpatient [facility] [id number] 00:00:00 00:00:00 2018-12-20 2018-12-20 Outpatient [facility] [id number] 00:00:00 00:00:00 2018-12-14 2018-12-14 Outpatient [facility] [id number] 08:42:56 08:42:56 2018-12-04 2018-12-04 Outpatient [facility] [id number] 09:03:33 09:03:33 2018-11-30 2018-11-30 Outpatient [facility] [id number] 09:20:13 09:20:13 2018-11-02 2018-11-02 Outpatient [facility] [id number] 00:00:00 00:00:00 2018-11-01 2018-11-01 Outpatient [facility] [id number] 09:33:34 09:33:34 2018-10-30 2018-10-30 Outpatient [facility] [id number] 00:00:00 00:00:00 2018-10-29 2018-10-29 Outpatient [facility] [id number] 15:49:25 15:49:25 2018-10-24 2018-10-24 Outpatient [facility] [id number] 00:00:00 00:00:00 2018-10-19 2018-10-19 Outpatient [facility] [id number] 00:00:00 00:00:00 2018-10-18 2018-10-18 Emergency [facility] [id number] 20:21:55 20:21:55 2018-10-18 2018-10-18 Outpatient [facility] [id number] 15:33:25 15:33:25 2018-10-16 2018-10-16 Outpatient [facility] [id number] 11:45:18 11:45:18 2018-10-02 2018-10-02 Outpatient [facility] [id number] 11:16:17 11:16:17 2018-10-02 2018-10-02 Outpatient [facility] [id number] 00:00:00 00:00:00 2018-09-27 2018-09-27 Outpatient [facility] [id number] 00:00:00 00:00:00 2018-09-06 2018-09-06 Outpatient [facility] [id number] 11:29:04 11:29:04 2018-09-06 2018-09-06 Outpatient [facility] [id number] 10:23:32 10:23:32 2018-08-27 2018-08-27 Outpatient [facility] [id number] 00:00:00 00:00:00 2018-08-24 2018-08-24 Outpatient [facility] [id number] 14:33:36 14:33:36 2018-08-16 2018-08-16 Outpatient [facility] [id number] 00:00:00 00:00:00 2018-08-16 2018-08-16 Outpatient [facility] [id number] 00:00:00 00:00:00 2018-08-15 2018-08-15 Outpatient [facility] [id number] 08:54:15 08:54:15 2018-08-15 2018-08-15 Outpatient [facility] [id number] 08:02:56 08:02:56 2018-08-10 2018-08-10 Outpatient [facility] [id number] 00:00:00 00:00:00 2018-08-10 2018-08-10 Outpatient [facility] [id number] 00:00:00 00:00:00 2018-08-10 2018-08-10 Outpatient [facility] [id number] 00:00:00 00:00:00 2018-08-10 2018-08-10 Outpatient [facility] [id number] 00:00:00 00:00:00 2018-08-09 2018-08-09 Outpatient [facility] [id number] 12:27:55 12:27:55 2018-08-09 2018-08-09 Outpatient [facility] [id number] 10:27:26 10:27:26
[2018-12-20] MEDS ORDERED: MORPHINE 4 MG/ML SYR ONE (10:48)
[2018-12-20] MEDS ORDERED: ONDANSETRON 4 MG/2 ML VIAL ONE (10:49)
[2018-12-20] MEDS ORDERED: NA CHLORIDE 0.9% 1,000 ML ONE (10:50)
[2018-12-20 11:23] LABS: Absolute Monocytes 0.3 K/uL (0.1-1.3); Absolute Neutrophil 2.4 K/uL (1.8-8.0); Basophils % 0.7 % (0-1.3); Eosinophils % 3.8 % (0-4.4); Hematocrit 31.6 % (36.0-45.0); Lymphocytes % 39.6 % (15.3-44.8); MPV 9.4 fL (7.6-11.3); Monocytes % 6.6 % (3.3-12.3); RBC Red Blood Cell Count 3.69 M/uL (3.86-4.86)
[2018-12-20 11:50] LABS: ALT/SGPT 16 U/L (12-78); AST/SGOT 13 U/L (15-37); Albumin 3.4 g/dL (3.4-5.0); Alkaline Phosphatase 88 U/L (45-117); BUN Blood Urea Nitrogen 23 mg/dL (7-18); Bicarbonate 25 mmol/L (21-32); Bilirubin Direct < 0.1 mg/dL (0-0.2); Bilirubin Total 0.3 mg/dL (0.2-1.0); Glucose Level 162 mg/dL (74-106); Lipase 188 U/L (73-393); Potassium 4.9 mmol/L (3.5-5.1); Protein, Total 7.5 g/dL (6.4-8.2); Sodium Level 142 mmol/L (136-145)
--- NOTE | 2018-12-20 13:17 | RAD REPORT ---
EXAM DESCRIPTION: CT - Abdomen Pelvis W Contrast - 12/20/2018 12:28 pm CLINICAL HISTORY: Abdominal pain/hematochezia COMPARISON: August 2018 TECHNIQUE: Computed axial tomography of the abdomen pelvis was obtained. 100 cc Isovue-300 was admin istered intravenously. Oral contrast was not requested which limits evaluation of bowel. All CT scans are performed using dose optimization technique as appropriate and may include automated exposure control or mA/KV adjustment according to patient size. FINDINGS: A 11 millimeter enhancing lesion is present within the posterior segment of the right lobe of the liver. , Spleen, pancreas, adrenal and kidneys appear unremarkable. There is no evidence of diverticulitis. There is no evidence of colitis IMPRESSION: 11 millimeter enhancing lesion within the liver is nonspecific. It may represent a heman gioma. Nonemergent liver ultrasound recommended for further evaluation.
--- NOTE | 2018-12-20 13:23 | EDPHYS ---
Physician Documentation [facility] Name: Cary Gan Age: 52 yrs Sex: Female : 1965 Arrival Date: 12/20/2018 Time: 10:03 Bed 19 Private MD: ED Physician Elia Jiménez HPI: 12/20 10:30 This 52 yrs old Female presents to ER via EMS with complaints of Abdominal jr8 pain with n/v/d. 10:30 The patient presents with abdominal pain in the left lower quadrant. Onset: The jr8 symptoms/episode began/occurred acutely, today. The symptoms do not radiate. Associated signs and symptoms: Pertinent positives: nausea, vomiting, and diarrhea. The symptoms are described as crampy, sharp. Modifying factors: The symptoms are alleviated by nothing, the symptoms are aggravated by nothing. Severity of pain: At its worst the pain was moderate in the emergency department the pain is unchanged. The patient has not experienced similar symptoms in the past. The patient has not recently seen a physician. 10:31 Patient stated that she is currently being worked up for anemia secondary to jr8 gastrointestinal hemorrhage by PCP. Scheduled to have colonoscopy soon. Stated that today started with n/v/d and abdominal pain . 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 - Social history:: Smoking status: Patient/guardian denies using tobacco, Patient/guardian denies using alcohol. - Ebola Screening: : Patient negative for fever greater than or equal to 101.5 degrees Fahrenheit, and additional compatible Ebola Virus Disease symptoms Patient denies exposure to infectious person Patient denies travel to an Ebola-affected area in the 21 days before illness onset. ROS: 10:30 Constitutional: Negative for fever, chills, and weight loss. jr8 10:30 Abdomen/GI: Positive for abdominal pain, nausea, vomiting, and diarrhea, black/tarry stool, Negative for abdominal distension, hematemesis, rectal pain, rectal bleeding, bowel incontinence, flatulence. 10:30 All other systems are negative. Exam: 10:31 Eyes: Pupils equal round and reactive to light, extra-ocular motions intact. Lids and jr8 lashes normal. Conjunctiva and sclera are non-icteric and not injected. Cornea within normal limits. Periorbital areas with no swelling, redness, or edema. ENT: Nares patent. No nasal discharge, no septal abnormalities noted. Tympanic membranes are normal and external auditory canals are clear. Oropharynx with no redness, swelling, or masses, exudates, or evidence of obstruction, uvula midline. Mucous membranes moist. Neck: Trachea midline, no thyromegaly or masses palpated, and no cervical lymphadenopathy. Supple, full range of motion without nuchal rigidity, or vertebral point tenderness. No Meningismus. Cardiovascular: Regular rate and rhythm with a normal S1 and S2. No gallops, murmurs, or rubs. Normal PMI, no JVD. No pulse deficits. Respiratory: Lungs have equal breath sounds bilaterally, clear to auscultation and percussion. No rales, rhonchi or wheezes noted. No increased work of breathing, no retractions or nasal flaring. Back: No spinal tenderness. No costovertebral tenderness. Full range of motion. Skin: Warm, dry with normal turgor. Normal color with no rashes, no lesions, and no evidence of cellulitis. MS/ Extremity: Pulses equal, no cyanosis. Neurovascular intact. Full, normal range of motion. Neuro: Awake and alert, GCS 15, oriented to person, place, time, and situation. Cranial nerves II-XII grossly intact. Motor strength 5/5 in all extremities. Sensory grossly intact. Cerebellar exam normal. Normal gait. 10:31 Abdomen/GI: Inspection: obese Bowel sounds: active, all quadrants, Palpation: soft, in all quadrants, moderate abdominal tenderness, in the left lower quadrant, mass, is not appreciated, rebound tenderness, is not appreciated, voluntary guarding, is not appreciated, involuntary guarding, is not appreciated, no appreciated organomegaly, Indicators: McBurney's point is not tender, Barrera's sign is negative, Rovsing's sign is negative, Obturator sign is negative, Psoas sign is negative, Liver: tenderness, is not appreciated. Vital Signs: 10:09 BP 142 / 77; Pulse 55; Resp 18; Temp 98.1(TE); Pulse Ox 96% on R/A; Weight 93.44 kg; hj Height 5 ft. 4 in. (162.56 cm); Pain 0/10; 11:43 BP 143 / 68; Pulse 52; Resp 18; Pulse Ox 100% on R/A; hj 12:30 BP 152 / 69; Pulse 53; Resp 18; Pulse Ox 100% on R/A; hj 13:12 BP 155 / 70; Pulse 51; Resp 18; Pulse Ox 100% on R/A; hj 10:09 Body Mass Index 35.36 (93.44 kg, 162.56 cm) hj MDM: 10:09 Patient medically screened. jr8 13:20 Data reviewed: vital signs, nurses notes, lab test result(s), radiologic studies, CT jr8 scan. Data interpreted: Pulse oximetry: on room air is 100 %. Interpretation: normal. Counseling: I had a detailed discussion with the patient and/or guardian regarding: the historical points, exam findings, and any diagnostic results supporting the discharge/admit diagnosis, lab results, radiology results, the need for outpatient follow up, a family practitioner, to return to the emergency department if symptoms worsen or persist or if there are any questions or concerns that arise at home. Response to treatment: the patient's symptoms have mildly improved after treatment, patient is well hydrated. ED course: Discussed with patient that there are no acute lab or imaging findings that correlate with her abdominal pain. Needs to f/u with GI for the colonoscopy that is scheduled. If worse to come back . 12/20 10:23 Order name: Basic Metabolic Panel; Complete Time: 12/20 10:23 Order name: CBC with Diff; Complete Time: 12/20 10:23 Order name: Creatinine for Radiology; Complete Time: 12/20 10:23 Order name: Hepatic Function; Complete Time: 12/20 10:23 Order name: Lipase; Complete Time: 12/20 11:07 Order name: Magnesium; Complete Time: 12/20 10:23 Order name: IV Saline Lock; Complete Time: 1112/20 10:23 Order name: Labs collected and sent; Complete Time: 11:11 jr8 12/20 12:02 Order name: CT Abd/Pelvis - W/Contrast; Complete Time: 13:20 jr8 Administered Medications: 11:00 Drug: morphine 4 mg Route: IVP; Site: right jugular; hj 12:00 Follow up: Response: No adverse reaction; Pain is decreased hj 11:00 Drug: Zofran 4 mg Route: IVP; Site: right jugular; hj 12:00 Follow up: Response: No adverse reaction; Nausea is decreased 11:00 Drug: NS 0.9% 1000 ml Route: IV; Rate: 1000 ml; Site: right jugular; hj 12:48 Follow up: IV Status: Completed infusion; IV Intake: 1000ml Disposition: 12/20/18 13:22 Discharged to Home. Impression: Generalized abdominal pain. - Condition is Stable. - Discharge Instructions: Abdominal Pain, Adult. - Medication Reconciliation Form, Thank You Letter, Antibiotic Education, Prescription Opioid Use form. - Follow up: Private Physician; When: 2 - 3 days; Reason: Recheck today's complaints, Continuance of care, Re-evaluation by your physician. - Problem is new. - Symptoms have improved. Addendum: 12/25/2018 10:38 Co-signature as Attending Physician, Elia Jiménez MD I agree with the assessment and k dr plan of care. 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 Signatures: Dispatcher [employer] EDElia Archuleta MD MD [facility] Josué Ayala PA PA [facility] Cheng Brewer RN RN Corrections: (The following items were deleted from the chart) 12/20 13:37 13:22 12/20/2018 13:22 Discharged to Home. Impression: Generalized abdominal pain. hj Condition is Stable. Forms are Medication Reconciliation Form, Thank You Letter, Antibiotic Education, Prescription Opioid Use. Follow up: Private Physician; When: 2 - 3 days; Reason: Recheck today's complaints, Continuance of care, Re-evaluation by your physician. Problem is new. Symptoms have improved. jr8
--- NOTE | 2018-12-20 13:23 | ER ---
Nurse's Notes [facility] Name: Cary Gan Age: 52 yrs Sex: Female : 1965 Arrival Date: 12/20/2018 Time: 10:03 Bed 19 Private MD: Diagnosis: Generalized abdominal pain Presentation: 12/20 10:03 Presenting complaint: EMS states: pt called for complaints of general weakness, stated, hj she had nausea, vomiting, diarrhea x 5 since yesterday, on triage states, blood in stool and abd pain; complaints of tingling on the L side; denies bilateral weakness of drift; denies fever and chills;. Transition of care: patient was not received from another setting of care. Onset of symptoms was December 20, 2018. 10:03 Method Of Arrival: EMS: [facility] 10:05 Risk Assessment: Do you want to hurt yourself or someone else? Patient reports no hj desire to harm self or others. Initial Sepsis Screen: Does the patient meet any 2 criteria? No. Patient's initial sepsis screen is negative. Does the patient have a suspected source of infection? No. Patient's initial sepsis screen is negative. Care prior to arrival: None. 10:05 Acuity: SANTANA 3 hj Triage Assessment: 10:08 General: Appears in no apparent distress. uncomfortable, Behavior is calm, cooperative, hj appropriate for age. Pain: Denies pain. 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 - Social history:: Smoking status: Patient/guardian denies using tobacco, Patient/guardian denies using alcohol. - Ebola Screening: : Patient negative for fever greater than or equal to 101.5 degrees Fahrenheit, and additional compatible Ebola Virus Disease symptoms Patient denies exposure to infectious person Patient denies travel to an Ebola-affected area in the 21 days before illness onset. Screenin:08 Abuse screen: Denies threats or abuse. Denies injuries from another. Nutritional hj screening: No deficits noted. Tuberculosis screening: No symptoms or risk factors identified. Fall Risk None identified. Assessment: 10:30 General: Appears in no apparent distress. uncomfortable, Behavior is calm, cooperative, hj appropriate for age. General: Reports weakness;. Pain: Denies pain. Neuro: Level of Consciousness is awake, alert, obeys commands, Oriented to person, place, time, situation, Appropriate for age. Cardiovascular: Capillary refill < 3 seconds Patient's skin is warm and dry. Respiratory: Airway is patent Respiratory effort is even, unlabored, Respiratory pattern is regular, symmetrical. GI: No signs and/or symptoms were reported involving the gastrointestinal system. : No signs and/or symptoms were reported regarding the genitourinary system. EENT: No signs and/or symptoms were reported regarding the EENT system. Derm: No signs and/or symptoms reported regarding the dermatologic system. Musculoskeletal: No signs and/or symptoms reported regarding the musculoskeletal system. 11:43 Reassessment: Patient and/or family updated on plan of care and expected duration. Pain hj level reassessed. Patient is alert, oriented x 3, equal unlabored respirations, skin warm/dry/pink. awaiting results and POC;. Vital Signs: 10:09 BP 142 / 77; Pulse 55; Resp 18; Temp 98.1(TE); Pulse Ox 96% on R/A; Weight 93.44 kg; hj Height 5 ft. 4 in. (162.56 cm); Pain 0/10; 11:43 BP 143 / 68; Pulse 52; Resp 18; Pulse Ox 100% on R/A; hj 12:30 BP 152 / 69; Pulse 53; Resp 18; Pulse Ox 100% on R/A; hj 13:12 BP 155 / 70; Pulse 51; Resp 18; Pulse Ox 100% on R/A; hj 10:09 Body Mass Index 35.36 (93.44 kg, 162.56 cm) ED Course: 10:03 Patient arrived in ED. hj 10:06 Triage completed. hj 10:08 Josué Ayala PA is PHCP. jr8 10:08 Elia Jiménez MD is Attending Physician. jr8 10:09 Arm band placed on right wrist. hj 10:10 Patient has correct armband on for positive identification. Placed in gown. Bed in low hj position. Call light in reach. Side rails up X 1. 10:33 Cheng Brewer, RN is Primary Nurse. hj 11:09 Initial lab(s) drawn, by me, sent to lab. Inserted saline lock: 20 gauge in right EJ, hj using aseptic technique. Blood collected. 12:28 CT Abd/Pelvis - W/Contrast In Process Unspecified. EDMS 13:36 No provider procedures requiring assistance completed. IV discontinued, intact, hj bleeding controlled, No redness/swelling at site. Pressure dressing applied. Administered Medications: 11:00 Drug: morphine 4 mg Route: IVP; Site: right jugular; hj 12:00 Follow up: Response: No adverse reaction; Pain is decreased hj 11:00 Drug: Zofran 4 mg Route: IVP; Site: right jugular; hj 12:00 Follow up: Response: No adverse reaction; Nausea is decreased hj 11:00 Drug: NS 0.9% 1000 ml Route: IV; Rate: 1000 ml; Site: right jugular; hj 12:48 Follow up: IV Status: Completed infusion; IV Intake: 1000ml hj Intake: 12:48 IV: 1000ml; Total: 1000ml. hj Outcome: 13:22 Discharge ordered by MD. gomez 13:37 Discharged to home via wheelchair. hj 13:37 Condition: stable 13:37 Discharge instructions given to patient, family, Instructed on discharge instructions, follow up and referral plans. Demonstrated understanding of instructions, follow-up care. 13:37 Patient left the ED. hj Signatures: Dispatcher [employer] EDMS Josué Ayala PA PA jr8 Joaquin, Henry RN RN hj
[2018-12-20 14:08] VITALS: TEMP 98.1
[2018-12-20 14:09] VITALS: O2SAT 100
[2018-12-20 14:11] VITALS: BP 155/70
== END 2018-12-20 13:37 | disposition home or self-care (01) ==
LOC: ER 10:00
DX: R10.32 Left lower quadrant pain (principal); R11.2 Nausea with vomiting, unspecified; R19.7 Diarrhea, unspecified; E11.9 Type 2 diabetes mellitus without complications; E78.00 Pure hypercholesterolemia, unspecified; M06.9 Rheumatoid arthritis, unspecified; Z79.4 Long term (current) use of insulin
CPT/HCPCS: 36415; 74177; 80048; 80076; 83690; 83735; 85025; 96361; 96374; 96375; 99284; J2405; J7030; Q9967

== ENCOUNTER 2019-01-14 13:52 | Emergency (ER) | payer SELFPAY ==
--- OUTSIDE RECORDS SUMMARY | 2019-01-14 13:55 | XMS REPORT ---
:1965 [facility] Address [address] [place] [address] Care Team Providers Name Role Phone Unavailable [...] Facility Department ID 2019-04-01 2019-04-01 Outpatient [facility] [id number] 00:00:00 00:00:00 2019-03-12 2019-03-12 Outpatient [facility] [id number] 00:00:00 00:00:00 2019-02-14 2019-02-14 Outpatient [facility] [id number] 00:00:00 00:00:00 2019-01-31 2019-01-31 Outpatient [facility] [id number] 00:00:00 00:00:00 2019-01-24 2019-01-24 Outpatient [facility] [id number] 00:00:00 00:00:00 2019-01-14 2019-01-14 Outpatient [facility] [id number] 00:00:00 00:00:00 2018-12-28 2018-12-28 Outpatient [facility] [id number] 00:00:00 00:00:00 2018-12-28 2018-12-28 Outpatient [facility] [id number] 00:00:00 00:00:00 2018-12-20 2018-12-20 Outpatient [facility] [id number] 00:00:00 00:00:00 2018-12-20 2018-12-20 Outpatient [facility] [id number] 00:00:00 00:00:00 2018-12-14 2018-12-14 Outpatient [facility] [id number] 08:42:56 08:42:56 2018-12-04 2018-12-04 Outpatient [facility] [id number] 09:03:33 09:03:33 2018-11-30 2018-11-30 Outpatient [facility] [id number] 09:20:13 09:20:13 2018-11-02 2018-11-02 Outpatient [facility] [id number] 00:00:00 00:00:00 2018-11-01 2018-11-01 Outpatient [facility] [id number] 09:33:34 09:33:34 2018-10-30 2018-10-30 Outpatient [facility] [id number] 00:00:00 00:00:00 2018-10-29 2018-10-29 Outpatient [facility] [id number] 15:49:25 15:49:25 2018-10-24 2018-10-24 Outpatient [facility] [id number] 00:00:00 00:00:00 2018-10-19 2018-10-19 Outpatient [facility] [id number] 00:00:00 00:00:00 2018-10-18 2018-10-18 Emergency [facility] [id number] 20:21:55 20:21:55 2018-10-18 2018-10-18 Outpatient [facility] [id number] 15:33:25 15:33:25 2018-10-16 2018-10-16 Outpatient [facility] [id number] 11:45:18 11:45:18 2018-10-02 2018-10-02 Outpatient [facility] [id number] 11:16:17 11:16:17 2018-10-02 2018-10-02 Outpatient [facility] [id number] 00:00:00 00:00:00 2018-09-27 2018-09-27 Outpatient [facility] [id number] 00:00:00 00:00:00 2018-09-06 2018-09-06 Outpatient [facility] [id number] 11:29:04 11:29:04 2018-09-06 2018-09-06 Outpatient [facility] [id number] 10:23:32 10:23:32 2018-08-27 2018-08-27 Outpatient [facility] [id number] 00:00:00 00:00:00 2018-08-24 2018-08-24 Outpatient [facility] [id number] 14:33:36 14:33:36 2018-08-16 2018-08-16 Outpatient [facility] [id number] 00:00:00 00:00:00 2018-08-16 2018-08-16 Outpatient [facility] [id number] 00:00:00 00:00:00 2018-08-15 2018-08-15 Outpatient [facility] [id number] 08:54:15 08:54:15 2018-08-15 2018-08-15 Outpatient [facility] [id number] 08:02:56 08:02:56 2018-08-10 2018-08-10 Outpatient [facility] [id number] 00:00:00 00:00:00 2018-08-10 2018-08-10 Outpatient [facility] [id number] 00:00:00 00:00:00 2018-08-10 2018-08-10 Outpatient [facility] [id number] 00:00:00 00:00:00 2018-08-10 2018-08-10 Outpatient [facility] [id number] 00:00:00 00:00:00 2018-08-09 2018-08-09 Outpatient [facility] [id number] 12:27:55 12:27:55 2018-08-09 2018-08-09 Outpatient [facility] [id number] 10:27:26 10:27:26
--- NOTE | 2019-01-14 15:09 | ER ---
Nurse's Notes [facility] Name: Cary Gan Age: 53 yrs Sex: Female : 1965 Arrival Date: 01/14/2019 Time: 13:53 Bed 8 Private MD: Diagnosis: Contusion of right ankle;Contusion of left knee;Contusion of right knee Presentation: 01/14 13:56 Presenting complaint: Patient states: I became dizzy and fell onto my left knee, now my sg left knee and right hand are hurting, I think its because of the IV in my hand that it is hurting. Denies LOC, reports dizziness continues at this time but is better when laying down on the stretcher. Transition of care: patient was not received from another setting of care. Onset of symptoms was January 14, 2019. Risk Assessment: Do you want to hurt yourself or someone else? Patient reports no desire to harm self or others. Initial Sepsis Screen: Does the patient meet any 2 criteria? No. Patient's initial sepsis screen is negative. Does the patient have a suspected source of infection? No. Patient's initial sepsis screen is negative. Care prior to arrival: IV initiated. 22 GA, in the right hand, Glucose check: 278. 13:56 Method Of Arrival: EMS: [facility] 13:56 Acuity: SANTANA 3 sg Triage Assessment: 13:58 General: Appears in no apparent distress. well groomed, well developed, well nourished, sg Behavior is calm, cooperative, appropriate for age. Pain: Complains of pain in left knee. Neuro: Level of Consciousness is awake, alert, obeys commands, Oriented to person, place, time, situation, Barmaid are equal bilaterally Moves all extremities. Full function Gait is steady, Speech is normal, Facial symmetry appears normal, Pupils are PERRLA, pt able to transfer from EMS stretcher to ER stretcher, no problems . Cardiovascular: Edema is 1+ to left midcalf, left ankle, left foot, left toes, right midcalf, right ankle, right foot and right toes. Derm: Bruising that is brown, green, on right leg and left leg. Musculoskeletal: Circulation, motion, and sensation intact. Range of motion: intact in all extremities. Historical: - Allergies: 13:56 Adhesives; sg - PMHx: 13:56 "hot fashes"; flashes*; Anxiety; Depression; Diabetes - IDDM; EDEMA; herniated disk sg lower back, neck vertibre fusion; high blood pressure (resolved); High Cholesterol; neuropathy; Pancreatitis; Rheumatoid Arthritis; - PSHx: 13:56 Unable to obtain; sg - Immunization history:: Adult Immunizations up to date. - Social history:: Smoking status: Patient/guardian denies using tobacco. - Ebola Screening: : Patient negative for fever greater than or equal to 101.5 degrees Fahrenheit, and additional compatible Ebola Virus Disease symptoms Patient denies exposure to infectious person Patient denies travel to an Ebola-affected area in the 21 days before illness onset No symptoms or risks identified at this time. Screenin:15 Abuse screen: Denies threats or abuse. Denies injuries from another. Nutritional sg screening: No deficits noted. Tuberculosis screening: No symptoms or risk factors identified. Fall Risk None identified. Assessment: 14:09 Reassessment: see triage assessment. sg 15:00 Reassessment: Patient appears in no apparent distress at this time. Patient and/or sg family updated on plan of care and expected duration. Pain level reassessed. Patient is alert, oriented x 3, equal unlabored respirations, skin warm/dry/pink. Vital Signs: 13:55 BP 147 / 61; Pulse 58; Resp 16; Temp 97.9(O); Pulse Ox 96% on R/A; Pain 8/10; em1 15:00 BP 134 / 68; Pulse 55; Resp 17; Pulse Ox 100% on R/A; sg ED Course: 13:53 Patient arrived in ED. sg 13:54 Arm band placed on. sg 13:58 Triage completed. sg 14:00 South Cabrera, RN is Primary Nurse. sg 14:00 Patient has correct armband on for positive identification. Bed in low position. Call sg light in reach. Side rails up X2. Pulse ox on. NIBP on. Warm blanket given. Head of bed elevated. Elevated left leg. 14:16 Josué Ayala PA is PHCP. jr8 14:16 Scott Qiu MD is Attending Physician. jr8 14:49 X-ray completed. Portable x-ray completed in exam room. Patient tolerated procedure sw well. 14:50 XRAY Knee LEFT 3 view In Process Unspecified. EDMS 14:50 XRAY Ankle RIGHT 3 view In Process Unspecified. EDMS 15:30 No provider procedures requiring assistance completed. Patient did not have IV access sg during this emergency room visit. Administered Medications: No medications were administered Point of Care Testing: Blood Glucose: 15:03 Blood Glucose: 219 mg/dL; sg Ranges: Outcome: 15:09 Discharge ordered by MD. gomez 15:30 Discharged to home ambulatory. sg 15:30 Condition: stable 15:30 Discharge instructions given to patient, Instructed on discharge instructions, follow up and referral plans. medication usage, Demonstrated understanding of instructions, follow-up care, medications. 15:44 Patient left the ED. hj Signatures: Dispatcher [employer] EDMS South Cabrera, RN RN Sohail Russell em1 Josué Ayala PA PA jr8 Warren, Shannon sw Joaquin, Henry, RN RN itzel Corrections: (The following items were deleted from the chart) 14:59 13:56 Care prior to arrival: None. sg sg
--- NOTE | 2019-01-14 15:10 | EDPHYS ---
Physician Documentation [facility] Name: Cary Gan Age: 53 yrs Sex: Female : 1965 Arrival Date: 01/14/2019 Time: 13:53 Bed 8 Private MD: ED Physician Scott Qiu HPI: 01/14 15:02 This 53 yrs old Female presents to ER via EMS with complaints of Knee Pain, jr8 Dizziness. 15:02 Onset: The symptoms/episode began/occurred acutely, today. Associated injuries: The jr8 patient sustained right leg and left leg. Severity of symptoms: At their worst the symptoms were mild, in the emergency department the symptoms are unchanged. The patient has not experienced similar symptoms in the past. The patient has not recently seen a physician. Patient stated that she was bent over and tried to stand up. Went too fast and became dizzy. History of vertigo. Stated that she fell and hit left knee and right ankle. Denies any other trauma. Dizziness has resolved. No LOC. Denies CP, SOB, or palpitation feeling . Historical: - Allergies: 13:56 Adhesives; sg - PMHx: 13:56 "hot fashes"; flashes*; Anxiety; Depression; Diabetes - IDDM; EDEMA; herniated disk sg lower back, neck vertibre fusion; high blood pressure (resolved); High Cholesterol; neuropathy; Pancreatitis; Rheumatoid Arthritis; - PSHx: 13:56 Unable to obtain; sg - Immunization history:: Adult Immunizations up to date. - Social history:: Smoking status: Patient/guardian denies using tobacco. - Ebola Screening: : Patient negative for fever greater than or equal to 101.5 degrees Fahrenheit, and additional compatible Ebola Virus Disease symptoms Patient denies exposure to infectious person Patient denies travel to an Ebola-affected area in the 21 days before illness onset No symptoms or risks identified at this time. ROS: 15:02 Eyes: Negative for injury, pain, redness, and discharge, ENT: Negative for injury, jr8 pain, and discharge, Neck: Negative for injury, pain, and swelling, Cardiovascular: Negative for chest pain, palpitations, and edema, Respiratory: Negative for shortness of breath, cough, wheezing, and pleuritic chest pain, Abdomen/GI: Negative for abdominal pain, nausea, vomiting, diarrhea, and constipation, Back: Negative for injury and pain, Skin: Negative for injury, rash, and discoloration. 15:02 MS/extremity: Positive for ecchymosis, pain, tenderness, of the right leg and left leg. 15:02 Neuro: Positive for dizziness. Exam: 15:05 Head/Face: Normocephalic, atraumatic. Eyes: Pupils equal round and reactive to light, jr8 extra-ocular motions intact. Lids and lashes normal. Conjunctiva and sclera are non-icteric and not injected. Cornea within normal limits. Periorbital areas with no swelling, redness, or edema. ENT: Nares patent. No nasal discharge, no septal abnormalities noted. Tympanic membranes are normal and external auditory canals are clear. Oropharynx with no redness, swelling, or masses, exudates, or evidence of obstruction, uvula midline. Mucous membranes moist. Neck: Trachea midline, no thyromegaly or masses palpated, and no cervical lymphadenopathy. Supple, full range of motion without nuchal rigidity, or vertebral point tenderness. No Meningismus. Chest/axilla: Normal chest wall appearance and motion. Nontender with no deformity. No lesions are appreciated. Cardiovascular: Regular rate and rhythm with a normal S1 and S2. No gallops, murmurs, or rubs. Normal PMI, no JVD. No pulse deficits. Respiratory: Lungs have equal breath sounds bilaterally, clear to auscultation and percussion. No rales, rhonchi or wheezes noted. No increased work of breathing, no retractions or nasal flaring. Abdomen/GI: Soft, non-tender, with normal bowel sounds. No distension or tympany. No guarding or rebound. No evidence of tenderness throughout. Back: No spinal tenderness. No costovertebral tenderness. Full range of motion. Skin: Warm, dry with normal turgor. Normal color with no rashes, no lesions, and no evidence of cellulitis. Neuro: Awake and alert, GCS 15, oriented to person, place, time, and situation. Cranial nerves II-XII grossly intact. Motor strength 5/5 in all extremities. Sensory grossly intact. Cerebellar exam normal. Normal gait. 15:05 Musculoskeletal/extremity: Extremities: grossly normal except: noted in the left knee: ecchymosis, pain, swelling, tenderness, to anterior knee, noted in the right knee: anterior ecchymosis without tenderness, deformity, or swelling , noted in the right ankle: pain, swelling, tenderness, No decreased ROM, ROM: full active range of motion, full passive range of motion, limited active range of motion due to pain, limited passive range of motion due to pain, Circulation is intact in all extremities. Pulses: noted to be 2+ in the right radial artery, right dorsalis pedis artery, left radial artery and left dorsalis pedis artery. Vital Signs: 13:55 BP 147 / 61; Pulse 58; Resp 16; Temp 97.9(O); Pulse Ox 96% on R/A; Pain 8/10; em1 15:00 BP 134 / 68; Pulse 55; Resp 17; Pulse Ox 100% on R/A; sg Procedures: 15:13 Splinting: Splint applied to left knee using jake wrap, applied by tech. Examined by jason betancourt post splint application: neurovascular intact, 2+ distal pulses palpable, brisk capillary refill noted, Patient tolerated well. MDM: 14:18 Patient medically screened. jr8 15:08 Data reviewed: vital signs, nurses notes, radiologic studies, plain films, and as a jr8 result, I will discharge patient. Data interpreted: Pulse oximetry: on room air is 100 %. Interpretation: normal. Counseling: I had a detailed discussion with the patient and/or guardian regarding: the historical points, exam findings, and any diagnostic results supporting the discharge/admit diagnosis, radiology results, the need for outpatient follow up, a family practitioner, to return to the emergency department if symptoms worsen or persist or if there are any questions or concerns that arise at home. 01/14 15:05 Order name: Glucose, Ancillary Testing; Complete Time: 15:08 EDMS 01/14 14:27 Order name: XRAY Knee LEFT 3 view; Complete Time: 15:13 jr8 01/14 14:27 Order name: XRAY Ankle RIGHT 3 view; Complete Time: 15: jr8 01/14 14:27 Order name: Glucose Level; Complete Time: 19:37 jr8 01/14 15:13 Order name: Jake wrap-joint; Complete Time: 19:37 jr8 Administered Medications: No medications were administered Point of Care Testing: Blood Glucose: 15:03 Blood Glucose: 219 mg/dL; sg Ranges: Critical Glucose Levels:Adult <50 mg/dl or >400 mg/dl <40 mg/dl or >180 mg/dl Disposition: 17:21 Co-signature as Attending Physician, Scott Qiu MD. rn Disposition: 01/14/19 15:09 Discharged to Home. Impression: Contusion of right ankle, Contusion of left knee, Contusion of right knee. - Condition is Stable. - Discharge Instructions: Contusion, Knee Pain, Ankle Pain. - Medication Reconciliation Form, Thank You Letter, Antibiotic Education, Prescription Opioid Use form. - Follow up: Private Physician; When: 5 - 6 days; Reason: Recheck today's complaints, Continuance of care, Re-evaluation by your physician. - Problem is new. - Symptoms have improved. Signatures: Dispatcher [employer] EDMS South Cabrera RN RN Scott Lemos MD MD rn Roszak, Josh, PA PA jr8 Cheng Brewer RN RN hj Corrections: (The following items were deleted from the chart) 15:44 15:09 01/14/2019 15:09 Discharged to Home. Impression: Contusion of right ankle; hj Contusion of left knee; Contusion of right knee. Condition is Stable. Forms are Medication Reconciliation Form, Thank You Letter, Antibiotic Education, Prescription Opioid Use. Follow up: Private Physician; When: 5 - 6 days; Reason: Recheck today's complaints, Continuance of care, Re-evaluation by your physician. Problem is new. Symptoms have improved. jr8
--- NOTE | 2019-01-14 15:10 | RAD REPORT ---
EXAM DESCRIPTION: RAD - Knee Left 3 View - 01/14/2019 2:54 pm CLINICAL HISTORY: Left knee pain status post injury FINDINGS: No fracture or dislocation is seen. Lucency within the proximal tibia surrounded by sclerosis is unchanged from 2017 likely benign
--- NOTE | 2019-01-14 15:12 | RAD REPORT ---
EXAM DESCRIPTION: RAD - Ankle Right 3 View - 01/14/2019 2:54 pm CLINICAL HISTORY: Right ankle pain status post fall FINDINGS: No fracture or dislocation is seen. Soft tissue swelling
[2019-01-14 16:00] VITALS: BP 134/68; O2SAT 100
[2019-01-14 16:02] VITALS: TEMP 97.9
== END 2019-01-14 15:44 | disposition home or self-care (01) ==
LOC: ER 13:52
DX: S80.02XA Contusion of left knee, initial encounter (principal); S80.01XA Contusion of right knee, initial encounter; S90.01XA Contusion of right ankle, initial encounter; W18.39XA Other fall on same level, initial encounter; F41.9 Anxiety disorder, unspecified; F32.9 Major depressive disorder, single episode, unspecified; E11.9 Type 2 diabetes mellitus without complications; E78.00 Pure hypercholesterolemia, unspecified; Z79.4 Long term (current) use of insulin
CPT/HCPCS: 82962; 99284

== ENCOUNTER 2019-01-29 00:46 | Emergency (ER) | payer SELFPAY ==
--- OUTSIDE RECORDS SUMMARY | 2019-01-29 00:50 | XMS REPORT ---
:1965 [facility] Address [address] [place] [address] Care Team Providers Name Role Phone Unavailable [...] Clinicians Facility Department ID 2019-04-01 2019-04-01 Outpatient [facility] [id number] 00:00:00 00:00:00 2019-03-12 2019-03-12 Outpatient [facility] [id number] 00:00:00 00:00:00 2019-02-14 2019-02-14 Outpatient [facility] [id number] 00:00:00 00:00:00 2019-01-31 2019-01-31 Outpatient [facility] [id number] 00:00:00 00:00:00 2019-01-24 2019-01-24 Outpatient [facility] [id number] 11:13:27 11:13:27 2019-01-14 2019-01-14 Outpatient [facility] [id number] 00:00:00 00:00:00 2018-12-28 2018-12-28 Outpatient [facility] [id number] 00:00:00 00:00:00 2018-12-28 2018-12-28 Outpatient [facility] [id number] 00:00:00 00:00:00 2018-12-20 2018-12-20 Outpatient [facility] [id number] 00:00:00 00:00:00 2018-12-20 2018-12-20 Outpatient [facility] [id number] 00:00:00 00:00:00 2018-12-14 2018-12-14 Outpatient [facility] [id number] 08:42:56 08:42:56 2018-12-04 2018-12-04 Outpatient [facility] [id number] 09:03:33 09:03:33 2018-11-30 2018-11-30 Outpatient [facility] [id number] 09:20:13 09:20:13 2018-11-02 2018-11-02 Outpatient [facility] [id number] 00:00:00 00:00:00 2018-11-01 2018-11-01 Outpatient [facility] [id number] 09:33:34 09:33:34 2018-10-30 2018-10-30 Outpatient [facility] [id number] 00:00:00 00:00:00 2018-10-29 2018-10-29 Outpatient [facility] [id number] 15:49:25 15:49:25 2018-10-24 2018-10-24 Outpatient [facility] [id number] 00:00:00 00:00:00 2018-10-19 2018-10-19 Outpatient [facility] [id number] 00:00:00 00:00:00 2018-10-18 2018-10-18 Emergency [facility] [id number] 20:21:55 20:21:55 2018-10-18 2018-10-18 Outpatient [facility] [id number] 15:33:25 15:33:25 2018-10-16 2018-10-16 Outpatient [facility] [id number] 11:45:18 11:45:18 2018-10-02 2018-10-02 Outpatient [facility] [id number] 11:16:17 11:16:17 2018-10-02 2018-10-02 Outpatient [facility] [id number] 00:00:00 00:00:00 2018-09-27 2018-09-27 Outpatient [facility] [id number] 00:00:00 00:00:00 2018-09-06 2018-09-06 Outpatient [facility] [id number] 11:29:04 11:29:04 2018-09-06 2018-09-06 Outpatient [facility] [id number] 10:23:32 10:23:32 2018-08-27 2018-08-27 Outpatient [facility] [id number] 00:00:00 00:00:00 2018-08-24 2018-08-24 Outpatient [facility] [id number] 14:33:36 14:33:36 2018-08-16 2018-08-16 Outpatient [facility] [id number] 00:00:00 00:00:00 2018-08-16 2018-08-16 Outpatient [facility] [id number] 00:00:00 00:00:00 2018-08-15 2018-08-15 Outpatient [facility] [id number] 08:54:15 08:54:15 2018-08-15 2018-08-15 Outpatient [facility] [id number] 08:02:56 08:02:56 2018-08-10 2018-08-10 Outpatient [facility] [id number] 00:00:00 00:00:00 2018-08-10 2018-08-10 Outpatient [facility] [id number] 00:00:00 00:00:00 2018-08-10 2018-08-10 Outpatient [facility] [id number] 00:00:00 00:00:00 2018-08-10 2018-08-10 Outpatient [facility] [id number] 00:00:00 00:00:00 2018-08-09 2018-08-09 Outpatient [facility] [id number] 12:27:55 12:27:55 2018-08-09 2018-08-09 Outpatient [facility] [id number] 10:27:26 10:27:26
--- OUTSIDE RECORDS SUMMARY | 2019-01-29 00:50 | XMS REPORT | Clinical Summary ---
:1965 Author Organization [facility] Address [facility] [place] [address] Care Team Providers Name Role Phone Ani Angela NP Primary Care Provider Allergies No Known Allergies [...] Encounters Date Type Specialty Care Team Description 01/24/2019 Nurse Only Ophthalmology Vicki Palencia 01/24/2019 Travel 12/14/2018 Office Visit Psychology Lady Zaragoza MDD (major depressive disorder), recurrent episode, moderate (Primary Dx); M BEATRIZ (generalized anxiety disorder); Grief 12/04/2018 Lab Appointment Lab Julio César, Poorly controlled type 2 diabetes mellitus; Ani Jones NP Dyslipidemia 12/04/2018 Telephone Family Practice Nakul Griffin III, MD 11/30/2018 Office Visit Psychology Lady Zaragoza MDD (major depressive disorder), recurrent episode, moderate (Primary Dx); M Generalized anxiety disorder 11/30/2018 Travel 11/09/2018 Telephone Family Practice Ines Clemente LVN 11/08/2018 Telephone Ellen Vaughan Utilization Armando Nkeiru (colonoscopy) 11/01/2018 Office Visit Family Practice [...] Bourgeois 10/16/2018 Ancillary Radiology Procedure 10/16/2018 Telephone [facility] Julio César, Pcp Communication Ani Jones NP 10/05/2018 Telephone [facility] Ines Landrum Information Only RN 10/02/2018 Office Visit [facility] Julio César, Hospital discharge follow- up (Primary Dx); Ani Jones NP Diabetic gastroparesis; Inadequately controlled diabetes mellitus; Positive occult stool blood test; Acute pain of left knee; Fall, initial encounter; Acute right ankle pain; Constipation, unspecified constipation type; Sprain of right ankle, unspecified ligament, initial encounter; Seasonal allergic rhinitis, unspecified trigger 10/02/2018 Travel 09/26/2018 Nurse Triage Stella Culp RN 09/11/2018 Orders Only [facility] Julio César Essential hypertension ( Primary Dx); Ani Jones NP Dyslipidemia 09/07/2018 Telephone Patient Education Tomas Galvan Disease Management F /U KINGS Nur 09/06/2018 Office Visit [facility] Julio César, Encounter to discuss test results (Primary Dx); Ani Jones NP Poorly controlled type 2 diabetes mellitus; Microalbuminuria; Left shoulder pain, unspecified chronicity; Low back pain at multiple sites; Bilateral lower extremity edema; Dyslipidemia; Positive occult stool blood test 09/06/2018 Ancillary Radiology Radha Angela NP 09/06/2018 Travel 08/30/2018 [address] [facility] Bhavani Angela Positive occult stool Ani Jones NP blood test (Primary Dx) 08/15/2018 Ancillary Radiology Radha Angela NP 08/15/2018 Telephone [facility] Julio César, Results Ani Jones NP 08/09/2018 Office Visit [facility] Bhavani Angela Hospital discharge follow- up (Primary [...] left shoulder; Flu vaccine need; Need for fdolugtzpm-bkeibgf-rubsgqrti (Tdap) vaccine; Need for 23-polyvalent pneumococcal polysaccharide vaccine 08/09/2018 Travel after 01/28/2018 Immunizations Name Administration Dates Next Due Influenza, Vaccine<FLUCELVAX>(Multi-Dose) 08/09/2018 PPV 23 [...] Vital Signs Vital Sign Reading Time Taken Comments Blood Pressure 135/73 11/01/2018 9:33 AM RACK CLEANER Pulse 65 11/01/2018 9:33 AM RACK CLEANER Temperature 36.7 C (98 F) 11/01/2018 9:33 AM RACK CLEANER Respiratory Rate 18 11/01/2018 9:33 AM RACK CLEANER Oxygen Saturation 99% 10/19/2018 3:00 AM RACK CLEANER Inhaled Oxygen Concentration - - Weight 95.7 kg (211 lb) 11/01/2018 9:33 AM RACK CLEANER Height 157.5 cm (5' 2") 11/01/2018 9:33 AM RACK CLEANER Body Mass Index 38.59 11/01/2018 9:33 AM RACK CLEANER Plan of Treatment Date Type Specialty Care Team Description 01/31/2019 Office Visit Ophthalmology Glaucoma 02/14/2019 Office Visit Family Practice Sonia Quinn DO ANNUAL PHYSICAL EXAM ONLY [address] [place] [address] [place] [address] [phone] 03/12/2019 Office Visit Psychiatry Jennifer Montenegro MD [address] [place] [address] Health Maintenance Due Date Last Done Comments [...] Poorly controlled type Results for this AM RACK CLEANER 2 diabetes mellitus procedure are in the results section. POC GLUCOSE - IN LAB Routine 10/18/2018 6:23 Results for this (STAT) PM RACK CLEANER procedure are in the results section. MRI KNEE JOINT W/O Routine 10/18/2018 4:08 Acute pain of left knee Results for this CONTRAST PM RACK CLEANER Fall, initial encounter procedure are in the results section. U/S RENAL Routine 10/16/2018 1:50 Microalbuminuria Results for this PM RACK CLEANER procedure are in the results section. DIABETIC FOOT EXAM Routine 09/06/2018 12:05 Poorly controlled type Results for this PM RACK CLEANER 2 diabetes mellitus procedure are in the results section. MAMMOGRAM BILAT Routine 09/06/2018 11:03 Screening for breast Results for this SCREEN DIGITAL AM RACK CLEANER cancer procedure are in the results section. FECAL OCCULT BLOOD Routine 08/24/2018 2:33 Screen for colon cancer Results for this PM RACK CLEANER procedure are in the results section. OPHTHALMOLOGY RETINAL Routine 08/15/2018 12:23 Uncontrolled type 2 Results for this SCAN PM RACK CLEANER diabetes mellitus with procedure are in complication, with the results long-term current use section. of insulin XRAY SHOULDER 2 VIEWS Routine 08/15/2018 8:10 Pain in joint of left Results for this MIN AM RACK CLEANER shoulder procedure are in the results section. AMYLASE Routine 08/09/2018 12:24 Acute pancreatitis, Results for this PM RACK CLEANER unspecified procedure are in complication status, the results unspecified section. pancreatitis type LIPASE Routine 08/09/2018 12:24 Acute pancreatitis, Results for this PM RACK CLEANER unspecified procedure are in complication status, the results unspecified section. pancreatitis type SED RATE Routine 08/09/2018 12:24 Rheumatoid arthritis, Results for this PM RACK CLEANER involving unspecified procedure are in site, unspecified the results rheumatoid factor section. presence RA FACTOR Routine 08/09/2018 12:24 Rheumatoid arthritis, Results for this PM RACK CLEANER involving unspecified procedure are in site, unspecified the results rheumatoid factor section. presence SHELLY Routine 08/09/2018 12:24 Rheumatoid arthritis, Results for this PM RACK CLEANER involving unspecified procedure are in site, unspecified the results rheumatoid factor section. presence MAGNESIUM Routine 08/09/2018 12:24 Low magnesium level Results for this PM RACK CLEANER procedure are in the results section. VITAMIN B12 Routine 08/09/2018 12:24 Iron deficiency anemia, Results for this PM RACK CLEANER unspecified iron procedure are in deficiency anemia type the results section. IRON PROFILE Routine 08/09/2018 12:24 Iron deficiency anemia, Results for this PM RACK CLEANER unspecified iron procedure are in deficiency anemia type the results section. FOLIC ACID Routine 08/09/2018 12:24 Iron deficiency anemia, Results for this PM RACK CLEANER unspecified iron procedure are in deficiency anemia type the results section. FERRITIN Routine 08/09/2018 12:24 Iron deficiency anemia, Results for this PM RACK CLEANER unspecified iron procedure are in deficiency anemia type the results section. MICROALBUMIN / Routine 08/09/2018 12:24 Uncontrolled type 2 Results for this CREATININE URINE PM RACK CLEANER diabetes mellitus with procedure are in RATIO complication, with the results long-term current use section. of insulin THYROID STIMULATING Routine 08/09/2018 12:24 Uncontrolled type 2 Results for this HORMONE (TSH) PM RACK CLEANER diabetes mellitus with procedure are in complication, with the results long-term current use section. of insulin LIPID PROFILE Routine 08/09/2018 12:24 Uncontrolled type 2 Results for this PM RACK CLEANER diabetes mellitus with procedure are in complication, with the results long-term current use section. of insulin LIVER PROFILE Routine 08/09/2018 12:24 Uncontrolled type 2 Results for this PM RACK CLEANER diabetes mellitus with procedure are in complication, with the results long-term current use section. of insulin HIV-1/HIV-2 ROUTINE Routine 08/09/2018 12:24 Uncontrolled type 2 Results for this SCREENING PM RACK CLEANER diabetes mellitus with procedure are in complication, with the results long-term current use section. of insulin HEPATITIS PANEL Routine 08/09/2018 12:24 Uncontrolled type 2 Results for this PM RACK CLEANER diabetes mellitus with procedure are in complication, with the results long-term current use section. of insulin HEMOGLOBIN A1C Routine 08/09/2018 12:24 Uncontrolled type 2 Results for this PM RACK CLEANER diabetes mellitus with procedure are in complication, with the results long-term current use section. of insulin CBC/DIFF Routine 08/09/2018 12:24 Uncontrolled type 2 Results for this PM RACK CLEANER diabetes mellitus with procedure are in complication, with the results long-term current use section. of insulin BASIC METABOLIC PANEL Routine 08/09/2018 12:24 Uncontrolled type 2 Results for this PM RACK CLEANER diabetes mellitus with procedure are in complication, with the results long-term current use section. of insulin after 01/28/2018 Results HEMOGLOBIN A1C (12/04/2018 8:58 AM CDT)Only [...] of2 resultswithin the time period is included. Protein, Total, 7.3 6.0 - 8.3 g/dL BT MAIN-STATION 1 Serum Albumin 4.1 3.7 - 5.3 g/dL BT MAIN-STATION 1 Bilirubin, Total 0.3 0.2 - 1.2 mg/dL BT MAIN-STATION 1 Alkaline 73 34 - 104 U/L BT MAIN-STATION 1 Phosphatase, S AST (SGOT) 13 13 - 39 U/L BT MAIN-STATION 1 ALT 11 7 - 52 U/L BT MAIN-STATION 1 D Bilirubin <0.0 (L) 0.0 - 0.2 mg/dL BT MAIN-STATION 1 Specimen Blood Performing Organization Address [facility] Phone Number MISYS MAINSTATION 1 LIPID PROFILE (12/04/2018 8:58 AM CDT)Only the most recent of2 resultswithin the time period is included. Cholesterol 172 mg/dL MAIN-STATION 1 Comment: REFERENCE RANGE: Desirable: <200 mg/dL Borderline: 200-240 mg/dL High Risk: >240 mg/dL Triglyceride 131 <150 mg/dL BT MAIN-STATION 1 Comment: REFERENCE RANGE: Normal: <150 mg/dL Borderline High: 150-199 mg/dL High: 200-499 mg/dL Very High: >bj=017 mg/dL HDL 64 mg/dL BT MAIN-STATION 1 Comment: Increased CHD risk: <40 mg/dL Decreased CHD risk: >60 mg/dL LDL 82 mg/dL BT MAIN-STATION 1 Comment: REFERENCE RANGE: Optimal: <100 mg/dL Near Optimal: 100-129 mg/dL Borderline High: 130-159 mg/dL High: 160-189 mg/dL Very High: >zs=723 mg/dL Specimen Blood Performing Organization Address [facility] Phone Number MISYS [facility]-STATION 1 BASIC METABOLIC PANEL (12/04/2018 8:58 AM CDT)Only the most recent of2 resultswithin the time period is included. CO2 23 21 - 31 mmol/L BT MAIN-STATION 1 Chloride 104 98 - 107 mmol/L BT MAIN-STATION 1 Potassium 6.2 (HH) 3.5 - 5.1 mmol/L BT MAIN-STATION 1 Sodium 141 136 - 145 mmol/L BT MAIN-STATION 1 Glucose 187 (H) 70 - 110 mg/dL BT MAIN-STATION 1 BUN 38 (H) 7 - 25 mg/dL BT MAIN-STATION 1 Creatinine 2.10 (H) 0.6 - 1.2 mg/dL BT MAIN-STATION 1 Anion Gap 14 BT MAIN-STATION 1 Calcium 9.8 8.6 - 10.3 mg/dL BT MAIN-STATION 1 GFR, Estimated 25 mL/min/1.73 m2 BT MAIN-STATION 1 eGFR If Africn Am 30 mL/min/1.73 m2 BT MAIN-STATION 1 Specimen Blood Performing Organization Address City/[facility] Phone Number MISYS BT MAIN-STATION 1 DIABETIC FOOT EXAM (11/01/2018 9:52 AM RACK CLEANER)Only the most recent of2 resultswithin the time period is included. Narrative Performed At Ani Angela NP 11/01/20181:16 PM Diabetic Foot Exam was performed at 11/01/2018 1:15 PM.Right foot sensation is normal, right foot pulses are normal, right foot appearance is normal.Left foot sensation is normal,left foot pulses are normal, left foot appearance is normal. GLUCOSE POC (10/18/2018 6:23 PM RACK CLEANER) Glucose POC 127 (H) 74 - 106 mg/dL [facility] MAIN-STATION 1 Specimen Performing Organization Address [facility] Phone Number MISYS [facility] MAIN-STATION 1 MRI KNEE JOINT W/O CONTRAST (10/18/2018 4:08 PM RACK CLEANER) Specimen Impressions Performed At IMPRESSION: [facility] 1.Focal partial tear of the anterior [...] DO, 10/19/2018 11:36 AM Narrative Performed At [facility] TECHNIQUE: Magnetic resonance imaging of the [...] Interface, Rad/Mammog In - 10/19/2018 11:41 AM RACK CLEANER TECHNIQUE: Magnetic resonance imaging of the LEFT [...] DO, 10/19/2018 11:36 AM Performing Organization Address City/State/[facility] Phone Number SMS U/S RENAL (10/16/2018 1:50 PM RACK CLEANER) Specimen Impressions Performed At IMPRESSION: SMS Normal renal [...] Interface, Rad/Mammog In - 10/16/2018 2:03 PM RACK CLEANER EXAM: Renal Ultrasound INDICATION: microalbuminuria COMPARISON: None [...] MD, 10/16/2018 1:57 PM Performing Organization Address City/State[facility] Phone Number SMS MAMMOGRAM BILAT SCREEN DIGITAL (09/06/2018 11:03 AM RACK CLEANER) Specimen Impressions Performed At IMPRESSION: BENIGN SMS There is no mammographic evidence of malignancy. A 1 year screening mammogram is recommended. This document has been electronically signed. Jolie he/penrad:09/06/2018 12:12:51 Human Resources Team Member: Jennifer Monet [facility]3] letter sent: Mammography Normal Mammogram BI-RADS: 2 Benign G0202 z12.31 Narrative Performed At [facility] #[id number] - MAMMOGRAM BILAT SCREEN DIGITAL BILATERAL DIGITAL [...] Interface, Rad/Mammog In - 09/06/2018 1:33 PM RACK CLEANER #[id number] - MAMMOGRAM BILAT SCREEN DIGITAL BILATERAL DIGITAL [...] has been electronically signed. Jolie he/penrad:09/06/2018 12:12:51 Human Resources Team Member: Jennifer Monet [facility]3] letter sent: Mammography Normal Mammogram BI-RADS: 2 Benign G0202 z12.31 Performing Organization Address City/State/Zipcode Phone Number [facility] OCCULT BLOOD ICT (08/24/2018 2:33 PM RACK CLEANER) Occult Blood ICT Positive (A) NEG M2 ([facility]) Specimen Stool Performing Organization Address City/State/Zipcode Phone Number MISYS M2 ([facility]) OPHTHALMOLOGY RETINAL SCAN (08/15/2018 12:23 PM RACK CLEANER) RETINAL SCAN-FINAL CRITICAL (AA) IRIS RESULT Right Diabetic Severe (AA) IRIS Retinopathy Right Macular Edema None IRIS Right Other Suspected Suspected Glaucoma IRIS Conditions Right Image Quality Gradeable Image IRIS Left Diabetic Severe (AA) IRIS Retinopathy Left Macular Edema Moderate (A) IRIS Left Other Suspected Suspected Glaucoma IRIS Conditions Left Image Quality Gradeable Image IRIS Specimen Narrative Performed At Retinal Study Result for CARY LIZARRAGA LOLITA, a 52 y/o, F (: 1965, ) presented to [facility] on 08-15-2018 for a retinal imaging study of the left and right eyes. Based on the findings of the study, the following is recommended for CARY LIZARRAGA Severe Diabetic Retinopathy Found: Refer next available - Retina appointment at [facility] Ophthalmology Department.For Follow-up at [facility] or [facility]: For CSME the ordering physicians should make an ROUTINE Referral in [facility] for or [facility] Ophthalmology stating to retina service. Interpreting Provider's Comments:No comments provided Right Eye Findings: Diabetic Retinopathy: Severe Other: Suspected Glaucoma Left Eye Findings: Diabetic Retinopathy: Severe Macular Edema: Moderate Other: Suspected Glaucoma This result was electronically signed by Andrade Ferguson MD, , Taxonomy: [id number] on 08-15-2018 05:23:51 [facility] time. NOTE:Any pathology noted on this diabetic retinal evaluation should be confirmed by an appropriate ophthalmic examination. Performing Organization Address City/State/Zipcode Phone Number IRIS XRAY SHOULDER 2 VIEWS MIN (08/15/2018 8:10 AM RACK CLEANER) Specimen Impressions Performed At IMPRESSION: [facility] No acute radiographic abnormality. Dictated By: Emery Cueto DO, 08/15/2018 9:30 AM I have reviewed the study and agree with the findings in this report. Signed By: Andres Sher DO, 08/15/2018 4:54 PM Narrative Performed At [facility] EXAM:Left, 2 viewXRAY SHOULDER 2 VIEWS MIN08/15/2018 8:10 AM INDICATION: left shoulder pain with limited ROM COMPARISON: None DISCUSSION: Adequate internal and external rotation. No displaced fracture or malalignment. The joint spaces are well maintained without definite osseous erosion. The visualized soft tissues appear unremarkable. Procedure Note Interface, Rad/Mammog In - 08/15/2018 4:59 PM RACK CLEANER EXAM:Left, 2 view XRAY SHOULDER 2 VIEWS [...] DO, 08/15/2018 4:54 PM Performing Organization Address City/[facility] Phone Number SMS HIV-1/HIV-2 ROUTINE SCREENING (08/09/2018 12:24 PM RACK CLEANER) HIV-1/HIV-2 Negative NEG BT MAIN-STATION 3 Specimen Performing Organization Address [facility] Phone Number MISYS BT MAIN-STATION 3 MICROALBUM, URINE (08/09/2018 12:24 PM RACK CLEANER) Microalbum, Random 32.1 (H) 0.0 - 29.0 BT MAIN-STATION 1 mg/dL Creatinine, Urine 104.6 20 - 320 BT MAIN-STATION 1 mg/dL Urine Microalbumin 306.9 (H) 0 - 29 mg/g BT MAIN-STATION 1 Comment: UCR To minimize intra-individual variation, analysis of three random urine samples collected over the course of a week is recommended. Specimen Performing Organization Address [facility] Phone Number MISYS BT MAIN-STATION 1 TSH (08/09/2018 12:24 PM RACK CLEANER) TSH 1.51 0.57 - 3.74 uIU/mL BT MAIN-STATION 1 Specimen Blood Performing Organization Address [facility] Phone Number MISYS BT MAIN-STATION 1 FOLIC ACID (08/09/2018 12:24 PM RACK CLEANER) Folic Acid >24.8 (H) 5.9 - 24.8 ng/mL BT MAIN-STATION 1 Specimen Blood Performing Organization Address City/[facility] Phone Number MISYS BT MAIN-STATION 1 FERRITIN (08/09/2018 12:24 PM RACK CLEANER) Ferritin 89.50 11.0 - 306.8 ng/mL BT MAIN-STATION 1 Specimen Blood Performing Organization Address [facility] Phone Number MISYS BT MAIN-STATION 1 VITAMIN B12 (08/09/2018 12:24 PM RACK CLEANER) Vitamin B12 592 211 - 911 pg/mL BT MAIN-STATION 1 Specimen Blood Performing Organization Address City[facility] Phone Number MISYS BT MAIN-STATION 1 SED RATE (08/09/2018 12:24 PM RACK CLEANER) Sed Rate 24 <30 mm/Hr BT MAIN-STATION 2 Specimen Blood Performing Organization Address [facility] Phone Number MISYS BT MAIN-STATION 2 RA FACTOR (08/09/2018 12:24 PM RACK CLEANER) RA Factor <10 <14 IU/mL BT MAIN-STATION 1 Specimen Blood Performing Organization Address [facility] Phone Number MISYS BT MAIN-STATION 1 MAGNESIUM (08/09/2018 12:24 PM RACK CLEANER) Magnesium 1.6 (L) 1.9 - 2.7 mg/dL BT MAIN-STATION 1 Specimen Blood Performing Organization Address [facility] Phone Number MISYS BT MAIN-STATION 1 LIPASE (08/09/2018 12:24 PM RACK CLEANER) Lipase 18 11 - 82 U/L BT MAIN-STATION 1 Specimen Blood Performing Organization Address [facility] Phone Number MISYS BT MAIN-STATION 1 IRON PROFILE (08/09/2018 12:24 PM RACK CLEANER) Iron 70 50 - 212 ug/dL BT MAIN-STATION 1 TIBC 291 250 - 450 ug/dL BT MAIN-STATION 1 % Iron Sat 24 % BT MAIN-STATION 1 Specimen Blood Performing Organization Address [facility] Phone Number MISYS BT MAIN-STATION 1 HEPATITIS PANEL (08/09/2018 12:24 PM RACK CLEANER) HCV IgG Negative NEG BT MAIN-STATION 3 HBsAg Negative NEG BT MAIN-STATION 3 HAV, IgM Negative NEG BT MAIN-STATION 3 HBcAb, IgM Negative NEG BT MAIN-STATION 3 Specimen Blood Performing Organization Address [facility] Phone Number MISYS BT MAIN-STATION 3 CBC/DIFF (08/09/2018 12:24 PM RACK CLEANER) WBC 4.7 4.5 - 11.0 K/uL BT MAIN-STATION 2 RBC 3.96 (L) 4.20 - 5.40 BT MAIN-STATION 2 M/uL Hemoglobin 11.0 (L) 12.0 - 16.0 BT MAIN-STATION 2 g/dL Hematocrit 33.9 (L) 37.0 - 47.0 % BT MAIN-STATION 2 MCV 86 82 - 92 fL BT MAIN-STATION 2 MCH 27.8 27.0 - 32.0 pg BT MAIN-STATION 2 MCHC 32.4 32.0 - 36.0 BT MAIN-STATION 2 g/dL RDW 39.8 36.4 - 46.3 fL BT MAIN-STATION 2 Platelets 167 150 - 400 K/uL BT MAIN-STATION 2 Mean Platelet Volume 11.7 9.4 - 12.4 fL BT MAIN-STATION 2 Percent NRBC 0.0 BT MAIN-STATION 2 Absolute NRBC 0.00 BT MAIN-STATION 2 Neutrophils 46.2 34.0 - 70.0 % BT MAIN-STATION 2 Lymphs 43.7 20.0 - 50.0 % BT MAIN-STATION 2 Monocytes 6.8 5.0 - 12.0 % BT MAIN-STATION 2 Eos 2.5 0.7 - 5.0 % BT MAIN-STATION 2 Basos 0.6 0.1 - 1.2 % BT MAIN-STATION 2 Immature Granulocytes 0.2 0.0 - 0.5 BT MAIN-STATION 2 Neutrophils (Absolute) 2.17 1.56 - 6.13 BT MAIN-STATION 2 K/uL Lymphs (Absolute) 2.06 1.18 - 3.74 BT MAIN-STATION 2 K/uL Monocytes(Absolute) 0.32 0.24 - 0.36 BT MAIN-STATION 2 K/uL Eos (Absolute) 0.12 0.04 - 0.36 BT MAIN-STATION 2 K/uL Baso (Absolute) 0.03 0.01 - 0.08 BT MAIN-STATION 2 K/uL Immature Grans (Abs) 0.01 0.00 - 0.03 BT MAIN-STATION 2 K/uL Specimen Blood Performing Organization Address City/State/Zipcode Phone Number MISYS BT MAIN-STATION 2 SHELLY (08/09/2018 12:24 PM RACK CLEANER) SHELLY Screen Negative NEG BT DIAGNOSTIC IMMUNOLOGY Specimen Blood Performing Organization Address City/State/Zipcode Phone Number MISYS BT DIAGNOSTIC IMMUNOLOGY AMYLASE (08/09/2018 12:24 PM RACK CLEANER) Amylase 30 29 - 103 U/L BT MAIN-STATION 1 Specimen Blood Performing Organization Address City/State/Zipcode Phone Number MISYS BT MAIN-STATION 1 after 01/28/2018 Insurance Payer Benefit Plan / Subscriber ID Effective Dates Phone Address Type Group [place] xxxxxxx 2018-05/28 [phone] PLANNING 12/2018 6 [id number] [place] [address] [employer] PLAN [employer] PLAN 1 xxxxxxx 2018-06/11/ [phone] [place] [address]
[2019-01-29] MEDS ORDERED: MEPERIDINE HCL 50 MG/ML AMP ONE (01:54)
[2019-01-29] MEDS ORDERED: ONDANSETRON 4 MG/2 ML VIAL ONE (01:54)
[2019-01-29] MEDS ORDERED: NA CHLORIDE 0.9% 2,000 ML ONE (01:54)
[2019-01-29 02:07] LABS: Absolute Lymphocytes (CBC) 2.5 K/uL (0.7-4.9); Absolute Monocytes 0.5 K/uL (0.1-1.3); Absolute Neutrophil 2.6 K/uL (1.8-8.0); Basophils % 0.4 % (0-1.3); Eosinophils % 3.1 % (0-4.4); Hematocrit 34.6 % (36.0-45.0); Lymphocytes % 43.3 % (15.3-44.8); MPV 9.8 fL (7.6-11.3); RBC Red Blood Cell Count 3.98 M/uL (3.86-4.86)
[2019-01-29 02:21] LABS: ALT/SGPT 16 U/L (12-78); AST/SGOT 14 U/L (15-37); Albumin 3.7 g/dL (3.4-5.0); Alkaline Phosphatase 71 U/L (45-117); BUN Blood Urea Nitrogen 24 mg/dL (7-18); Bicarbonate 25 mmol/L (21-32); Bilirubin Direct < 0.1 mg/dL (0-0.2); Bilirubin Total 0.3 mg/dL (0.2-1.0); Glucose Level 217 mg/dL (74-106); Lipase 138 U/L (73-393); Protein, Total 8.1 g/dL (6.4-8.2); Sodium Level 141 mmol/L (136-145)
[2019-01-29] MEDS ORDERED: MORPHINE 4 MG/ML SYR ONE (03:31)
--- NOTE | 2019-01-29 06:54 | ER ---
Nurse's Notes [facility] Name: Cary Gan Age: 53 yrs Sex: Female : 1965 Arrival Date: 01/29/2019 Time: 00:55 Bed 30 Private MD: Diagnosis: Abdominal pain Presentation: 01/29 00:55 Presenting complaint: EMS states: they were toned out for report of pt having abdominal bb pain starting about an hour ago no vomiting or diarrhea but pt was nauseous also pt has history of pancreatitis and thinks this may be a flare-up. Transition of care: patient was not received from another setting of care. Onset of symptoms was January 29, 2019. Risk Assessment: Do you want to hurt yourself or someone else? Patient reports no desire to harm self or others. Initial Sepsis Screen: Does the patient meet any 2 criteria? No. Patient's initial sepsis screen is negative. Does the patient have a suspected source of infection? No. Patient's initial sepsis screen is negative. Care prior to arrival: None. 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 LMP N/A - Post-menopause bb Historical: - Allergies: 01:00 Adhesives; bb - Home Meds: 01:00 atorvastatin 40 mg Oral tab 1 tab nightly [Active]; cetirizine 10 mg Oral tab 1 tab bb once daily [Active]; furosemide 20 mg Oral tab 1 tab [Active]; gabapentin 300 mg Oral 1 cap once daily [Active]; tramadol 50 mg oral tab 1 tab three times a day [Active]; metformin 1,000 mg Oral tab 2 times per day [Active]; sertraline 50 mg Oral tab 1 tab once daily [Active]; metoclopramide HCl 10 mg Oral tab 1 tab three times a day [Active]; omeprazole 20 mg Oral cpDR 1 cap once daily [Active]; Magnesium Oxide Oral [Active]; Iron CR Oral [Active]; multivitamin oral oral [Active]; - PMHx: 01:00 "hot fashes"; flashes*; Anxiety; Depression; Diabetes - IDDM; EDEMA; herniated disk bb lower back, neck vertibre fusion; high blood pressure (resolved); High Cholesterol; neuropathy; Pancreatitis; Rheumatoid Arthritis; - PSHx: 01:00 Appendectomy; bb - Immunization history:: Adult Immunizations up to date. - Social history:: Smoking status: Patient/guardian denies using tobacco. - Ebola Screening: : No symptoms or risks identified at this time. Screenin:52 Abuse screen: Denies threats or abuse. Denies injuries from another. Nutritional rr5 screening: No deficits noted. Tuberculosis screening: No symptoms or risk factors identified. Fall Risk IV access (20 points). Total Alfonso Fall Scale indicates No Risk (0-24 pts). Assessment: 01:00 General: Appears in no apparent distress. uncomfortable, Behavior is calm, cooperative, rr5 appropriate for age. Pain: Complains of pain in left upper quadrant Pain radiates to back Pain currently is 10 out of 10 on a pain scale. Quality of pain is described as aching, Pain began gradually, Is intermittent. 01:00 Neuro: Level of Consciousness is awake, alert, obeys commands, Oriented to person, rr5 place, time, situation, Appropriate for age. Cardiovascular: Capillary refill < 3 seconds Patient's skin is warm and dry. Respiratory: Airway is patent Respiratory effort is even, unlabored, Respiratory pattern is regular, symmetrical. GI: Abdomen is round obese, Reports upper abdominal pain, nausea. : No signs and/or symptoms were reported regarding the genitourinary system. EENT: No signs and/or symptoms were reported regarding the EENT system. Derm: No signs and/or symptoms reported regarding the dermatologic system. Musculoskeletal: Capillary refill < 3 seconds, Range of motion: intact in all extremities. 02:00 Reassessment: Patient appears in no apparent distress at this time. No changes from rr5 previously documented assessment. 02:15 Reassessment: Patient appears in no apparent distress at this time. breathing rr5 spontaneously. hooked to oxygen at 3 liters via nasal cannula. Patient states symptoms have improved. 02:57 Reassessment: Patient appears in no apparent distress at this time. Patient is alert, rr5 oriented x 3, equal unlabored respirations, skin warm/dry/pink. asleep on bed comfortably Patient states symptoms have improved. 03:15 Reassessment: woke up, crying complaining that the pain came back. ED provider aware rr5 with order made and carried out. 04:13 Reassessment: Patient appears in no apparent distress at this time. No changes from jb4 previously documented assessment. Patient is alert, oriented x 3, equal unlabored respirations, skin warm/dry/pink. Pt finished oral contrast, CT notified. 05:00 Reassessment: Patient appears in no apparent distress at this time. No changes from jb4 previously documented assessment. Patient is alert, oriented x 3, equal unlabored respirations, skin warm/dry/pink. Repositioned in bed. 06:23 Reassessment: Patient appears in no apparent distress at this time. No changes from jb4 previously documented assessment. Patient is alert, oriented x 3, equal unlabored respirations, skin warm/dry/pink. Pt back from CT. 07:06 Reassessment: Patient appears in no apparent distress at this time. No changes from jb4 previously documented assessment. Patient is alert, oriented x 3, equal unlabored respirations, skin warm/dry/pink. 07:20 Reassessment: Pt discharged and was getting dressed, tried to stand up afterwards using jb4 the bed for support, the bed rolled backwards out from under the patient. She fell landing on her left elbow and hip, denies hitting her head or dizziness, reports having hip pain. fall was unwitnessed by ED staff or Family. 07:55 Reassessment: Patient appears in no apparent distress at this time. No changes from jb4 previously documented assessment. Patient is alert, oriented x 3, equal unlabored respirations, skin warm/dry/pink. Pt discharged to lobby via wheelchair to wait for ride. A\\T\\o x 4. no longer complaining of pain. denies question or concerns, verbalized understanding of d/c and follow up instructions. Patient states feeling better. Vital Signs: 01:00 BP 128 / 84; Pulse 64; Resp 16 S; Temp 98.4(O); Pulse Ox 98% on R/A; Weight 117.93 kg bb (R); Height 5 ft. 4 in. (162.56 cm) (R); Pain 9/10; 01:30 BP 131 / 70; Pulse 60; Resp 17; Temp 98.5; Pulse Ox 99% on R/A; Pain 10/10; rr5 02:13 BP 105 / 62; Pulse 59; Resp 15; Pulse Ox 92% on R/A; rr5 02:15 Pulse Ox 92% on 3 lpm NC; rr5 02:20 Pulse Ox 99% on 3 lpm NC; rr5 02:20 Pain 0/10; rr5 03:00 BP 121 / 60; Pulse 62; Resp 17; Temp 98.3; Pulse Ox 99% on 3 lpm NC; rr5 03:00 Pain 0/10; rr5 03:15 BP 137 / 63; Pulse 60; Resp 20; Temp 98.3; Pulse Ox 100% on 3 lpm NC; Pain 10/10; rr5 04:00 BP 137 / 66; Pulse 49; Resp 20; Pulse Ox 100% on 3 lpm NC; jb4 05:00 BP 126 / 65; Pulse 55; Resp 18; Pulse Ox 100% on 3 lpm NC; jb4 06:19 BP 103 / 72; Pulse 46; Resp 20; Pulse Ox 99% on R/A; jb4 07:06 BP 109 / 52; Pulse 50; Resp 18; Temp 97.2(O); Pulse Ox 100% on R/A; jb4 01:00 Body Mass Index 44.63 (117.93 kg, 162.56 cm) bb ED Course: 00:55 Patient arrived in ED. am2 00:57 Triage completed. bb 00:59 Ifeanyi Barba RN is Primary Nurse. rr5 01:00 Arm band placed on Patient placed in an exam room, on a stretcher, on pulse oximetry. bb 01:00 Patient has correct armband on for positive identification. Placed in gown. Bed in low rr5 position. Call light in reach. Side rails up X2. Pulse ox on. NIBP on. 01:22 Jhonathan Schultz MD is Attending Physician. pkl 01:30 Inserted saline lock: 20 gauge in right forearm, using aseptic technique. Blood rr5 collected. 06:23 Primary Nurse role handed off by Ifeanyi Barba RN jb4 06:23 Emery Iyer, RN is Primary Nurse. jb4 06:38 CT CHEST,ABD,PELVIS W/O In Process Unspecified. EDMS 07:06 No provider procedures requiring assistance completed. IV discontinued, intact, jb4 bleeding controlled, No redness/swelling at site. 07:18 Attending Physician role handed off by Jhonathan Schultz MD iw 07:18 Primary Nurse role handed off by Emery Iyer RN iw 07:33 Patient moved to radiology via wheelchair. jb2 07:42 Hip Left 2 View XRAY In Process Unspecified. EDMS 07:42 Hip Right 2 View XRAY In Process Unspecified. EDMS Administered Medications: 01:35 Drug: NS 0.9% 1000 ml Route: IV; Rate: 1000 ml; Site: right forearm; rr5 02:25 Follow up: Response: No adverse reaction; IV Status: Completed infusion; IV Intake: rr5 1000ml 01:36 Drug: Zofran 4 mg Route: IVP; Site: right forearm; rr5 02:40 Follow up: Response: No adverse reaction rr5 01:40 Drug: Demerol 50 mg Route: IVP; Site: right forearm; rr5 02:43 Follow up: Response: No adverse reaction rr5 02:26 Drug: NS 0.9% 1000 ml Route: IV; Rate: 125 ml/hr; Site: right forearm; rr5 07:11 Follow up: Response: No adverse reaction; IV Status: Order to discontinue infusion jb4 03:16 Drug: morphine 4 mg Route: IVP; Site: right forearm; rr5 07:11 Follow up: Response: No adverse reaction jb4 Intake: 02:25 IV: 1000ml; Total: 1000ml. rr5 Outcome: 06:52 Discharge ordered by . pkl 07:06 Discharged to home via wheelchair. jb4 07:06 Condition: stable 07:06 Discharge instructions given to patient, Instructed on discharge instructions, follow up and referral plans. medication usage, Demonstrated understanding of instructions, follow-up care, medications, Prescriptions given X 1. 07:12 Patient left the ED. jb4 07:56 Patient left the ED. jb4 Signatures: Dispatcher [employer] EDMS Jhonathan Schultz MD MD pkDarrell Mojica jb2 Kathy Miles RN RN bb Janet Durant RN RN iw Kim Dexter RN RN tl2 Emery Iyer RN RN jb4 Brenda Baeza am2 Ifeanyi Barba RN RN rr5 Corrections: (The following items were deleted from the chart) 04:16 04:13 Reassessment: Patient appears in no apparent distress at this time. No changes jb4 from previously documented assessment. Patient is alert, oriented x 3, equal unlabored respirations, skin warm/dry/pink. jb4 05:37 04:00 BP 137 / 66; Pulse 49bpm; Resp 20bpm; Pulse Ox 100% RA; jb4 jb4 07:42 07:20 Reassessment: Pt discharged home, was getting dressed, once finished dried to tl2 stand up, stretched rolled out from under them, pt fell landing on left arm and hip. Denies hitting their head, or dizziness, reports pain to the left hip, no visible injuries noted at time of fall. Provider notified, x-rays ordered. Fall unwitnessed by staff or family. tl2
--- NOTE | 2019-01-29 06:54 | EDPHYS ---
Physician Documentation [facility] Name: Cary Gan Age: 53 yrs Sex: Female : 1965 Arrival Date: 01/29/2019 Time: 00:55 Bed 30 Private MD: ED Physician HPI: 01/29 01:29 This 53 yrs old Female presents to ER via EMS with complaints of Abdominal pkl Pain. 01:29 The patient presents with abdominal pain in the upper abdomen. Onset: The pkl symptoms/episode began/occurred 1 week(s) ago, and became worse just prior to arrival, 1 hour(s) ago. The symptoms do not radiate. Associated signs and symptoms: Pertinent positives: nausea. The patient has experienced similar episodes in the past, a few times. H/O pancreatitis. 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 - Post-menopause bb Historical: - Allergies: 01:00 Adhesives; bb - Home Meds: 01:00 atorvastatin 40 mg Oral tab 1 tab nightly [Active]; cetirizine 10 mg Oral tab 1 tab bb once daily [Active]; furosemide 20 mg Oral tab 1 tab [Active]; gabapentin 300 mg Oral 1 cap once daily [Active]; tramadol 50 mg oral tab 1 tab three times a day [Active]; metformin 1,000 mg Oral tab 2 times per day [Active]; sertraline 50 mg Oral tab 1 tab once daily [Active]; metoclopramide HCl 10 mg Oral tab 1 tab three times a day [Active]; omeprazole 20 mg Oral cpDR 1 cap once daily [Active]; Magnesium Oxide Oral [Active]; Iron CR Oral [Active]; multivitamin oral oral [Active]; - PMHx: 01:00 "hot fashes"; flashes*; Anxiety; Depression; Diabetes - IDDM; EDEMA; herniated disk bb lower back, neck vertibre fusion; high blood pressure (resolved); High Cholesterol; neuropathy; Pancreatitis; Rheumatoid Arthritis; - PSHx: 01:00 Appendectomy; bb - Immunization history:: Adult Immunizations up to date. - Social history:: Smoking status: Patient/guardian denies using tobacco. - Ebola Screening: : No symptoms or risks identified at this time. ROS: 01:29 Eyes: Negative for injury, pain, redness, and discharge, ENT: Negative for injury, pkl pain, and discharge, Neck: Negative for injury, pain, and swelling, Cardiovascular: Negative for chest pain, palpitations, and edema, Respiratory: Negative for shortness of breath, cough, wheezing, and pleuritic chest pain. : Abdomen/GI: Positive for abdominal pain, of the right upper quadrant and left upper quadrant. : Back: Negative for acute changes. : : Negative for urinary symptoms. : MS/extremity: Negative for acute changes. : Skin: Negative for rash. : Neuro: Negative for altered mental status. Exam: Head/Face: Normocephalic, atraumatic. Eyes: Pupils equal round and reactive to light, pkl extra-ocular motions intact. Lids and lashes normal. Conjunctiva and sclera are non-icteric and not injected. Cornea within normal limits. Periorbital areas with no swelling, redness, or edema. ENT: Nares patent. No nasal discharge, no septal abnormalities noted. Tympanic membranes are normal and external auditory canals are clear. Oropharynx with no redness, swelling, or masses, exudates, or evidence of obstruction, uvula midline. Mucous membranes moist. Neck: Trachea midline, no thyromegaly or masses palpated, and no cervical lymphadenopathy. Supple, full range of motion without nuchal rigidity, or vertebral point tenderness. No Meningismus. Chest/axilla: Normal chest wall appearance and motion. Nontender with no deformity. No lesions are appreciated. Cardiovascular: Regular rate and rhythm with a normal S1 and S2. No gallops, murmurs, or rubs. Normal PMI, no JVD. No pulse deficits. Respiratory: Lungs have equal breath sounds bilaterally, clear to auscultation and percussion. No rales, rhonchi or wheezes noted. No increased work of breathing, no retractions or nasal flaring. Abdomen/GI: Bowel sounds: normal, Palpation: soft, moderate abdominal tenderness, in the right upper quadrant and left upper quadrant. : Back: Exam negative for acute changes. : : Exam negative for acute changes. : Musculoskeletal/extremity: Exam is negative for acute changes. : Skin: Exam negative for rash. Neuro: Orientation: is normal, Mentation: is normal, Memory: Cranial nerves: grossly normal, Motor: is normal. Vital Signs: 01:00 BP 128 / 84; Pulse 64; Resp 16 S; Temp 98.4(O); Pulse Ox 98% on R/A; Weight 117.93 kg bb (R); Height 5 ft. 4 in. (162.56 cm) (R); Pain 9/10; 01:30 BP 131 / 70; Pulse 60; Resp 17; Temp 98.5; Pulse Ox 99% on R/A; Pain 10/10; rr5 02:13 BP 105 / 62; Pulse 59; Resp 15; Pulse Ox 92% on R/A; rr5 02:15 Pulse Ox 92% on 3 lpm NC; rr5 02:20 Pulse Ox 99% on 3 lpm NC; rr5 02:20 Pain 0/10; rr5 03:00 BP 121 / 60; Pulse 62; Resp 17; Temp 98.3; Pulse Ox 99% on 3 lpm NC; rr5 03:00 Pain 0/10; rr5 03:15 BP 137 / 63; Pulse 60; Resp 20; Temp 98.3; Pulse Ox 100% on 3 lpm NC; Pain 10/10; rr5 04:00 BP 137 / 66; Pulse 49; Resp 20; Pulse Ox 100% on 3 lpm NC; jb4 05:00 BP 126 / 65; Pulse 55; Resp 18; Pulse Ox 100% on 3 lpm NC; jb4 06:19 BP 103 / 72; Pulse 46; Resp 20; Pulse Ox 99% on R/A; jb4 07:06 BP 109 / 52; Pulse 50; Resp 18; Temp 97.2(O); Pulse Ox 100% on R/A; jb4 01:00 Body Mass Index 44.63 (117.93 kg, 162.56 cm) bb MDM: 01:22 Patient medically screened. pkl 06:49 Data reviewed: vital signs, nurses notes, lab test result(s), radiologic studies, CT pkl scan. ED course: Discussed lab. and CT Scan results with patient. Advised to follow up with PCP this week for further evaluations. Patient understood instructions. 01/29 01:27 Order name: Basic Metabolic Panel pkl 01/29 01:27 Order name: CBC with Diff pkl 01/29 01:27 Order name: Creatinine for Radiology pkl 06/04 01:27 Order name: Hepatic Function pkl 01/29 01:27 Order name: Lipase pkl 01/29 02:10 Order name: CBC with Automated Diff; Complete Time: 02:20 EDMS 01/29 02:21 Order name: Creatinine (Radiology Only); Complete Time: 03:12 EDMS 01/29 02:23 Order name: Basic Metabolic Panel; Complete Time: 03:12 EDMS 01/29 02:23 Order name: Liver (Hepatic) Function; Complete Time: 03:12 EDMS 01/29 02:23 Order name: Lipase; Complete Time: 03:12 EDMS 01/29 06:28 Order name: CT CHEST,ABD,PELVIS W/O EDMS 01/29 07:19 Order name: Hip Left 2 View XRAY snw 01/29 07:19 Order name: Hip Right 2 View XRAY snw 01/29 01:27 Order name: IV Saline Lock; Complete Time: 01:50 pkl 01/29 01:27 Order name: Labs collected and sent; Complete Time: 01:50 pkl Administered Medications: 01:35 Drug: NS 0.9% 1000 ml Route: IV; Rate: 1000 ml; Site: right forearm; rr5 02:25 Follow up: Response: No adverse reaction; IV Status: Completed infusion; IV Intake: rr5 1000ml 01:36 Drug: Zofran 4 mg Route: IVP; Site: right forearm; rr5 02:40 Follow up: Response: No adverse reaction rr5 01:40 Drug: Demerol 50 mg Route: IVP; Site: right forearm; rr5 02:43 Follow up: Response: No adverse reaction rr5 02:26 Drug: NS 0.9% 1000 ml Route: IV; Rate: 125 ml/hr; Site: right forearm; rr5 07:11 Follow up: Response: No adverse reaction; IV Status: Order to discontinue infusion jb4 03:16 Drug: morphine 4 mg Route: IVP; Site: right forearm; rr5 07:11 Follow up: Response: No adverse reaction jb4 Disposition: 01/29/19 06:52 Discharged to Home. Impression: Abdominal pain. - Condition is Stable. - Prescriptions for Ultram 50 mg Oral Tablet - take 1 tablet by ORAL route every 8 hours As needed; 15 tablet. - Medication Reconciliation Form, Thank You Letter, Antibiotic Education, Prescription Opioid Use form. - Follow up: Private Physician; When: 2 - 3 days; Reason: Re-evaluation by your physician. - Problem is new. - Symptoms have improved. Signatures: Dispatcher [employer] EDJhonathan Lopez MD MD pkl Kathy Miles, RN RN bb Emery Iyer RN RN jb4 Ifeanyi Barba RN RN rr5 Corrections: (The following items were deleted from the chart) 07:12 06:52 01/29/2019 06:52 Discharged to Home. Impression: Abdominal pain. Condition is jb4 Stable. Forms are Medication Reconciliation Form, Thank You Letter, Antibiotic Education, Prescription Opioid Use. Follow up: Private Physician; When: 2 - 3 days; Reason: Re-evaluation by your physician. Problem is new. Symptoms have improved. pkl 07:56 07:12 01/29/2019 06:52 Discharged to Home. Impression: Abdominal pain. Condition is jb4 Stable. Prescriptions for Ultram 50 mg Oral Tablet - take 1 tablet by ORAL route every 8 hours As needed; 15 tablet. and Forms are Medication Reconciliation Form, Thank You Letter, Antibiotic Education, Prescription Opioid Use. Follow up: Private Physician; When: 2 - 3 days; Reason: Re-evaluation by your physician. Problem is new. Symptoms have improved. jb4
[2019-01-29 07:38] VITALS: BP 109/52; TEMP 97.2; O2SAT 100
--- NOTE | 2019-01-29 08:55 | RAD REPORT ---
EXAM DESCRIPTION: RAD - Hip Left 2 View - 01/29/2019 7:40 am CLINICAL HISTORY: Left hip pain FINDINGS: No fracture or dislocation is seen.
--- NOTE | 2019-01-29 08:56 | RAD REPORT ---
EXAM DESCRIPTION: RAD - Hip Right 2 View - 01/29/2019 7:40 am CLINICAL HISTORY: Right hip pain FINDINGS: No fracture or dislocation is seen.
--- NOTE | 2019-01-30 13:31 | RAD REPORT ---
EXAM DESCRIPTION: CT - CT CHEST,ABD,PELVIS W/O - 01/29/2019 6:38 am CLINICAL HISTORY: The patient is 53 years old and is Female; abdominal pain TECHNIQUE: Axial computed tomography images of the chest, abdomen and pelvis without intravenous con trast. Sagittal and coronal reformatted images were created and reviewed. This CT exam was perfor med using one or more of the following dose reduction techniques: automated exposure control, adjus tment of the mA and/or kV according to patient size, and/or use of iterative reconstruction technique . COMPARISON: CT report from exam on December 20, 2018. FINDINGS: CHEST: LUNGS: Minimal dependent densities in the lung bases are present. PLEURAL SPACE: Unremarkable. No significant effusion. No pneumothorax. HEART: No cardiomegaly. No pericardial effusion. ABDOMEN: LIVER: 2 subtle areas of low attenuation within the right hepatic lobe posteriorly are present, the largest of which measures approximately 1.1 cm. These were described on prior CT report of December 20, 2018. GALLBLADDER AND BILE DUCTS: No calcified stones. No ductal dilation. PANCREAS: Unremarkable. No ductal dilation. SPLEEN: Unremarkable. ADRENALS: Unremarkable. No mass. KIDNEYS AND URETERS: No obstructing stones. No hydronephrosis. STOMACH AND BOWEL: The stomach is minimally distended with oral contrast. Contrast is present th roughout majority the small bowel which is normal in caliber. A moderate amount stool and contrast ar e present throughout the colon. There is no mucosal thickening or evidence of bowel obstruction. PELVIS: APPENDIX: The appendix is surgically absent. BLADDER: The bladder is well distended. No stones. REPRODUCTIVE: Unremarkable as visualized. CHEST, ABDOMEN and PELVIS: INTRAPERITONEAL SPACE: Unremarkable. No significant fluid collection. No free air. BONES/JOINTS: No acute fracture. SOFT TISSUES: The soft tissues are normal. VASCULATURE: Unremarkable. No aortic aneurysm. LYMPH NODES: Unremarkable. No enlarged lymph nodes. IMPRESSION: No acute findings on this noncontrasted CT of the chest, abdomen, and pelvis to explain the patient's symptoms. Electronically signed by: Evita Wiseman MD 01/29/2019 6:30 AM CDT Due to temporary technical issues with the PACS/Fluency reporting system, reports are being signed by the in house radiologist as a courtesy to ensure prompt reporting. The interpreting radiologist is f ully responsible for the content of the report.
== END 2019-01-29 07:56 | disposition home or self-care (01) ==
LOC: ER 00:46
DX: R10.10 Upper abdominal pain, unspecified (principal); E11.9 Type 2 diabetes mellitus without complications; F32.9 Major depressive disorder, single episode, unspecified; E78.00 Pure hypercholesterolemia, unspecified; Z91.048 Other nonmedicinal substance allergy status
CPT/HCPCS: 36415; 71250; 74176; 80048; 80076; 83690; 85025; 96361; 96374; 96375; 99284; J2175; J2405; J7030

== ENCOUNTER 2019-07-23 08:08 | Emergency (ER) | payer SELFPAY ==
--- OUTSIDE RECORDS SUMMARY | 2019-07-23 08:10 | XMS REPORT ---
:1965 [facility] Address [address] [place] [address] Care Team Providers Name Role Phone Unavailable [...] Date/Time Type Type Clinicians Facility Department ID 2019-07-23 2019-07-[address] [facility] [id number] 00:00:00 00:00:00 2019-07-01 2019-07-[address] [facility] [id number] 00:00:00 00:00:00 2019-06-21 2019-06-[address] [facility] [id number] 00:00:00 00:00:00 2019-06-21 2019-06-[address] [facility] [id number] 00:00:00 00:00:00 2019-05-31 2019-05-[address] [facility] [id number] 00:00:00 00:00:00 2019-05-30 2019-05-[address] [facility] [id number] 00:00:00 00:00:00 2019-05-30 2019-05-[address] [facility] [id number] 00:00:00 00:00:00 2019-05-17 2019-05-[address] [facility] [id number] 00:00:00 00:00:00 2019-05-17 2019-05-17 Outpatient [facility] [id number] 00:00:00 00:00:00 2019-05-06 2019-05-06 Outpatient [facility] [id number] 00:00:00 00:00:00 2019-05-06 2019-05-06 Outpatient [facility] [id number] 00:00:00 00:00:00 2019-04-24 2019-04-24 Outpatient [facility] [id number] 15:31:32 15:31:32 2019-04-24 2019-04-24 Outpatient [facility] [id number] 14:02:08 14:02:08 2019-04-24 2019-04-24 Outpatient [facility] [id number] 00:00:00 00:00:00 2019-04-19 2019-04-[address] [facility] [id number] 09:07:01 09:07:01 2019-04-08 2019-04-08 Outpatient [facility] [id number] 11:17:04 11:17:04 2019-04-08 2019-04-08 Outpatient [facility] [id number] 00:00:00 00:00:00 2019-04-01 2019-04-01 Outpatient [facility] [id number] 00:00:00 00:00:00 2019-03-18 2019-03-18 Outpatient [facility] [id number] 10:24:06 10:24:06 2019-03-18 2019-03-18 Outpatient [facility] [id number] 00:00:00 00:00:00 2019-03-15 2019-03-15 Outpatient [facility] [id number] 08:35:22 08:35:22 2019-03-12 2019-03-12 Outpatient [facility] [id number] 00:00:00 00:00:00 2019-02-27 2019-02-27 Outpatient [facility] [id number] 00:00:00 00:00:00 2019-02-26 2019-02-26 Outpatient [facility] [id number] 00:00:00 00:00:00 2019-02-14 2019-02-14 Outpatient [facility] [id number] 08:54:18 08:54:18 2019-01-31 2019-01-[address] [facility] [id number] 10:19:02 10:19:02 2019-01-24 2019-01-[address] [facility] [id number] 11:13:27 11:13:27 2019-01-14 2019-01-[address] [facility] [id number] 00:00:00 00:00:00 2018-12-28 2018-12-[address] [facility] [id number] 00:00:00 00:00:00 2018-12-28 2018-12-[address] [facility] [id number] 00:00:00 00:00:00 2018-12-20 2018-12-[address] [facility] [id number] 00:00:00 00:00:00 2018-12-20 2018-12-[address] [facility] [id number] 00:00:00 00:00:00 2018-12-14 2018-12-[address] [facility] [id number] 08:42:56 08:42:56 2018-12-04 2018-12-[address] [facility] [id number] 09:03:33 09:03:33 2018-11-30 2018-11-[address] [facility] [id number] 09:20:13 09:20:13 2018-11-02 2018-11-[address] [facility] [id number] 00:00:00 00:00:00 2018-11-01 2018-11-[address] [facility] [id number] 09:33:34 09:33:34 2018-10-30 2018-10-[address] [facility] [id number] 00:00:00 00:00:00 2018-10-29 2018-10-[address] [facility] [id number] 15:49:25 15:49:25 2018-10-24 2018-10-[address] [facility] [id number] 00:00:00 00:00:00 2018-10-19 2018-10-[address] [facility] [id number] 00:00:00 00:00:00 2018-10-18 2018-10-18 Emergency [facility] [id number] 20:21:55 20:21:55 2018-10-18 2018-10-[address] [facility] [id number] 15:33:25 15:33:25 2018-10-16 2018-10-[address] [facility] [id number] 11:45:18 11:45:18 2018-10-02 2018-10-02 Outpatient [facility] [id number] 11:16:17 11:16:17 2018-10-02 2018-10-02 Outpatient [facility] [id number] 00:00:00 00:00:00 2018-09-27 2018-09-27 Outpatient [facility] [id number] 00:00:00 00:00:00 2018-09-06 2018-09-06 Outpatient [facility] [id number] 11:29:04 11:29:04 2018-09-06 2018-09-06 Outpatient [facility] [id number] 10:23:32 10:23:32 2018-08-27 2018-08-27 Outpatient [facility] [id number] 00:00:00 00:00:00 2018-08-24 2018-08-24 Outpatient [facility] [id number] 14:33:36 14:33:36 2018-08-16 2018-08-16 Outpatient [facility] [id number] 00:00:00 00:00:00 2018-08-16 2018-08-16 Outpatient [facility] [id number] 00:00:00 00:00:00 2018-08-15 2018-08-15 Outpatient [facility] [id number] 08:54:15 08:54:15 2018-08-15 2018-08-15 Outpatient [facility] [id number] 08:02:56 08:02:56 2018-08-10 2018-08-10 Outpatient [facility] [id number] 00:00:00 00:00:00 2018-08-10 2018-08-[address] [facility] [id number] 00:00:00 00:00:00 2018-08-10 2018-08-10 Outpatient [facility] [id number] 00:00:00 00:00:00 2018-08-10 2018-08-10 Outpatient [facility] [id number] 00:00:00 00:00:00 2018-08-09 2018-08-09 Outpatient [facility] [id number] 12:27:55 12:27:55 2018-08-09 2018-08-09 Outpatient [facility] [id number] 10:27:26 10:27:26 Results Test Description Test Time Test Comments Text Results Atomic Results Result Comments COLON 2019-03-04 RUN BIOPSY 11:59:00 DATE: 03/04/19 [facility] PAGE 1 RUN TIME: 1159 Specimen Inquiry RUN USER: INTERFACE MARSHA ENT: NIURKA LIZARRAGA LOC: [facility] U #: [id number] AGE/SX: 53/F ROOM: RE02/27/19BENEDICT DR: Agnieszka Mendez : 61 BED: DIS: STATUS: PRE TXC TLOC: SPEC #: [id number] RECD: 03/01/19 STATUS: SOUT REQ #: [id number] NATALIA: 02/27/19 [facility] DR: Agnieszka Mendez MD ENTERED: 03/01/19 SP TYPE: COLONBX OTHR DR: ORDERED: GROSS PROCEDURES: GROSS (03/04/19) TISSUES: 1. HEPATIC FLEXURE - POLYP 2. RECTUM, NOS - BX CLINICAL HISTORY COLLECTION DATE: 02/27/2019 BLOOD IN STOOL POST-OP DIAGNOSIS: COLON POLYP, DIVERTICULOSIS, INTERNAL HEMORRHOIDS FINAL DIAGNOSIS Colon, hepatic flexure polyp, polypectomy: ADENOMATOUS POLYP NO HIGH GRADE DYSPLASIA OR MALIGNANCY IDENTIFIED Rectal, biopsy: RECTAL MUCOSA WITH FOCAL DIMINUTIVE HYPERPLASTIC CHANGES, LYMPHOID AGGREGATES, AND FOCAL ACUTE AND CHRONIC INFLAMMATION NO ULCERATION, MICROORGANISM, DYSPLASIA OR MALIGNANCY IDENTIFIED FA/aubrey D [id number] MACROSCOPIC The first specimen is received in formalin, labeled with the patient's name, identified as "hepatic flexure polyp", and consists of [place] biopsy tissue measuring 0.15 cm. The second specimen is received in formalin, labeled with the patient's name, identified as "rectum bx", and consists of [place] biopsy tissue measuring 0.3 cm. GROSS PERFORMED AT [facility] [address] [place] [id number] CONTINUED ON NEXT PAGE RUN DATE: 03/04/19 [facility] PAGE 2 RUN TIME: 1159 Specimen Inquiry RUN USER: INTERFACE SPEC #: [id number] PATIENT: NIURKA LIZARRAGA # [id number] (Continued) ------- MACROSCOPIC (Continued) (P)[phone] MICROSCOPIC All of the stains, including any controls performed, stain appropriately. 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 [facility] BASIC METABOLIC [id number] 15:50:00 Test Item Value Reference Range Comments SODIUM (test code=NA) 138 mmol/L 128-145 POTASSIUM (test code=K) 5.0 mmol/L 3.5-5.1 CHLORIDE (test code=CL) 103.0 mmol/L 98-107 CARBON DIOXIDE (test 25.0 mmol/L 22-29 code=CO2) ANION GAP (test code=GAP) 15 mmol/L 10-20 GLUCOSE (test code=GLU) 176 mg/dL 70-110 BLOOD UREA NITROGEN (test 23 mg/dL 7-22 code=BUN) GLOMERULAR FILTRATION RATE > 60 mL/min >=60 Estimated GFR by using (test code=GFR) Modified MDRD formula.Chronic kidney disease is defined as either kidney damageor GFR <60 mL/min/1.73 m2 for >3 months. CREATININE (test code=CREAT) 0.71 mg/dL 0.55-1.3 BUN/CREATININE RATIO (test 32.4 10-20 code=BUN/CREA) CALCIUM (test code=CA) 9.5 mg/dL 8.0-10.5
[2019-07-23] MEDS ORDERED: dexAMETHasone 4 MG TAB ONE (08:56)
[2019-07-23] MEDS ORDERED: KETOROLAC 30 MG/ML INJ ONE (08:57)
[2019-07-23] MEDS ORDERED: NA CHLORIDE 0.9% 500 ML ONE (09:01)
[2019-07-23 09:09] LABS: Absolute Lymphocytes (CBC) 1.4 K/uL (0.7-4.9); Basophils % 0.8 % (0-1.3); Hematocrit 31.5 % (36.0-45.0); Lymphocytes % 35.8 % (15.3-44.8); MPV 9.2 fL (7.6-11.3); RBC Red Blood Cell Count 3.67 M/uL (3.86-4.86)
--- NOTE | 2019-07-23 09:22 | RAD REPORT ---
EXAM DESCRIPTION: RAD - Chest Single View - 07/23/2019 9:01 am CLINICAL HISTORY: CHEST PAIN Chest pain. COMPARISON: Chest Single View dated 12/04/2018; Chest Single View dated 11/10/2018; Chest Single View d ated 09/27/2018; Chest Single View dated 07/15/2018 FINDINGS: Portable technique limits examination quality. The lungs are grossly clear. The heart is upper limit of normal in size. No displaced fractures. IMPRESSION: No acute intrathoracic process suspected.
[2019-07-23 09:25] LABS: ALT/SGPT 16 U/L (12-78); AST/SGOT 12 U/L (15-37); Albumin 3.3 g/dL (3.4-5.0); Alkaline Phosphatase 77 U/L (45-117); BUN Blood Urea Nitrogen 19 mg/dL (7-18); Bicarbonate 27 mmol/L (21-32); Bilirubin Total 0.4 mg/dL (0.2-1.0); Glucose Level 239 mg/dL (74-106); Potassium 4.1 mmol/L (3.5-5.1); Protein, Total 7.3 g/dL (6.4-8.2); Sodium Level 140 mmol/L (136-145); Troponin (Emerg Dept Use Only) < 0.02 ng/mL (0.0-0.045)
--- NOTE | 2019-07-23 09:37 | EDPHYS ---
Physician Documentation [facility] Name: Cary Gan Age: 53 yrs Sex: Female : 1965 Arrival Date: 07/23/2019 Time: 08:13 Bed 5 Private MD: ED Physician Miguel Pappas HPI: 07/23 08:24 This 53 yrs old Female presents to ER via EMS with complaints of Chest Pain. ps1 08:24 patient presenting with neck and chest pain. 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 ps1 Previously treated at [facility] in [place], [place] with Tramadol. Has neck pain that completely reproduces her pain with spasm in left neck and with palpation of trapezius and pectoral muscle. She has been seen and evaluated for chest pain and patient states that she had a stress test and heart cath that was normal 6 months ago. Onset of symptoms was this morning while using the bathroom and rolling her shoulders. She had a "zinger" while rolling shoulder and then had persistent pain. Pain is rated as severe. Worse with movement and palpation. . 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 - Ebola Screening: : No symptoms or risks identified at this time. - Social history:: Smoking status: Patient/guardian denies using alcohol, tobacco products. ROS: 08:24 Constitutional: Negative for fever, chills, and weight loss, Eyes: Negative for injury, ps1 pain, redness, and discharge, ENT: Negative for injury, pain, and discharge, Respiratory: Negative for shortness of breath, cough, wheezing, and pleuritic chest pain, Abdomen/GI: Negative for abdominal pain, nausea, vomiting, diarrhea, and constipation, MS/Extremity: Negative for injury and deformity, Skin: Negative for injury, rash, and discoloration, Neuro: Negative for headache, weakness, numbness, tingling, and seizure. 08:24 Neck: Positive for pain with movement, stiffness, tenderness. 08:24 Cardiovascular: Positive for chest pain. Exam: 08:24 Constitutional: This is a well developed, well nourished patient who is awake, alert, ps1 and in no acute distress. Head/Face: Normocephalic, atraumatic. Eyes: Pupils equal round and reactive to light, extra-ocular motions intact. Lids and lashes normal. Conjunctiva and sclera are non-icteric and not injected. Chest/axilla: Normal chest wall appearance and motion. Nontender with no deformity. No lesions are appreciated. Cardiovascular: Regular rate and rhythm. No gallops, murmurs, or rubs. Normal PMI, no JVD. No pulse deficits. Respiratory: Lungs have equal breath sounds bilaterally, clear to auscultation and percussion. No rales, rhonchi or wheezes noted. No increased work of breathing, no retractions or nasal flaring. Abdomen/GI: Soft, non-tender, with normal bowel sounds. No distension or tympany. No guarding or rebound. No evidence of tenderness throughout. Skin: Warm, dry with normal turgor. Normal color with no rashes, no lesions, and no evidence of cellulitis. Neuro: Awake and alert, GCS 15, oriented to person, place, time, and situation. Cranial nerves II-XII grossly intact. Sensory grossly intact. 08:24 Musculoskeletal/extremity: Extremities: grossly normal except: noted in the base of the skull, left trapezius and anterior aspect of left upper chest: Vital Signs: 08:13 BP 156 / 73; Pulse 55; Resp 14; Temp 98.4(O); Pulse Ox 97% on R/A; vc 09:00 BP 150 / 71; Pulse 55; Resp 12; Temp 98.3(O); Pulse Ox 97% on R/A; Pain 9/10; vc 10:00 BP 154 / 73; Pulse 56; Resp 14; Pulse Ox 98% on R/A; Pain 7/10; vc MDM: 08:57 Patient medically screened. ps1 09:34 Differential diagnosis: acute myocardial infarction, coronary artery disease chest wall ps1 pain, radiculopathy, trapezius spasm, and others. HEART Score: History: Slightly Suspicious (0), ECG: Normal (0), Age: > 45 and < 65 years (1), Risk Factors: 1 or 2 risk factors (1), [Hypertension] [DM] Troponin: < or = 1 x Normal Limit (0), Total Score = 2. Data reviewed: vital signs, nurses notes, lab test result(s), EKG, radiologic studies, and as a result, I will discharge patient. Counseling: I had a detailed discussion with the patient and/or guardian regarding: the historical points, exam findings, and any diagnostic results supporting the discharge/admit diagnosis, lab results, radiology results, the need for outpatient follow up, to return to the emergency department if symptoms worsen or persist or if there are any questions or concerns that arise at home. 07/23 08:24 Order name: CBC with Diff; Complete Time: 09:18 ps1 07/23 08:24 Order name: CMP; Complete Time: :33 ps1 07/23 09:33 Interpretation: Abnormal: GLUC 239. ps1 07/23 08:24 Order name: Troponin (emerg Dept Use Only); Complete Time: : ps1 07/23 09:33 Interpretation: Abnormal: TROPED < 0.02. ps1 07/23 08:24 Order name: CXR XRAY; Complete Time: : ps1 EC:10 Rate is 72 beats/min. Rhythm is regular. QRS [place] is Normal. [place] interval is normal. QRS ps1 interval is normal. QT interval is normal. No Q waves. T waves are Normal. No ST changes noted. Clinical impression: Normal ECG and PVC's. Interpreted by me. Administered Medications: 09:02 Drug: TORadol - Ketorolac 15 mg Route: IVP; Site: right jugular; aa5 09:58 Follow up: Response: No adverse reaction; Pain is unchanged, physician notified vc 09:02 Drug: Decadron 10 mg Route: PO; aa5 09:58 Follow up: Response: No adverse reaction; No change in condition vc 09:02 Drug: NS 0.9% 500 ml Route: IV; Rate: 1 bolus; Site: right jugular; aa5 09:57 Follow up: Response: No adverse reaction; IV Status: Completed infusion; IV Intake: vc 500ml 10:02 Follow up: IV Status: Completed infusion vc 14:54 Follow up: Response: No adverse reaction; IV Intake: 500ml vc Disposition: 07/23/19 09:37 Discharged to Home. Impression: Radiculopathy, Chest pain, Trapezius spasm. - Condition is Stable. - Discharge Instructions: Cervical Radiculopathy, Nonspecific Chest Pain. - Prescriptions for Anaprox DS 550 mg Oral Tablet - take 1 tablet by ORAL route every 12 hours As needed; 20 tablet. Robaxin 500 mg Oral Tablet - take 2 tablet by ORAL route every 6 hours As needed; 40 tablet. - Medication Reconciliation Form, Thank You Letter, Antibiotic Education, Prescription Opioid Use form. - Follow up: Private Physician; When: 48 Hours; Reason: Further diagnostic work-up, Recheck today's complaints, Continuance of care, Re-evaluation by your physician. Follow up: Emergency Department; When: As needed; Reason: Trouble breathing, Worsening of condition. - Problem is an acute exacerbation. - Symptoms have improved. Signatures: Dispatcher [employer] EDJanet Veras RN RN iw Lilo Mohr RN RN aa5 Miguel Pappas MD MD ps1 Edna Fofana RN RN vc Corrections: (The following items were deleted from the chart) 10:12 09:37 07/23/2019 09:37 Discharged to Home. Impression: Radiculopathy; Chest pain; iw Trapezius spasm. Condition is Stable. Forms are Medication Reconciliation Form, Thank You Letter, Antibiotic Education, Prescription Opioid Use. Follow up: Private Physician; When: 48 Hours; Reason: Further diagnostic work-up, Recheck today's complaints, Continuance of care, Re-evaluation by your physician. Follow up: Emergency Department; When: As needed; Reason: Trouble breathing, Worsening of condition. Problem is an acute exacerbation. Symptoms have improved. ps1
--- NOTE | 2019-07-23 09:37 | ER ---
Nurse's Notes [facility] Name: Cary Gan Age: 53 yrs Sex: Female : 1965 Arrival Date: 07/23/2019 Time: 08:13 Bed 5 Private MD: Diagnosis: Radiculopathy;Chest pain;Trapezius spasm Presentation: 07/23 08:13 Presenting complaint: EMS states: Chest pain that began this morning that radiates to vc the left neck and arm. Patient stated last time she had chest pain her magnesium levels were low. Initial blood pressure by EMS 170/106. 08:13 Transition of care: patient was not received from another setting of care. Onset of vc symptoms was July 23, 2019. Risk Assessment: Do you want to hurt yourself or someone else? Patient reports no desire to harm self or others. Initial Sepsis Screen: Does the patient meet any 2 criteria? No. Patient's initial sepsis screen is negative. Does the patient have a suspected source of infection? No. Patient's initial sepsis screen is negative. Care prior to arrival: Glucose check: 244. 08:13 Acuity: SANTANA 2 vc 08:13 Method Of Arrival: EMS: [facility] vc Triage Assessment: 08:20 General: Appears distressed, Behavior is cooperative, crying. Pain: Complains of pain vc in left supraclavicular area, left clavicle and anterior aspect of left upper chest Pain radiates to left arm Pain currently is 8 out of 10 on a pain scale. at worst was 10 out of 10 on a pain scale. Quality of pain is described as sharp, shooting, Pain began 1 hour ago. Is continuous, Alleviated by rest, Aggravated by Turning my neck and taking deep breaths. EENT: No signs and/or symptoms were reported regarding the EENT system. Neuro: Level of Consciousness is awake, alert, obeys commands, Oriented to person, place, time, Gait is unsteady, Patient gets dizzy when going from sitting to standing position. Patient states she has vertigo.. Cardiovascular: Reports chest pain, Chest pain. Respiratory: Airway is patent Respiratory effort is even, unlabored, shallow. GI: No signs and/or symptoms were reported involving the gastrointestinal system. : No deficits noted. Derm: Skin is intact, is healthy with good turgor. Musculoskeletal: Range of motion: intact in all extremities. 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 - Ebola Screening: : No symptoms or risks identified at this time. - Social history:: Smoking status: Patient/guardian denies using alcohol, tobacco products. Screenin:15 Abuse screen: Denies threats or abuse. Nutritional screening: No deficits noted. vc Tuberculosis screening: No symptoms or risk factors identified. Fall Risk Fall in past 12 months (25 points). Secondary diagnosis (15 points) IV access (20 points). Total Alfonso Fall Scale indicates High Risk Score (45 or more points). Fall prevention measures have been instituted. Side Rails Up X 2 Frequent Obs/Assessments Occuring. Assessment: 08:30 General: Appears distressed, uncomfortable, Behavior is anxious, crying. Pain: vc Complains of pain in left supraclavicular area, left clavicle, anterior aspect of left upper chest and left breast Pain radiates to left arm. Neuro: Level of Consciousness is awake, alert, obeys commands, Oriented to person, place, time, Reports She is very forgetful and gets confused easily.. Cardiovascular: Capillary refill < 3 seconds Patient's skin is warm and dry. Respiratory: Airway is patent Respiratory effort is even, shallow, Respiratory pattern is regular. GI: No signs and/or symptoms were reported involving the gastrointestinal system. : No deficits noted. EENT: No deficits noted. Derm: Skin is intact, is healthy with good turgor, Skin is dry. Musculoskeletal: No signs and/or symptoms reported regarding the musculoskeletal system. 09:00 Pain: Complains of pain in left lateral aspect of neck and left anterior aspect of neck vc Pain at worst was 8 out of 10 on a pain scale. Pain began 3 hours ago. Is continuous. 09:30 Reassessment: Patient and/or family updated on plan of care and expected duration. Pain vc level reassessed. Patient laying with eyes closed resting, opens eyes and states "the medication did not really help.". 10:00 Reassessment: Patient appears in no apparent distress at this time. Patient and/or iw family updated on plan of care and expected duration. Pain level reassessed. Patient is alert, oriented x 3, equal unlabored respirations, skin warm/dry/pink. pt calling daughter. Vital Signs: 08:13 BP 156 / 73; Pulse 55; Resp 14; Temp 98.4(O); Pulse Ox 97% on R/A; vc 09:00 BP 150 / 71; Pulse 55; Resp 12; Temp 98.3(O); Pulse Ox 97% on R/A; Pain 9/10; vc 10:00 BP 154 / 73; Pulse 56; Resp 14; Pulse Ox 98% on R/A; Pain 7/10; vc ED Course: 08:13 Patient arrived in ED. iw 08:13 Miguel Pappas MD is Attending Physician. ps1 08:13 Arm band placed on right wrist. vc 08:13 Bed in low position. Call light in reach. Side rails up X2. awake overnight monitor on. Pulse vc ox on. NIBP on. Door closed. Lights dimmed. 08:15 EKG done, by safety technician. reviewed by Miguel Pappas MD. sm3 08:15 Patient maintains SpO2 saturation greater than 95% on room air. vc 08:18 Edna Fofana, RN is Primary Nurse. vc 08:23 Triage completed. vc 08:25 blanket. vc 08:35 Missed attempt(s): 20 gauge in right forearm. vc 08:40 Missed attempt(s): 20 gauge in right forearm. vc 08:50 Initial lab(s) drawn, by ED staff, sent to lab. Inserted saline lock: 18 gauge in right aa5 EJ, using aseptic technique. Blood collected. IV inserted by DOUGLAS Garcia. 08:58 X-ray completed. Portable x-ray completed in exam room. Patient tolerated procedure jb2 well. 09:01 CXR XRAY In Process Unspecified. EDMS 10:02 No provider procedures requiring assistance completed. vc 10:11 IV discontinued, intact, bleeding controlled, No redness/swelling at site. Pressure iw dressing applied. Administered Medications: 09:02 Drug: TORadol - Ketorolac 15 mg Route: IVP; Site: right jugular; aa5 09:58 Follow up: Response: No adverse reaction; Pain is unchanged, physician notified vc 09:02 Drug: Decadron 10 mg Route: PO; aa5 09:58 Follow up: Response: No adverse reaction; No change in condition vc 09:02 Drug: NS 0.9% 500 ml Route: IV; Rate: 1 bolus; Site: right jugular; aa5 09:57 Follow up: Response: No adverse reaction; IV Status: Completed infusion; IV Intake: vc 500ml 10:02 Follow up: IV Status: Completed infusion vc 14:54 Follow up: Response: No adverse reaction; IV Intake: 500ml vc Intake: : IV: 500ml; Total: 500ml. vc 14:54 IV: 500ml; Total: 1000ml. vc Outcome: 09:37 Discharge ordered by . ps1 10:11 Discharged to home ambulatory. iw 10:11 Condition: good 10:11 Discharge instructions given to patient, Instructed on discharge instructions, follow up and referral plans. Demonstrated understanding of instructions, follow-up care, medications, Prescriptions given X 2. 10:12 Patient left the ED. iw Signatures: Dispatcher [employer] EDMS Darrell Reed2 Janet Durant RN RN iw Lilo Mohr RN RN aa5 Miguel Pappas MD MD ps1 Nina Barrett sm3 Edna Fofana RN RN vc
[2019-07-23 10:26] VITALS: BP 156/73; TEMP 98.4; O2SAT 97
--- NOTE | 2019-07-23 16:32 | EKG ---
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
== END 2019-07-23 10:12 | disposition home or self-care (01) ==
LOC: ER 08:08
DX: M62.830 Muscle spasm of back (principal); M54.10 Radiculopathy, site unspecified
CPT/HCPCS: 36415; 71045; 80053; 84484; 85025; 93005; 96361; 96374; 99285; J7040; J8540

== ENCOUNTER 2024-10-29 07:35 | Observation (INO) | payer OTHER ==
--- NOTE | 2024-10-29 08:00 | RAD REPORT ---
EXAM: CT brain without contrast HISTORY: STROKE ALERT COMPARISON: 11/10/2018 TECHNIQUE: Multiple contiguous axial images were obtained and a CT of the brain without contrast. Sag ittal and coronal reformats were performed. One or more of the following dose reduction techniques were used: Automated exposure control, adjust ment of the mA and/or kV according to patient size, and/or iterative reconstruction. FINDINGS: No evidence of hydrocephalus, intracranial hemorrhage, or extra-axial fluid collection. Mild brain atrophy. No evidence of midline shift or areas of brain edema. The calvarium is intact. The visualized paranasal sinuses and mastoid air cells are essentially clear . IMPRESSION: No evidence of acute intracranial abnormality. The findings were communicated with Isaias Reed at 10/29/2024 7:55 AM by telephone.
[2024-10-29 08:14] LABS: Absolute Eosinophils 0.2 K/uL (0-0.5); Absolute Lymphocytes (CBC) 1.7 K/uL (0.7-4.9); Absolute Monocytes 0.4 K/uL (0.1-1.3); Absolute Neutrophil 3.5 K/uL (1.8-8.0); Basophils % 0.7 % (0-1.3); Eosinophils % 2.8 % (0-4.4); Hematocrit 34.7 % (36.0-45.0); Hemoglobin 11.5 g/dL (12.0-15.0); Lymphocytes % 29.3 % (15.3-44.8); MCH 27.7 pg (27.0-35.0); MCHC 33.2 g/dL (32.0-36.0); MCV 83.2 fL (80-100); MPV 9.5 fL (7.6-11.3); Monocytes % 7.2 % (3.3-12.3); Platelets 192 thou/uL (152-406); RBC Red Blood Cell Count 4.17 M/uL (3.86-4.86); Red Cell Distribution Width 14.4 % (12.1-15.2)
[2024-10-29 08:23] LABS: PT Prothrombin Time 9.9 SECONDS (10.0-13.0); PTT, Activated Partial Thromb 30.4 SECONDS (24.3-36.9); Protime INR 0.86
[2024-10-29] MEDS ORDERED: ASPIRIN 81 MG CHEWABLE TABLET ONE (08:26)
--- NOTE | 2024-10-29 08:27 | RAD REPORT ---
EXAMINATION: CTA HEAD CLINICAL INDICATION: left side weaknes TECHNIQUE: Axial CT images were obtained through the head after intravenous contrast utilizing angiog raphic protocol with 3D post-processing (maximum intensity projection images, volume rendered images and/or shaded surface rendered images). One or more of the following dose reduction technique s were used: Automated exposure control, adjustment of the mA and/or kV according to patient size, and/or iterative reconstruction. Unless otherwise specified, incidental findings do not require dedic ated imaging follow-up. COMPARISON: No prior exam. FINDINGS: ICA: The petrous, cavernous, and supraclinoid segments of the bilateral internal carotid arteries are normal. The ophthalmic artery origins are visualized and normal. The posterior communicating arteries are patent. KINSEY: Anterior cerebral arteries are normal bilaterally. The anterior communicating artery is patent. MCA: Middle cerebral arteries are normal bilaterally. JAR FILLER: Posterior cerebral arteries are normal bilaterally. Vertebrobasilar: The left vertebral artery is diminutive and may terminate in PICA. The basilar arter y is normal in appearance. 3D images confirm these findings. IMPRESSION: No significant flow abnormality is identified.
[2024-10-29 08:35] LABS: ALT/SGPT 17 U/L (13-56); AST/SGOT 11 U/L (15-37); Albumin 3.3 g/dL (3.4-5.0); Albumin/Globulin Ratio 0.8 (1.1-1.8); Alkaline Phosphatase 119 U/L (45-117); Anion Gap 9.5 mEq/L (5.0-15.0); BUN Blood Urea Nitrogen 28 mg/dL (7-18); Bicarbonate 26 mEq/L (21-32); Bilirubin Total 0.2 mg/dL (0.2-1.0); Globulin 4.4 g/dL (2.3-3.5); Glomerular Filtration Rate 55 ml/min (=/>90); Glucose Level 354 mg/dL (74-106); Magnesium 2.2 mg/dL (1.6-2.4); Potassium 4.5 mEq/L (3.5-5.1); Protein, Total 7.7 g/dL (6.4-8.2); Sodium Level 135 mEq/L (136-145); Troponin High Sensitivity 10.5 pg/mL (<58.9)
[2024-10-29 08:36] LABS: Bilirubin Direct < 0.2 mg/dL (0-0.2)
--- NOTE | 2024-10-29 08:36 | RAD REPORT ---
EXAMINATION: CTA NECK CLINICAL INDICATION: left side weaknes TECHNIQUE: Axial CT images were obtained from the aortic arch to the skull base after intravenous con trast utilizing angiographic protocol with 3D post-processing (maximum intensity projection images, volume rendered images and/or shaded surface rendered images). One or more of the following dose redu ction techniques were used: Automated exposure control, adjustment of the mA and/or kV according to patient size, and/or iterative reconstruction. Unless otherwise specified, incidental findings do not require dedicated imaging follow-up. COMPARISON: No prior exam. FINDINGS: AORTA: The imaged aortic arch is normal. CCA: The common carotid arteries are patent and normal in caliber. ICA/ECA: Bilateral internal and external carotid arteries are patent. There is no significant interna l carotid artery stenosis. Small amount of hard plaque left carotid bulb. VERTEBRAL: The cervical vertebral arteries are patent. The right vertebral artery is dominant. The le ft vertebral artery is diminutive and may terminate in PICA. SOFT TISSUE: No significant neck soft tissue abnormalities. The visualized lung apices are clear. 3D images confirm these findings. IMPRESSION: No significant flow abnormality of the neck vessels is identified. NASCET criteria used. Mild 0-49% stenosis Moderate 50-69% stenosis Severe 70-99% stenosis
--- NOTE | 2024-10-29 08:53 | EDPHYS ---
Physician Documentation [facility] Name: Cary Gan Age: 58 yrs Sex: Female : 1965 Arrival Date: 10/29/2024 Time: 07:35 Bed 2 Private MD: ED Physician Isaias Reed HPI: 10/29 08:59 This 58 yrs old Female presents to ER via Wheelchair with complaints of Chest ms3 Pain. 08:59 58-year-old female past medical history of diabetes, anxiety, edema, depression, ms3 hypertension presents to the emergency department for left arm pain and weakness, left-sided chest pain, left leg pain, left neck pain that began at 2 AM. Patient endorses nausea. Patient denies vomiting. Patient states she was last normal prior to bed at 915 last night.. Historical: - Allergies: 07:43 Adhesives; ss - PMHx: 07:43 Diabetes - IDDM; Anxiety; EDEMA; Depression; herniated disk lower back; high blood ss pressure (resolved); neuropathy; Pancreatitis; Rheumatoid Arthritis; High Cholesterol; - Immunization history:: Adult Immunizations unknown. - Infectious Disease History:: Denies. - Social history:: Smoking status: Patient denies any tobacco usage or history of. ROS: 08:59 Constitutional: Negative for fever, and chills. Cardiovascular: Negative for chest ms3 pain, and palpitations. Respiratory: Negative for shortness of breath, cough, wheezing, and pleuritic chest pain, Abdomen/GI: Negative for abdominal pain, nausea, vomiting, diarrhea, and constipation, 08:59 MS/extremity: Positive for Left-sided weakness, Exam: 08:59 Constitutional: This is a well developed, well nourished patient who is awake, alert, ms3 and in no acute distress. Cardiovascular: Regular rate and rhythm with a normal S1 and S2. No gallops, murmurs, or rubs. Normal PMI, no JVD. No pulse deficits. Respiratory: Lungs have equal breath sounds bilaterally, clear to auscultation and percussion. No rales, rhonchi or wheezes noted. No increased work of breathing, no retractions or nasal flaring. Abdomen/GI: Soft, non-tender, with normal bowel sounds. No distension or tympany. No guarding or rebound. No evidence of tenderness throughout. Skin: Warm, dry with normal turgor. Normal color with no rashes, no lesions, and no evidence of cellulitis. 08:59 ECG was reviewed by the Attending Physician. 08:59 Neuro: Orientation: is normal, to person, place, time \T\ situation. Mentation: is normal, Cerebellar function: dysmetria is noted on the left, Motor: Left upper extremity drift, 09:06 Radiologist reports: Negative acute ms3 Vital Signs: 08:19 BP 184 / 64; Pulse 60; Pulse Ox 98% on R/A; rs6 08:20 Resp 19; Temp 97.4; Weight 107.05 kg; Height 5 ft. 3 in. ; Pain 8/10; ph 08:37 BP 164 / 64; Pulse 56; Resp 18; Pulse Ox 97% on R/A; ph 09:40 BP 176 / 91; Pulse 58; Resp 18; Pulse Ox 97% on R/A; ph 10:00 ph 10:30 ph 11:00 BP 161 / 80; Pulse 58; Resp 18; Pulse Ox 98% on R/A; ph 11:30 BP 160 / 62; Pulse 63; Resp 16; Pulse Ox 99% on R/A; ph 12:00 BP 141 / 66; Pulse 53; Resp 18; Pulse Ox 97% on R/A; ph 12:30 BP 155 / 64; Pulse 61; Resp 18; Pulse Ox 98% on R/A; ph 13:00 BP 171 / 62; Pulse 68; Resp 18; Temp 97.5; Pulse Ox 98% on R/A; ph 08:20 Body Mass Index 41.81 (107.05 kg, 160.02 cm) ph 08:20 Pain Scale: Adult ph 10:00 pt in MRI ph 10:30 pt in MRI ph NIH Stroke Scale Scores: 08:20 NIHSS Score: 2 ph 08:59 NIHSS Score: 2 ms3 MDM: 07:46 Medical Screening Exam initiated ms3 08:59 Differential diagnosis: abnormal EKG, acute myocardial infarction. ms3 09:05 Differential diagnosis: CVA, TIA, metabolic disorder. TNKase (Tenecteplase) Screening: ms3 Contraindications: Patient reports onset of signs and symptoms of stroke greater than 6 hours ago: Yes. Data reviewed: vital signs, nurses notes, lab test result(s), EKG, radiologic studies, and as a result, I will admit patient. Consideration of Admission/Observation Patient was admitted/placed on observation. Management of patient was discussed with the following: Hospitalist: Dr Abel. Payroll Assistant: Dr Avila. I considered the following discharge prescriptions or medication management in the emergency department Medications were administered in the Emergency Department. See MAR. Independent interpretation of the following test(s) in the Emergency Department EKG: See my EKG interpretation above. Counseling: I had a detailed discussion with the patient and/or guardian regarding the historical points, exam findings, and any diagnostic results supporting the discharge/admit diagnosis, lab results, radiology results, the need for further work-up and treatment in the hospital. ED course: Case was discussed with Dr. Avila and he recommends aspirin, Plavix, statin, folic acid. Discussed case with Dr. Abel and he accepts patient for admission. Patient understands and agrees with plan. MRI ordered. Patient's symptoms remain the same. 10/29 07:37 Order name: Basic Metabolic Panel; Complete Time: 08:46 ms3 10/29 07:37 Order name: LFT's; Complete Time: 08:46 ms3 10/29 07:37 Order name: Magnesium; Complete Time: 08:46 ms3 10/29 07:37 Order name: Troponin HS; Complete Time: 08:46 ms3 10/29 07:47 Order name: CBC with Diff; Complete Time: 08:46 ms3 10/29 07:47 Order name: Protime (+inr); Complete Time: 08:46 ms3 10/29 07:47 Order name: Ptt, Activated; Complete Time: 08:46 ms3 10/29 08:29 Order name: CREATININE WHOLE BLOOD; Complete Time: 08:46 EDMS 10/29 08:44 Order name: Glucose, Ancillary Testing; Complete Time: 08:46 EDMS 10/29 09:52 Order name: Basic Metabolic Panel EDMT 10/29 09:52 Order name: Basic Metabolic Panel EDMT 10/29 09:52 Order name: Basic Metabolic Panel EDMT 10/29 09:52 Order name: Basic Metabolic Panel EDMT 10/29 09:52 Order name: Hemoglobin A1c EDMT 10/29 09:52 Order name: Hemoglobin A1c EDMT 10/29 09:52 Order name: Lipid Profile EDMT 10/29 09:52 Order name: Lipid Profile EDMS 03/ 09:52 Order name: Magnesium EDMS 03/ 09:52 Order name: Magnesium EDMS 03/04 09:52 Order name: Magnesium EDMS 03/ 09:52 Order name: Magnesium EDMS 03/ 09:52 Order name: Phosphorus EDMS 03/ 09:52 Order name: Phosphorus EDMS 03/04 09:52 Order name: Phosphorus EDMS 03/ 09:52 Order name: Phosphorus EDMS 03/04 09:52 Order name: T4,Total EDMS 03/ 09:52 Order name: T4,Total EDMS 03/ 09:52 Order name: Thyroid Stimulating Hormone EDMS 03/ 09:52 Order name: Thyroid Stimulating Hormone EDMS 03/ 09:52 Order name: CBC with Automated Diff EDMS 03/04 09:52 Order name: CBC with Automated Diff EDMS 03/04 09:52 Order name: CBC with Automated Diff EDMS 03/04 09:52 Order name: CBC with Automated Diff EDMS 03/04 13:27 Order name: Glucose, Ancillary Testing; Complete Time: 16:37 EDMS / 16:45 Order name: Glucose, Ancillary Testing EDMS / 07:47 Order name: CT Head Angio; Complete Time: 08:46 ms3 / 07:47 Order name: CT Neck Angio; Complete Time: 08:46 ms3 10/29 07:47 Order name: CT Stroke Brain w/o Contrast; Complete Time: 08:46 ms3 10/29 07:47 Order name: Stroke CXR 1 View; Complete Time: 09:28 ms3 10/29 09:52 Order name: Echo with Doppler EDMS 10/29 09:54 Order name: Brain Wo Cont; Complete Time: 11:04 EDMS / 14:51 Order name: RAD; Complete Time: 16:37 EDMS 10/29 09:52 Order name: Physical Therapy Consult EDMS 10/29 09:52 Order name: Speech Therapy Consult EDMS 10/29 07:37 Order name: Cardiac monitoring; Complete Time: 08:41 ms3 10/29 07:37 Order name: EKG - Nurse/Tech; Complete Time: 08:41 ms3 10/29 07:37 Order name: IV Saline Lock; Complete Time: 08:41 ms3 10/29 07:37 Order name: Labs collected and sent; Complete Time: 08:40 ms3 10/29 07:37 Order name: O2 Per Protocol; Complete Time: 08:05 ms3 10/29 07:37 Order name: O2 Sat Monitoring; Complete Time: 08:05 ms3 10/29 07:47 Order name: Accucheck; Complete Time: 08:05 ms3 10/29 07:47 Order name: NPO; Complete Time: 08:05 ms3 10/29 07:47 Order name: Stroke Swallow Screen; Complete Time: 08:36 ms3 EC:59 Rate is 59 beats/min. Rhythm is regular. QRS [place] is Normal. CA interval is normal. QRS ms3 interval is normal. Clinical impression: Sinus bradycardia. Interpreted by me. Reviewed by me. Administered Medications: 08:36 Drug: Aspirin PO Chewable Tablet 324 mg PO once; 81 mg tablets x 4 Route: PO; ph 09:23 Follow up: Response: No adverse reaction ph 09:22 Drug: Ondansetron IVP 4 mg IVP once; over 2 minutes Route: IVP; Site: right wrist; ph 09:23 Drug: Clopidogrel PO 75 mg PO once Route: PO; ph 09:23 Follow up: Response: No adverse reaction ph 09:23 Drug: foLIC Acid PO 1 mg PO once Route: PO; ph 09:23 Follow up: Response: No adverse reaction ph 09:23 Drug: morphine IVP or IV 4 mg IVP once over 4 mins Route: IVP; Infused Over: 4 mins; ph Site: right wrist; 16:30 Not Given (med unavailablee): [id number] mg PO once bp Disposition Summary: 10/29/24 08:53 Hospitalization Ordered Notes: Hospitalization Status: Observation ms3 Provider: Brent Abel ms3 Condition: Stable ms3 Problem: new ms3 Symptoms: are unchanged ms3 Bed/Room Type: Standard ms3 Location: Telemetry/MedSurg (observation)(10/29/24 17:25) Room Assignment: 429(10/29/24 17:25) Diagnosis - Left arm weakness ms3 - Left leg weakness ms3 - Dizziness ms3 Forms: - Medication Reconciliation Form ms3 - SBAR form ms3 - Leadership Thank You Letter ms3 NIH Stroke Scale - NIH Stroke Score Date: 10/29/2024 Time: 08:20 Total Score = 2 10. Dysarthria (speech clarity - read or repeat words) - 0(Normal) 11. Extinction and Inattention (visual/tactile/auditory/spatial/personal) - 0(No abnormality) 1a. Level of Consciousness (LOC) - 0(Alert) 1b. Level of Consciousness (LOC) (Month \T\ Age) - 0(Both) 1c. LOC Commands (Open \T\ Closes Eyes/Operational Meteorologist) - 0(Both) 2. Best Gaze (Lateral Gaze Paresis) - 0(Normal) 3. Visual Field Loss - 0(No visual loss) 4. Facial Palsy - 0(Normal) 5a. Left Arm: Motor (10-second hold) - 1(Drift) 5b. Right Arm: Motor (10-second hold) - 0(No drift) 6a. Left Leg: Motor (5-second hold - always test supine) - 0(No drift) 6b. Right Leg: Motor (5-second hold - always test supine) - 0(No drift) 7. Limb Ataxia (finger/nose \T\ heel/wei - test with eyes open) - 1(Present in one limb) 8. Sensory Loss (pinprick arms/legs/face) - 0(Normal) 9. Best Language: Aphasia (description/naming/reading) - 0(No aphasia) Initials: NIH Stroke Scale - NIH Stroke Score Date: 10/29/2024 Time: 08:59 Total Score = 2 10. Dysarthria (speech clarity - read or repeat words) - 0(Normal) 11. Extinction and Inattention (visual/tactile/auditory/spatial/personal) - 0(No abnormality) 1a. Level of Consciousness (LOC) - 0(Alert) 1b. Level of Consciousness (LOC) (Month \T\ Age) - 0(Both) 1c. LOC Commands (Open \T\ Closes Eyes/Operational Meteorologist) - 0(Both) 2. Best Gaze (Lateral Gaze Paresis) - 0(Normal) 3. Visual Field Loss - 0(No visual loss) 4. Facial Palsy - 0(Normal) 5a. Left Arm: Motor (10-second hold) - 1(Drift) 5b. Right Arm: Motor (10-second hold) - 0(No drift) 6a. Left Leg: Motor (5-second hold - always test supine) - 0(No drift) 6b. Right Leg: Motor (5-second hold - always test supine) - 0(No drift) 7. Limb Ataxia (finger/nose \T\ heel/wei - test with eyes open) - 1(Present in one limb) 8. Sensory Loss (pinprick arms/legs/face) - 0(Normal) 9. Best Language: Aphasia (description/naming/reading) - 0(No aphasia) Initials: ms3 Signatures: Dispatcher [employer] EDMS Melissa Chacon, KINGS RN ss Joana Celis RN RN Isaias Reed, DO ms3 Stephany Livingston bc6 Freddie Xiong RN bp Corrections: (The following items were deleted from the chart) 07:37 07:37 BASIC METABOLIC PANEL+C.LAB.BRZ ordered. EDMS EDMS 07:37 07:37 HEPATIC FUNCTION+C.LAB.BRZ ordered. EDMS EDMS 07:37 07:37 MAGNESIUM+C.LAB.BRZ ordered. EDMS EDMS 07:37 07:37 Troponin High Sensitivity+C.LAB.BRZ ordered. EDMS EDMS 07:38 07:38 Chest Single View+RAD.RAD.BRZ ordered. EDMS EDMS 07:48 07:48 CBC+H.LAB.BRZ ordered. EDMS EDMS 07:48 07:48 PROTIME (+INR)+COAG.LAB.BRZ ordered. EDMS EDMS 07:48 07:48 PTT, ACTIVATED+COAG.LAB.BRZ ordered. EDMS EDMS 07:48 07:48 Head Angio+CT.RAD.BRZ ordered. EDMS EDMS 07:48 07:48 Neck Angio+CT.RAD.BRZ ordered. EDMS EDMS 07:48 07:48 CT-STROKE BRAIN W/O CONTRAST+CT.RAD.BRZ ordered. EDMS EDMS 07:48 07:48 Chest Single View+RAD.RAD.BRZ ordered. EDMS EDMS 08:19 07:48 BASIC METABOLIC PANEL+C.LAB.BRZ ordered. EDMS EDMS 08:21 07:37 CBC+H.LAB.BRZ ordered. EDMS EDMS 09:54 08:55 MR STROKE PROTOCOL+MRI.RAD.BRZ ordered. EDMS EDMS 13:08 08:53 Telemetry/MedSurg (observation) ms3 bc6 13:08 08:53 ms3 bc6 17:25 13:08 [facility] bc6 ss 17: 13:08 [facility]- 6
--- NOTE | 2024-10-29 08:53 | ER ---
Nurse's Notes [facility] Name: Cary Gan Age: 58 yrs Sex: Female : 1965 Arrival Date: 10/29/2024 Time: 07:35 Bed 2 Private MD: Diagnosis: Left arm weakness;Left leg weakness;Dizziness Presentation: 10/29 07:42 Chief complaint: Patient states: Pain/ weakness to L side of neck all the way down to L ss leg that began \T\ 0200 today. Coronavirus screen: Client denies travel out of the [place] in the last 14 days. Ebola Screen: Patient denies exposure to infectious person. Patient denies travel to an Ebola-affected area in the 21 days before illness onset. Initial Sepsis Screen: Does the patient meet any 2 criteria? No. Patient's initial sepsis screen is negative. Does the patient have a suspected source of infection? No. Patient's initial sepsis screen is negative. Risk Assessment: Do you want to hurt yourself or someone else? Patient reports no desire to harm self or others. 07:42 Method Of Arrival: Wheelchair ss 07:42 Acuity: SANTANA 3 ss 08:00 No acute neurological deficit is noted. Pre-hospital glucose is not applicable to this patient. 08:21 Onset of symptoms was October 28, 2024. Triage Assessment: 16:19 The onset of the patients symptoms was. Stroke Activation: Symptom onset > 6 hours Physician: ED Attending; Name: silvino; Notified At: 07:47; Arrived At: 07:44 Physician: Mid-Level Provider; Name: ; Notified At: 07:44; Arrived At: Physician: [not used]; Name: ; Notified At: ; Arrived At: Physician: [not used]; Name: ; Notified At: ; Arrived At: Physician: [not used]; Name: ; Notified At: ; Arrived At: Historical: - Allergies: 07:43 Adhesives; ss - PMHx: 07:43 Diabetes - IDDM; Anxiety; EDEMA; Depression; herniated disk lower back; high blood ss pressure (resolved); neuropathy; Pancreatitis; Rheumatoid Arthritis; High Cholesterol; - Immunization history:: Adult Immunizations unknown. - Infectious Disease History:: Denies. - Social history:: Smoking status: Patient denies any tobacco usage or history of. Screenin:21 [facility] ED Fall Risk Assessment (Adult) History of falling in the last 3 months, ph including since admission No falls in past 3 months (0 pts) Confusion or Disorientation No (0 pts) Intoxicated or Sedated No (0 pts) Impaired Gait Yes (1 pt) Mobility Assist Device Used Yes (1 pt) Altered Elimination No (0 pt) Score/Fall Risk Level 0 - 2 = Low Risk Oriented to surroundings, Maintained a safe environment, Hourly rounding (assess needs \T\ fall precautionary measures) done. Abuse screen: Denies threats or abuse. Denies injuries from another. Nutritional screening: No deficits noted. Tuberculosis screening: No symptoms or risk factors identified. 08:25 Marion Swallow Protocol Exclusion Criteria: Unable to remain alert for testing: No NPO ph for medical/surgical reason by provider order No Head-of-bed restricted <30 degrees Tracheostomy tube present No No thin liquids due to preexisting dysphagia/baseline modified diet thickened liquids No Exclusion Criteria Result: Proceed Brief Cognitive Screen What is your name? Normal, Where are you right now? Normal, What year is it? Normal. Oral Mechanism Examination Facial Symmetry: Normal, Motion: Normal, Lip Closure: Normal, Oral Mechanism Result: Normal. 3 oz Water Swallow Challenge: Pt able to drink all water without stopping, coughing, choking or throat clearing: Yes Result: PASS Notified: Isaias Reed DO. Assessment: 07:44 Reassessment: Pt reports she woke up with these symptoms this morning, went to bed at ss [address] Reed in triage assessing patient. 08:20 Reassessment: Patient appears in no apparent distress at this time. Patient and/or ph family updated on plan of care and expected duration. Pain level reassessed. Patient is alert, oriented x 3, equal unlabored respirations, skin warm/dry/pink. Pt reports that L leg weakness started last night. 08:20 VAN Scoring: Arm Drift: Minor drift Visual Disturbance: No visual disturbance noted. ph Aphasia: No aphasia noted. Neglect: No neglect noted. 08:20 General: Appears in no apparent distress. uncomfortable, Behavior is cooperative, ph appropriate for age, anxious. Pain: Complains of pain in L side of neck Pain radiates to left arm and left leg Pain began woke up this morning w/ symptoms. 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 Gait is unsteady, Speech is normal, Facial symmetry appears normal, Pupils are PERRLA, Intact. Cardiovascular: Reports chest pain, Capillary refill < 3 seconds in bilateral fingers Patient's skin is warm and dry. Respiratory: Airway is patent Respiratory effort is even, unlabored. GI: No signs and/or symptoms were reported involving the gastrointestinal system. Derm: Skin is pink, warm \T\ dry. 08:25 Marion Swallow Protocol Exclusion Criteria: Unable to remain alert for testing: No NPO ph for medical/surgical reason by provider order No Head-of-bed restricted <30 degrees Tracheostomy tube present No No thin liquids due to preexisting dysphagia/baseline modified diet thickened liquids No Exclusion Criteria Result: Proceed Brief Cognitive Screen What is your name? Normal, Where are you right now? Normal, What year is it? Normal. Oral Mechanism Examination Facial Symmetry: Normal, Motion: Normal, Lip Closure: Normal, Oral Mechanism Result: Normal. 3 oz Water Swallow Challenge: Pt able to drink all water without stopping, coughing, choking or throat clearing: Yes Result: PASS MD Notified: Isaias Reed DO. TNKase (Tenecteplase) Screening: Contraindications: Patient reports onset of signs and symptoms of stroke greater than 6 hours ago: Yes. 09:39 Reassessment: Pt taken to MRI via wheelchair. ph Vital Signs: 08:19 BP 184 / 64; Pulse 60; Pulse Ox 98% on R/A; rs6 08:20 Resp 19; Temp 97.4; Weight 107.05 kg; Height 5 ft. 3 in. ; Pain 8/10; ph 08:37 BP 164 / 64; Pulse 56; Resp 18; Pulse Ox 97% on R/A; ph 09:40 BP 176 / 91; Pulse 58; Resp 18; Pulse Ox 97% on R/A; ph 10:00 ph 10:30 ph 11:00 BP 161 / 80; Pulse 58; Resp 18; Pulse Ox 98% on R/A; ph 11:30 BP 160 / 62; Pulse 63; Resp 16; Pulse Ox 99% on R/A; ph 12:00 BP 141 / 66; Pulse 53; Resp 18; Pulse Ox 97% on R/A; ph 12:30 BP 155 / 64; Pulse 61; Resp 18; Pulse Ox 98% on R/A; ph 13:00 BP 171 / 62; Pulse 68; Resp 18; Temp 97.5; Pulse Ox 98% on R/A; ph 08:20 Body Mass Index 41.81 (107.05 kg, 160.02 cm) ph 08:20 Pain Scale: Adult ph 10:00 pt in MRI ph 10:30 pt in MRI ph NIH Stroke Scale Scores: 08:20 NIHSS Score: 2 ph 08:59 NIHSS Score: 2 ms3 ED Course: 07:37 Patient arrived in ED. cj3 07:37 Isaias Reed DO is Attending Physician. ms3 07:42 Triage completed. ss 07:43 Arm band placed on right wrist. ss 07:57 CT Stroke Brain w/o Contrast In Process Unspecified. EDMS 08:00 Initial lab(s) drawn, by ia, sent to lab. Inserted saline lock: 22 gauge in right ph wrist, using aseptic technique. Blood collected. Flushed with 10 mL NS. Patient maintains SpO2 saturation greater than 95% on room air. 08:05 Freddie Xiong, RN is Primary Nurse. bp 08:08 CT Head Angio In Process Unspecified. EDMS 08:08 CT Neck Angio In Process Unspecified. EDMS 08:20 EKG done, by ED staff, reviewed by Isaias Reed DO. ph 08:22 Patient has correct armband on for positive identification. Placed in gown. Bed in low ph position. Call light in reach. Side rails up X2. Client placed on continuous cardiac and pulse oximetry monitoring. NIBP monitoring applied. quality assurance monitor on. Door closed. Noise minimized. Warm blanket given. Pillow given. Verbal reassurance given. 08:52 Brent Abel is Hospitalizing Provider. ms3 09:05 Stroke CXR 1 View In Process Unspecified. EDMS 09:34 Primary Nurse role handed off by Freddie Xiong, RN ph 09:34 Joana Celis, KINGS is Primary Nurse. ph 10:19 Brain Wo Cont In Process Unspecified. EDMS 13:10 No provider procedures requiring assistance completed. Patient admitted, IV remains in ph place. Administered Medications: 08:36 Drug: Aspirin PO Chewable Tablet 324 mg PO once; 81 mg tablets x 4 Route: PO; ph 09:23 Follow up: Response: No adverse reaction ph 09:22 Drug: Ondansetron IVP 4 mg IVP once; over 2 minutes Route: IVP; Site: right wrist; ph 09:23 Drug: Clopidogrel PO 75 mg PO once Route: PO; ph 09:23 Follow up: Response: No adverse reaction ph 09:23 Drug: foLIC Acid PO 1 mg PO once Route: PO; ph 09:23 Follow up: Response: No adverse reaction ph 09:23 Drug: morphine IVP or IV 4 mg IVP once over 4 mins Route: IVP; Infused Over: 4 mins; ph Site: right wrist; 16:30 Not Given (med unavailablee): [id number] mg PO once bp Medication: 08:22 VIS not applicable for this client. ph Outcome: 08:53 Decision to Hospitalize by Provider. ms3 13:10 Admitted to ER Hold. Please see [facility] for further documentation. ph 13:10 Condition: stable 13:10 Instructed on the need for admit, 18:40 Patient left the ED. ph NIH Stroke Scale - NIH Stroke Score Date: 10/29/2024 Time: 08:20 Total Score = 2 10. Dysarthria (speech clarity - read or repeat words) - 0(Normal) 11. Extinction and Inattention (visual/tactile/auditory/spatial/personal) - 0(No abnormality) 1a. Level of Consciousness (LOC) - 0(Alert) 1b. Level of Consciousness (LOC) (Month \T\ Age) - 0(Both) 1c. LOC Commands (Open \T\ Closes Eyes/Rn Charge) - 0(Both) 2. Best Gaze (Lateral Gaze Paresis) - 0(Normal) 3. Visual Field Loss - 0(No visual loss) 4. Facial Palsy - 0(Normal) 5a. Left Arm: Motor (10-second hold) - 1(Drift) 5b. Right Arm: Motor (10-second hold) - 0(No drift) 6a. Left Leg: Motor (5-second hold - always test supine) - 0(No drift) 6b. Right Leg: Motor (5-second hold - always test supine) - 0(No drift) 7. Limb Ataxia (finger/nose \T\ heel/wei - test with eyes open) - 1(Present in one limb) 8. Sensory Loss (pinprick arms/legs/face) - 0(Normal) 9. Best Language: Aphasia (description/naming/reading) - 0(No aphasia) Initials: amy NIH Stroke Scale - NIH Stroke Score Date: 10/29/2024 Time: 08:59 Total Score = 2 10. Dysarthria (speech clarity - read or repeat words) - 0(Normal) 11. Extinction and Inattention (visual/tactile/auditory/spatial/personal) - 0(No abnormality) 1a. Level of Consciousness (LOC) - 0(Alert) 1b. Level of Consciousness (LOC) (Month \T\ Age) - 0(Both) 1c. LOC Commands (Open \T\ Closes Eyes/Rn Charge) - 0(Both) 2. Best Gaze (Lateral Gaze Paresis) - 0(Normal) 3. Visual Field Loss - 0(No visual loss) 4. Facial Palsy - 0(Normal) 5a. Left Arm: Motor (10-second hold) - 1(Drift) 5b. Right Arm: Motor (10-second hold) - 0(No drift) 6a. Left Leg: Motor (5-second hold - always test supine) - 0(No drift) 6b. Right Leg: Motor (5-second hold - always test supine) - 0(No drift) 7. Limb Ataxia (finger/nose \T\ heel/wei - test with eyes open) - 1(Present in one limb) 8. Sensory Loss (pinprick arms/legs/face) - 0(Normal) 9. Best Language: Aphasia (description/naming/reading) - 0(No aphasia) Initials: ms3 Signatures: Dispatcher [employer] Melissa Butler RN RN Joana Celis RN RN Freddie Xiong, KINGS RN Isaias Hernandez DO DO ms3 Kentrell Salazar rs6 Lelo Angela cj3 Corrections: (The following items were deleted from the chart) 07:44 07:42 Chief complaint: Patient states: Pain to L side of neck all the way down ss to L leg that began \T\ 0200 today ss 07:44 07:42 Onset of symptoms was October 29, 2024 at 02:00 [facility] 07:45 07:44 Reassessment: Pt reports she woke up with these symptoms this morning [facility] 07:46 07:44 Reassessment: Pt reports she woke up with these symptoms this morning, ss went to bed at 2115 last night
[2024-10-29] MEDS ORDERED: FOLIC ACID 1 MG TABLET ONE (09:09)
[2024-10-29] MEDS ORDERED: CLOPIDOGREL 75 MG TABLET ONE (09:09)
[2024-10-29] MEDS ORDERED: ONDANSETRON 4 MG/2 ML VIAL ONE (09:09)
[2024-10-29] MEDS ORDERED: MORPHINE 4 MG/ML SYR ONE (09:09)
--- NOTE | 2024-10-29 09:09 | RAD REPORT ---
EXAMINATION: ONE VIEW CHEST XR CLINICAL INDICATION: stroke TECHNIQUE: Frontal chest projection is submitted. Examination is limited by patient positioning and t echnique. COMPARISON: 03/27/2024 FINDINGS: The lungs are well inflated and clear. The heart is upper limit of normal in size. No displaced fract ures identified. IMPRESSION: No acute intrathoracic abnormalities.
--- NOTE | 2024-10-29 09:12 | P.HP ---
Certification for Inpatient Patient admitted to: Observation With expected LOS: <2 Midnights Patient will require the following post-hospital care: None Practitioner: I am a practitioner with admitting privileges, knowledge of patient current condition, hospital course, and medical plan of care. Services: Services provided to patient in accordance with Admission requirements found in Title 42 Section 412.3 of the Code of Federal Regulations Patient History Date of Service: 10/29/24 Reason for admission: CVA r/o History of Present Illness: aCry Gan is a 58 year old female with Pmhx diabetes mellitusIDDM, anxiety, depression, here to meet herniated disc lower back, hypertension, neuropathy, pancreatitis, rheumatoid arthritis, hypercholesterolemia who presents to the ED with chief complaint left-sided weakness that began yesterday after lunch time. Examination fluctuates, she started tremors of her head, could not lift her left arm or squeeze her left hand but could slightly move her left leg. Nurse reports patient is able to ambulate and use her left arm/hand while in the restroom. She was able to perform requested movements for Dr. Reed when she arrived to the ED. CT head reports "No evidence of acute intracranial abnormality." CTA head reports "No significant flow abnormality is identified" CTA neck reports "No significant flow abnormality of the neck vessels is identified." MRI brain reports "Negative for acutre CVA or other acute intracranial finding" Cary will be admitted to hospitalist service for further evaluation and treatment of CVA r/o, Dr. Avila consulted. Allergies adhesive tape Allergy (Verified 12/05/18 10:22) Itching/Hives/Rash Home Medications: Gabapentin 300 mg PO TID 07/15/18 Meclizine HCl 25 mg PO Q6HP PRN 07/15/18 Metformin HCl 1,000 mg PO BIDWM 07/15/18 lisinopriL [Prinivil*] 10 mg PO DAILY #30 tab 07/19/18 Atorvastatin Calcium 1 tab PO BEDTIME 09/28/18 Ferrous Sulfate [Iron] 1 tab PO DAILY 09/28/18 Furosemide 1 tab PO Q48H 09/28/18 Insulin Detemir [Levemir Flextouch] 20 units SQ LUNCH 09/28/18 Magnesium Oxide [Magnesium] 1 tab PO DAILY 09/28/18 Mv-Min/Iron/Folic/Calcium/Vitk [Women's Multivitamin Tablet] 1 tab PO DAILY 09/28/18 Omeprazole 1 cap PO DAILY PRN 09/28/18 Sennosides 1 tab PO DAILY PRN 09/28/18 Tramadol HCl [Ultram] 1 tab PO Q8H PRN 09/28/18 Acetaminophen 500 mg PO PRN 12/05/18 Calcium Carbonate [Tums Regular*] 750 mg PO PRN PRN 12/05/18 Cetirizine HCl 10 mg PO BEDTIME 12/05/18 Metoclopramide HCl [Reglan] 10 mg PO TID 12/05/18 Restore Pm 1 appl EACH EYE BEDTIME 12/05/18 Sertraline [Zoloft*] 50 mg PO DAILY 12/05/18 Smz./Tmp. [Bactrim Ds 800 MG/160 MG*] 1 tab PO Q12H 12/05/18 - Past Medical/Surgical History Diabetic: Yes -: Anxiety -: Depression -: Insulin Dependent Diabetes -: Edema -: 2 herniated disk lower back -: Fractured Vertebrae -: Hypertension -: Neuropathy -: High Cholesterol -: Rheumatoid Arthritis -: Acid Reflux -: Pancreatitis -: Appendectomy -: Tubal Ligation -: Nerve surgery left foot - Family History Father -: Heart disease, Hypertension, Diabetes, Other (see notes) Notes: high cholesterol Mother -: Heart disease, Hypertension, Diabetes, Other (see notes) Notes: high cholesterol - Social History Smoking Status: Never smoker Alcohol use: No CD- Drugs: No Caffeine use: Yes Review of Systems Other: per HPI Physical Examination - Physical Exam General: Alert HEENT: Atraumatic, Normocephalic Neck: Supple Respiratory: Clear to auscultation bilaterally, Normal air movement Cardiovascular: Normal pulses, Regular rate/rhythm, Normal S1 S2 Capillary refill: <2 Seconds Gastrointestinal: Normal bowel sounds, Soft and benign Musculoskeletal: No clubbing Integumentary: No breakdown Neurological: Normal speech, Normal tone - Studies Laboratory Data (last 24 hrs) 10/29/24 10/29/24 10/29/24 08:00 08:00 08:00 WBC 5.80 Hgb 11.5 L Hct 34.7 L Plt Count 192 PT 9.9 INR 0.86 APTT 30.4 Sodium Cancelled Potassium Cancelled BUN Cancelled Creatinine Cancelled Glucose Cancelled Magnesium Total Bilirubin AST ALT Alkaline Phosphatase 03/04/25 03/04/25 08:00 07:37 WBC Cancelled Hgb Cancelled Hct Cancelled Plt Count Cancelled PT INR APTT Sodium 135 L Potassium 4.5 BUN 28 H Creatinine 1.14 H Glucose 354 H Magnesium 2.2 Total Bilirubin 0.2 AST 11 L ALT 17 Alkaline Phosphatase 119 H Assessment and Plan - Plan Assessment and plan CVA rule out - Consulted Neurology - recommendations appreciated - Admit under observation status - Unable to evaluate NIHSS, fluctuating responses - Allow permissive hypertension for tonight - q4hr neurochecks - MRI brain reports "Negative for acutre CVA or other acute intracranial finding" - Ordered TTE - 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
[2024-10-29] MEDS: NA CHLORIDE 0.9% 1,000 ML IV SCH (10:00)
--- NOTE | 2024-10-29 10:23 | RAD REPORT ---
EXAMINATION: MRI BRAIN WITHOUT CONTRAST CLINICAL INDICATION: a STROKE ALER TECHNIQUE: Multiplanar multisequence MR images of the brain were obtained without intravenous contras t. Unless otherwise specified, incidental findings do not require dedicated imaging follow-up. COMPARISON: 10/29/2024 FINDINGS: INTRACRANIAL: Diffusion-weighted images show no acute or early subacute infarction. There is mild bra in atrophy with mildT2/FLAIR hyperintensities in the periventricular and deep white matter regions, likely representing chronic microvascular ischemic changes. There is no mass effect or midline shift. No abnormal extraaxial fluid collection. VASCULATURE: Normal signal voids in the larger intracranial arteries and dural venous sinuses. SINUSES: The paranasal sinuses and mastoid air cells are predominantly clear. BONE: The marrow signal pattern is within normal limits. IMPRESSION: Negative for acutre CVA or other acute intracranial finding.
[2024-10-29] MEDS: INSULIN REGULAR (HUMAN) 100 UNIT/ML SQ SCH (11:30)
--- NOTE | 2024-10-29 12:10 | EKG ---
Test Date: 2024-10-29 Test Time: 08:12:13 Manager Intensive Care Unit: TONY MEASUREMENT RESULTS: Intervals: Rate: 59 RI: 182 QRSD: 86 QT: 436 QTc: 431 [place]: P: 21 RI: 182 QRS: 21 T: 32 INTERPRETIVE STATEMENTS: Sinus bradycardia Otherwise normal ECG Compared to ECG 03/27/2024 21:22:20 Sinus rhythm no longer present Left ventricular hypertrophy no longer present Electronically Signed On 10-29-24 12:10:06 CRAB FISHER by Rhett Wiggins
--- NOTE | 2024-10-29 14:50 | RAD REPORT ---
Modified barium swallow exam with speech pathology service HISTORY: SWALLOWING DIFFICULTY Fluoroscopy Time: 2 minutes 25 seconds IMPRESSION: Please see the speech pathology service report for details. Barium contrast of multiple consistencies was provided the patient orally by the speech pathology dep artment. Fluoroscopic observation was performed during swallowing. The radiologist was not present for the examination. Provided images demonstrate no evidence for christi subglottic tracheal aspiration .
[2024-10-29 17:54] VITALS: BMI 41.8
[2024-10-29] MEDS: ATORVASTATIN 40 MG TAB PO SCH (20:29)
[2024-10-29] MEDS: ACETAMINOPHEN 500 MG TAB PO PRN (20:30)
[2024-10-29 23:54] VITALS: O2SAT 96
[2024-10-30] MEDS: TRAMADOL HCL 50 MG TAB PO PRN ×2 (03:25→11:58)
[2024-10-30] MEDS: ONDANSETRON 4 MG/2 ML VIAL IV ONE (03:25)
[2024-10-30] MEDS: GABAPENTIN 300 MG CAP PO PRN (03:26)
[2024-10-30 05:57] LABS: Absolute Eosinophils 0.2 K/uL (0-0.5); Absolute Lymphocytes (CBC) 1.8 K/uL (0.7-4.9); Absolute Monocytes 0.4 K/uL (0.1-1.3); Absolute Neutrophil 2.5 K/uL (1.8-8.0); Basophils % 0.8 % (0-1.3); Eosinophils % 4.3 % (0-4.4); Hematocrit 31.9 % (36.0-45.0); Hemoglobin 10.5 g/dL (12.0-15.0); Lymphocytes % 36.4 % (15.3-44.8); MCH 27.7 pg (27.0-35.0); MPV 8.8 fL (7.6-11.3); Neutrophils % 50.5 % (41.7-73.7); Nucleated Red Blood Cells % 0.1 % (0-0); Platelets 193 thou/uL (152-406); Red Cell Distribution Width 14.1 % (12.1-15.2)
[2024-10-30 06:18] LABS: Anion Gap 7.9 mEq/L (5.0-15.0); Magnesium 2.1 mg/dL (1.6-2.4); Phosphorus 3.8 mg/dL (2.5-4.9); Potassium 3.9 mEq/L (3.5-5.1); T4,Total 8.5 ug/dL (4.8-13.9); Thyroid Stimulating Hormone 2.86 uIU/mL (0.358-3.740)
[2024-10-30] MEDS: FOLIC ACID 1 MG TABLET PO SCH (08:24)
[2024-10-30] MEDS: ASPIRIN EC 81 MG TAB PO SCH (08:25)
[2024-10-30] MEDS: CLOPIDOGREL 75 MG TABLET PO SCH (08:25)
[2024-10-30] MEDS: ENOXAPARIN 40 MG/0.4 ML SQ SCH (08:25)
--- NOTE | 2024-10-30 09:30 | P.DS ---
Admission Date: 10/29/24 Discharge Date: 10/30/24 Disposition: ROUTINE DISCHARGE Discharge Condition: GOOD Reason for Admission: CVA r/o Brief History of Present Illness: Diagnosis HPI 10/29/24 Cary Gan is a 58 year old female with Pmhx diabetes mellitusIDDM, anxiety, depression, here to meet herniated disc lower back, hypertension, neuropathy, pancreatitis, rheumatoid arthritis, hypercholesterolemia who presents to the ED with chief complaint left-sided weakness that began yesterday after lunch time. Examination fluctuates, she started tremors of her head, could not lift her left arm or squeeze her left hand but could slightly move her left leg. Nurse reports patient is able to ambulate and use her left arm/hand while in the restroom. She was able to perform requested movements for Dr. Reed when she arrived to the ED. CT head reports "No evidence of acute intracranial abnormality." CTA head reports "No significant flow abnormality is identified" CTA neck reports "No significant flow abnormality of the neck vessels is identified." MRI brain reports "Negative for acutre CVA or other acute intracranial finding" Cary will be admitted to hospitalist service for further evaluation and treatment of CVA r/o, Dr. Avila consulted. Hospital Course: Patient was admitted and treated for the following diagnosis On 10/30/24, Cary was seen on morning rounds and deemed hemodynamically stable. Dr. Avila was consulted and has evaluated and has cleared for discharge with recommendations of follow up with him. Vital Signs/Physical Exam: Temp Pulse Resp BP Pulse Ox 97.9 F 55 17 161/65 H 96 10/30/24 08:00 10/30/24 08:00 10/30/24 08:00 10/30/24 08:00 10/30/24 08:00 Laboratory Data at Discharge: WBC 4.90 thou/uL (4.3-10.9) 10/30/24 05:33 Hgb 10.5 g/dL (12.0-15.0) L D 10/30/24 05:33 Hct 31.9 % (36.0-45.0) L 10/30/24 05:33 Plt Count 193 thou/uL (152-406) 10/30/24 05:33 PT 9.9 SECONDS (10.0-13.0) 10/29/24 08:00 INR 0.86 10/29/24 08:00 APTT 30.4 SECONDS (24.3-36.9) 10/29/24 08:00 Sodium 137 mEq/L (136-145) 10/30/24 05:33 Potassium 3.9 mEq/L (3.5-5.1) D 10/30/24 05:33 BUN 22 mg/dL (7-18) H 10/30/24 05:33 Creatinine 1.10 mg/dL (0.55-1.02) H 10/30/24 05:33 Glucose 241 mg/dL (74-106) H 10/30/24 05:33 Phosphorus 3.8 mg/dL (2.5-4.9) 10/30/24 05:33 Magnesium 2.1 mg/dL (1.6-2.4) 10/30/24 05:33 Total Bilirubin 0.2 mg/dL (0.2-1.0) 10/29/24 08:00 AST 11 U/L (15-37) L 10/29/24 08:00 ALT 17 U/L (13-56) 10/29/24 08:00 Alkaline Phosphatase 119 U/L (45-117) H 10/29/24 08:00 Triglycerides 204 mg/dL (<150) H 10/30/24 05:33 Cholesterol 185 mg/dL (<200) 10/30/24 05:33 HDL Cholesterol 51 mg/dL (40-60) 10/30/24 05:33 Cholesterol/HDL Ratio 3.63 10/30/24 05:33 Home Medications: Gabapentin 300 mg PO TID 07/15/18 Meclizine HCl 25 mg PO Q6HP PRN 07/15/18 Metformin HCl 1,000 mg PO BIDWM 07/15/18 lisinopriL [Prinivil*] 10 mg PO DAILY #30 tab 07/19/18 Atorvastatin Calcium 1 tab PO BEDTIME 09/28/18 Ferrous Sulfate [Iron] 1 tab PO DAILY 09/28/18 Furosemide 1 tab PO Q48H 09/28/18 Insulin Detemir [Levemir Flextouch] 20 units SQ LUNCH 09/28/18 Magnesium Oxide [Magnesium] 1 tab PO DAILY 09/28/18 Mv-Min/Iron/Folic/Calcium/Vitk [Women's Multivitamin Tablet] 1 tab PO DAILY 09/28/18 Omeprazole 1 cap PO DAILY PRN 09/28/18 Sennosides 1 tab PO DAILY PRN 09/28/18 Tramadol HCl [Ultram] 1 tab PO Q8H PRN 09/28/18 Acetaminophen 500 mg PO PRN 12/05/18 Calcium Carbonate [Tums Regular*] 750 mg PO PRN PRN 12/05/18 Cetirizine HCl 10 mg PO BEDTIME 12/05/18 Metoclopramide HCl [Reglan] 10 mg PO TID 12/05/18 Restore Pm 1 appl EACH EYE BEDTIME 12/05/18 Sertraline [Zoloft*] 50 mg PO DAILY 12/05/18 Physician Discharge Instructions: 1. Please call and schedule a follow-up appointment with your PCP in 3-5 days - Please follow-up with your PCP for medication refills/adjustments 2. Please call and schedule a follow-up appointment with Dr. Avila 1-2 weeks 3. Continue diabetic diet 4. activity restrictions fall precautions 5. Return to the ED if symptoms worsen Diet: Regular Activity: Fall precautions Followup: Mark Linder MD [Primary Care Provider] - Harvey Avila MD [ASSOCIATE-ACTIVE - CAN ADMIT] -
[2024-10-30] MEDS ORDERED: D10W 125 ML IV PRN (11:50)
[2024-10-30] MEDS ORDERED: GLUCAGON 1 MG/VIAL IM PRN (11:50)
[2024-10-30 12:05] VITALS: BP 178/71; TEMP 97.5
--- NOTE | 2024-10-30 12:40 | RAD REPORT ---
EXAMINATION: CT Abdomen Pelvis Wo Contrast CLINICAL INDICATION: Female, 58 years old. LUQ pain TECHNIQUE: CT abdomen and pelvis was performed, without IV contrast, as per department protocol. Axia l, sagittal and coronal reconstructions were obtained. One or more of the following dose reduction techniques were used: Automated exposure control, adjustment of the mA and kV according to the patien t size, and iterative reconstruction. Unless otherwise specified, incidental findings do not require dedicated imaging follow-up. COMPARISON: 12/20/2018 FINDINGS: The lack of intravenous contrast limits the sensitivity of this exam for evaluation of solid visceral organs, vascular structures, and retroperitoneum. LOWER CHEST: The visualized lung bases are clear. LIVER: Normal in size and contour. No focal lesion. BILIARY SYSTEM: No suspicious abnormalities. SPLEEN: Normal size. No focal lesion. PANCREAS: No mass, ductal dilation, or slim-pancreatic fluid. ADRENALS: Normal; no mass. KIDNEYS AND URETERS: Normal size and contour. No hydronephrosis. URINARY BLADDER: Normal contour. GASTROINTESTINAL TRACT: No evidence of bowel obstruction, significant free fluid, free air or abscess . Distal colonic diverticulosis without evidence of acute diverticulitis. APPENDIX: Appendix surgically absent. LYMPH NODES: No lymphadenopathy. MUSCULOSKELETAL: No acute or suspicious osseous abnormality. ADDITIONAL FINDINGS: None. IMPRESSION: No acute or concerning abnormalities in the abdomen or pelvis, with evaluation limited by lack of IV contrast. Distal colonic diverticulosis without evidence of acute diverticulitis.
== END 2024-10-30 15:19 | disposition home or self-care (01) ==
LOC: ER 07:35 → ERHOLD 09:44 → 4TH 17:52
PROVIDERS: ADMIT Internal Medicine; ATTEND Internal Medicine
DX: R07.9 Chest pain, unspecified (principal); R53.1 Weakness; R42 Dizziness and giddiness; N17.9 Acute kidney failure, unspecified; E11.9 Type 2 diabetes mellitus without complications; E11.65 Type 2 diabetes mellitus with hyperglycemia; M51.26 Other intervertebral disc displacement, lumbar region; K85.90 Acute pancreatitis without necrosis or infection, unspecified; I10 Essential (primary) hypertension; E78.00 Pure hypercholesterolemia, unspecified; M06.9 Rheumatoid arthritis, unspecified; G62.9 Polyneuropathy, unspecified; F41.9 Anxiety disorder, unspecified; F32.A Depression, unspecified; Z79.4 Long term (current) use of insulin
CPT/HCPCS: 93005; 93306; 85025 ×2; 80048 ×2; 36415; 83735 ×2; 84100; 85610; 80061; 82565; 82947 ×6; 80076; 85730; 84436; 84443; 83036; 84484; 70496; 70498; 74176; 70450; 71045; 74230; 70551; 92610; 92611; 97116; 97161; 96375; 96374; 99285; Q9967; J1650; J2405 ×2; J1815; J7030; G0378